=== PATIENT | female | born 1965 ===

== ENCOUNTER 2020-04-30 02:55 | Emergency (ER) | payer OTHER, SELFPAY ==
[2020-04-30 03:03] VITALS: BP 177/92; PULSE 80; RESP 18; TEMP 36.2; O2SAT 97
[2020-04-30 03:33] VITALS: BP 161/88; PULSE 76; RESP 15; TEMP 36.8; O2SAT 98; BMI 37.8
--- NOTE | 2020-04-30 03:47 | CT_ITS ---
EXAMINATION: CT ABDOMEN AND PELVIS WITHOUT CONTRAST CLINICAL INFORMATION: Left flank pain COMPARISON: 10/21/2017 TECHNIQUE: Multidetector volumetric imaging was performed from the superior aspect of the liver through the pubic symphysis. Sagittal and coronal reformatted images were obtained on the technologist's workstation. This CT examination was performed using dose optimization techniques as appropriate, variously including the following: *Automated exposure control *Adjustment of mA and/or kV according to patient size (this includes techniques or standardized protocols for targeted exams where dose is matched to indication/reason for exam; i.e. extremities or head) *Use of iterative reconstruction technique DLP: 760 mGy-cm FINDINGS: LUNG BASES: The visualized lung bases are unremarkable. LIVER, GALLBLADDER, AND BILIARY TREE: The liver is normal in size, shape, and attenuation. No focal hepatic lesion or biliary ductal dilatation is present. The gallbladder is unremarkable with no evidence of radiopaque gallstones, gallbladder wall thickening, or obvious pericholecystic inflammatory changes. PANCREAS: Unremarkable. SPLEEN: Unremarkable. ADRENAL GLANDS: Unremarkable. KIDNEYS AND URETERS: The kidneys are normal in size, shape, and attenuation. No hydronephrosis, hydroureter, or calculi seen. No perinephric stranding. BLADDER: Unremarkable. GASTROINTESTINAL TRACT: Status post William-en-Y gastric bypass. Small hiatal hernia. Normal caliber small bowel. No obstruction. Normal appendix. No colonic wall thickening or inflammatory change. ABDOMINAL WALL: No significant hernia is appreciated. LYMPH NODES: Normal. VASCULAR: Unremarkable. PELVIC VISCERA: The uterus and adnexa are unremarkable. OSSEOUS STRUCTURES: No acute or suspicious osseous abnormality. Evidence of previous left ventral hernia repair. CT/CT abdomen pelvis wo con IMPRESSION: No acute findings in the abdomen or pelvis. No hydronephrosis or nephrolithiasis. No inflammatory changes. Small hiatal hernia.
--- NOTE | 2020-04-30 03:51 | ED.FEMALEGU ---
HPI - Female Genitourinary General Chief complaint: Abdominal Pain Stated complaint: Abd pain Time Seen by Provider: 04/30/20 03:46 History of Present Illness HPI Narrative: This is a 54-year-old female with history of kidney stones who presents with acute onset of left flank pain that started approximately 9:00 p.m. last night and she reports radiates into the anterior aspect of her left abdomen and inguinal region. This is associated with chills that come along with the pain that she describes as sharp and worsening with time. Otherwise, she denies any fevers, nausea, vomiting, but does states she has had urinary frequency and burning. Related Data Home Medications Medication Instructions Recorded Confirmed azelastine 137 mcg (0.1 %) nasal 1 spray INTRANASAL BID 03/28/20 spray aerosol azithromycin 250 mg tablet mg PO DIRECTED 03/28/20 benzonatate 200 mg capsule mg PO 03/28/20 budesonide 0.5 mg/2 mL suspension mg INHALATION 03/28/20 for nebulization epinephrine 0.3 mg/0.3 mL IM 03/28/20 injection, auto-injector ergocalciferol (vitamin D2) 1,250 1,250 mcg PO QWEEK 03/28/20 mcg (50,000 unit) capsule fluticasone propionate 50 INTRANASAL 03/28/20 mcg/actuation nasal spray,suspension ketotifen fumarate 0.025 % (0.035 drp OPHTHALMIC (EYE) 03/28/20 %) eye drops lidocaine 5 % topical patch 0 patch TOPICAL 03/28/20 loratadine 10 mg tablet 10 mg PO DAILY 03/28/20 montelukast 10 mg tablet 10 mg PO DAILY 03/28/20 naproxen 500 mg tablet 500 mg PO BID 03/28/20 ondansetron 4 mg disintegrating mg PO 03/28/20 tablet prednisone 10 mg tablet 10 mg PO BID 03/28/20 tramadol 50 mg tablet 50 mg PO TID PRN 03/28/20 umeclidinium 62.5 mcg/actuation INHALATION 03/28/20 blister powder for inhalation Allergies Allergy/AdvReac Type Severity Reaction Status Date / Time Penicillins [PENICILLINS] Allergy Severe ANAPHYLAXIS Verified 04/30/20 03:42 shellfish derived Allergy Severe ANAPHYLAXIS Verified 04/30/20 03:42 aspirin [ASA] Allergy Unknown ITCHINESS, Verified 04/30/20 03:42 rash sumatriptan [From IMITREX] Allergy Unknown ANAPHYLAXIS, Verified 04/30/20 03:42 VOMITING, vomiting, dyspnea Review of Systems Review of Systems: Pertinent positives and negatives as stated in the HPI and 10 point review systems is otherwise negative. [facility] Past Medical History Source: nursing notes reviewed Medical History Anemia Asthma Kidney stones Surgical History Gastric bypass status for obesity H/O abdominoplasty History of renal stent Social History Social History Alcohol intake: unknown Smoked in Last 30 Days: No Use of substances other than those prescribed or required for medical reasons: No Advance Directives: No Advance Directives Information Provided: No Physical Exam Vital Signs: Vital Signs: Vital Signs Temp Pulse Resp BP Pulse Ox 04/30/20 05:01 67 150/78 H 04/30/20 03:33 98.2 F 76 15 161/88 H 98 04/30/20 03:03 97.2 F 80 18 177/92 H 97 Body Mass Index 37.8 VITAL SIGNS: Reviewed. GENERAL: Well developed, well nourished, in no acute distress. HEAD: Normocephalic/atraumatic, EYES: PERRLA, EOMI intact without pain, no nystagmus/pallor/icterus noted EARS: Ext canals without abnormality, TMs non-bulging and non-erythematous NOSE: Nares patent bilateral OROPHARYNX: no oral lesions noted, posterior pharynx clear and non-erythematous without noted tonsillar enlargement/erythema/exudates NECK: Supple, no adenopathy LUNGS: Normal breath sounds. No adventitious sounds or accessory muscle use. SpO2<97> CARDIOVASCULAR: Regular rate and rhythm without noted murmurs, no JVD or lower extremity edema. ABDOMEN: Soft, non-tender, non-distended with bowel sounds. No rigidity. No guarding. No palpable masses or hernias noted MUSCULOSKELETAL: No tenderness, deformities, or effusions noted on gross inspection. EXTREMITIES: No cyanosis, clubbing or edema. SKIN: Inspection of the skin reveals no rashes, ulcerations, jaundice, pallor, or petechiae. NEUROLOGIC: Alert and oriented x 4. Strength and sensation to light touch were grossly intact x 4. Course Course Course Narrative: This is a 54-year-old female with history and clinical presentation most consistent with likely renal colic and less likely diverticulitis, pyelonephritis Review of all investigations is negative for evidence renal colic, UTI, diverticulitis, SBO,pyelonephritis and patient has had complete resolution of her symptoms after receiving Tylenol. however, suspect that this was likely a very small stone that has passed based on urinalysis presence blood. All results and findings were discussed with the patient at bedside and she was discharged in stable condition with instructions to follow-up with the primary care provider. MDM - Female Genitourinary Lab Data Result diagrams: 04/30/20 Unknown 04/30/20 Unknown Labs: Lab Results 04/30/20 04/30/20 04/30/20 Range/Units 05:03 Unknown Unknown WBC 9.8 (4.8-10.8) X10*3/uL RBC 5.49 (4.20-5.50) X10*6/uL Hgb 14.0 (12.0-16.0) g/dl Hct 44.6 (37-47) % MCV 81.2 (80-98) fL MCH 25.5 L (27.0-33.0) pg MCHC 31.4 (31.0-35.0) g/dl RDW 14.7 (11.0-16.0) % Plt Count 329 (160-400) X10*3/uL MPV 9.8 (9.4-12.3) fL Immature Gran % (Auto) 0.3 (0.0-0.4) % Neut % (Auto) 62.8 (45-73) % Lymph % (Auto) 27.2 (20-40) % Gates % (Auto) 6.8 (2-11) % Eos % (Auto) 1.8 (0-4) % Baso % (Auto) 1.1 (0-2) % Lymph # (Auto) 2.7 (1.2-4.9) X10*3/uL Gates # (Auto) 0.7 (0.1-1.2) X10*3/uL Eos # (Auto) 0.2 (0.0-0.4) X10*3/uL Baso # (Auto) 0.1 (0.0-0.2) X10*3/uL Abs Immat Gran (auto) 0.03 (0.00-0.03) X10*3/uL Absolute Neuts (auto) 6.2 (2.0-8.3) X10*3/uL Absolute Nucleated RBC 0.000 (0.0-0.012) X10*3/uL Nucleated RBC % (auto) 0.0 (0.0-0.2) /100WBC Sodium 140 (135-145) mmol/L Potassium 4.4 (3.3-5.1) mmol/l Chloride 107 (96-108) mmol/L Carbon Dioxide 22 (22-29) mmol/L Anion Gap 15 (12-20) BUN 15 (9-16) mg/dL Creatinine 0.73 (0.5-1.4) mg/dL Estim Creat Clear Calc 85.9 Estimated GFR > 60 Random Glucose 103 (60-115) mg/dL Calcium 8.6 (8.4-10.2) mg/dL Total Bilirubin 0.4 (0.0-1.0) mg/dL AST 19 (5-31) U/L ALT 13 (0-31) U/L Alkaline Phosphatase 109 (39-117) U/L Total Protein 7.3 (6.5-8.0) g/dL Albumin 4.2 (3.5-5.0) g/dL Urine Color DARK YELLOW Urine Appearance HAZY Urine pH 5.5 (5.0-8.0) Ur Specific [place] >= 1.030 H (1.005-1.025) Urine Protein NEG (NEG-TRACE) MG/DL Urine Glucose (UA) NEG (NEG) MG/DL Urine Ketones NEG (NEG) MG/DL Urine Blood 3+ H (NEG) Urine Nitrite NEG (NEG) Ur Leukocyte Esterase NEG (NEG) Urine RBC 10-14 H (0) /HPF Urine WBC 0-2 (0-4) /HPF Ur Squamous Epith Cells 2+ /LPF Urine Bacteria NONE /LPF Urine Mucus 4+ /LPF Discharge Plan Discharge Clinical Impression: Acute flank pain Patient Disposition: Home, Self-Care Instructions: Flank Pain (ED) Additional Instructions: 1. Avoid all caffeinated, carbonated beverages and increase your water intake for the next 24-48 hours. The patient and/or family acknowledge understanding of results (as applicable), diagnosis, treatment plan, need for follow up, and symptoms that should prompt a return to the emergency room. Referrals: Physician,Unknown [Primary Care Provider] - 2 days (Follow-up flank pain)
[2020-04-30 04:06] LABS: Basophils Absolute Auto 0.1 X10*3/uL (0.0-0.2); Basophils Percent Auto 1.1 % (0-2); Eosinophils Absolute Auto 0.2 X10*3/uL (0.0-0.4); Eosinophils Percent Auto 1.8 % (0-4); Hematocrit 44.6 % (37-47); Imm Gran Abs Auto 0.03 X10*3/uL (0.00-0.03); Imm Gran Pct Auto 0.3 % (0.0-0.4); Lymphocytes Absolute Auto 2.7 X10*3/uL (1.2-4.9); Lymphocytes Percent Auto 27.2 % (20-40); MANUAL DIFF FLAG NO; Mean Corpuscular HGB Conc 31.4 g/dl (31.0-35.0); Mean Corpuscular Hemoglobin 25.5 pg (27.0-33.0); Mean Corpuscular Volume 81.2 fL (80-98); Mean Platelet Volume 9.8 fL (9.4-12.3); Monocytes Absolute Auto 0.7 X10*3/uL (0.1-1.2); Monocytes Percent Auto 6.8 % (2-11); Neutrophils Absolute Auto 6.2 X10*3/uL (2.0-8.3); Neutrophils Percent Auto 62.8 % (45-73); Platelet Count 329 X10*3/uL (160-400); Red Blood Count 5.49 X10*6/uL (4.20-5.50); Red Cell Distribution Width 14.7 % (11.0-16.0); White Blood Count 9.8 X10*3/uL (4.8-10.8)
[2020-04-30] MEDS: Acetaminophen 325 MG TABLET 975 MG PO (04:08)
[2020-04-30] MEDS: 0.9 % Sodium Chloride 1,000 ML 1000 ML IV (04:11)
[2020-04-30 04:35] LABS: Alanine Aminotransferase 13 U/L (0-31); Albumin Level 4.2 g/dL (3.5-5.0); Alkaline Phosphatase 109 U/L (39-117); Anion Gap 15 (12-20); Aspartate Amino Transferase 19 U/L (5-31); Bilirubin Total 0.4 mg/dL (0.0-1.0); Blood Urea Nitrogen 15 mg/dL (9-16); Calcium 8.6 mg/dL (8.4-10.2); Carbon Dioxide 22 mmol/L (22-29); Chloride 107 mmol/L (96-108); Creatinine Clr Calc Pharmacy 85.9; Estimated Glomerular Filt Rate > 60; Glucose Random 103 mg/dL (60-115); Potassium 4.4 mmol/l (3.3-5.1); Sodium 140 mmol/L (135-145); Total Protein 7.3 g/dL (6.5-8.0)
[2020-04-30 05:01] VITALS: BP 150/78; PULSE 67
[2020-04-30 05:21] LABS: Appearance Urine HAZY; Color Urine DARK YELLOW; Glucose Urine UA NEG (NEG); Leukocyte Esterase Urine NEG (NEG); Nitrite Urine NEG (NEG); PH 5.5 (5.0-8.0); Specific Gravity - Urine >= 1.030 (1.005-1.025); Urine Blood 3+ (NEG); Urine Ketones NEG (NEG); Urine Protein NEG (NEG-TRACE)
[2020-04-30 05:27] LABS: Mucus Urine 4+ /LPF; Squamous Epithelial Cell Urine 2+ /LPF; WBC Urine 0-2 /HPF (0-4)
--- NOTE | 2020-04-30 05:50 | PC.NURSE ---
PT A&O, DENIES ANY SOB OR CHEST PAIN. PT REPORTS FEELING BETTER. MEDICATED PER MAR.
== END 2020-04-30 06:05 | disposition home or self-care (01) ==
PROVIDERS: Emergency Provider Student in an Organized Health Care Education/Training Program
DX: R10.2 Pelvic and perineal pain (principal); R10.9 Unspecified abdominal pain; Z98.84 Bariatric surgery status; Z79.899 Other long term (current) drug therapy
CPT/HCPCS: 36415; 74176; 80053; 81001; 85025; 96360; 99284

== ENCOUNTER → 2020-08-04 15:23 | Outpatient (BNV) | payer OTHER, SELFPAY | PROVIDERS: PCP Internal Medicine; Visit Provider Internal Medicine Medical Oncology | DX: D50.9 Iron deficiency anemia, unspecified (principal) | CPT/HCPCS: 99212; 99213 ==

== ENCOUNTER → 2020-08-17 09:11 | Outpatient (BNVA) | payer OTHER, SELFPAY | PROVIDERS: PCP Internal Medicine; Visit Provider Hospitalist | DX: J44.9 Chronic obstructive pulmonary disease, unspecified (principal); J30.9 Allergic rhinitis, unspecified; T78.40XD Allergy, unspecified, subsequent encounter | CPT/HCPCS: 99212 ==

== ENCOUNTER 2020-09-12 09:10 | Outpatient (REF) | payer OTHER, SELFPAY ==
[2020-09-12 09:53] LABS: MANUAL DIFF FLAG NO
[2020-09-12 09:55] LABS: Basophils Absolute Auto 0.1 X10*3/uL (0.0-0.2); Eosinophils Absolute Auto 0.3 X10*3/uL (0.0-0.4); Eosinophils Percent Auto 4.6 % (0-4); Hematocrit 43.5 % (37-47); Hemoglobin 13.3 g/dl (12.0-16.0); Imm Gran Abs Auto 0.02 X10*3/uL (0.00-0.03); Imm Gran Pct Auto 0.3 % (0.0-0.4); Lymphocytes Absolute Auto 2.1 X10*3/uL (1.2-4.9); Lymphocytes Percent Auto 30.3 % (20-40); Mean Corpuscular HGB Conc 30.6 g/dl (31.0-35.0); Mean Corpuscular Hemoglobin 25.1 pg (27.0-33.0); Mean Corpuscular Volume 82.1 fL (80-98); Mean Platelet Volume 9.7 fL (9.4-12.3); Monocytes Absolute Auto 0.5 X10*3/uL (0.1-1.2); Monocytes Percent Auto 7.8 % (2-11); Neutrophils Absolute Auto 3.9 X10*3/uL (2.0-8.3); Platelet Count 342 X10*3/uL (160-400); Red Cell Distribution Width 15.3 % (11.0-16.0); White Blood Count 6.9 X10*3/uL (4.8-10.8)
[2020-09-12 10:17] LABS: Alanine Aminotransferase 21 U/L (0-31); Albumin Level 4.3 g/dL (3.5-5.0); Alkaline Phosphatase 118 U/L (39-117); Anion Gap 14 (12-20); Aspartate Amino Transferase 21 U/L (5-31); Bilirubin Total 0.4 mg/dL (0.0-1.0); Blood Urea Nitrogen 13 mg/dL (9-16); Calcium 9.3 mg/dL (8.4-10.2); Carbon Dioxide 27 mmol/L (22-29); Chloride 106 mmol/L (96-108); Cholesterol 194 mg/dL; Estimated Glomerular Filt Rate > 60; Glucose Fasting 103 mg/dL (60-99); HDL Cholesterol 56 mg/dL; Iron 45 mcg/dL (30-160); LDL Cholesterol Calculated 113 mg/dl; Percent Iron Saturation 10 % (15-50); Potassium 4.5 mmol/L (3.3-5.1); Sodium 142 mmol/L (135-145); Total Iron Binding Capacity 442 mcg/dL (228-428); Total Protein 7.1 g/dL (6.5-8.0); Triglycerides 125 mg/dL; Unsaturated Iron Binding 397 ug/dL
[2020-09-12 10:37] LABS: TSH reflex Free T4 2.92 uIU/mL (0.32-4.0); Vitamin D 25-OH Total 28.5 ng/mL (>30)
[2020-09-12 10:49] LABS: Glucose Urine UA NEG (NEG); Leukocyte Esterase Urine NEG (NEG); Nitrite Urine NEG (NEG); PH 5.5 (5.0-8.0); Specific Gravity - Urine >= 1.030 (1.005-1.025); Urine Blood NEG (NEG); Urine Ketones NEG (NEG); Urine Protein NEG (NEG-TRACE)
[2020-09-12 11:00] LABS: Appearance Urine HAZY; Color Urine YELLOW
[2020-09-12 11:17] LABS: RBC Urine 0-2 /HPF (0); WBC Urine 0-2 /HPF (0-4)
[2020-09-12 11:18] LABS: Bacteria Urine TRACE /LPF; Mucus Urine 2+ /LPF; Squamous Epithelial Cell Urine 3+ /LPF
== END 2020-09-12 09:11 | disposition home or self-care (01) ==
LOC: HO.LAB 09:10
PROVIDERS: PCP Internal Medicine; Visit Provider Internal Medicine
DX: Z00.00 Encounter for general adult medical examination without abnormal findings (principal); J45.40 Moderate persistent asthma, uncomplicated; E66.9 Obesity, unspecified; D50.9 Iron deficiency anemia, unspecified; K21.9 Gastro-esophageal reflux disease without esophagitis; E55.9 Vitamin D deficiency, unspecified
CPT/HCPCS: 36415; 80053; 80061; 81001; 82306; 83540; 84443; 85025

== ENCOUNTER → 2020-12-19 09:34 | Outpatient (BNVA) | payer OTHER, SELFPAY | PROVIDERS: PCP Internal Medicine; Visit Provider Hospitalist | DX: J44.9 Chronic obstructive pulmonary disease, unspecified (principal); T78.40XD Allergy, unspecified, subsequent encounter; J30.9 Allergic rhinitis, unspecified; K21.9 Gastro-esophageal reflux disease without esophagitis; Z79.899 Other long term (current) drug therapy | CPT/HCPCS: 99212 ==

== ENCOUNTER 2021-03-22 10:46 | Outpatient (REF) | payer OTHER, SELFPAY ==
--- NOTE | ~2021-03-22 | XR_ITS ---
EXAMINATION: XR LUMBOSACRAL SPINE CLINICAL INFORMATION: Low back pain. COMPARISON: None TECHNIQUE: Three views of the lumbosacral spine. FINDINGS: There is normal lumbar lordosis. The vertebral heights and alignment is normal. Mild loss of L5-S1 disc height is seen. There is no visible acute fracture, dislocation or lytic process seen. The soft tissues are normal. The SI joints are symmetrical. No fracture or lytic process seen. XR/XR lumbar spine 2-3V IMPRESSION: Mild degenerative disc changes L5-S1 disc level. No visible acute fracture, dislocation or subluxation seen.
== END 2021-03-22 10:47 | disposition home or self-care (01) ==
LOC: HO.XRAY 10:46
PROVIDERS: PCP Internal Medicine; Visit Provider Internal Medicine
DX: M54.5 Low back pain (principal)
CPT/HCPCS: 72100

== ENCOUNTER → 2021-04-07 10:57 | Outpatient (BNVA) | payer OTHER, SELFPAY | PROVIDERS: PCP Internal Medicine; Visit Provider Hospitalist | DX: J44.9 Chronic obstructive pulmonary disease, unspecified (principal); T78.40XD Allergy, unspecified, subsequent encounter; J30.9 Allergic rhinitis, unspecified; K21.9 Gastro-esophageal reflux disease without esophagitis | CPT/HCPCS: 90686; 99212 ==

== ENCOUNTER 2021-11-10 09:43 | Outpatient (REF) | payer OTHER, SELFPAY ==
[2021-11-10 10:09] LABS: MANUAL DIFF FLAG NO
[2021-11-10 10:39] LABS: Basophils Absolute Auto 0.1 X10*3/uL (0.0-0.2); Basophils Percent Auto 0.9 % (0-2); Eosinophils Absolute Auto 0.3 X10*3/uL (0.0-0.4); Eosinophils Percent Auto 3.4 % (0-4); Hematocrit 40.8 % (37.0-47.0); Hemoglobin 12.7 g/dl (12.0-16.0); Imm Gran Abs Auto 0.01 X10*3/uL (0.00-0.03); Imm Gran Pct Auto 0.1 % (0.0-0.4); Lymphocytes Absolute Auto 2.7 X10*3/uL (1.2-4.9); Lymphocytes Percent Auto 30.3 % (20-40); Mean Corpuscular HGB Conc 31.1 g/dl (31.0-35.0); Mean Corpuscular Hemoglobin 24.3 pg (27.0-33.0); Monocytes Absolute Auto 0.4 X10*3/uL (0.1-1.2); Neutrophils Absolute Auto 5.3 x10*3/uL (2.0-8.3); Neutrophils Percent Auto 60.3 % (45-73); Platelet Count 401 X10*3/uL (160-400); Red Blood Count 5.23 X10*6/uL (4.20-5.50); Red Cell Distribution Width 15.4 % (11.0-16.0); White Blood Count 8.8 X10*3/uL (4.8-10.8)
[2021-11-10 11:00] LABS: Alanine Aminotransferase 20 U/L (0-31); Albumin Level 4.1 g/dL (3.5-5.0); Alkaline Phosphatase 113 U/L (39-117); Anion Gap 11 (12-20); Aspartate Amino Transferase 21 U/L (5-31); Bilirubin Total 0.3 mg/dL (0.0-1.0); Blood Urea Nitrogen 12 mg/dL (9-16); Calcium 9.6 mg/dL (8.4-10.2); Carbon Dioxide 22 mmol/L (22-29); Chloride 110 mmol/L (96-108); Cholesterol 196 mg/dL; Estimated Glomerular Filt Rate > 60; Glucose Fasting 96 mg/dL (60-99); HDL Cholesterol 54 mg/dL; LDL Cholesterol Calculated 111 mg/dl; Potassium 4.2 mmol/L (3.3-5.1); Sodium 139 mmol/L (135-145); Total Protein 7.2 g/dL (6.5-8.0); Triglycerides 159 mg/dL
[2021-11-10 11:22] LABS: TSH reflex Free T4 2.04 uIU/mL (0.32-4.0); Vitamin D 25-OH Total 27.8 ng/mL (>30)
[2021-11-10 12:13] LABS: Appearance Urine CLEAR; Color Urine YELLOW; Glucose Urine UA NEG (NEG); Leukocyte Esterase Urine NEG (NEG); Nitrite Urine NEG (NEG); Specific Gravity - Urine 1.025 (1.005-1.025); Urine Blood NEG (NEG); Urine Ketones NEG (NEG); Urine Protein NEG (NEG-TRACE)
== END 2021-11-10 09:44 | disposition home or self-care (01) ==
LOC: HO.LAB 09:43
PROVIDERS: PCP Internal Medicine; Visit Provider Internal Medicine
DX: Z00.00 Encounter for general adult medical examination without abnormal findings (principal); K21.9 Gastro-esophageal reflux disease without esophagitis; E66.9 Obesity, unspecified; E55.9 Vitamin D deficiency, unspecified; J44.9 Chronic obstructive pulmonary disease, unspecified
CPT/HCPCS: 36415; 80053; 80061; 81003; 82306; 84443; 85025

== ENCOUNTER → 2021-11-21 11:30 | Outpatient (BNVA) | payer OTHER, SELFPAY | PROVIDERS: PCP Internal Medicine; Referring Provider Internal Medicine; Visit Provider Nurse Practitioner | DX: Z01.818 Encounter for other preprocedural examination (principal) | CPT/HCPCS: 99202 ==

== ENCOUNTER → 2021-11-28 07:55 | Outpatient (BNVA) | payer OTHER, SELFPAY | PROVIDERS: PCP Internal Medicine; Visit Provider Hospitalist | DX: Z23 Encounter for immunization (principal); J44.9 Chronic obstructive pulmonary disease, unspecified; J30.9 Allergic rhinitis, unspecified; K21.9 Gastro-esophageal reflux disease without esophagitis; T78.40XD Allergy, unspecified, subsequent encounter | CPT/HCPCS: 90471; 90732; 99212 ==

== ENCOUNTER → 2022-06-04 09:05 | Outpatient (BNVA) | payer OTHER, SELFPAY | PROVIDERS: PCP Internal Medicine; Visit Provider Hospitalist | DX: J44.9 Chronic obstructive pulmonary disease, unspecified (principal); T78.40XD Allergy, unspecified, subsequent encounter; J30.9 Allergic rhinitis, unspecified; K21.9 Gastro-esophageal reflux disease without esophagitis; Z79.899 Other long term (current) drug therapy; Z23 Encounter for immunization | CPT/HCPCS: 90471; 90677; 99212 ==

== ENCOUNTER 2022-08-02 10:24 | Outpatient (REF) | payer OTHER, SELFPAY ==
--- NOTE | ~2022-08-02 | XR_ITS ---
EXAMINATION: XR SHOULDER, RIGHT CLINICAL INFORMATION: Pain in right shoulder COMPARISON: X-ray the right shoulder December 2018 TECHNIQUE: AP external rotation, Grashey, scapular Y, and axillary views of the right shoulder. FINDINGS: The bones and soft tissues are normal. No fracture. Glenohumeral and acromioclavicular alignment is anatomic with normal joint space. No abnormal soft tissue calcifications. XR/XR shoulder RT min 2V IMPRESSION: Normal right shoulder.
== END 2022-08-02 10:25 | disposition home or self-care (01) ==
LOC: HO.XRAY 10:24
PROVIDERS: PCP Internal Medicine; Visit Provider Nurse Practitioner Family
DX: M25.511 Pain in right shoulder (principal)
CPT/HCPCS: 73030

== ENCOUNTER 2022-09-07 15:56 | Outpatient (REF) | payer OTHER, SELFPAY ==
--- NOTE | ~2022-09-07 | XR_ITS ---
EXAMINATION: XR SHOULDER, RIGHT CLINICAL INFORMATION: 57-year-old female patient with right shoulder pain. COMPARISON: X-rays of the right shoulder on 08/02/2022. (Normal). TECHNIQUE: Three views of the right shoulder. FINDINGS: The bones and soft tissues are normal. No fracture. Glenohumeral and acromioclavicular alignment is anatomic with normal joint space. No abnormal soft tissue calcifications. XR/XR shoulder RT min 2V IMPRESSION: Normal right shoulder.
== END 2022-09-07 15:57 | disposition home or self-care (01) ==
LOC: HO.HOSX 15:56
PROVIDERS: Visit Provider Physician Assistant
DX: M75.101 Unspecified rotator cuff tear or rupture of right shoulder, not specified as traumatic (principal)
CPT/HCPCS: 73030; 99202

== ENCOUNTER → 2022-12-07 09:17 | Outpatient (BNVA) | payer OTHER, SELFPAY | PROVIDERS: PCP Internal Medicine; Visit Provider Hospitalist | DX: J44.9 Chronic obstructive pulmonary disease, unspecified (principal); J30.9 Allergic rhinitis, unspecified; K21.9 Gastro-esophageal reflux disease without esophagitis; T78.40XD Allergy, unspecified, subsequent encounter | CPT/HCPCS: 99212 ==

== ENCOUNTER → 2022-12-14 08:17 | Outpatient (BNVA) | payer OTHER, SELFPAY | PROVIDERS: PCP Internal Medicine; Visit Provider Physician Assistant | DX: M75.101 Unspecified rotator cuff tear or rupture of right shoulder, not specified as traumatic (principal) | CPT/HCPCS: 99212 ==

== ENCOUNTER 2022-12-27 11:52 | Outpatient (REF) | payer OTHER, SELFPAY ==
--- NOTE | ~2022-12-27 | XR_ITS ---
EXAMINATION: XR CHEST 2 VIEWS CLINICAL INFORMATION: COPD. COMPARISON: Radiographs dated 01/07/2020. TECHNIQUE: Frontal and lateral views of the chest were obtained. FINDINGS: The heart, great vessels, pulmonary vasculature and mediastinum are normal. The lungs show no focal infiltrate, effusion or pneumothorax. There is no acute osseous abnormality. Orthopedic anchors are applied to the left humeral head. XR/XR chest 2V IMPRESSION: No active cardiopulmonary disease.
--- NOTE | ~2022-12-27 | XR_ITS ---
EXAMINATION: XR HIP, LEFT CLINICAL INFORMATION: Pain. COMPARISON: None available. TECHNIQUE: AP and frog-leg lateral views of the left hip. FINDINGS: No fracture. Alignment is anatomic. Hip joint space is maintained. Soft tissues are unremarkable. XR/XR hip LT min 2V IMPRESSION: Normal left hip.
== END 2022-12-27 11:53 | disposition home or self-care (01) ==
LOC: HO.XRAY 11:52
PROVIDERS: PCP Internal Medicine; Visit Provider Hospitalist
DX: M25.552 Pain in left hip (principal); J44.9 Chronic obstructive pulmonary disease, unspecified
CPT/HCPCS: 71046; 73502

== ENCOUNTER 2023-01-07 11:34 | Outpatient (AMB) | payer OTHER, SELFPAY ==
--- NOTE | 2023-01-07 11:54 | MHC.OFFWIV ---
Intake Vital Signs 01/07/23 11:55 Height 5 ft BP 120/70 Blood Pressure Location Lt brachial Position Sitting Pulse 91 Pulse Source Pulse Oximeter Temp 97.4 F Temp Source Temporal Artery Scan Pulse Oximetry (%) 95 Oxygen Delivery Method Room Air Intake Visit Reasons: EP, Sinus, SOB, Sore throat [phone] Intake Note: Triaged pt in waiting room due to complaining of SOB. Pt in no acute distress. Explains she has had a sinus infection for about 2 days, coming in today due to increased use of nebulizer and inhalers and no relief from OTC medications. Patient Tobacco Use Status: Never used Tobacco Allergies aspirin [ASA] Allergy (Severe, Verified 01/07/23 13:41) ITCHINESS, rash Penicillins [PENICILLINS] Allergy (Severe, Verified 01/07/23 13:41) ANAPHYLAXIS shellfish derived Allergy (Severe, Verified 01/07/23 13:41) ANAPHYLAXIS sumatriptan [From IMITREX] Allergy (Unknown, Verified 01/07/23 13:41) ANAPHYLAXIS, VOMITING, vomiting, dyspnea Medication List - Last Reconciled 01/07/23 by Mahendra Geiger MD albuterol sulfate 2.5 mg (3 mL) inhalation QID PRN 30 days [BACK BRACE As directed] benzonatate 200 mg PO BID PRN 30 days benzonatate 200 mg PO BID PRN 30 days blood pressure monitor As directed diclofenac sodium 3% 1 appl topical BID 90 days epinephrine 0.3 mg (0.3 mL) IM DAILY PRN 30 days ergocalciferol (vitamin D2) 1,250 mcg PO QWEEK fluticasone furoate-vilanterol 200-25 mcg/dose (Breo Ellipta) 1 inh inhalation DAILY 90 days ggjwpqkivcb-odvwbdkvp-womyhpor 200-62.5-25 mcg (Trelegy Ellipta) 1 inh inhalation DAILY 90 days furosemide 20 mg PO QAM PRN ipratropium-albuterol 0.5 mg-3 mg(2.5 mg base)/3 mL 3 mL inhalation BID 90 days ketotifen fumarate 0.025%(0.035%) ([place]) 1 drp ophthalmic (eye) BID levalbuterol tartrate 45 mcg/actuation (Xopenex HFA) 2 puffs PO Q6H PRN 90 days lidocaine 5% 1 patch topical DAILY PRN 30 days loratadine 10 mg PO DAILY 90 days montelukast (Singulair) 10 mg PO DAILY 90 days naproxen 500 mg PO BID PRN omeprazole 40 mg PO QAM 30 days ondansetron 4 mg PO BID-TID PRN 30 days roflumilast (Daliresp) 500 mcg PO DAILY 90 days terbinafine HCl 250 mg PO DAILY tizanidine 2 mg PO Q8H PRN tramadol 50 mg PO TID PRN 10 days umeclidinium 62.5 mcg/actuation (Incruse Ellipta) 1 inh PO DAILY venlafaxine ER (Effexor XR) 37.5 mg PO DAILY Do you need a note to return to daycare/school/sports/work: No HPI EP, Sinus, SOB, Sore throat [phone] HPI Details Patient presents for a sick visit. Reporting symptoms of sinus congestion, sore throat and difficulty swallowing. Low-grade fever. No family member is sick. No recent travel. Patient reports symptoms of malaise and fatigue. [facility] Medical History (Updated 01/07/23 @ 13:42 by Mahendra Geiger MD) Anemia Asthma Asthma-COPD overlap syndrome Chronic allergic rhinitis Edema GERD without esophagitis Kidney stones Migraines Obesity (BMI 30-39.9) Osteoarthritis Primary osteoarthritis of left knee Severe allergic reaction Vitamin D deficiency Surgical History (Updated 09/21/22 @ 09:43 by Arnoldo Powers MD) H/O abdominoplasty H/O section History of bilateral tubal ligation History of renal stent Hx of gastric bypass (~2006) Hx of rotator cuff surgery (~2017) Hx of ventral hernia repair Family History Father History of heart surgery Hx of blood clots Mother Heart problem Paternal Grandfather Skin cancer Social History Household Members: Children Housing: Apartment Are you a primary urgent care technician to a significant other at home: No Do you presently have visiting nurse or other home services: No Alcohol intake: current Alcohol intake frequency: a few times a month Alcohol type: wine Patient Tobacco Use Status: Never used Tobacco e-Cigarette/Vaping Use: Never Used Second Hand Smoke Exposure: No service: No Current occupational status: unemployed Cognitive needs: No Hearing needs: No Vision needs: No Physical Exam Vital Signs: Last Vital Signs Temp 97.4 F 01/07/23 11:55 Pulse 91 01/07/23 11:55 BP 120/70 01/07/23 11:55 Pulse Ox 95 01/07/23 11:55 Oxygen Delivery Method Room Air 01/07/23 11:55 Const General: cooperative and healthy appearing Nutritional Appearance: well nourished Orientation/consciousness: patient oriented x3 Limitations: no limitations HEENT Head: Yes normal to inspection Eyes General: appearance normal, both eyes and all related structures Neck Neck: Yes normal visual inspection Chest Chest palpation & inspection: normal palpation of entire chest wall Resp Effort & Inspection: normal respiratory effort Neuro General: patient oriented x3 Assessment & Plan Assessment & Plan (1) Upper respiratory tract infection: Code(s): J06.9 - Acute upper respiratory infection, unspecified Plan: Antibiotics ordered. Increase fluid intake. Tylenol for aches and pains. If symptoms worsen, follow-up here for a recheck. Coding Level of Care Code Est Pt Level 3 (70695) Diagnoses Upper respiratory tract infection J06.9
[2023-01-07 11:55] VITALS: BP 120/70; PULSE 91; TEMP 36.3; O2SAT 95
== END 2023-01-07 14:07 | disposition home or self-care (01) ==
PROVIDERS: PCP Internal Medicine; Visit Provider Internal Medicine
DX: J06.9 Acute upper respiratory infection, unspecified (principal)
CPT/HCPCS: 99213

== ENCOUNTER 2023-01-22 09:51 | Outpatient (AMB) | payer OTHER, SELFPAY ==
--- NOTE | 2023-01-22 10:49 | AM.OFFWIN_ITS ---
Intake Vital Signs 01/22/23 10:52 BP 130/90 H Blood Pressure Location Lt brachial Position Sitting Pulse 80 Pulse Source Pulse Oximeter Temp 97.7 F Temp Source Temporal Artery Scan Pulse Oximetry (%) 98 Oxygen Delivery Method Room Air Intake Visit Reasons: EP, Sore throat, nasal congestion (masked, lobby) Intake Note: Patient here as she has been having nasal congestion for about 2 weeks, now she has developed a sore throat and gets fevers at night. she also mentioned she has a cough and when she starts to cough she has a hard time catching her breathe since she is asthmatic. Patient Tobacco Use Status: Never used Tobacco Allergies aspirin [ASA] Allergy (Severe, Verified 01/22/23 10:52) ITCHINESS, rash Penicillins [PENICILLINS] Allergy (Severe, Verified 01/22/23 10:52) ANAPHYLAXIS shellfish derived Allergy (Severe, Verified 01/22/23 10:52) ANAPHYLAXIS sumatriptan [From IMITREX] Allergy (Unknown, Verified 01/22/23 10:52) ANAPHYLAXIS, VOMITING, vomiting, dyspnea Do you need a note to return to daycare/school/sports/work: No HPI HPI Comments History of Present Illness Details 57-year-old female presents with recurrent upper respiratory symptoms, states that her right side of neck the nose is tender and irritated, and that she has a sore throat. These are new symptoms since her visit on 01/07/2023, stated that she did take the Z-Jose with good effect. She does not report measured fevers, denies chills, chest pressure, palpitations, nausea, vomiting, and weakness. [facility] Medical History Anemia Asthma Asthma-COPD overlap syndrome Chronic allergic rhinitis Edema GERD without esophagitis Kidney stones Migraines Obesity (BMI 30-39.9) Osteoarthritis Primary osteoarthritis of left knee Severe allergic reaction Vitamin D deficiency Surgical History H/O abdominoplasty H/O section History of bilateral tubal ligation History of renal stent Hx of gastric bypass (~2006) Hx of rotator cuff surgery (~2017) Hx of ventral hernia repair Family History Father History of heart surgery Hx of blood clots Mother Heart problem Paternal Grandfather Skin cancer Social History Household Members: Children Housing: Apartment Are you a primary patient care secretary to a significant other at home: No Do you presently have visiting nurse or other home services: No Alcohol intake: current Alcohol intake frequency: a few times a month Alcohol type: wine Patient Tobacco Use Status: Never used Tobacco e-Cigarette/Vaping Use: Never Used Second Hand Smoke Exposure: No service: No Current occupational status: unemployed Cognitive needs: No Hearing needs: No Vision needs: No Review of Systems Const Details: Constitutional: No Fever, No Chills ENT/Mouth: No Ear Pain, positive Hoarseness, positive sore throat, positive nasal congestion Eyes: No Eye Pain, No Swelling, No Redness, No Foreign Body Cardiovascular: No Chest Pain, No SOB Respiratory: Positive Cough, No Dyspnea Gastrointestinal: No Nausea, No Vomiting, No Diarrhea, No abdominal Pain Genitourinary: No Dysuria, No Hematuria Musculoskeletal: No joint pain, No Myalgias, No Joint Swelling Skin: No Skin lacerations, No rash All systems reviewed & are unremarkable except as noted in HPI and below Physical Exam Vital Signs: Last Vital Signs Temp 97.7 F 01/22/23 10:52 Pulse 80 01/22/23 10:52 BP 130/90 H 01/22/23 10:52 Pulse Ox 98 01/22/23 10:52 Oxygen Delivery Method Room Air 01/22/23 10:52 Appearance: Alert. Oriented X3. Mild distress. Eyes: Pupils equal, round and reactive to light. ENT: Pharynx erythematous, bilateral tonsillar swelling with exudates. Centor scale 2. No cervical lymphadenopathy. No mastoid tenderness. No nuchal rigidity. No indication of peritonsillar abscess or epiglottitis. Naris red to the right side with rhinorrhea and boggy turbinates. Neck: Normal inspection. Neck supple. No vertebral tenderness or step-offs. No meningeal signs. CVS: Normal heart rate and rhythm. Pulses normal. Respiratory: No respiratory distress. Expiratory wheezing noted. Skin: Skin warm and dry. Normal skin color. Normal skin turgor. Extremities: No lower extremity edema. Gait well balanced well coordinated. Neuro: No motor deficit. No sensory deficit. Cranial nerves 2-12 intact. Results AMB Rapid Strep AMB Rapid Strep Negative Last Edit by ZIGGY Mckinney on 01/22/23 11:04 Results Reviewed Results Reviewed: Laboratory Last Values Strep Scn [facility] Negative 01/22/23 11:03 Assessment & Plan Assessment & Plan (1) Upper respiratory tract infection: Code(s): J06.9 - Acute upper respiratory infection, unspecified Plan 57-year-old female presents with recurrent upper respiratory symptoms, states that her right side of neck the nose is tender and irritated, and that she has a sore throat. These are new symptoms since her visit on 01/07/2023, stated that she did take the Z-Jose with good effect. She does not report measured fevers, denies chills, chest pressure, palpitations, nausea, vomiting, and weakness. Patient appears tired, has expiatory wheezing, pharyngitis with tonsillar exudates, Centor scale 2, no posterior or anterior cervical lymphadenopathy noted. Reddened naris to the right side with rhinorrhea and boggy terminates. Notation of peritonsillar abscess or epiglottitis. No nuchal rigidity. No mastoid tenderness. Imaging is not indicated, patient does have scattered expiratory wheezing, no tactile fremitus. Low likelihood of pneumonia, patient does have stable vital signs that are within normal limits, is alert oriented x4, nontoxic and afebrile. Was treated with antibiotics on 01/07/2023 for similar presentation. Considering that is patient has significant respiratory issues, and is followed by pulmonology on a regular basis, for asthma COPD overlap syndrome, plan of care to treat with an antibiotic. Will treat with Bactrim DS for 5 days. Patient verbalized understanding of discharge instructions. Verbalized understandings of signs and symptoms indicating need for emergent intervention. Orders: Orders SARS-CoV2/FLU/RSV Today R09.89 - Other specified symptoms and signs involving the circulatory and respiratory systems Caitlyn Howe NP AMB Rapid Strep Screen Today Z13.9 - Encounter for screening, unspecified Mahendra Geiger MD Medications: New sulfamethoxazole-trimethoprim 800-160 mg (Bactrim DS) 1 tab PO Q12H 10 tabs 0RF 5 days Caitlyn Howe NP Patient Instructions: Usted fue evaluado por s?ntomas continuos de las v?as respiratorias superiores, con dolor de garganta e irritaci?n de la nariz del lado derecho. Utilice un aerosol nasal de soluci?n salina para ayudar con la humedad. [place] Bactrim DS cada 12 horas catherine los pr?ximos 5 d?as. Angelita medicamento es un antibi?kacey. [place] Tylenol 650 mg cada 6 horas y Motrin 600 mg cada 6 horas seg?n sea necesario para controlar el dolor y la fiebre. Considere ericka estos medicamentos con 3 horas de diferencia para controlar el dolor y la fiebre cada 3 horas. Anote a qu? hora yakelin estos medicamentos para evitar catalina sobredosis accidental. Motrin es el mismo medicamento que Advil e ibuprofeno. Tylenol es el mismo medicamento que el paracetamol. [place] por elegir esta atenci?n de urgencia para [place] evaluaci?n. Por favor, thien un seguimiento con el m?dico de atenci?n primaria seg?n sea necesario. Regrese al departamento de emergencias por cualquier s?ntoma nuevo, preocupante o que empeore. You were evaluated for continuing upper respiratory symptoms, with sore throat and right-sided nose irritation. Please use saline nasal spray to help with moisture. Take Bactrim DS every 12 hours for the next 5 days. This medication is an antibiotic. Alternate Tylenol 650 mg every 6 hours and Motrin 600 mg every 6 hours as needed for pain and fever management. Consider taking these medications 3 hours apart so you have pain and fever management every 3 hours. Write down what time you take these medications to prevent accidental overdose. Motrin is the same medication as Advil and ibuprofen. Tylenol is the same medication as acetaminophen. Thank you for choosing this urgent care for evaluation. Please follow-up with primary care physician as needed. Return to the emergency department for any new, concerning, or worsening symptoms. Coding Level of Care Code Est Pt Level 3 (21325) Diagnoses Upper respiratory tract infection J06.9
[2023-01-22 10:52] VITALS: BP 130/90; PULSE 80; TEMP 36.5; O2SAT 98
== END 2023-01-22 13:36 | disposition home or self-care (01) ==
PROVIDERS: PCP Internal Medicine; Visit Provider Nurse Practitioner Family
DX: J06.9 Acute upper respiratory infection, unspecified (principal); J02.9 Acute pharyngitis, unspecified
CPT/HCPCS: 87880; 99213

== ENCOUNTER 2023-01-22 11:26 | Outpatient (REF) | payer OTHER, SELFPAY ==
[2023-01-22 14:31] LABS: Influenza A PCR NEGATIVE (Negative); Influenza B PCR NEGATIVE (Negative); Resp Syncy Virus RNA Qual PCR NEGATIVE (Negative); SARS COV2 PCR INHOUSE NEGATIVE (Negative)
== END 2023-01-22 11:27 | disposition home or self-care (01) ==
LOC: HO.LAB 11:26
PROVIDERS: Visit Provider Nurse Practitioner Family
DX: Z20.822 Contact with and (suspected) exposure to COVID-19 (principal); R09.89 Other specified symptoms and signs involving the circulatory and respiratory systems
CPT/HCPCS: 0241U

== ENCOUNTER 2023-01-31 09:39 | Outpatient (AMB) | payer OTHER, SELFPAY ==
--- NOTE | 2023-01-31 09:41 | MHC.PC.OV ---
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: No Accompanied by: Self / Same As Patient Allergies aspirin [ASA] Allergy (Severe, Verified 01/31/23 10:17) ITCHINESS, rash Penicillins [PENICILLINS] Allergy (Severe, Verified 01/31/23 10:17) ANAPHYLAXIS shellfish derived Allergy (Severe, Verified 01/31/23 10:17) ANAPHYLAXIS sumatriptan [From IMITREX] Allergy (Unknown, Verified 01/31/23 10:17) ANAPHYLAXIS, VOMITING, vomiting, dyspnea Medication List - Last Reconciled 01/31/23 by Arnoldo Powers MD albuterol sulfate 2.5 mg (3 mL) inhalation QID PRN 30 days [BACK BRACE As directed] benzonatate 200 mg PO BID PRN 30 days benzonatate 200 mg PO BID PRN 30 days blood pressure monitor As directed diclofenac sodium 3% 1 appl topical BID 90 days epinephrine 0.3 mg (0.3 mL) IM DAILY PRN 30 days ergocalciferol (vitamin D2) 1,250 mcg PO QWEEK fluticasone furoate-vilanterol 200-25 mcg/dose (Breo Ellipta) 1 inh inhalation DAILY 90 days sjfnhtqgobo-djshyeqcw-aaxkmfii 200-62.5-25 mcg (Trelegy Ellipta) 1 inh inhalation DAILY 90 days furosemide 20 mg PO QAM PRN ipratropium-albuterol 0.5 mg-3 mg(2.5 mg base)/3 mL 3 mL inhalation BID 90 days ketotifen fumarate 0.025%(0.035%) ([place]away) 1 drp ophthalmic (eye) BID levalbuterol tartrate 45 mcg/actuation (Xopenex HFA) 2 puffs PO Q6H PRN 90 days lidocaine 5% 1 patch topical DAILY PRN 30 days loratadine 10 mg PO DAILY 90 days montelukast (Singulair) 10 mg PO DAILY 90 days naproxen 500 mg PO BID PRN omeprazole 40 mg PO QAM 30 days ondansetron 4 mg PO BID-TID PRN 30 days roflumilast (Daliresp) 500 mcg PO DAILY 90 days terbinafine HCl 250 mg PO DAILY tizanidine 2 mg PO Q8H PRN tramadol 50 mg PO TID PRN 10 days umeclidinium 62.5 mcg/actuation (Incruse Ellipta) 1 inh PO DAILY venlafaxine ER (Effexor XR) 37.5 mg PO DAILY Tobacco use date assessed: 01/31/23 Dental Screening Dental Screen Date: 01/31/23 Did you have a dental visit in the last 12 months?: Yes Did you have a dental problem in the last 6 months where you did not have access to dental care?: No Was dental information given to patient?: Patient has dentist HPI asthma, migraine HPI Details Patient comes in today for her follow up visit States that she just finished her Rx for Bactrim DS that was recently prescribed for her by the walk-in clinic when she presented there for some respiratory symptoms last week (was also prescribed Azithromycin at the walk-in earlier last month for similar complaints) States that her respiratory symptoms have improved a lot (she does feel better overall) but have not completely cleared up yet as she is still experiencing some on and off cough and congestion She denies any fever or sore throat; denies any increased SOB and that her asthma is again better controlled lately Recalls that she was on Daliresp in the past and felt that her asthma was much better controlled back then when she was taking the Rx but states that her insurance recently declined to continue covering the Rx so she has not been on it for a while now Would like to see if she can be tried back on Daliresp Adds that she is still experiencing recurrent pain over her left lower back and left side and that the pain would often radiate down her left leg Would like to know how her hip x-rays done in late November 2022 came out States that she has been having a hard time walking and going up stairs due to her recent left-sided back and left leg pain Also needs a couple of her Rx refilled Patient was not able to get her previously ordered follow up labs done yet - states that she will try to get them done LAURO PFS Medical History Anemia Asthma Asthma-COPD overlap syndrome Chronic allergic rhinitis Edema GERD without esophagitis Kidney stones Migraines Obesity (BMI 30-39.9) Osteoarthritis Primary osteoarthritis of left knee Severe allergic reaction Vitamin D deficiency Surgical History H/O abdominoplasty H/O section History of bilateral tubal ligation History of renal stent Hx of gastric bypass (~2006) Hx of rotator cuff surgery (~2017) Hx of ventral hernia repair Family History Father History of heart surgery Hx of blood clots Mother Heart problem Paternal Grandfather Skin cancer Social History Household Members: Children Housing: Apartment Are you a primary neonatal critical care nurse to a significant other at home: No Do you presently have visiting nurse or other home services: No Alcohol intake: current Alcohol intake frequency: a few times a month Alcohol type: wine Patient Tobacco Use Status: Never used Tobacco e-Cigarette/Vaping Use: Never Used Second Hand Smoke Exposure: No service: No Current occupational status: unemployed Cognitive needs: No Hearing needs: No Vision needs: No Questionnaire PHQ-9 Over the last 2 weeks, how often have you been bothered by any of the following problems? 1. Little interest or pleasure in doing things: not at all 2. Feeling down, depressed, or hopeless: several days 3. Trouble falling or staying asleep, or sleeping too much: not at all 4. Feeling tired or having little energy: not at all 5. Poor appetite or overeating: not at all 6. Feeling bad about yourself - or that you are a failure or have let yourself or your family down: not at all 7. Trouble concentrating on things, such as reading the newspaper or watching television: not at all 8. Moving or speaking so slowly that other people could have noticed. Or the opposite - being so fidgety or restless that you have been moving around a lot more than usual: not at all 9. Thoughts that you would be better off or of hurting yourself in some way: not at all Total score: 1 Depression Screening Interpretation: Negative 98150 - PHQ-9 Billing: Yes Source: Developed by Justin Burgoset B.W. Eric, Randall Euceda and colleagues, with an educational ines from [facility]. Thrive Questionnaire Date Thrive assessed: 01/31/23 I am a: Patient What is your living situation today?: I have a steady place to live Within the past 12 months, did the food you bought not last and you didn't have the money to get more?: Never true Within the past 12 months, did you worry whether your food would run out before you got money to buy more?: Never true Do you have trouble paying for medicines?: No Do you have trouble getting transportation to medical appointments?: No Do you have trouble paying your heating and electricity bill?: No Do you have trouble taking care of your child, family member or friend?: No Do you have trouble with day-to-day activities such as bathing, preparing meals, shopping, managing finances, etc.?: No Are you currently unemployed and looking for a job?: No Are you interested in more education?: No Please select the resources that you would like help with: None Currently or been in a relationship where the following occur: no concerns reported AUDIT C Alcohol Use Questionnaire (AUDIT-C) 1. How often do you have a drink containing alcohol?: Never 3. How often do you have six or more drinks on one occasion?: Never Total Score: 0 Score Reviewed/Action Taken: Yes ONESIMO-7 AMB Questionnaire ONESIMO-7 Date ONESIMO - 7 assessed: 01/31/23 Feeling nervous, anxious, or on edge: 0 = Not at all Not being able to stop or control worryin = Not at all Worrying too much about different things: 0 = Not at all Trouble relaxin = Not at all Being so restless that it is hard to sit still: 0 = Not at all Becoming easily annoyed or irritable: 0 = Not at all Feeling afraid as if something awful might happen: 0 = Not at all Total ONESIMO-7 score (0-4 normal; 5-9 mild; 10-14 moderate; 15-21 severe): 0 Source: Developed by Drs. Luiz Suarez, Suri Reyes, Randall Euceda and colleagues, with an educational ines from [facility]. ONESIMO-7 Assessment Billing ONESIMO-7 Assessment Tool: ONESIMO-7 Assessment 24259 Review of Systems Const Denies chills, Denies fever(s), Reports headache(s) (on and off) and Denies malaise ENT Denies dysphagia, Reports dizziness (occasional), Denies otalgia, Reports headache(s) (on and off), Denies nasal congestion, Denies neck pain, Denies odynophagia and Denies sore throat Card Denies chest pain, Denies rapid heart rate, Denies irregular heart rhythm, Denies palpitations and Reports dyspnea (during fits of coughing ) Resp Reports chest congestion (resolving), Reports cough (on and off, gradually clearing up), Reports dyspnea (during fits of coughing ) and Denies wheezing GI Denies abdominal pain, Denies bloating, Denies constipation, Denies dysphagia, Denies heartburn, Denies diarrhea, Reports nausea (on and off), Denies odynophagia and Denies vomiting Denies hematuria, Denies urinary frequency, Denies dysuria and Denies urinary urgency Musc Reports back pain (over the left lower back - see HPI), Reports arthralgias (left hip), Denies joint swelling, Denies neck pain and Reports radiating pain into limb (into the left leg) Neuro Reports dizziness (occasional), Reports headache(s) (on and off) and Denies paresthesias Psych Denies anxiety and Denies depression Endo Denies palpitations Portillo/Lymph Denies easy bruising Aller/Immun Denies wheezing Physical exam (Primary Care) Vital Signs: Last Vital Signs Pulse 75 01/31/23 09:42 BP 144/80 H 01/31/23 09:42 Pulse Ox 97 01/31/23 09:42 Oxygen Delivery Method Room Air 01/31/23 09:42 BMI result Body Mass Index 37.0 Tobacco/Smoking Status: Tobacco use Status Tobacco use date assessed 01/31/23 01/31/23 09:47 Patient Tobacco Use Status Never used Tobacco 01/31/23 09:47 e-Cigarette/Vaping Use Never Used 01/31/23 09:47 PHQ-9: PHQ-9 Score PHQ-9: Total score 1 01/31/23 10:19 Depression Screening Interpretation: Negative Thrive Assessment: Date of Thrive Assessment Date Thrive assessed 01/31/23 01/31/23 09:47 Currently or been in a relationship where the following occur: no concerns reported Const General: no acute distress and alert HENMT Ears: TM's normal bilaterally and EAC's normal Throat: Yes posterior oropharynx normal and Yes tonsils normal (no TP congestion) Neck Neck: Yes no lymphadenopathy and Yes supple Thyroid: Thyroid normal Resp Auscultation: clear to auscultation bilaterally, no rales, rhonchi (occasional) throughout and no wheezes Cardio Rate: regular rate Rhythm: regular rhythm Heart sounds: no murmurs GI Palpation (GI): Soft to palpation and nontender Auscultation: normal bowel sounds General: Yes no CVA tenderness Back/Spine/Pelvis Back: no CVA tenderness Thoracic/Lumbar Spine: lumbar spinal tenderness (more on the left side) Sacroiliac joints: on the left tender to palpation Skin Rashes: no rashes Extrem General: Yes no clubbing, cyanosis or edema Right upper extremity: shoulder/upper arm Details: tenderness and abnormal ROM (slightly limited due to pain); no swelling Left lower extremity: hip/thigh Details: tenderness Location: of the hip Location: posteriorly Assessment and Plan Assessment & Plan (1) Asthma-COPD overlap syndrome: Code(s): J44.9 - Chronic obstructive pulmonary disease, unspecified Plan: Continue Breo Ellipta 1 inhalation QD, Incruse Ellipta 62.5 mcg QD, Montelukast 10 mg QD and Ventolin HFA 2 puffs 4 times a day as needed States that insurance recently declined to cover her Daliresp; feels that she was doing a lot better while on Daliresp and would like to try to get back on it is possible - Rx for Daliresp 500 mcg QD sent to pharmacy Follow up with pulmonary as scheduled (2) Upper respiratory tract infection: Code(s): J06.9 - Acute upper respiratory infection, unspecified Qualifiers: URI type: unspecified URI Qualified Code(s): J06.9 - Acute upper respiratory infection, unspecified Plan: Resolving; S/P empiric Tx with oral Bactrim DS, which she just completed May continue taking OTC cough/cold meds PRN for symptomatic relief (3) Left hip pain: Code(s): M25.552 - Pain in left hip Plan: X-rays of the left hip done a few weeks ago came out normal Patient is advised that her current pain may actually be radiated pain from her lower back or her SI joint Lumbar spine x-rays done a couple of years ago revealed (+) lumbar disc disease Will send her for repeat lumbar spine x-rays as well as x-rays of the left SI joint for further evaluation (4) Primary osteoarthritis of left knee: Code(s): M17.12 - Unilateral primary osteoarthritis, left knee Plan: Repeat x-rays of the left knee done in March 2019 showed (+) mild OA changes there was similar to findings on x-rays back in 2016 Continue Naproxen 500 mg twice a day with food as needed and Tramadol 50 mg 2 to 3 times a day as needed for pain Follow-up with Orthopedics as scheduled (5) Painful arc syndrome of right shoulder: Code(s): M75.101 - Unspecified rotator cuff tear or rupture of right shoulder, not specified as traumatic Plan: X-rays of the shoulder done recently came back negative Has been seen by orthopedics for this a few months ago but she declined offer for cortisone injection (had one done before that did not help) and referral for physical therapy Follow up with orthopedics as scheduled (6) Chronic allergic rhinitis: Code(s): J30.9 - Allergic rhinitis, unspecified Plan: Continue Fluticasone 50 mcg nasal spray QD and Loratadine 10 mg QD PRN - Rx refilled (7) Migraines: Code(s): G43.909 - Migraine, unspecified, not intractable, without status migrainosus Qualifiers: Migraine type: unspecified Status migrainosus presence: without status migrainosus Intractability: not intractable Qualified Code(s): G43.909 - Migraine, unspecified, not intractable, without status migrainosus Plan: Continue Sumatriptan 50 mg PRN and Fioricet 1 tablet 3 to 4 times a day as needed Reinforced avoidance of migraine triggers - that her migraine headaches have also been stable lately Follow up with neurology as scheduled (8) Iron deficiency anemia: Code(s): D50.9 - Iron deficiency anemia, unspecified Qualifiers: Iron deficiency anemia type: unspecified iron deficiency Qualified Code(s): D50.9 - Iron deficiency anemia, unspecified Plan: Corrected - H/H remained normal on her labs done a few months ago Will continue to monitor her CBC regularly Patient was not able to get her previously ordered (follow up) labs done yet - states that she will try to get them done LAURO Follow up with hematology as scheduled Was referred to GI for consideration for colonoscopy but she declined the procedure (9) Vitamin D deficiency: Code(s): E55.9 - Vitamin D deficiency, unspecified Plan: Continue Vitamin D2 76433 units once a week (10) GERD without esophagitis: Code(s): K21.9 - Gastro-esophageal reflux disease without esophagitis Plan: Dietary restrictions reinforced Continue Omeprazole 20 mg 2 capsules once a day (11) Obesity (BMI 30-39.9): Comment: S/P gastric bypass Code(s): E66.9 - Obesity, unspecified Plan: Reinforced diet/exercise as tolerated/lose weight Plan Follow up in 4 months Orders: Orders XR lumbar spine 2-3V Today M54.16 - Radiculopathy, lumbar region XR sacroiliac joint min 3V Today M54.16 - Radiculopathy, lumbar region Medications: New roflumilast (Daliresp) 500 mcg PO DAILY 30 days 30 tabs 3RF Refilled loratadine 10 mg PO DAILY 90 days 90 tabs 3RF for allergies montelukast (Singulair) 10 mg PO DAILY 90 days 90 tabs 3RF allergies Review Declined Pap Smear: 09/21/22 Patient declined Colonoscopy: 09/21/22 (but had a negative Cologuard done in March 2022) Coding Level of Care Code Est Pt Level 4 (49329) Diagnoses Asthma-COPD overlap syndrome J44.9 Upper respiratory tract infection J06.9 URI type: unspecified URI Left hip pain M25.552 Primary osteoarthritis of left knee M17.12 Painful arc syndrome of right shoulder M75.101 Chronic allergic rhinitis J30.9 Migraines G43.909 Migraine type: unspecified Status migrainosus presence: without status migrainosus Intractability: not intractable Iron deficiency anemia D50.9 Iron deficiency anemia type: unspecified iron deficiency Vitamin D deficiency E55.9 GERD without esophagitis K21.9 Obesity (BMI 30-39.9) E66.9 Additional Codes ONESIMO-7 Assessment Billing - ONESIMO-7 Assessment Tool: ONESIMO-7 Assessment 19477 ([id number])
[2023-01-31 09:42] VITALS: BP 144/80; PULSE 75; O2SAT 97; BMI 37.0
== END 2023-01-31 11:06 | disposition home or self-care (01) ==
PROVIDERS: PCP Internal Medicine; Visit Provider Internal Medicine
DX: J44.9 Chronic obstructive pulmonary disease, unspecified (principal); G43.909 Migraine, unspecified, not intractable, without status migrainosus; E55.9 Vitamin D deficiency, unspecified; K21.9 Gastro-esophageal reflux disease without esophagitis; M25.552 Pain in left hip; E66.9 Obesity, unspecified
CPT/HCPCS: 99214

== ENCOUNTER 2023-02-01 08:01 | Outpatient (REF) | payer OTHER, SELFPAY ==
--- NOTE | ~2023-02-01 | XR_ITS ---
EXAMINATION: Lumbar spine and sacroiliac joint x-rays CLINICAL INFORMATION: Pain. Radiculopathy COMPARISON: Lumbar spine x-ray March 2021 TECHNIQUE: 3 views of the lumbar spine and 3 views of the aortoiliac joint FINDINGS: Lumbar spine: There is curvature of the lower lumbar spine to the right. Bone alignment is otherwise normal. No fracture or dislocation. Normal disc spaces. Degenerative spondylosis at L3-L4 and L5-S1. Lower lumbar spine facet arthritis. Sacroiliac joints: Bone alignment is normal. No fracture or dislocation. The sacroiliac joints are normal. XR/XR sacroiliac joint min 3V IMPRESSION: Lumbar spine: Mild degenerative changes. Normal-appearing sacroiliac joints.
--- NOTE | ~2023-02-01 | XR_ITS ---
EXAMINATION: Lumbar spine and sacroiliac joint x-rays CLINICAL INFORMATION: Pain. Radiculopathy COMPARISON: Lumbar spine x-ray March 2021 TECHNIQUE: 3 views of the lumbar spine and 3 views of the aortoiliac joint FINDINGS: Lumbar spine: There is curvature of the lower lumbar spine to the right. Bone alignment is otherwise normal. No fracture or dislocation. Normal disc spaces. Degenerative spondylosis at L3-L4 and L5-S1. Lower lumbar spine facet arthritis. Sacroiliac joints: Bone alignment is normal. No fracture or dislocation. The sacroiliac joints are normal. XR/XR lumbar spine 2-3V IMPRESSION: Lumbar spine: Mild degenerative changes. Normal-appearing sacroiliac joints.
[2023-02-01 08:35] LABS: MANUAL DIFF FLAG NO
[2023-02-01 09:08] LABS: Basophils Absolute Auto 0.1 X10*3/uL (0.0-0.2); Basophils Percent Auto 1.1 % (0-2); Eosinophils Absolute Auto 0.3 X10*3/uL (0.0-0.4); Eosinophils Percent Auto 4.7 % (0-4); Hematocrit 37.8 % (37.0-47.0); Hemoglobin 11.5 g/dl (12.0-16.0); Imm Gran Abs Auto 0.03 X10*3/uL (0.00-0.03); Imm Gran Pct Auto 0.5 % (0.0-0.4); Lymphocytes Absolute Auto 2.2 X10*3/uL (1.2-4.9); Lymphocytes Percent Auto 38.7 % (20-40); Mean Corpuscular HGB Conc 30.4 g/dl (31.0-35.0); Mean Corpuscular Hemoglobin 24.3 pg (27.0-33.0); Mean Corpuscular Volume 79.7 fL (80.0-98.0); Mean Platelet Volume 9.6 fL (9.4-12.3); Monocytes Absolute Auto 0.5 X10*3/uL (0.1-1.2); Monocytes Percent Auto 9.5 % (2-11); Neutrophils Absolute Auto 2.5 x10*3/uL (2.0-8.3); Neutrophils Percent Auto 45.5 % (45-73); Platelet Count 284 X10*3/uL (160-400); Red Blood Count 4.74 X10*6/uL (4.20-5.50); Red Cell Distribution Width 15.9 % (11.0-16.0); White Blood Count 5.6 X10*3/uL (4.8-10.8)
[2023-02-01 09:50] LABS: Appearance Urine Clear; Color Urine Yellow; Glucose Urine UA Negative (Negative); Leukocyte Esterase Urine Negative (Negative); Nitrite Urine Negative (Negative); PH 6.5 (5.0-9.0); Urine Blood Negative (Negative); Urine Ketones Negative (Negative); Urine Protein Negative (Neg-Trace)
[2023-02-01 10:04] LABS: Alanine Aminotransferase 16 U/L (0-31); Albumin Level 3.5 g/dL (3.5-5.0); Alkaline Phosphatase 101 U/L (39-117); Anion Gap 13 (12-20); Aspartate Amino Transferase 16 U/L (5-31); Bilirubin Total 0.3 mg/dL (0.0-1.0); Blood Urea Nitrogen 11 mg/dL (9-16); Calcium 8.7 mg/dL (8.4-10.2); Carbon Dioxide 22 mmol/L (22-29); Chloride 111 mmol/L (96-108); Cholesterol 157 mg/dL; Estimated Glomerular Filt Rate > 60; Glucose Fasting 88 mg/dL (60-99); HDL Cholesterol 48 mg/dL; LDL Cholesterol Calculated 86 mg/dl; Potassium 3.9 mmol/L (3.3-5.1); Sodium 142 mmol/L (135-145); Total Protein 6.3 g/dL (6.5-8.0); Triglycerides 115 mg/dL
[2023-02-01 10:22] LABS: TSH reflex Free T4 3.68 uIU/mL (0.32-4.0)
== END 2023-02-01 08:02 | disposition home or self-care (01) ==
LOC: HO.LAB 08:01
PROVIDERS: PCP Internal Medicine; Visit Provider Internal Medicine
DX: E78.00 Pure hypercholesterolemia, unspecified (principal); R30.0 Dysuria; E55.9 Vitamin D deficiency, unspecified; I10 Essential (primary) hypertension; M54.16 Radiculopathy, lumbar region
CPT/HCPCS: 36415; 72100; 72202; 80053; 80061; 81003; 82306; 84443; 85025

== ENCOUNTER 2023-04-01 08:17 | Outpatient (AMB) | payer OTHER, SELFPAY ==
[2023-04-01 08:24] VITALS: BP 140/82; PULSE 110; O2SAT 95; BMI 36.4
--- NOTE | 2023-04-01 08:24 | MHC.PC.OV ---
Vital Signs 04/01/23 08:24 Height 5 ft Weight 186 lb 8 oz BMI 36.4 BP 140/82 H Blood Pressure Location Lt brachial Position Sitting Pulse 110 H Pulse Source Pulse Oximeter Pulse Oximetry (%) 95 Oxygen Delivery Method Room Air Intake Visit Reasons: Throat and ear pain [employer] Director Required: No Accompanied by: Self / Same As Patient Allergies aspirin [ASA] Allergy (Severe, Verified 04/01/23 09:07) ITCHINESS, rash Penicillins [PENICILLINS] Allergy (Severe, Verified 04/01/23 09:07) ANAPHYLAXIS shellfish derived Allergy (Severe, Verified 04/01/23 09:07) ANAPHYLAXIS sumatriptan [From IMITREX] Allergy (Unknown, Verified 04/01/23 09:07) ANAPHYLAXIS, VOMITING, vomiting, dyspnea Medication List - Last Reconciled 04/01/23 by Arnoldo Powers MD albuterol sulfate 2.5 mg (3 mL) inhalation QID PRN 30 days [BACK BRACE As directed] benzonatate 200 mg PO BID PRN 30 days benzonatate 200 mg PO BID PRN 30 days blood pressure monitor As directed diclofenac sodium 3% 1 appl topical BID 90 days epinephrine 0.3 mg (0.3 mL) IM DAILY PRN 30 days ergocalciferol (vitamin D2) 1,250 mcg PO QWEEK fluticasone furoate-vilanterol 200-25 mcg/dose (Breo Ellipta) 1 inh inhalation DAILY 90 days wicemubbnft-xznuodgqg-kpeacjbi 200-62.5-25 mcg (Trelegy Ellipta) 1 inh inhalation DAILY 90 days furosemide 20 mg PO QAM PRN ipratropium-albuterol 0.5 mg-3 mg(2.5 mg base)/3 mL 3 mL inhalation BID 90 days ketotifen fumarate 0.025%(0.035%) ([place]away) 1 drp ophthalmic (eye) BID levalbuterol tartrate 45 mcg/actuation (Xopenex HFA) 2 puffs PO Q6H PRN 90 days lidocaine 5% 1 patch topical DAILY PRN 30 days loratadine 10 mg PO DAILY 90 days montelukast (Singulair) 10 mg PO DAILY 90 days naproxen 500 mg PO BID PRN omeprazole 40 mg PO QAM 30 days ondansetron 4 mg PO BID-TID PRN 30 days roflumilast (Daliresp) 500 mcg PO DAILY 30 days roflumilast (Daliresp) 500 mcg PO DAILY 90 days terbinafine HCl 250 mg PO DAILY tizanidine 2 mg PO Q8H PRN tramadol 50 mg PO TID PRN 10 days umeclidinium 62.5 mcg/actuation (Incruse Ellipta) 1 inh PO DAILY venlafaxine ER (Effexor XR) 37.5 mg PO DAILY Tobacco use date assessed: 04/01/23 Dental Screening Dental Screen Date: 04/01/23 Did you have a dental visit in the last 12 months?: Yes Did you have a dental problem in the last 6 months where you did not have access to dental care?: No Was dental information given to patient?: Patient has dentist HPI Throat and ear pain HPI Details Patient comes in today complaining of increased sore throat and left ear pain for the past couple of days Relates (+) low grade fever a couple of days ago Has been coughing up whitish to yellowish phlegm lately She denies any headaches or dizziness Denies any chest pains; relates (+) on and off chest tightness and congestion - feels her asthma acting up often since her symptoms started a couple of days ago and she uses her inhalers as needed with (+) relief No nausea/vomiting, no abdominal pain No change in bowel habits noted Needs her Daliresp Rx refilled today PFSH Medical History Obesity (BMI 30-39.9) Primary osteoarthritis of left knee GERD without esophagitis Edema Vitamin D deficiency Chronic allergic rhinitis Severe allergic reaction Asthma-COPD overlap syndrome Osteoarthritis Migraines Anemia Kidney stones Asthma Surgical History Hx of gastric bypass (~2007) Hx of ventral hernia repair History of bilateral tubal ligation H/O section Hx of rotator cuff surgery (~2017) H/O abdominoplasty History of renal stent Family History Father History of heart surgery Hx of blood clots Mother Heart problem Paternal Grandfather Skin cancer Social History Household Members: Children Housing: Apartment Are you a primary pediatric care coordinator to a significant other at home: No Do you presently have visiting nurse or other home services: No Alcohol intake: current Alcohol intake frequency: a few times a month Alcohol type: wine Patient Tobacco Use Status: Never used Tobacco e-Cigarette/Vaping Use: Never Used Second Hand Smoke Exposure: No service: No Current occupational status: unemployed Cognitive needs: No Hearing needs: No Vision needs: No Questionnaire PHQ-9 Over the last 2 weeks, how often have you been bothered by any of the following problems? 1. Little interest or pleasure in doing things: not at all 2. Feeling down, depressed, or hopeless: several days 3. Trouble falling or staying asleep, or sleeping too much: not at all 4. Feeling tired or having little energy: not at all 5. Poor appetite or overeating: not at all 6. Feeling bad about yourself - or that you are a failure or have let yourself or your family down: not at all 7. Trouble concentrating on things, such as reading the newspaper or watching television: not at all 8. Moving or speaking so slowly that other people could have noticed. Or the opposite - being so fidgety or restless that you have been moving around a lot more than usual: not at all 9. Thoughts that you would be better off or of hurting yourself in some way: not at all Total score: 1 Depression Screening Interpretation: Negative 14324 - PHQ-9 Billing: Yes Source: Developed by Drs. Luiz Suarez, Suri Reyes, Randall Euceda and colleagues, with an educational ines from [employer]. Thrive Questionnaire Date Thrive assessed: 04/01/23 I am a: Patient What is your living situation today?: I have a steady place to live Within the past 12 months, did the food you bought not last and you didn't have the money to get more?: Never true Within the past 12 months, did you worry whether your food would run out before you got money to buy more?: Never true Do you have trouble paying for medicines?: No Do you have trouble getting transportation to medical appointments?: No Do you have trouble paying your heating and electricity bill?: No Do you have trouble taking care of your child, family member or friend?: No Do you have trouble with day-to-day activities such as bathing, preparing meals, shopping, managing finances, etc.?: No Are you currently unemployed and looking for a job?: No Are you interested in more education?: No Please select the resources that you would like help with: None Currently or been in a relationship where the following occur: no concerns reported AUDIT C Alcohol Use Questionnaire (AUDIT-C) 1. How often do you have a drink containing alcohol?: Never 3. How often do you have six or more drinks on one occasion?: Never Total Score: 0 Score Reviewed/Action Taken: Yes ONESIMO-7 AMB Questionnaire ONESIMO-7 Date ONESIMO - 7 assessed: 04/01/23 Feeling nervous, anxious, or on edge: 0 = Not at all Not being able to stop or control worryin = Not at all Worrying too much about different things: 0 = Not at all Trouble relaxin = Not at all Being so restless that it is hard to sit still: 0 = Not at all Becoming easily annoyed or irritable: 0 = Not at all Feeling afraid as if something awful might happen: 0 = Not at all Total ONESIMO-7 score (0-4 normal; 5-9 mild; 10-14 moderate; 15-21 severe): 0 Source: Developed by Drs. Luiz Suarez, Suri Reyes, Randall Euceda and colleagues, with an educational ines from [employer]. ONESIMO-7 Assessment Billing ONESIMO-7 Assessment Tool: ONESIMO-7 Assessment 24087 Review of Systems Const Denies chills, Reports fatigue, Reports fever(s) (low grade - a couple of days ago), Denies headache(s) and Denies malaise ENT Denies dysphagia, Reports dizziness (occasional), Reports otalgia (on and off in the left ear), Denies headache(s), Reports nasal congestion, Denies neck pain, Denies odynophagia and Reports sore throat (mild) Card Denies chest pain, Denies rapid heart rate, Denies irregular heart rhythm, Denies palpitations and Reports dyspnea (during fits of coughing ) Resp Reports chest congestion, Reports cough (on and off, coughs up whitish to yellowish phlegm), Denies pain with cough, Reports dyspnea (during fits of coughing ) and Reports wheezing (occasional) GI Denies abdominal pain, Denies constipation, Denies dysphagia, Denies heartburn, Denies diarrhea, Denies nausea, Denies odynophagia and Denies vomiting Denies hematuria, Denies urinary frequency, Denies dysuria and Denies urinary urgency Musc Reports back pain (over the left lower back - see HPI), Reports arthralgias (left hip), Denies joint swelling, Denies neck pain and Reports radiating pain into limb (into the left leg) Neuro Reports dizziness (occasional), Denies headache(s) and Denies paresthesias Psych Denies anxiety and Denies depression Endo Reports fatigue and Denies palpitations Portillo/Lymph Denies easy bruising Aller/Immun Reports wheezing (occasional) Physical exam (Primary Care) Vital Signs: Last Vital Signs Pulse 110 H 04/01/23 08:24 BP 140/82 H 04/01/23 08:24 Pulse Ox 95 04/01/23 08:24 Oxygen Delivery Method Room Air 04/01/23 08:24 BMI result Body Mass Index 36.4 Tobacco/Smoking Status: Tobacco use Status Tobacco use date assessed 04/01/23 04/01/23 08:33 Patient Tobacco Use Status Never used Tobacco 04/01/23 08:26 e-Cigarette/Vaping Use Never Used 04/01/23 08:26 PHQ-9: PHQ-9 Score PHQ-9: Total score 1 04/01/23 09:26 Depression Screening Interpretation: Negative Thrive Assessment: Date of Thrive Assessment Date Thrive assessed 04/01/23 04/01/23 08:33 Currently or been in a relationship where the following occur: no concerns reported Const General: no acute distress and alert HENMT Ears: TM's normal bilaterally and EAC's normal (except for minimal cerumen noted in the left ear canal) Throat: Yes posterior oropharynx normal and Yes tonsils normal (no TP congestion) Neck Neck: Yes no lymphadenopathy and Yes supple Thyroid: Thyroid normal Resp Auscultation: no rales, rhonchi (scattered) throughout, wheezes (occasional) expiratory wheezes and throughout and diminished lung sounds (slightly) bilateral Cardio Rate: regular rate Rhythm: regular rhythm Heart sounds: no murmurs GI Palpation (GI): Soft to palpation and nontender Auscultation: normal bowel sounds General: Yes no CVA tenderness Back/Spine/Pelvis Back: no CVA tenderness Thoracic/Lumbar Spine: lumbar spinal tenderness (more on the left side) Sacroiliac joints: on the left tender to palpation Skin Rashes: no rashes Extrem General: Yes no clubbing, cyanosis or edema Right upper extremity: shoulder/upper arm Details: tenderness and abnormal ROM (slightly limited due to pain); no swelling Left lower extremity: hip/thigh Details: tenderness Location: of the hip Location: posteriorly Office Procedures Flu Questionnaire Does the patient have a severe egg allergy?: No Immunizations flu vacc [id number] 6mos up(PF) 60 mcg(15 mcgx4)/0.5 mL IM syringe Performing Provider: Arnoldo Powers MD [facility] Documented (not given) by: Bryan Rodriguez on 04/01/23 09:26 Reason Not Given: Patient Refused Assessment and Plan Assessment & Plan (1) Bronchitis: Code(s): J40 - Bronchitis, not specified as acute or chronic Plan: Will start patient empirically on Azithromycin QD x 5 days (2) Asthma exacerbation: Code(s): J45.901 - Unspecified asthma with (acute) exacerbation Qualifiers: Asthma severity: moderate Asthma persistence: persistent Qualified Code(s): J45.41 - Moderate persistent asthma with (acute) exacerbation Plan: Will start patient again on oral Prednisone taper Continue Breo Ellipta 1 inhalation QD, Incruse Ellipta 62.5 mcg QD, Daliresp 500 mcg QD (Rx refilled), Montelukast 10 mg QD and Ventolin HFA 2 puffs 4 times a day as needed Follow up with pulmonary as scheduled (3) Left ear pain: Code(s): H92.02 - Otalgia, left ear Plan: Advised that other than a minimum amount of cerumen in her left ear, her ear exam today is unremarkable and that her left ear pain may be referred pain from her sinuses and that her symptoms should resolve once her current respiratory infection clears up Plan Follow up as scheduled in July 2023 Orders: Orders Influenza [id number] Immunization Today Z23 - Encounter for immunization Medications: New azithromycin take 500 mg today (day 1), then 250 mg for 4 days (days 2-5) PO 6 tabs 0RF prednisone 4 tablets x 2 days, then 3 tablets x 2 days, then 2 tablets x 2 days, then 1 tablet x 2 days 8 days 20 tabs 0RF J45.901 - Unspecified asthma with (acute) exacerbation, M25.50 - Pain in unspecified joint Refilled roflumilast (Daliresp) 500 mcg PO DAILY 30 days 30 tabs 3RF Coding Level of Care Code Est Pt Level 3 (51463) Diagnoses Bronchitis J40 Moderate persistent asthma with exacerbation J45.41 Asthma severity: moderate Asthma persistence: persistent Left ear pain H92.02 Additional Codes ONESIMO-7 Assessment Billing - ONESIMO-7 Assessment Tool: ONESIMO-7 Assessment 89956 ([id number])
== END 2023-04-01 09:19 | disposition home or self-care (01) ==
PROVIDERS: PCP Internal Medicine; Visit Provider Internal Medicine
DX: J40 Bronchitis, not specified as acute or chronic (principal); J45.41 Moderate persistent asthma with (acute) exacerbation; H92.02 Otalgia, left ear; Z23 Encounter for immunization
CPT/HCPCS: 90471; 99213

== ENCOUNTER 2023-07-23 09:21 | Outpatient (AMB) | payer OTHER, SELFPAY ==
--- NOTE | 2023-07-23 09:29 | A.OFFPC_ITS ---
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 Service Representative Required: No Accompanied by: Self / Same As Patient Allergies aspirin [ASA] Allergy (Severe, Verified 07/23/23 12:12) ITCHINESS, rash Penicillins [PENICILLINS] Allergy (Severe, Verified 07/23/23 12:12) ANAPHYLAXIS shellfish derived Allergy (Severe, Verified 07/23/23 12:12) ANAPHYLAXIS sumatriptan [From IMITREX] Allergy (Unknown, Verified 07/23/23 12:12) ANAPHYLAXIS, VOMITING, vomiting, dyspnea Medication List - Last Reconciled 07/23/23 by Arnoldo Powers MD albuterol sulfate 2.5 mg (3 mL) inhalation QID PRN 30 days [BACK BRACE As directed] blood pressure monitor As directed diclofenac sodium 3% 1 appl topical BID 90 days epinephrine 0.3 mL IM DAILY PRN ergocalciferol (vitamin D2) 1,250 mcg PO QWEEK fluticasone furoate-vilanterol 200-25 mcg/dose (Breo Ellipta) 1 inh inhalation DAILY 90 days furosemide 20 mg PO QAM PRN ipratropium-albuterol 0.5 mg-3 mg(2.5 mg base)/3 mL 3 mL inhalation BID 90 days ketotifen fumarate 0.025%(0.035%) ([place]) 1 drp ophthalmic (eye) BID levalbuterol tartrate 45 mcg/actuation (Xopenex HFA) 2 puffs PO Q6H PRN 90 days lidocaine 5% 1 patch topical DAILY PRN 30 days loratadine 10 mg PO DAILY 90 days montelukast (Singulair) 10 mg PO DAILY 90 days naproxen 500 mg PO BID PRN omeprazole 40 mg PO QAM 30 days ondansetron 4 mg PO BID-TID PRN 30 days roflumilast (Daliresp) 500 mcg PO DAILY 30 days roflumilast (Daliresp) 500 mcg PO DAILY 90 days tizanidine 2 mg PO Q8H PRN tramadol 50 mg PO TID PRN 10 days umeclidinium 62.5 mcg/actuation (Incruse Ellipta) 1 inh PO DAILY venlafaxine ER (Effexor XR) 37.5 mg PO DAILY Tobacco use date assessed: 07/23/23 Dental Screening Dental Screen Date: 07/23/23 Did you have a dental visit in the last 12 months?: Yes Did you have a dental problem in the last 6 months where you did not have access to dental care?: No Was dental information given to patient?: Patient has dentist HPI 4 month f/u HPI Details Patient comes in today for her follow up visit States that she has been experiencing increasing left knee pain for the past 1 month Does not recall any recent injury or trauma to her left knee States that she just went on vacation to the [facility] for about 2 and a half weeks recently and just got back about a week ago - is still suffering from jet lag She that she still has on and off headaches but denies any increase in her headaches lately; denies any dizziness Denies any chest pains, no increased SOB No nausea/vomiting, no abdominal pain No change in bowel habits noted Needs her Daliresp Rx refilled today PFSH Medical History Obesity (BMI 30-39.9) Primary osteoarthritis of left knee GERD without esophagitis Edema Vitamin D deficiency Chronic allergic rhinitis Severe allergic reaction Asthma-COPD overlap syndrome Osteoarthritis Migraines Anemia Kidney stones Asthma Surgical History Hx of gastric bypass (~2006) Hx of ventral hernia repair History of bilateral tubal ligation H/O section Hx of rotator cuff surgery (~2016) H/O abdominoplasty History of renal stent Family History Father History of heart surgery Hx of blood clots Mother Heart problem Paternal Grandfather Skin cancer Social History Household Members: Children Housing: Apartment Are you a primary medical care manager to a significant other at home: No Do you presently have visiting nurse or other home services: No Alcohol intake: current Alcohol intake frequency: a few times a month Alcohol type: wine Patient Tobacco Use Status: Never used Tobacco e-Cigarette/Vaping Use: Never Used Second Hand Smoke Exposure: No service: No Current occupational status: unemployed Cognitive needs: No Hearing needs: No Vision needs: No Questionnaire PHQ-9 Over the last 2 weeks, how often have you been bothered by any of the following problems? 1. Little interest or pleasure in doing things: not at all 2. Feeling down, depressed, or hopeless: several days 3. Trouble falling or staying asleep, or sleeping too much: not at all 4. Feeling tired or having little energy: not at all 5. Poor appetite or overeating: not at all 6. Feeling bad about yourself - or that you are a failure or have let yourself or your family down: not at all 7. Trouble concentrating on things, such as reading the newspaper or watching television: not at all 8. Moving or speaking so slowly that other people could have noticed. Or the opp osite - being so fidgety or restless that you have been moving around a lot more than usual: not at all 9. Thoughts that you would be better off or of hurting yourself in some way: not at all Total score: 1 Depression Screening Interpretation: Negative Depression Screening Done: Yes 04660 - PHQ-9 Billing: Yes Source: Developed by Drs. Luiz Suarez, Suri Reyes, Randall Euceda and colleagues, with an educational ines from [employer]. Thrive Questionnaire Date Thrive assessed: 07/23/23 I am a: Patient What is your living situation today?: I have a steady place to live Within the past 12 months, did the food you bought not last and you didn't have the money to get more?: Never true Within the past 12 months, did you worry whether your food would run out before you got money to buy more?: Never true Do you have trouble paying for medicines?: No Do you have trouble getting transportation to medical appointments?: No Do you have trouble paying your heating and electricity bill?: No Do you have trouble taking care of your child, family member or friend?: No Do you have trouble with day-to-day activities such as bathing, preparing meals, shopping, managing finances, etc.?: No Are you currently unemployed and looking for a job?: No Are you interested in more education?: No Please select the resources that you would like help with: None Currently or been in a relationship where the following occur: no concerns reported THRIVE Score: 0 AUDIT C Alcohol Use Questionnaire (AUDIT-C) 1. How often do you have a drink containing alcohol?: Never 3. How often do you have six or more drinks on one occasion?: Never Total Score: 0 Score Reviewed/Action Taken: Yes ONESIMO-7 AMB Questionnaire ONESIMO-7 Date ONESIMO - 7 assessed: 07/23/23 Feeling nervous, anxious, or on edge: 0 = Not at all Not being able to stop or control worryin = Not at all Worrying too much about different things: 0 = Not at all Trouble relaxin = Not at all Being so restless that it is hard to sit still: 0 = Not at all Becoming easily annoyed or irritable: 0 = Not at all Feeling afraid as if something awful might happen: 0 = Not at all Total ONESIMO-7 score (0-4 normal; 5-9 mild; 10-14 moderate; 15-21 severe): 0 Source: Developed by Drs. Luiz Suarez, Suri Reyes, Randall Euceda and colleagues, with an educational ines from [employer]. ONESIMO-7 Assessment Billing ONESIMO-7 Assessment Tool: ONESIMO-7 Assessment 46288 Review of Systems Const Denies chills, Reports fatigue, Denies fever(s) and Reports headache(s) (on and off) ENT Denies dysphagia, Denies dizziness, Denies otalgia, Reports headache(s) (on and off), Denies neck pain, Denies odynophagia and Denies sore throat Card Denies chest pain, Denies rapid heart rate, Denies irregular heart rhythm, Denies palpitations and Reports dyspnea (mild) Resp Denies chest congestion, Denies cough, Denies pain with cough, Reports dyspnea (mild) and Denies wheezing GI Denies abdominal pain, Denies constipation, Denies dysphagia, Denies heartburn, Denies diarrhea, Denies nausea, Denies odynophagia and Denies vomiting Denies hematuria, Denies urinary frequency, Denies dysuria and Denies urinary urgency Musc Reports back pain (over the left lower back - see HPI), Reports arthralgias (left hip), Denies joint swelling, Denies neck pain and Reports radiating pain into limb (into the left leg) Skin/Breast Denies rash Neuro Denies dizziness, Reports headache(s) (on and off) and Denies paresthesias Psych Denies anxiety and Denies depression Endo Reports fatigue and Denies palpitations Portillo/Lymph Denies easy bruising Aller/Immun Denies wheezing Physical exam (Primary Care) Vital Signs: Last Vital Signs Pulse 87 07/23/23 09:30 BP 116/80 07/23/23 09:30 Pulse Ox 97 07/23/23 09:30 Oxygen Delivery Method Room Air 07/23/23 09:30 BMI result Body Mass Index 36.1 Tobacco/Smoking Status: Tobacco use Status Tobacco use date assessed 07/23/23 07/23/23 09:37 Patient Tobacco Use Status Never used Tobacco 07/23/23 09:30 e-Cigarette/Vaping Use Never Used 07/23/23 09:30 PHQ-9: PHQ-9 Score PHQ-9: Total score 1 07/23/23 10:06 Depression Screening Interpretation: Negative Thrive Assessment: Date of Thrive Assessment Date Thrive assessed 07/23/23 07/23/23 09:37 Currently or been in a relationship where the following occur: no concerns reported Const General: no acute distress and alert HENMT Ears: TM's normal bilaterally and EAC's normal Face and sinus: Yes sinuses nontender Throat: Yes posterior oropharynx normal and Yes tonsils normal (no TP congestion) Neck Neck: Yes no lymphadenopathy and Yes supple Thyroid: Thyroid normal Resp Auscultation: clear to auscultation bilaterally, no rales and no wheezes Cardio Rate: regular rate Rhythm: regular rhythm Heart sounds: no murmurs GI Palpation (GI): Soft to palpation and nontender Auscultation: normal bowel sounds General: Yes no CVA tenderness Back/Spine/Pelvis Back: no CVA tenderness Thoracic/Lumbar Spine: lumbar spinal tenderness (more on the left side) Sacroiliac joints: on the left tender to palpation Skin Rashes: no rashes Extrem General: Yes no clubbing, cyanosis or edema Right upper extremity: shoulder/upper arm Details: tenderness and abnormal ROM ( slightly limited due to pain); no swelling Left lower extremity: hip/thigh Details: tenderness Location: of the hip Location: posteriorly and knee Details: tenderness Location: of the pre-patellar area; no swelling Assessment and Plan Assessment & Plan (1) Primary osteoarthritis of left knee: Code(s): M17.12 - Unilateral primary osteoarthritis, left knee Plan: X-rays of the left knee done in March 2019 showed (+) mild OA changes there was similar to findings on x-rays back in 2016 Will send her for repeat left knee x-rays for further evaluation of her recent increased left knee pain Continue Naproxen 500 mg twice a day with food as needed and Tramadol 50 mg 2 to 3 times a day as needed for pain Follow-up with Orthopedics as scheduled (2) Asthma-COPD overlap syndrome: Code(s): J44.9 - Chronic obstructive pulmonary disease, unspecified Plan: Continue Breo Ellipta 1 inhalation QD, Incruse Ellipta 62.5 mcg QD, Montelukast 10 mg QD and Ventolin HFA 2 puffs 4 times a day as needed Continue Daliresp 500 mcg QD - feels a lot better while on Daliresp (Rx refilled) Follow up with pulmonary as scheduled (3) Left hip pain: Code(s): M25.552 - Pain in left hip Plan: X-rays of the left hip done a few monthss ago came out normal Patient is advised that her current pain may actually be radiated pain from her lower back or her SI joint Lumbar spine x-rays done a couple of years ago revealed (+) lumbar disc disease Repeat lumbar spine and left SI joint x-rays done back in January 2023 revealed (+) mild degenerative changes and normal-appearing sacroiliac joints (4) Painful arc syndrome of right shoulder: Code(s): M75.101 - Unspecified rotator cuff tear or rupture of right shoulder, not specified as traumatic Plan: X-rays of the shoulder done a few months ago came back negative Has been seen by orthopedics for this a few months ago but she declined offer for cortisone injection (had one done before that did not help) and referral for physical therapy Follow up with orthopedics as scheduled (5) Chronic allergic rhinitis: Code(s): J30.9 - Allergic rhinitis, unspecified Plan: Continue Fluticasone 50 mcg nasal spray QD and Loratadine 10 mg QD PRN (6) Migraines: Code(s): G43.909 - Migraine, unspecified, not intractable, without status migrainosus Qualifiers: Intractability: not intractable Migraine type: unspecified Status migrainosus presence: without status migrainosus Qualified Code(s): G43.909 - Migraine, unspecified, not intractable, without status migrainosus Plan: Continue Sumatriptan 50 mg PRN and Fioricet 1 tablet 3 to 4 times a day as needed Reinforced avoidance of migraine triggers - that her migraine headaches have also been stable lately Follow up with neurology as scheduled (7) Iron deficiency anemia: Code(s): D50.9 - Iron deficiency anemia, unspecified Qualifiers: Iron deficiency anemia type: unspecified iron deficiency Qualified Code(s): D50.9 - Iron deficiency anemia, unspecified Plan: Corrected - H/H remained normal on her labs done a few months ago Will continue to monitor her CBC regularly Follow up with hematology as scheduled Was referred to GI for consideration for colonoscopy but she declined the procedure (8) Vitamin D deficiency: Code(s): E55.9 - Vitamin D deficiency, unspecified Plan: Continue Vitamin D2 32513 units once a week (9) GERD without esophagitis: Code(s): K21.9 - Gastro-esophageal reflux disease without esophagitis Plan: Dietary restrictions reinforced Continue Omeprazole 20 mg 2 capsules once a day (10) Obesity (BMI 30-39.9): Comment: S/P gastric bypass Code(s): E66.9 - Obesity, unspecified Plan: Reinforced diet/exercise as tolerated/lose weight Plan Follow up in 4 months Orders: Orders Comprehensive [place]. Panel Fast 4 Months E78.00 - Pure hypercholesterolemia, unspecified Lipid Panel 4 Months E78.00 - Pure hypercholesterolemia, unspecified TSH reflex Free T4 4 Months E78.00 - Pure hypercholesterolemia, unspecified Vitamin D 25-OH Total 4 Months E55.9 - Vitamin D deficiency, unspecified XR knee LT 3V Today M25.562 - Pain in left knee Complete Blood Count Auto Diff 4 Months D64.9 - Anemia, unspecified UA CC w/rflx Micro + Cult 4 Months R30.0 - Dysuria Medications: Changed From roflumilast (Daliresp) 500 mcg PO DAILY 30 days 30 tabs 3RF To roflumilast (Daliresp) 500 mcg PO DAILY 90 days 90 tabs 1RF Coding Level of Care Code Est Pt Level 4 (99938) Diagnoses Primary osteoarthritis of left knee M17.12 Asthma-COPD overlap syndrome J44.9 Left hip pain M25.552 Painful arc syndrome of right shoulder M75.101 Chronic allergic rhinitis J30.9 Migraine without status migrainosus, not intractable, unspecified migraine type G43.909 Intractability: not intractable Migraine type: unspecified Status migrainosus presence: without status migrainosus Iron deficiency anemia, unspecified iron deficiency anemia type D50.9 Iron deficiency anemia type: unspecified iron deficiency Vitamin D deficiency E55.9 GERD without esophagitis K21.9 Obesity (BMI 30-39.9) E66.9 Additional Codes ONESIMO-7 Assessment Billing - ONESIMO-7 Assessment Tool: ONESIMO-7 Assessment [id number] ([id number])
[2023-07-23 09:30] VITALS: BP 116/80; PULSE 87; O2SAT 97; BMI 36.1
== END 2023-07-23 10:14 | disposition home or self-care (01) ==
PROVIDERS: PCP Internal Medicine; Visit Provider Internal Medicine
DX: M17.12 Unilateral primary osteoarthritis, left knee (principal); J44.9 Chronic obstructive pulmonary disease, unspecified; M25.552 Pain in left hip; M75.101 Unspecified rotator cuff tear or rupture of right shoulder, not specified as traumatic; G43.909 Migraine, unspecified, not intractable, without status migrainosus; D50.9 Iron deficiency anemia, unspecified; E55.9 Vitamin D deficiency, unspecified; K21.9 Gastro-esophageal reflux disease without esophagitis; E66.9 Obesity, unspecified
CPT/HCPCS: 99214

== ENCOUNTER 2023-07-23 10:21 | Outpatient (AMB) | payer OTHER, SELFPAY ==
[2023-07-23 10:27] VITALS: PULSE 86; O2SAT 98; BMI 35.8
--- NOTE | 2023-07-23 10:27 | A.OFFVIS_ITS ---
Intake Vital Signs 07/23/23 10:27 Height 5 ft Weight 183 lb 3.266 oz BMI 35.8 Pulse 86 Pulse Source Pulse Oximeter Pulse Oximetry (%) 98 Oxygen Delivery Method Room Air Intake Visit Reasons: Asthma Motor Vehicle Clerk Required: No Allergies aspirin [ASA] Allergy (Severe, Verified 07/23/23 12:12) ITCHINESS, rash Penicillins [PENICILLINS] Allergy (Severe, Verified 07/23/23 12:12) ANAPHYLAXIS shellfish derived Allergy (Severe, Verified 07/23/23 12:12) ANAPHYLAXIS sumatriptan [From IMITREX] Allergy (Unknown, Verified 07/23/23 12:12) ANAPHYLAXIS, VOMITING, vomiting, dyspnea HPI HPI Comments History of Present Illness Details The patient has a 57 y/o woman with a history of asthma COPD overlap syndrome. Still complaining of worsening cough. Currently on Spiriva and also Flovent. Still requiring short-acting beta agonist on a daily basis. She has tried Symbicort in the past that was not effective. She does complains of a postnasal drip and nasal congestion. Current having allergy symptoms. We did perform allergy testing which was abnormal. The patient could not receive allergy shots due to her significant symptoms. She was started on trelegy inhaler which appears to be very effective for her. She still has a rescue inhaler that she uses 2 to 3 times a week. Her cough is better shortness of breath is better. She has failed multiple inhalers: Advair, symbicort, flovent and Spiriva. 12/07/2022 the patient is here for pulmona ry follow-up visit. She continues to do relatively well. She is still grieving the loss of her son. She has been on the Incruse and the Breo although is hard for her to keep up with the inhalers. I do believe she would do better on Trelegy inhaler. I will send that to her pharmacy. She also has been having increasing respiratory symptoms she has not been able to get her Daliresp. She had been on Daliresp for many years with very good effect. The patient does need to go back on it. I will send another prescription to the pharmacy. She continues to take her allergy medicine with good effect. Still has some shortness of breath with activity. 07/23/2023 the patient is here for a pulm onary follow-up visit. Overall the patient has been doing well currently on Breo and Incruse. She finally got the Daliresp improved. The Daliresp has been a very affecting beneficial for her. She will continue to use that on a daily basis. She did have 1 exacerbation back in May which she needed prednisone. Otherwise she has been without any prednisone requirements. She does have a rescue inhaler that she rarely uses typically less than twice a week. She did get back from a trip to the [facility]. While she was there she did have increased asthma symptoms due to some of the fumes that she was exposed to in her trip. But otherwise not bad and not require any additional therapies. No recent imaging studies to review. The patient follow-up in 6-8 months. The patient has any issues prior to that she will call for an earlier assessment. [facility] Medical History Obesity (BMI 30-39.9) Primary osteoarthritis of left knee GERD without esophagitis Edema Vitamin D deficiency Chronic allergic rhinitis Severe allergic reaction Asthma-COPD overlap syndrome Osteoarthritis Migraines Anemia Kidney stones Asthma Surgical History Hx of gastric bypass (~2006) Hx of ventral hernia repair History of bilateral tubal ligation H/O section Hx of rotator cuff surgery (~2016) H/O abdominoplasty History of renal stent Family History Father History of heart surgery Hx of blood clots Mother Heart problem Paternal Grandfather Skin cancer Social History Household Members: Children Housing: Apartment Are you a primary group care worker to a significant other at home: No Do you presently have visiting nurse or other home services: No Alcohol intake: current Alcohol intake frequency: a few times a month Alcohol type: wine Patient Tobacco Use Status: Never used Tobacco e-Cigarette/Vaping Use: Never Used Second Hand Smoke Exposure: No service: No Current occupational status: unemployed Cognitive needs: No Hearing needs: No Vision needs: No Review of Systems Const Denies chills, Reports fatigue, Denies fever(s) and Reports weight loss ENT Denies dysphagia, Denies dizziness, Denies otalgia, Denies sinus pain and Denies sore throat Card Denies chest pain, Denies palpitations and Denies dyspnea Resp Reports cough, Denies dyspnea and Reports wheezing GI Denies abdominal pain, Denies constipation, Denies dysphagia, Denies heartburn, Denies diarrhea, Denies nausea and Denies vomiting Denies difficulty voiding, Denies nocturia and Denies dysuria Musc Reports back pain (over the lower back) Neuro Denies dizziness Endo Reports fatigue and Denies palpitations Aller/Immun Reports wheezing Physical Exam Vital Signs: Last Vital Signs Pulse 86 07/23/23 10:27 Pulse Ox 98 07/23/23 10:27 Oxygen Delivery Method Room Air 07/23/23 10:27 BMI result Body Mass Index 35.8 Const General: alert Eyes Pupils: Equal, round and reactive pupils present Neck Neck: Yes normal visual inspection, Yes full ROM and Yes no lymphadenopathy Chest Chest palpation & inspection: normal inspection of the chest Resp Effort & Inspection: normal respiratory effort Auscultation: no wheezes and diminished lung sounds Cardio Rate: regular rate Rhythm: regular rhythm Heart sounds: S1 normal heart sound present and S2 normal heart sound present GI Palpation (GI): Soft to palpation and nontender Auscultation: normal bowel sounds Skin General skin exam: rashes and/or lesions noted Neuro Cranial nerves: Yes Equal, round and reactive pupils present Assessment & Plan Assessment & Plan (1) Asthma-COPD overlap syndrome: Code(s): J44.9 - Chronic obstructive pulmonary disease, unspecified (2) Chronic allergic rhinitis: Code(s): J30.9 - Allergic rhinitis, unspecified (3) GERD without esophagitis: Code(s): K21.9 - Gastro-esophageal reflux disease without esophagitis Plan Continue Breo/Incruse Xopenex HFA as needed Continue Singulair/Claritin continue Daliresp 500mcg daily reflux diet F/U 6-8 months Medications: Refilled roflumilast (Daliresp) 500 mcg PO DAILY 90 days 90 tabs 3RF montelukast (Singulair) 10 mg PO DAILY 90 days 90 tabs 3RF allergies umeclidinium 62.5 mcg/actuation (Incruse Ellipta) 1 inh PO DAILY 90 ea 3RF for asthma loratadine 10 mg PO DAILY 90 days 90 tabs 3RF for allergies fluticasone furoate-vilanterol 200-25 mcg/dose (Breo Ellipta) 1 inh inhalation DAILY 90 days 3 ea 3RF J45.909 - Unspecified asthma, uncomplicated levalbuterol tartrate 45 mcg/actuation (Xopenex HFA) 2 puffs PO Q6H 90 days PRN 3 ea 3RF shortness of breath or wheezing J45.909 - Unspecified asthma, uncomplicated ipratropium-albuterol 0.5 mg-3 mg(2.5 mg base)/3 mL 3 mL inhalation BID 90 days 540 mL 3RF J44.9 - Chronic obstructive pulmonary disease, unspecified Coding Level of Care Code Est Pt Level 4 (84426) Diagnoses Asthma-COPD overlap syndrome J44.9 Chronic allergic rhinitis J30.9 GERD without esophagitis K21.9 Time Spent (min) 17
== END 2023-07-23 10:49 | disposition home or self-care (01) ==
PROVIDERS: PCP Internal Medicine; Visit Provider Hospitalist
DX: J44.9 Chronic obstructive pulmonary disease, unspecified (principal); J30.9 Allergic rhinitis, unspecified; K21.9 Gastro-esophageal reflux disease without esophagitis
CPT/HCPCS: 99214

== ENCOUNTER → 2023-07-23 10:21 | Outpatient (BNVA) | payer OTHER, SELFPAY | PROVIDERS: PCP Internal Medicine; Visit Provider Hospitalist | DX: J44.9 Chronic obstructive pulmonary disease, unspecified (principal); J30.9 Allergic rhinitis, unspecified; K21.9 Gastro-esophageal reflux disease without esophagitis; Z79.899 Other long term (current) drug therapy | CPT/HCPCS: 99212 ==

== ENCOUNTER 2023-07-26 10:38 | Outpatient (REF) | payer OTHER, SELFPAY ==
--- NOTE | ~2023-07-26 | XR_ITS ---
EXAMINATION: XR KNEE, LEFT CLINICAL INFORMATION: Pain COMPARISON: None available. TECHNIQUE: Four views of the left knee. FINDINGS: There is mild loss of medial, lateral and patellofemoral compartment with mild periarticular spurring. No visible acute fracture, dislocation or subluxation seen. XR/XR knee LT 4V IMPRESSION: Degenerative arthritic changes left knee. No visible acute fracture, dislocation or subluxation seen.
== END 2023-07-26 10:39 | disposition home or self-care (01) ==
LOC: HO.HMGCX 10:38
PROVIDERS: PCP Internal Medicine; Visit Provider Internal Medicine
DX: M25.562 Pain in left knee (principal)
CPT/HCPCS: 73564

== ENCOUNTER 2023-09-24 11:46 | Outpatient (REF) | payer OTHER, SELFPAY ==
[2023-09-24] MEDS: Iron Sucrose Complex 200 MG in 0.9 % Sodium Chloride 100 ML 440 MG IV (12:41)
[2023-09-24 12:45] VITALS: BP 120/87; PULSE 87; RESP 16; TEMP 36.7; O2SAT 100
== END 2023-09-24 11:47 | disposition home or self-care (01) ==
LOC: HO.MDS 11:46
PROVIDERS: Visit Provider Internal Medicine Medical Oncology
DX: D50.9 Iron deficiency anemia, unspecified (principal)
CPT/HCPCS: 96365; J1756

== ENCOUNTER 2023-09-26 09:33 | Outpatient (AMB) | payer OTHER, SELFPAY ==
--- NOTE | 2023-09-26 09:35 | MHC.PC.OV ---
Vital Signs 09/26/23 09:36 Height 5 ft Weight 181 lb 4 oz BMI 35.4 BP 120/64 Blood Pressure Location Lt brachial Position Sitting Pulse 93 Pulse Source Pulse Oximeter Pulse Oximetry (%) 99 Oxygen Delivery Method Room Air Intake Visit Reasons: discuss hernia Intake Note: Patient is here to follow up on Hernia. Netsuite Developer Required: No Cartography Technician: Not Required per policy Accompanied by: Self / Same As Patient Allergies aspirin [ASA] Allergy (Severe, Verified 09/26/23 10:18) ITCHINESS, rash Penicillins [PENICILLINS] Allergy (Severe, Verified 09/26/23 10:18) ANAPHYLAXIS shellfish derived Allergy (Severe, Verified 09/26/23 10:18) ANAPHYLAXIS sumatriptan [From IMITREX] Allergy (Unknown, Verified 09/26/23 10:18) ANAPHYLAXIS, VOMITING, vomiting, dyspnea Medication List - Last Reconciled 09/26/23 by Arnoldo Powers MD albuterol sulfate 2.5 mg (3 mL) inhalation QID PRN 30 days [BACK BRACE As directed] blood pressure monitor As directed Daliresp (roflumilast) 500 mcg PO DAILY 90 days NS diclofenac sodium 3% 1 appl topical BID 90 days epinephrine 0.3 mL IM DAILY PRN ergocalciferol (vitamin D2) 1,250 mcg PO QWEEK fluticasone furoate-vilanterol 200-25 mcg/dose (Breo Ellipta) 1 inh inhalation DAILY 90 days furosemide 20 mg PO QAM PRN ipratropium-albuterol 0.5 mg-3 mg(2.5 mg base)/3 mL 3 mL inhalation BID 90 days ketotifen fumarate 0.025%(0.035%) ([place]away) 1 drp ophthalmic (eye) BID levalbuterol tartrate 45 mcg/actuation (Xopenex HFA) 2 puffs PO Q6H PRN 90 days lidocaine 5% 1 patch topical DAILY PRN 30 days loratadine 10 mg PO DAILY 90 days montelukast (Singulair) 10 mg PO DAILY 90 days multivitamin,tx-minerals (Multi-Vitamin HP/Minerals capsule) 1 cap PO DAILY naproxen 500 mg PO BID PRN nebulizers As directed omeprazole 40 mg PO BID ondansetron 4 mg PO BID-TID PRN 30 days tizanidine 2 mg PO Q8H PRN tramadol 50 mg PO TID PRN 10 days umeclidinium 62.5 mcg/actuation (Incruse Ellipta) 1 inh PO DAILY venlafaxine ER (Effexor XR) 37.5 mg PO DAILY Tobacco use date assessed: 09/26/23 Dental Screening Dental Screen Date: 09/26/23 Did you have a dental visit in the last 12 months?: Yes Did you have a dental problem in the last 6 months where you did not have access to dental care?: No Was dental information given to patient?: Patient has dentist HPI discuss hernia HPI Details Patient comes in today for her follow up visit and to discuss some medications that can help her lose weight States that she had her repeat EGD done with Dr. Rondon last month on 08/15/2023 and was advised that her gastric pouch has herniated above the diaphragm and she has multiple small erosions on the jejunal side of her previous gastrojejunostomy site, with one of them bleeding recently but is no longer actively bleeding at the time of her procedure She was instructed to increase her Omeprazole 40 mg to BID dosing and that her herniated gastric pouch can only be rectified with surgery She was also supposedly advised to speak to her PCP about being possibly started on some of the injectable weight loss meds similar to Ozempic to see if they can help her lose some weight Patient is currently still anemic and last had IV iron infusion a couple of days ago on 09/24/2023 States that she will be getting another infusion in a couple of weeks on 10/11/2023 She reports feeling fatigued (likely due to her anemia) but denies any headaches or dizziness lately She denies any chest pains, no increased SOB Still has on and off nausea and occasional vomiting, no abdominal pain and no change in bowel habits recently Needs her Lidocaine patch Rx [facility] Medical History Obesity (BMI 30-39.9) Primary osteoarthritis of left knee GERD without esophagitis Edema Vitamin D deficiency Chronic allergic rhinitis Severe allergic reaction Asthma-COPD overlap syndrome Osteoarthritis Migraines Anemia Kidney stones Asthma Surgical History Hx of gastric bypass (~2006) Hx of ventral hernia repair History of bilateral tubal ligation H/O section Hx of rotator cuff surgery (~2017) H/O abdominoplasty History of renal stent Family History Father History of heart surgery Hx of blood clots Mother Heart problem Paternal Grandfather Skin cancer Social History Household Members: Children Housing: Apartment Are you a primary healthcare specialist to a significant other at home: No Do you presently have visiting nurse or other home services: No Alcohol intake: current Alcohol intake frequency: a few times a month Alcohol type: wine Patient Tobacco Use Status: Never used Tobacco e-Cigarette/Vaping Use: Never Used Second Hand Smoke Exposure: No service: No Current occupational status: unemployed Cognitive needs: No Hearing needs: No Vision needs: No Questionnaire PHQ-9 Over the last 2 weeks, how often have you been bothered by any of the following problems? Depression Screening Interpretation: Negative Depression Screening Done: Yes Source: Developed by Drs. Luiz Suarez, Suri Reyes, Randall Euceda and colleagues, with an educational ines from [employer]. Thrive Questionnaire Date Thrive assessed: 07/23/23 Currently or been in a relationship where the following occur: no concerns reported THRIVE Score: 0 ONESIMO-7 AMB Questionnaire ONESIMO-7 Date ONESIMO - 7 assessed: 07/23/23 Source: Developed by Drs. Luiz Suarez, Randall Savage and colleagues, with an educational ines from [employer]. Review of Systems Const Denies chills, Reports fatigue, Denies fever(s) and Denies headache(s) ENT Denies dysphagia, Denies dizziness, Denies otalgia, Denies headache(s), Denies neck pain, Denies odynophagia and Denies sore throat Card Denies chest pain, Denies rapid heart rate, Denies irregular heart rhythm, Denies palpitations and Reports dyspnea (mild) Resp Denies chest congestion, Denies cough, Denies pain with cough, Reports dyspnea (mild) and Denies wheezing GI Denies abdominal pain, Denies constipation, Denies dysphagia, Denies heartburn, Denies diarrhea, Reports nausea (on and off), Denies odynophagia and Reports vomiting (occasional) Denies hematuria, Denies urinary frequency, Denies dysuria and Denies urinary urgency Musc Reports back pain (over the left lower back - see HPI), Reports arthralgias (left hip), Denies joint swelling, Denies neck pain and Reports radiating pain into limb (into the left leg) Skin/Breast Denies rash Neuro Denies dizziness, Denies headache(s) and Denies paresthesias Psych Denies anxiety and Denies depression Endo Reports fatigue and Denies palpitations Portillo/Lymph Denies easy bruising Aller/Immun Denies wheezing Physical exam (Primary Care) Vital Signs: Last Vital Signs Pulse 93 09/26/23 09:36 BP 120/64 09/26/23 09:36 Pulse Ox 99 09/26/23 09:36 Oxygen Delivery Method Room Air 09/26/23 09:36 BMI result Body Mass Index 35.4 Tobacco/Smoking Status: Tobacco use Status Tobacco use date assessed 09/26/23 09/26/23 09:43 Patient Tobacco Use Status Never used Tobacco 09/26/23 09:43 e-Cigarette/Vaping Use Never Used 09/26/23 09:43 Depression Screening Interpretation: Negative Thrive Assessment: Date of Thrive Assessment Date Thrive assessed 07/23/23 09/26/23 09:43 Currently or been in a relationship where the following occur: no concerns reported Const General: no acute distress and alert HENMT Ears: TM's normal bilaterally and EAC's normal Face and sinus: Yes sinuses nontender Throat: Yes posterior oropharynx normal and Yes tonsils normal (no TP congestion) Neck Neck: Yes no lymphadenopathy and Yes supple Thyroid: Thyroid normal Resp Auscultation: clear to auscultation bilaterally, no rales and no wheezes Cardio Rate: regular rate Rhythm: regular rhythm Heart sounds: no murmurs GI Palpation (GI): Soft to palpation and nontender Auscultation: normal bowel sounds General: Yes no CVA tenderness Back/Spine/Pelvis Back: no CVA tenderness Thoracic/Lumbar Spine: lumbar spinal tenderness (more on the left side) Sacroiliac joints: on the left tender to palpation Skin Rashes: no rashes Extrem General: Yes no clubbing, cyanosis or edema Right upper extremity: shoulder/upper arm Details: tenderness and abnormal ROM (slightly limited due to pain); no swelling Left lower extremity: hip/thigh Details: tenderness Location: of the hip Location: posteriorly and knee Details: tenderness Location: of the pre-patellar area; no swelling Assessment and Plan Assessment & Plan (1) 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 Rondon and was advised that her gastric pouch has herniated above the diaphragm and that the only way this can be corrected would be through surgical means She was advised that losing weight may help somewhat and was advised to speak to her PCP about medications that can help her lose weight as she has clearly failed bariatric surgery Patient has inquired about Ozempic - was advised that currently, the only medications approved for weight loss are Wegovy and Zepbound As she is not a diabetic, Ozempic would not be approved for her Will go ahead and try her on Wegovy 0.25 mg SQ once a week (2) Multiple gastric erosions: Code(s): K25.9 - Gastric ulcer, unspecified as acute or chronic, without hemorrhage or perforation Qualifiers: Gastric ulcer chronicity: unspecified ulcer chronicity Qualified Code(s): K25.9 - Gastric ulcer, unspecified as acute or chronic, without hemorrhage or perforation Plan: EGD also revealed (+) multiple small erosions on the jejunal side of her previous gastrojejunostomy site, with one of them bleeding recently but is no longer actively bleeding at the time of her procedure She has been advised to increase her Omeprazole dosing to 40 mg BID Follow up with GI as scheduled (3) Asthma-COPD overlap syndrome: Code(s): J44.9 - Chronic obstructive pulmonary disease, unspecified Plan: Continue Breo Ellipta 1 inhalation QD, Incruse Ellipta 62.5 mcg QD, Montelukast 10 mg QD and Ventolin HFA 2 puffs 4 times a day as needed Continue Daliresp 500 mcg QD - states that she feels a lot better while on Daliresp Follow up with pulmonary as scheduled (4) Iron deficiency anemia: Code(s): D50.9 - Iron deficiency anemia, unspecified Qualifiers: Iron deficiency anemia type: unspecified iron deficiency Qualified Code(s): D50.9 - Iron deficiency anemia, unspecified Plan: She is currently receiving IV iron infusions from hematology - just had one a couple of days ago and will be receiving her next dose in a couple of weeks Will continue to monitor her CBC regularly Follow up with hematology as scheduled She was referred to GI for consideration for colonoscopy but she declined the procedure (5) Primary osteoarthritis of left knee: Code(s): M17.12 - Unilateral primary osteoarthritis, left knee Plan: X-rays of the left knee done in March 2019 showed (+) mild OA changes there was similar to findings on x-rays back in 2015 Repeat left knee x-rays done a couple of months ago again showed the same findings Continue Naproxen 500 mg twice a day with food as needed and Tramadol 50 mg 2 to 3 times a day as needed for pain Follow-up with Orthopedics as scheduled (6) Left hip pain: Code(s): M25.552 - Pain in left hip Plan: X-rays of the left hip done a few months ago came out normal Patient is advised that her current pain may actually be radiated pain from her lower back or her SI joint Lumbar spine x-rays done a couple of years ago revealed (+) lumbar disc disease Repeat lumbar spine and left SI joint x-rays done back in January 2023 revealed (+) mild degenerative changes and normal-appearing sacroiliac joints (7) Painful arc syndrome of right shoulder: Code(s): M75.101 - Unspecified rotator cuff tear or rupture of right shoulder, not specified as traumatic Plan: X-rays of the shoulder done a few months ago came back negative Has been seen by orthopedics for this a few months ago but she declined offer for cortisone injection (had one done before that did not help) and referral for physical therapy Follow up with orthopedics as scheduled Per request, will refill her Rx for Lidocaine patches QD PRN (8) Chronic allergic rhinitis: Code(s): J30.9 - Allergic rhinitis, unspecified Plan: Continue Fluticasone 50 mcg nasal spray QD and Loratadine 10 mg QD PRN (9) Migraines: Code(s): G43.909 - Migraine, unspecified, not intractable, without status migrainosus Qualifiers: Intractability: not intractable Migraine type: unspecified Status migrainosus presence: without status migrainosus Qualified Code(s): G43.909 - Migraine, unspecified, not intractable, without status migrainosus Plan: Continue Sumatriptan 50 mg PRN and Fioricet 1 tablet 3 to 4 times a day as needed Reinforced avoidance of migraine triggers - that her migraine headaches have also been stable lately Follow up with neurology as scheduled (10) Vitamin D deficiency: Code(s): E55.9 - Vitamin D deficiency, unspecified Plan: Continue Vitamin D2 30295 units once a week (11) Obesity (BMI 30-39.9): Comment: S/P gastric bypass Code(s): E66.9 - Obesity, unspecified Plan: Reinforced diet/exercise as tolerated/lose weight Plan Follow up as scheduled in October 2023 Medications: New semaglutide (weight loss) (Roland) administer weeks 1 through 4 of therapy 0.25 mg (0.5 mL) subcut QWEEK 4 weeks 2 mL 2RF E66.9 - Obesity, unspecified, Z98.84 - Bariatric surgery status Refilled lidocaine 5% 1 patch topical DAILY 30 days PRN 30 ea 5RF pain Coding Level of Care Code Est Pt Level 4 (43796) Diagnoses 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 K95.89 Multiple gastric erosions, unspecified ulcer chronicity K25.9 Gastric ulcer chronicity: unspecified ulcer chronicity Asthma-COPD overlap syndrome J44.9 Iron deficiency anemia, unspecified iron deficiency anemia type D50.9 Iron deficiency anemia type: unspecified iron deficiency Primary osteoarthritis of left knee M17.12 Left hip pain M25.552 Painful arc syndrome of right shoulder M75.101 Chronic allergic rhinitis J30.9 Migraine without status migrainosus, not intractable, unspecified migraine type G43.909 Intractability: not intractable Migraine type: unspecified Status migrainosus presence: without status migrainosus Vitamin D deficiency E55.9 Obesity (BMI 30-39.9) E66.9
[2023-09-26 09:36] VITALS: BP 120/64; PULSE 93; O2SAT 99; BMI 35.4
== END 2023-09-26 10:25 | disposition home or self-care (01) ==
PROVIDERS: PCP Internal Medicine; Visit Provider Internal Medicine
DX: K95.89 Other complications of other bariatric procedure (principal); J44.9 Chronic obstructive pulmonary disease, unspecified; K25.9 Gastric ulcer, unspecified as acute or chronic, without hemorrhage or perforation; D50.9 Iron deficiency anemia, unspecified; M17.12 Unilateral primary osteoarthritis, left knee; M25.552 Pain in left hip; M75.101 Unspecified rotator cuff tear or rupture of right shoulder, not specified as traumatic; J30.9 Allergic rhinitis, unspecified; G43.909 Migraine, unspecified, not intractable, without status migrainosus; E55.9 Vitamin D deficiency, unspecified; E66.9 Obesity, unspecified
CPT/HCPCS: 99214

== ENCOUNTER 2023-11-19 08:03 | Outpatient (REF) | payer OTHER, SELFPAY ==
[2023-11-19 10:28] LABS: Appearance Urine Cloudy; Color Urine Yellow; Glucose Urine UA Negative (Negative); Leukocyte Esterase Urine Small (1+) (Negative); MANUAL DIFF FLAG NO; Nitrite Urine Negative (Negative); Specific Gravity - Urine 1.025 (1.005-1.025); UMIC TRIGGER UACC YES; Urine Blood Negative (Negative); Urine Ketones Negative (Negative); Urine Protein Negative (Neg-Trace)
[2023-11-19 10:32] LABS: Basophils Absolute Auto 0.1 X10*3/uL (0.0-0.2); Basophils Percent Auto 1.1 % (0-2); Eosinophils Absolute Auto 0.2 X10*3/uL (0.0-0.4); Eosinophils Percent Auto 3.6 % (0-4); Hemoglobin 14.1 g/dl (12.0-16.0); Imm Gran Abs Auto 0.02 X10*3/uL (0.00-0.03); Imm Gran Pct Auto 0.3 % (0.0-0.4); Lymphocytes Absolute Auto 2.5 X10*3/uL (1.2-4.9); Lymphocytes Percent Auto 37.7 % (20-40); Mean Corpuscular HGB Conc 31.3 g/dl (31.0-35.0); Mean Corpuscular Hemoglobin 25.1 pg (27.0-33.0); Mean Corpuscular Volume 80.1 fL (80.0-98.0); Mean Platelet Volume 9.6 fL (9.4-12.3); Monocytes Absolute Auto 0.4 X10*3/uL (0.1-1.2); Monocytes Percent Auto 5.6 % (2-11); Neutrophils Absolute Auto 3.4 x10*3/uL (2.0-8.3); Neutrophils Percent Auto 51.7 % (45-73); Platelet Count 298 X10*3/uL (160-400); Red Blood Count 5.62 X10*6/uL (4.20-5.50); Red Cell Distribution Width 23.9 % (11.0-16.0); White Blood Count 6.6 X10*3/uL (4.8-10.8)
[2023-11-19 10:42] LABS: Bacteria Urine 2+ (None Seen); Hyaline Casts Urine 0-2 /LPF (0-2); RBC Urine 0-2 /HPF (0-2); Squamous Epithelial Cell Urine >20 /HPF (0-2); UACC Culture Trigger YES; WBC Urine 0-5 /HPF (0-5)
[2023-11-19 11:21] LABS: Alanine Aminotransferase 25 U/L (0-31); Albumin Level 4.1 g/dL (3.5-5.0); Alkaline Phosphatase 107 U/L (39-117); Anion Gap 13 (12-20); Aspartate Amino Transferase 24 U/L (5-31); Bilirubin Total 0.3 mg/dL (0.0-1.0); Blood Urea Nitrogen 13 mg/dL (9-16); Calcium 9.8 mg/dL (8.4-10.2); Carbon Dioxide 26 mmol/L (22-29); Chloride 109 mmol/L (96-108); Cholesterol 194 mg/dL (<200); Estimated Glomerular Filt Rate > 60; Glucose Fasting 111 mg/dL (60-99); HDL Cholesterol 53 mg/dL (>40); LDL Cholesterol Calculated 112 mg/dL (<100); Potassium 4.1 mmol/L (3.3-5.1); Sodium 144 mmol/L (135-145); TSH reflex Free T4 1.83 uIU/mL (0.32-4.0); Total Protein 7.2 g/dL (6.5-8.0); Triglycerides 148 mg/dL (<150); Vitamin D 25-OH Total 57.6 ng/mL (>30)
== END 2023-11-19 08:04 | disposition home or self-care (01) ==
LOC: HO.HMGCLDS 08:03
PROVIDERS: PCP Internal Medicine; Visit Provider Internal Medicine
DX: E55.9 Vitamin D deficiency, unspecified (principal); D64.9 Anemia, unspecified; E78.00 Pure hypercholesterolemia, unspecified
CPT/HCPCS: 36415; 80053; 80061; 81001; 82306; 84443; 85025; 87086

== ENCOUNTER 2023-11-22 07:30 | Outpatient (RCR) | payer OTHER, SELFPAY ==
[2023-10-11 07:45] VITALS: BP 149/80; PULSE 79; RESP 20; TEMP 37.2; O2SAT 98
[2023-10-11] MEDS: Iron Sucrose Complex 200 MG in 0.9 % Sodium Chloride 100 ML 440 MG IV (08:02)
[2023-10-11] MEDS: 0.9 % Sodium Chloride Flush 10 ML SYRINGE 5 ML IVFLUSH (08:19)
[2023-10-18 07:39] VITALS: BP 153/96; PULSE 94; RESP 20; TEMP 37.6; O2SAT 96
[2023-10-18] MEDS: Iron Sucrose Complex 200 MG in 0.9 % Sodium Chloride 100 ML 440 MG IV (07:46)
[2023-10-18] MEDS: 0.9 % Sodium Chloride Flush 10 ML SYRINGE 5 ML IVFLUSH (07:46)
[2023-10-25 07:27] VITALS: BMI 34.8
[2023-10-25 07:28] VITALS: BP 158/85; PULSE 79; RESP 18; TEMP 36.9; O2SAT 99
--- NOTE | 2023-10-25 07:47 | HO.INF ---
7:45AM- CBCD AND FERRITIN LEVEL ORDERS PLACED, LAB IN BLOOD DRAWM
[2023-10-25 07:50] LABS: MANUAL DIFF FLAG NO
[2023-10-25] MEDS: Iron Sucrose Complex 200 MG in 0.9 % Sodium Chloride 100 ML 440 MG IV (07:50)
[2023-10-25 07:56] LABS: Basophils Absolute Auto 0.1 X10*3/uL (0.0-0.2); Eosinophils Absolute Auto 0.3 X10*3/uL (0.0-0.4); Eosinophils Percent Auto 3.9 % (0-4); Hematocrit 40.3 % (37.0-47.0); Hemoglobin 12.3 g/dl (12.0-16.0); Imm Gran Abs Auto 0.02 X10*3/uL (0.00-0.03); Imm Gran Pct Auto 0.3 % (0.0-0.4); Lymphocytes Percent Auto 42.6 % (20-40); Mean Corpuscular HGB Conc 30.5 g/dl (31.0-35.0); Mean Corpuscular Hemoglobin 23.6 pg (27.0-33.0); Mean Corpuscular Volume 77.4 fL (80.0-98.0); Mean Platelet Volume 9.3 fL (9.4-12.3); Monocytes Absolute Auto 0.4 X10*3/uL (0.1-1.2); Monocytes Percent Auto 6.1 % (2-11); Neutrophils Absolute Auto 3.2 x10*3/uL (2.0-8.3); Neutrophils Percent Auto 46.1 % (45-73); Platelet Count 299 X10*3/uL (160-400); Red Blood Count 5.21 X10*6/uL (4.20-5.50); Red Cell Distribution Width 22.5 % (11.0-16.0); White Blood Count 6.9 X10*3/uL (4.8-10.8)
[2023-10-25 08:25] LABS: Ferritin 117 ng/mL (10-250)
[2023-11-01 07:52] VITALS: BP 141/89; PULSE 80; RESP 18; TEMP 36.6; O2SAT 98
[2023-11-01] MEDS: Iron Sucrose Complex 200 MG in 0.9 % Sodium Chloride 100 ML 440 MG IV (07:54)
[2023-11-01] MEDS: 0.9 % Sodium Chloride Flush 10 ML SYRINGE 5 ML IVFLUSH (07:54)
[2023-11-08 07:43] VITALS: BP 153/86; PULSE 88; RESP 20; TEMP 36.9; O2SAT 99
[2023-11-08] MEDS: 0.9 % Sodium Chloride Flush 10 ML SYRINGE 5 ML IVFLUSH (07:50)
[2023-11-08] MEDS: Iron Sucrose Complex 200 MG in 0.9 % Sodium Chloride 100 ML 440 MG IV (07:53)
[2023-11-15 07:50] VITALS: BP 141/89; PULSE 98; RESP 18; TEMP 36.4; O2SAT 97
[2023-11-15] MEDS: Iron Sucrose Complex 200 MG in 0.9 % Sodium Chloride 100 ML 440 MG IV (07:59)
[2023-11-22] MEDS: Iron Sucrose Complex 200 MG in 0.9 % Sodium Chloride 100 ML 440 MG IV (07:45)
[2023-11-22 07:48] VITALS: BP 156/94; PULSE 79; RESP 20; TEMP 36.6; O2SAT 98
[2023-11-22 08:06] LABS: MANUAL DIFF FLAG NO
[2023-11-22 08:08] LABS: Basophils Absolute Auto 0.1 X10*3/uL (0.0-0.2); Basophils Percent Auto 0.8 % (0-2); Eosinophils Absolute Auto 0.3 X10*3/uL (0.0-0.4); Eosinophils Percent Auto 3.5 % (0-4); Hemoglobin 13.8 g/dl (12.0-16.0); Imm Gran Abs Auto 0.02 X10*3/uL (0.00-0.03); Imm Gran Pct Auto 0.3 % (0.0-0.4); Lymphocytes Absolute Auto 2.5 X10*3/uL (1.2-4.9); Lymphocytes Percent Auto 34.4 % (20-40); Mean Corpuscular HGB Conc 32.9 g/dl (31.0-35.0); Mean Corpuscular Hemoglobin 25.8 pg (27.0-33.0); Mean Corpuscular Volume 78.7 fL (80.0-98.0); Mean Platelet Volume 9.1 fL (9.4-12.3); Monocytes Absolute Auto 0.4 X10*3/uL (0.1-1.2); Monocytes Percent Auto 5.5 % (2-11); Neutrophils Absolute Auto 4.1 x10*3/uL (2.0-8.3); Neutrophils Percent Auto 55.5 % (45-73); Platelet Count 263 X10*3/uL (160-400); Red Blood Count 5.34 X10*6/uL (4.20-5.50); Red Cell Distribution Width 22.7 % (11.0-16.0); White Blood Count 7.3 X10*3/uL (4.8-10.8)
[2023-11-22 08:51] LABS: Ferritin 246 ng/mL (10-250)
== END 2023-11-22 10:58 | disposition home or self-care (01) ==
LOC: HO.INF 07:30
PROVIDERS: Visit Provider Internal Medicine Medical Oncology
DX: D50.9 Iron deficiency anemia, unspecified (principal)
CPT/HCPCS: 36415; 82728; 85025; 96365; 96374; J1756

== ENCOUNTER 2023-11-22 09:42 | Outpatient (AMB) | payer OTHER, SELFPAY ==
--- NOTE | 2023-11-22 09:47 | MHC.PC.OV ---
Vital Signs 11/22/23 09:49 Height 5 ft Weight 179 lb 2 oz BMI 35.0 BP 130/70 Blood Pressure Location Rt brachial Position Sitting Pulse 87 Pulse Source Pulse Oximeter Pulse Oximetry (%) 91 L Oxygen Delivery Method Room Air Intake Visit Reasons: 4mth f/u Intake Note: Patient is here to follow up on Asthma, Lower back pain, Migraine. Supervisor Last Model Department Required: No Laboratory Secretary: Not Required per policy Accompanied by: Self / Same As Patient Allergies aspirin [ASA] Allergy (Severe, Verified 11/22/23 10:27) ITCHINESS, rash Penicillins [PENICILLINS] Allergy (Severe, Verified 11/22/23 10:27) ANAPHYLAXIS shellfish derived Allergy (Severe, Verified 11/22/23 10:27) ANAPHYLAXIS sumatriptan [From IMITREX] Allergy (Unknown, Verified 11/22/23 10:27) ANAPHYLAXIS, VOMITING, vomiting, dyspnea Medication List - Last Reconciled 11/22/23 by Arnoldo Powers MD albuterol sulfate 2.5 mg (3 mL) inhalation QID PRN 30 days [BACK BRACE As directed] blood pressure monitor As directed Daliresp (roflumilast) 500 mcg PO DAILY 90 days NS diclofenac sodium 3% 1 appl topical BID 90 days epinephrine 0.3 mL IM DAILY PRN ergocalciferol (vitamin D2) 1,250 mcg PO QWEEK fluticasone furoate-vilanterol 200-25 mcg/dose (Breo Ellipta) 1 inh inhalation DAILY 90 days furosemide 20 mg PO QAM PRN ipratropium-albuterol 0.5 mg-3 mg(2.5 mg base)/3 mL 3 mL inhalation BID 90 days ketotifen fumarate 0.025%(0.035%) (Alaway) 1 drp ophthalmic (eye) BID levalbuterol tartrate 45 mcg/actuation (Xopenex HFA) 2 puffs PO Q6H PRN 90 days lidocaine 5% 1 patch topical DAILY PRN 30 days loratadine 10 mg PO DAILY 90 days montelukast (Singulair) 10 mg PO DAILY 90 days multivitamin,tx-minerals (Multi-Vitamin HP/Minerals capsule) 1 cap PO DAILY naproxen 500 mg PO BID PRN nebulizers As directed omeprazole 40 mg PO BID 30 days ondansetron 4 mg PO BID-TID PRN 30 days tizanidine 2 mg PO Q8H PRN tramadol 50 mg PO TID PRN 10 days umeclidinium 62.5 mcg/actuation (Incruse Ellipta) 1 inh PO DAILY venlafaxine ER (Effexor XR) 37.5 mg PO DAILY Tobacco use date assessed: 11/22/23 Dental Screening Dental Screen Date: 09/26/23 HPI 4mth f/u HPI Details Patient comes in today for her follow up visit States that she has been experiencing increased allergy symptoms lately, with increased nasal drainage/congestion, sneezing, itchy and watery eyes and on and off mild sore throat / throat irritation over the past few days States that she is taking her Loratadine and Montelukast daily but does not feel that they are helping enough She denies any fever; denies any headaches or dizziness Denies any chest pains, no increased SOB No nausea/vomiting, no abdominal pain but she still cannot stand to eat too much as it tends to bother her stomach - was recently diagnosed with a herniated gastric pouch by GI on recent EGD and was advised surgical correction, which patient is still debating No change in bowel habits noted Needs her Epipen Rx refilled Had her follow up labs done a few days ago - to discuss her results COUNTS INCLUDE 234 BEDS AT THE [facility] Medical History Obesity (BMI 30-39.9) Primary osteoarthritis of left knee GERD without esophagitis Edema Vitamin D deficiency Chronic allergic rhinitis Severe allergic reaction Asthma-COPD overlap syndrome Osteoarthritis Migraines Anemia Kidney stones Asthma Surgical History Hx of gastric bypass (~2006) Hx of ventral hernia repair History of bilateral tubal ligation H/O section Hx of rotator cuff surgery (~2016) H/O abdominoplasty History of renal stent Family History Father History of heart surgery Hx of blood clots Mother Heart problem Paternal Grandfather Skin cancer Social History Household Members: Children Housing: Apartment Are you a primary health care aide to a significant other at home: No Do you presently have visiting nurse or other home services: No Alcohol intake: current Alcohol intake frequency: a few times a month Alcohol type: wine Patient Tobacco Use Status: Never used Tobacco e-Cigarette/Vaping Use: Never Used Second Hand Smoke Exposure: No service: No Current occupational status: unemployed Cognitive needs: No Hearing needs: No Vision needs: No Questionnaire Thrive Questionnaire Date Thrive assessed: 07/23/23 ONESIMO-7 AMB Questionnaire ONESIMO-7 Date ONESIMO - 7 assessed: 07/23/23 Source: Developed by Drs. Luiz Suarez, Suri Reyes, Randall Euceda and colleagues, with an educational ines from [employer]. Review of Systems Const Denies chills, Reports fatigue, Denies fever(s) and Denies headache(s) Eyes Reports itchy eyes ENT Denies dysphagia, Denies dizziness, Denies otalgia, Denies headache(s), Reports nasal congestion, Reports nasal discharge, Denies neck pain, Denies odynophagia and Reports sore throat (on and off; mild) Card Denies chest pain, Denies rapid heart rate, Denies irregular heart rhythm, Denies palpitations and Reports dyspnea (mild) Resp Denies chest congestion, Denies cough, Denies pain with cough, Reports dyspnea (mild) and Denies wheezing GI Denies abdominal pain, Reports bloating (at times), Denies constipation, Denies dysphagia, Denies heartburn, Denies diarrhea, Reports nausea (on and off), Denies odynophagia and Reports vomiting (occasional) Denies hematuria, Denies urinary frequency, Denies dysuria and Denies urinary urgency Musc Reports back pain (over the left lower back - see HPI), Reports arthralgias (left hip), Denies joint swelling, Denies neck pain and Reports radiating pain into limb (into the left leg) Skin/Breast Denies rash Neuro Denies dizziness, Denies headache(s) and Denies paresthesias Psych Denies anxiety and Denies depression Endo Reports fatigue and Denies palpitations Portillo/Lymph Denies easy bruising Aller/Immun Reports itchy eyes, Reports seasonal rhinorrhea and Denies wheezing Physical exam (Primary Care) Vital Signs: Last Vital Signs Pulse 87 11/22/23 09:49 BP 130/70 11/22/23 09:49 Pulse Ox 91 L 05/24/24 09:49 Oxygen Delivery Method Room Air 11/22/23 09:49 BMI result Body Mass Index 35.0 Tobacco/Smoking Status: Tobacco use Status Tobacco use date assessed 11/22/23 11/22/23 09:55 Patient Tobacco Use Status Never used Tobacco 11/22/23 09:55 e-Cigarette/Vaping Use Never Used 11/22/23 09:55 Thrive Assessment: Date of Thrive Assessment Date Thrive assessed 07/23/23 11/22/23 09:55 Const General: no acute distress and alert HENMT Ears: TM's normal bilaterally and EAC's normal Face and sinus: Yes sinuses nontender Throat: Yes posterior oropharynx normal and Yes tonsils normal (no TP congestion) Neck Neck: Yes no lymphadenopathy and Yes supple Thyroid: Thyroid normal Resp Auscultation: clear to auscultation bilaterally, no rales and no wheezes Cardio Rate: regular rate Rhythm: regular rhythm Heart sounds: no murmurs GI Palpation (GI): Soft to palpation and nontender Auscultation: normal bowel sounds General: Yes no CVA tenderness Back/Spine/Pelvis Back: no CVA tenderness Thoracic/Lumbar Spine: lumbar spinal tenderness (more on the left side) Sacroiliac joints: on the left tender to palpation Skin Rashes: no rashes Extrem General: Yes no clubbing, cyanosis or edema Right upper extremity: shoulder/upper arm Details: tenderness and abnormal ROM (slightly limited due to pain); no swelling Left lower extremity: hip/thigh Details: tenderness Location: of the hip Location: posteriorly and knee Details: tenderness Location: of the pre-patellar area; no swelling Results Reviewed Results Reviewed: Laboratory Tests 02/01/23 02/01/23 11/19/23 08:34 09:05 08:13 WBC 5.6 Hgb 11.5 L Hct 37.8 Plt Count 284 Sodium 142 144 Potassium 3.9 4.1 Creatinine 0.55 0.65 Estimated GFR > 60 Fasting Glucose 88 111 H Calcium 8.7 9.8 D Ferritin AST 16 24 ALT 16 25 Triglycerides 115 148 Cholesterol 157 194 LDL Cholesterol, Calc 86 112 H HDL Cholesterol 48 53 25-OH Vitamin D Total 31.0 57.6 TSH 3.68 1.83 Urine pH 6.5 Ur Specific [place] 1.020 1.025 Urine Protein Negative Negative Urine Glucose (UA) Negative Negative Urine Blood Negative Negative Urine Nitrite Negative Ur Leukocyte Esterase Small (1+) H 11/22/23 08:03 WBC 7.3 Hgb 13.8 Hct 42.0 Plt Count 263 Sodium Potassium Creatinine Estimated GFR Fasting Glucose Calcium Ferritin 246 AST ALT Triglycerides Cholesterol LDL Cholesterol, Calc HDL Cholesterol 25-OH Vitamin D Total TSH Urine pH Ur Specific [place] Urine Protein Urine Glucose (UA) Urine Blood Urine Nitrite Ur Leukocyte Esterase Assessment and Plan Assessment & Plan (1) 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 Rondon and was advised that her gastric pouch has herniated above the diaphragm and that the only way this can be corrected would be through surgical means She was advised that losing weight may help somewhat and was advised to speak to her PCP about medications that can help her lose weight as she has clearly failed bariatric surgery Patient has inquired about Ozempic - was advised that currently, the only medications approved for weight loss are Wegovy and Zepbound As she is not a diabetic, Ozempic would not be approved for her We tried prescribing her Wegovy 0.25 mg SQ once a week previously but it looks like her insurance would not approve the Rx as patient was not able to get the Rx from her pharmacy (2) Multiple gastric erosions: Code(s): K25.9 - Gastric ulcer, unspecified as acute or chronic, without hemorrhage or perforation Qualifiers: Gastric ulcer chronicity: unspecified ulcer chronicity Qualified Code(s): K25.9 - Gastric ulcer, unspecified as acute or chronic, without hemorrhage or perforation Plan: EGD also revealed (+) multiple small erosions on the jejunal side of her previous gastrojejunostomy site, with one of them bleeding recently but is no longer actively bleeding at the time of her procedure She has been advised to increase her Omeprazole dosing to 40 mg BID, which she is still currently on Follow up with GI as scheduled Can consider switching her to Voquezna if her symptoms do not improve significantly on high-dose PPI Tx (3) Asthma-COPD overlap syndrome: Code(s): J44.9 - Chronic obstructive pulmonary disease, unspecified Plan: Continue Breo Ellipta 1 inhalation QD, Incruse Ellipta 62.5 mcg QD, Montelukast 10 mg QD and Ventolin HFA 2 puffs 4 times a day as needed Continue Daliresp 500 mcg QD - states that she feels a lot better while on Daliresp Follow up with pulmonary as scheduled (4) Iron deficiency anemia: Code(s): D50.9 - Iron deficiency anemia, unspecified Qualifiers: Iron deficiency anemia type: unspecified iron deficiency Qualified Code(s): D50.9 - Iron deficiency anemia, unspecified Plan: She is currently still receiving IV iron infusions from hematology - Will continue to monitor her CBC regularly - last CBC done earlier today came out normal Follow up with hematology as scheduled She was referred to GI for consideration for colonoscopy but she declined the procedure (5) Primary osteoarthritis of left knee: Code(s): M17.12 - Unilateral primary osteoarthritis, left knee Plan: X-rays of the left knee done in March 2019 showed (+) mild OA changes there was similar to findings on x-rays back in 2015 Repeat left knee x-rays done a couple of months ago again showed the same findings Continue Naproxen 500 mg twice a day with food as needed and Tramadol 50 mg 2 to 3 times a day as needed for pain Follow-up with Orthopedics as scheduled (6) Left hip pain: Code(s): M25.552 - Pain in left hip Plan: X-rays of the left hip done a few months ago came out normal Patient is advised that her current pain may actually be radiated pain from her lower back or her SI joint Lumbar spine x-rays done a couple of years ago revealed (+) lumbar disc disease Repeat lumbar spine and left SI joint x-rays done back in January 2023 revealed (+) mild degenerative changes and normal-appearing sacroiliac joints (7) Painful arc syndrome of right shoulder: Code(s): M75.101 - Unspecified rotator cuff tear or rupture of right shoulder, not specified as traumatic Plan: X-rays of the shoulder done a few months ago came back negative Has been seen by orthopedics for this a few months ago but she declined offer for cortisone injection (had one done before that did not help) and referral for physical therapy Continue Lidocaine patches QD PRN Follow up with orthopedics as scheduled (8) Chronic allergic rhinitis: Code(s): J30.9 - Allergic rhinitis, unspecified Plan: Continue Montelukast 10 mg QD and Loratadine 10 mg QD PRN Will start her additionally on Fluticasone 50 mcg nasal spray QD PRN for her increased allergy symptoms lately (9) Migraines: Code(s): G43.909 - Migraine, unspecified, not intractable, without status migrainosus Qualifiers: Intractability: not intractable Migraine type: unspecified Status migrainosus presence: without status migrainosus Qualified Code(s): G43.909 - Migraine, unspecified, not intractable, without status migrainosus Plan: Continue Sumatriptan 50 mg PRN and Fioricet 1 tablet 3 to 4 times a day as needed Reinforced avoidance of migraine triggers - that her migraine headaches have also been stable lately Follow up with neurology as scheduled (10) Vitamin D deficiency: Code(s): E55.9 - Vitamin D deficiency, unspecified Plan: Continue Vitamin D2 38449 units once a week (11) Obesity (BMI 30-39.9): Comment: S/P gastric bypass Code(s): E66.9 - Obesity, unspecified Plan: Reinforced diet/exercise as tolerated/lose weight Plan Follow up in 4 months Orders: Orders Comprehensive [place]. Panel Fast 4 Months E78.00 - Pure hypercholesterolemia, unspecified Hemoglobin A1c 4 Months R73.9 - Hyperglycemia, unspecified TSH reflex Free T4 4 Months E78.00 - Pure hypercholesterolemia, unspecified UA CC w/rflx Micro + Cult 4 Months R30.0 - Dysuria Vitamin D 25-OH Total 4 Months E55.9 - Vitamin D deficiency, unspecified Lipid Panel 4 Months E78.00 - Pure hypercholesterolemia, unspecified Complete Blood Count Auto Diff 4 Months D64.9 - Anemia, unspecified Medications: New fluticasone propionate 50 mcg/actuation administer into each nostril 2 sprays intranasal DAILY 30 days PRN 16 grams 5RF allergy symptoms Refilled epinephrine 0.3 mL IM DAILY PRN 4 ea 6RF for anaphylaxis Coding Level of Care Code Est Pt Level 4 (06716) Diagnoses 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 K95.89 Multiple gastric erosions, unspecified ulcer chronicity K25.9 Gastric ulcer chronicity: unspecified ulcer chronicity Asthma-COPD overlap syndrome J44.9 Iron deficiency anemia, unspecified iron deficiency anemia type D50.9 Iron deficiency anemia type: unspecified iron deficiency Primary osteoarthritis of left knee M17.12 Left hip pain M25.552 Painful arc syndrome of right shoulder M75.101 Chronic allergic rhinitis J30.9 Migraine without status migrainosus, not intractable, unspecified migraine type G43.909 Intractability: not intractable Migraine type: unspecified Status migrainosus presence: without status migrainosus Vitamin D deficiency E55.9 Obesity (BMI 30-39.9) E66.9
[2023-11-22 09:49] VITALS: BP 130/70; PULSE 87; O2SAT 91; BMI 35.0
== END 2023-11-22 10:39 | disposition home or self-care (01) ==
PROVIDERS: PCP Internal Medicine; Visit Provider Internal Medicine
DX: K95.89 Other complications of other bariatric procedure (principal); K25.9 Gastric ulcer, unspecified as acute or chronic, without hemorrhage or perforation; J44.9 Chronic obstructive pulmonary disease, unspecified; D50.9 Iron deficiency anemia, unspecified; M17.12 Unilateral primary osteoarthritis, left knee; M25.552 Pain in left hip; M75.101 Unspecified rotator cuff tear or rupture of right shoulder, not specified as traumatic; J30.9 Allergic rhinitis, unspecified; G43.909 Migraine, unspecified, not intractable, without status migrainosus; E55.9 Vitamin D deficiency, unspecified
CPT/HCPCS: 99214

== ENCOUNTER 2023-12-19 06:44 | Outpatient (REF) | payer OTHER, SELFPAY ==
--- NOTE | ~2023-12-19 | XR_ITS ---
EXAMINATION: XR KNEE, RIGHT XR KNEE, LEFT CLINICAL INFORMATION: Pain left knee. COMPARISON: 07/26/2023 TECHNIQUE: AP standing view of bilateral knees and sunrise views of the left knee. FINDINGS: LEFT KNEE: Mild narrowing of the medial compartment. Small medial marginal and posterior patellar osteophytes. RIGHT KNEE: AP standing view of the right knee demonstrates mild medial compartment space narrowing and small medial marginal osteophytes. XR/XR knee LT 1V IMPRESSION: Mild degenerative changes in the bilateral knees.
--- NOTE | ~2023-12-19 | XR_ITS ---
EXAMINATION: XR KNEE, RIGHT XR KNEE, LEFT CLINICAL INFORMATION: Pain left knee. COMPARISON: 07/26/2023 TECHNIQUE: AP standing view of bilateral knees and sunrise views of the left knee. FINDINGS: LEFT KNEE: Mild narrowing of the medial compartment. Small medial marginal and posterior patellar osteophytes. RIGHT KNEE: AP standing view of the right knee demonstrates mild medial compartment space narrowing and small medial marginal osteophytes. XR/XR knee RT 2V IMPRESSION: Mild degenerative changes in the bilateral knees.
== END 2023-12-19 06:45 | disposition home or self-care (01) ==
LOC: HO.HOSX 06:44
PROVIDERS: Visit Provider Physician Assistant
DX: M17.12 Unilateral primary osteoarthritis, left knee (principal)
CPT/HCPCS: 73560; 99212

== ENCOUNTER 2023-12-19 08:54 | Outpatient (AMB) | payer OTHER, SELFPAY ==
--- NOTE | 2023-12-19 09:14 | A.OFFVIS_ITS ---
Vital Signs 12/19/23 09:29 Height 5 ft Weight 180 lb BMI 35.2 Intake Visit Reasons: NewProb - LT knee pain Intake Note: Any a 58 year old female who presents today as a new patient for an evaluation of left knee pain. Patient reports no event causing the onset of pain and that she has been experiencing it for a few years now. She states her left knee often gives out resulting in her falling. Pt also requests for a 3-month refill of her pain cream for her shoulder. Allergies aspirin [ASA] Allergy (Severe, Verified 12/19/23 09:15) ITCHINESS, rash Penicillins [PENICILLINS] Allergy (Severe, Verified 12/19/23 09:15) ANAPHYLAXIS shellfish derived Allergy (Severe, Verified 12/19/23 09:15) ANAPHYLAXIS sumatriptan [From IMITREX] Allergy (Unknown, Verified 12/19/23 09:15) ANAPHYLAXIS, VOMITING, vomiting, dyspnea Medication List - Last Reconciled 12/19/23 by Ludivina Rodríguez PA-C albuterol sulfate 2.5 mg (3 mL) inhalation QID PRN 30 days [BACK BRACE As directed] blood pressure monitor As directed Daliresp (roflumilast) 500 mcg PO DAILY 90 days NS diclofenac sodium 3% 1 appl topical BID 90 days epinephrine 0.3 mL IM DAILY PRN ergocalciferol (vitamin D2) 1,250 mcg PO QWEEK fluticasone furoate-vilanterol 200-25 mcg/dose (Breo Ellipta) 1 inh inhalation DAILY 90 days fluticasone propionate 50 mcg/actuation 2 sprays intranasal DAILY PRN 30 days furosemide 20 mg PO QAM PRN ipratropium-albuterol 0.5 mg-3 mg(2.5 mg base)/3 mL 3 mL inhalation BID ketotifen fumarate 0.025%(0.035%) (Alaway) 1 drp ophthalmic (eye) BID levalbuterol tartrate 45 mcg/actuation (Xopenex HFA) 2 puffs PO Q6H PRN 90 days lidocaine 5% 1 patch topical DAILY PRN 30 days loratadine 10 mg PO DAILY 90 days montelukast (Singulair) 10 mg PO DAILY 90 days multivitamin,tx-minerals (Multi-Vitamin HP/Minerals capsule) 1 cap PO DAILY naproxen 500 mg PO BID PRN nebulizers As directed omeprazole 40 mg PO BID 30 days ondansetron 4 mg PO BID-TID PRN 30 days tizanidine 2 mg PO Q8H PRN tramadol 50 mg PO TID PRN 10 days umeclidinium 62.5 mcg/actuation (Incruse Ellipta) 1 inh PO DAILY venlafaxine ER (Effexor XR) 37.5 mg PO DAILY HPI HPI NewProb - LT knee pain: Details: 58-year-old female who presents to the office today for an evaluation of left knee pain. She states she has pain in her left knee that is aggravated with sta ir use. She also reports her knee gives out resulting in her falling. She has not had any treatment in the past. She uses a pain cream for her shoulder with benefits and requests a 3 months refill for the cream. [facility] Medical History Obesity (BMI 30-39.9) Primary osteoarthritis of left knee GERD without esophagitis Edema Vitamin D deficiency Chronic allergic rhinitis Severe allergic reaction Asthma-COPD overlap syndrome Osteoarthritis Migraines Anemia Kidney stones Asthma Surgical History Hx of gastric bypass (~2006) Hx of ventral hernia repair History of bilateral tubal ligation H/O section Hx of rotator cuff surgery (~2016) H/O abdominoplasty History of renal stent Family History Father History of heart surgery Hx of blood clots Mother Heart problem Paternal Grandfather Skin cancer Social History Household Members: Children Housing: Apartment Are you a primary patient care provider to a significant other at home: No Do you presently have visiting nurse or other home services: No Alcohol intake: current Alcohol intake frequency: a few times a month Alcohol type: wine Patient Tobacco Use Status: Never used Tobacco e-Cigarette/Vaping Use: Never Used Second Hand Smoke Exposure: No service: No Current occupational status: unemployed Cognitive needs: No Hearing needs: No Vision needs: No Review of Systems Const All systems reviewed & are unremarkable except as noted in HPI and below Physical Exam Vital Signs: BMI result Body Mass Index 35.2 Const General: cooperative, healthy appearing, comfortable, no acute distress, well developed and alert Orientation/consciousness: patient oriented x3 HEENT Head: Yes normal to inspection, Yes normocephalic and Yes atraumatic Eyes General: appearance normal, both eyes and all related structures Resp Effort & Inspection: normal respiratory effort and able to speak in complete sentences Cardio Rate: regular rate Peripheral pulses: Peripheral pulses 2+ throughout GI Palpation (GI): Soft to palpation Skin Lesions: no lesions Rashes: no rashes Neuro General: patient oriented x3 Extrem Other: Left knee: Skin intact, no erythema or joint effusion. Tenderness along the medial joint line. Full ROM with crepitus. Negative [place]?s. No ligamentous laxity. NVI. Results Reviewed Results Reviewed: Xrays were obtained in the office today and personally reviewed by me of the left knee show moderate oa Assessment & Plan Assessment & Plan (1) Osteoarthritis of left knee: Code(s): M17.12 - Unilateral primary osteoarthritis, left knee Category: Medical Qualifiers: Osteoarthritis type: primary Qualified Code(s): M17.12 - Unilateral primary osteoarthritis, left knee Plan We discussed options which include PT, NSAIDs and injections. The patient will defer on the injection today and proceed with PT and NSAIDs. She was given an order for a topical compound cream and she was fit for Janumet knee brace in the office today. If symptoms persist, she will contact me for an injection, otherwise, PRN. Orders: Orders XR knee RT 2V Today M25.569 - Pain in unspecified knee PT Evaluation and Treatment Today M17.12 - Unilateral primary osteoarthritis, left knee XR knee LT 1V Today M25.562 - Pain in left knee Medications: Refilled diclofenac sodium 3% 1 appl topical BID 90 days 100 grams 0RF diclofenac sodium 3% 1 appl topical BID 100 grams 6RF 90 days Patient Instructions: Scribed for Ludivina Rodríguez PA-C, by Abhinav Scott medical care administrator, on 12/19/2023 at 9:00 AM EST.? I, Ludivina Rodríguez PA-C, have personally reviewed and agree with the information entered by the scribe. Coding Level of Care Code Est Pt Level 3 (49996) Diagnoses Primary osteoarthritis of left knee M17.12 Osteoarthritis type: primary
[2023-12-19 09:29] VITALS: BMI 35.2
== END 2023-12-19 09:40 | disposition home or self-care (01) ==
PROVIDERS: PCP Internal Medicine; Visit Provider Physician Assistant
DX: M17.12 Unilateral primary osteoarthritis, left knee (principal)
CPT/HCPCS: 99213

== ENCOUNTER 2024-01-10 14:01 | Outpatient (AMB) | payer OTHER, SELFPAY ==
[2024-01-10 14:14] VITALS: BP 140/82; PULSE 82; TEMP 36.6; O2SAT 95; BMI 35.2
--- NOTE | 2024-01-10 14:14 | AM.OFFWIN_ITS ---
Intake Vital Signs 01/10/24 14:14 Height 5 ft Weight 180 lb BMI 35.2 BP 140/82 H Blood Pressure Location Rt brachial Position Sitting Pulse 82 Pulse Source Pulse Oximeter Temp 98 F Temp Source Temporal Artery Scan Pulse Oximetry (%) 95 Intake Visit Reasons: EP RT ear pain Intake Note: pt is here for right ear pain Patient Tobacco Use Status: Never used Tobacco Allergies aspirin [ASA] Allergy (Severe, Verified 01/10/24 14:14) ITCHINESS, rash Penicillins [PENICILLINS] Allergy (Severe, Verified 01/10/24 14:14) ANAPHYLAXIS shellfish derived Allergy (Severe, Verified 01/10/24 14:14) ANAPHYLAXIS sumatriptan [From IMITREX] Allergy (Unknown, Verified 01/10/24 14:14) ANAPHYLAXIS, VOMITING, vomiting, dyspnea Do you need a note to return to daycare/school/sports/work: No HPI EP RT ear pain HPI Details This is a 58 year old female patient who presents to the [facility] today with complaint of right ear pain. She states this started about 3 days ago. She reports it is very painful, particularly at night, and is radiating into her jaw and the side of her face. Denies any fever or recent upper respiratory symptoms. ON LICENSE OF [facility] Medical History Obesity (BMI 30-39.9) Primary osteoarthritis of left knee GERD without esophagitis Edema Vitamin D deficiency Chronic allergic rhinitis Severe allergic reaction Asthma-COPD overlap syndrome Osteoarthritis Migraines Anemia Kidney stones Asthma Surgical History Hx of gastric bypass (~2006) Hx of ventral hernia repair History of bilateral tubal ligation H/O section Hx of rotator cuff surgery (~2017) H/O abdominoplasty History of renal stent Family History Father History of heart surgery Hx of blood clots Mother Heart problem Paternal Grandfather Skin cancer Social History Household Members: Children Housing: Apartment Are you a primary career resource specialist to a significant other at home: No Do you presently have visiting nurse or other home services: No Alcohol intake: current Alcohol intake frequency: a few times a month Alcohol type: wine Patient Tobacco Use Status: Never used Tobacco e-Cigarette/Vaping Use: Never Used Second Hand Smoke Exposure: No service: No Current occupational status: unemployed Cognitive needs: No Hearing needs: No Vision needs: No Review of Systems Const All systems reviewed & are unremarkable except as noted in HPI and below Physical Exam Vital Signs: Last Vital Signs Temp 98 F 01/10/24 14:14 Pulse 82 01/10/24 14:14 BP 140/82 H 01/10/24 14:14 Pulse Ox 95 01/10/24 14:14 BMI result Body Mass Index 35.2 Const General: cooperative, healthy appearing and no acute distress HEENT Head: Yes normal to inspection Ears: hearing grossly normal bilaterally, external ears normal, TM normal on the left and TM abnormal (right TM erythematous, purulent effusion) General nose exam: Normal external nose present Throat: Yes posterior oropharynx normal Neck Neck: Yes no lymphadenopathy Resp Effort & Inspection: normal respiratory effort Auscultation: clear to auscultation bilaterally Cardio Rate: regular rate Rhythm: regular rhythm Skin General skin exam: no rashes or lesions noted Extrem General: Yes no clubbing, cyanosis or edema Psych Appearance: grossly normal Mental Status: mental status grossly normal Speech and movement: Normal speech and movement present Assessment & Plan Assessment & Plan (1) Right otitis media with effusion: Code(s): H65.91 - Unspecified nonsuppurative otitis media, right ear Plan: PCN allergy - will start on for right OM. Reviewed indications, use, possible side effects of medication. May take Tylenol/Motrin as needed for any discomfort. If she does not improve with treatment, she should return to the clinic for further evaluation. She verbalizes understanding and agrees to plan. Patient is also requesting refill for Benzonatate as she has asthma and her symptoms/cough are often exacerbated at night, for which benzonatate has helped in the past. She does not see PCP for another month or so. No current shortness of breath or respiratory complaints. Has inhalers at home as well. Medications: New doxycycline hyclate Take one capsule by mouth twice a day for 7 days. 100 mg PO BID 7 days 14 caps 0RF H65.91 - Unspecified nonsuppurative otitis media, right ear benzonatate Take one capsule up to twice a day as needed for cough. 100 mg PO BID 7 days PRN 14 caps 0RF cough R05.9 - Cough, unspecified Coding Level of Care Code Est Pt Level 4 (81421) Diagnoses Right otitis media with effusion H65.91
== END 2024-01-10 14:42 | disposition home or self-care (01) ==
PROVIDERS: PCP Internal Medicine; Visit Provider Nurse Practitioner Family
DX: H65.91 Unspecified nonsuppurative otitis media, right ear (principal)
CPT/HCPCS: 99214

== ENCOUNTER 2024-01-17 10:24 | Outpatient (AMB) | payer OTHER, SELFPAY ==
[2024-01-17 10:29] VITALS: BP 140/80; PULSE 82; TEMP 37; O2SAT 98; BMI 35.2
--- NOTE | 2024-01-17 10:29 | AM.OFFWIN_ITS ---
Intake Vital Signs 01/17/24 10:29 Height 5 ft Weight 180 lb BMI 35.2 BP 140/80 H Blood Pressure Location Lt brachial Position Sitting Pulse 82 Pulse Source Pulse Oximeter Temp 98.6 F Temp Source Oral Pulse Oximetry (%) 98 Intake Visit Reasons: EP Sore throat, fever Intake Note: pt is here for sore throat with fever Patient Tobacco Use Status: Never used Tobacco Allergies aspirin [ASA] Allergy (Severe, Verified 01/17/24 10:29) ITCHINESS, rash Penicillins [PENICILLINS] Allergy (Severe, Verified 01/17/24 10:29) ANAPHYLAXIS shellfish derived Allergy (Severe, Verified 01/17/24 10:29) ANAPHYLAXIS sumatriptan [From IMITREX] Allergy (Unknown, Verified 01/17/24 10:29) ANAPHYLAXIS, VOMITING, vomiting, dyspnea Do you need a note to return to daycare/school/sports/work: No HPI HPI Comments History of Present Illness Details Patient is a 58-year-old female with a past medical history of asthma complaining cough x7 days. She states 1 week ago she was diagnosed with an ear infection and was placed on doxycycline which she has been taking daily and is scheduled to take her last dose tonight. However she states she still has a cough that is lingering. She states she has been using her inhalers as prescribed and they help temporarily. She also states she has been having subjective fevers, congestion and shortness of breath. She denies any sick contacts. She states she has a allergies and takes an allergy pill daily as well. [facility] Medical History Obesity (BMI 30-39.9) Primary osteoarthritis of left knee GERD without esophagitis Edema Vitamin D deficiency Chronic allergic rhinitis Severe allergic reaction Asthma-COPD overlap syndrome Osteoarthritis Migraines Anemia Kidney stones Asthma Surgical History Hx of gastric bypass (~2006) Hx of ventral hernia repair History of bilateral tubal ligation H/O section Hx of rotator cuff surgery (~2016) H/O abdominoplasty History of renal stent Family History Father History of heart surgery Hx of blood clots Mother Heart problem Paternal Grandfather Skin cancer Social History Household Members: Children Housing: Apartment Are you a primary critical care unit manager to a significant other at home: No Do you presently have visiting nurse or other home services: No Alcohol intake: current Alcohol intake frequency: a few times a month Alcohol type: wine Patient Tobacco Use Status: Never used Tobacco e-Cigarette/Vaping Use: Never Used Second Hand Smoke Exposure: No service: No Current occupational status: unemployed Cognitive needs: No Hearing needs: No Vision needs: No Review of Systems Const All systems reviewed & are unremarkable except as noted in HPI and below Physical Exam Vital Signs: Last Vital Signs Temp 98.6 F 01/17/24 10:29 Pulse 82 01/17/24 10:29 BP 140/80 H 01/17/24 10:29 Pulse Ox 98 01/17/24 10:29 BMI result Body Mass Index 35.2 Const General: cooperative, healthy appearing, comfortable, no acute distress and well developed Orientation/consciousness: patient oriented x3 Limitations: no limitations HEENT Head: Yes normal to inspection Eyes General: appearance normal, both eyes and all related structures Neck Neck: Yes normal visual inspection and Yes full ROM Resp Effort & Inspection: normal respiratory effort, able to speak in complete sentences, Actively coughing Quality: actively coughing, not tachypneic, no tripod positioning and no use of accessory muscles Auscultation: clear to auscultation bilaterally Cardio Rate: regular rate Rhythm: regular rhythm Heart sounds: normal S1 and S2 GI Inspection: Yes normal to inspection Palpation (GI): Soft to palpation and nontender Skin General skin exam: no rashes or lesions noted Neuro General: patient oriented x3 Extrem General: Yes normal to inspection Results AMB Rapid Strep AMB Rapid Strep Negative Last Edit by Hector Ortiz CMA on 01/17/24 10 :42 Assessment & Plan Assessment & Plan (1) Atypical pneumonia: Code(s): J18.9 - Pneumonia, unspecified organism Plan: VSS, lungs clear, rapid strep negative, likely atypical pna, sent rx for zpak. Recommended she continue to follow up with her PCP if her symptoms continue. Recommended she take that last doxycycline scheduled for this evening Plan See above Orders: Orders AMB Rapid Strep Screen Today Z13.9 - Encounter for screening, unspecified Medications: New azithromycin For 250 mg dose pack: take 500 mg today (day 1), then 250 mg for 4 days (days 2-5) PO 6 tabs 0RF Coding Level of Care Code Est Pt Level 3 (72735) Diagnoses Atypical pneumonia J18.9
== END 2024-01-17 11:05 | disposition home or self-care (01) ==
PROVIDERS: PCP Internal Medicine; Visit Provider Physician Assistant
DX: Z13.9 Encounter for screening, unspecified (principal); J18.9 Pneumonia, unspecified organism
CPT/HCPCS: 87880; 99213

== ENCOUNTER 2024-01-22 15:02 | Outpatient (AMB) | payer OTHER, SELFPAY ==
[2024-01-22 15:06] VITALS: BP 124/78; PULSE 78; O2SAT 98; BMI 34.8
--- NOTE | 2024-01-22 15:06 | MHC.PC.OV ---
Vital Signs 01/22/24 15:06 Height 5 ft Weight 178 lb 0.2 oz BMI 34.8 BP 124/78 Blood Pressure Location Lt brachial Position Sitting Pulse 78 Pulse Source Pulse Oximeter Pulse Oximetry (%) 98 Oxygen Delivery Method Room Air Intake Visit Reasons: Annual ,pe Intake Note: Patient is here today for a physical. Phlebotomy Director Required: No Allergies aspirin [ASA] Allergy (Severe, Verified 01/22/24 16:27) ITCHINESS, rash Penicillins [PENICILLINS] Allergy (Severe, Verified 01/22/24 16:27) ANAPHYLAXIS shellfish derived Allergy (Severe, Verified 01/22/24 16:27) ANAPHYLAXIS sumatriptan [From IMITREX] Allergy (Unknown, Verified 01/22/24 16:27) ANAPHYLAXIS, VOMITING, vomiting, dyspnea Medication List - Last Reconciled 01/22/24 by Arnoldo Powers MD albuterol sulfate 2.5 mg (3 mL) inhalation QID PRN 30 days [BACK BRACE As directed] blood pressure monitor As directed Daliresp (roflumilast) 500 mcg PO DAILY 90 days NS diclofenac sodium 3% 1 appl topical BID 90 days epinephrine 0.3 mL IM DAILY PRN ergocalciferol (vitamin D2) 1,250 mcg PO QWEEK fluticasone furoate-vilanterol 200-25 mcg/dose (Breo Ellipta) 1 inh inhalation DAILY 90 days fluticasone propionate 50 mcg/actuation 2 sprays intranasal DAILY PRN 30 days furosemide 20 mg PO QAM PRN ipratropium-albuterol 0.5 mg-3 mg(2.5 mg base)/3 mL 3 mL inhalation BID ketotifen fumarate 0.025%(0.035%) ([place]) 1 drp ophthalmic (eye) BID levalbuterol tartrate 45 mcg/actuation (Xopenex HFA) 2 puffs PO Q6H PRN 90 days lidocaine 5% 1 patch topical DAILY PRN 30 days loratadine 10 mg PO DAILY 90 days montelukast (Singulair) 10 mg PO DAILY 90 days multivitamin,tx-minerals (Multi-Vitamin HP/Minerals capsule) 1 cap PO DAILY naproxen 500 mg PO BID PRN nebulizers As directed omeprazole 40 mg PO BID 30 days ondansetron 4 mg PO BID-TID PRN 30 days tizanidine 2 mg PO Q8H PRN tramadol 50 mg PO TID PRN 10 days umeclidinium 62.5 mcg/actuation (Incruse Ellipta) 1 inh PO DAILY venlafaxine ER (Effexor XR) 37.5 mg PO DAILY Tobacco use date assessed: 01/22/24 Dental Screening Dental Screen Date: 09/26/23 Did you have a dental visit in the last 12 months?: Yes Did you have a dental problem in the last 6 months where you did not have access to dental care?: No Was dental information given to patient?: Patient has dentist HPI Annual ,pe HPI Details Patient comes in today for her annual physical examination States that she has been experiencing frequent chest tightness and increased chest congestion for a few days She has been using her Albuterol inhaler more often than usual lately She denies any headaches or dizziness; denies any fever or sore throat Denies any chest pains; relates that her chest has been feeling tight and congested lately States that she feels SOB with exertion No nausea/vomiting, no abdominal pain No change in bowel habits noted She denies any acute urinary symptoms She had a negative Cologuard test done in 03/2022 States that she has not had annual mammogram nor a pap smear/gynecology exam done for many years now [facility] Medical History Obesity (BMI 30-39.9) Primary osteoarthritis of left knee GERD without esophagitis Edema Vitamin D deficiency Chronic allergic rhinitis Severe allergic reaction Asthma-COPD overlap syndrome Osteoarthritis Migraines Anemia Kidney stones Asthma Surgical History Hx of gastric bypass (~2006) Hx of ventral hernia repair History of bilateral tubal ligation H/O section Hx of rotator cuff surgery (~2016) H/O abdominoplasty History of renal stent Family History Father History of heart surgery Hx of blood clots Mother Heart problem Paternal Grandfather Skin cancer Social History Household Members: Children Housing: Apartment Are you a primary managed care coordinator to a significant other at home: No Do you presently have visiting nurse or other home services: No Alcohol intake: current Alcohol intake frequency: a few times a month Alcohol type: wine Patient Tobacco Use Status: Never used Tobacco e-Cigarette/Vaping Use: Never Used Second Hand Smoke Exposure: No service: No Current occupational status: unemployed Cognitive needs: No Hearing needs: No Vision needs: No Questionnaire PHQ-9 Over the last 2 weeks, how often have you been bothered by any of the following problems? 1. Little interest or pleasure in doing things: not at all 2. Feeling down, depressed, or hopeless: not at all 3. Trouble falling or staying asleep, or sleeping too much: not at all 4. Feeling tired or having little energy: not at all 5. Poor appetite or overeating: not at all 6. Feeling bad about yourself - or that you are a failure or have let yourself or your family down: not at all 7. Trouble concentrating on things, such as reading the newspaper or watching television: not at all 8. Moving or speaking so slowly that other people could have noticed. Or the opposite - being so fidgety or restless that you have been moving around a lot more than usual: not at all 9. Thoughts that you would be better off or of hurting yourself in some way: not at all Total score: 0 Depression Screening Interpretation: Negative Depression Screening Done: Yes 73008 - PHQ-9 Billing: Yes Source: Developed by Drs. Luiz Suarez, Suri Reyes, Randall Euceda and colleagues, with an educational ines from depict. Thrive Questionnaire Date Thrive assessed: 01/22/24 I am a: Patient What is your living situation today?: I have a steady place to live Within the past 12 months, did the food you bought not last and you didn't have the money to get more?: Never true Within the past 12 months, did you worry whether your food would run out before you got money to buy more?: Never true Do you have trouble paying for medicines?: No Do you have trouble getting transportation to medical appointments?: No Do you have trouble paying your heating and electricity bill?: No Do you have trouble taking care of your child, family member or friend?: No Do you have trouble with day-to-day activities such as bathing, preparing meals, shopping, managing finances, etc.?: No Are you currently unemployed and looking for a job?: No Are you interested in more education?: No Please select the resources that you would like help with: None Currently or been in a relationship where the following occur: No concerns reported THRIVE Score: 0 AUDIT C Alcohol Use Questionnaire (AUDIT-C) 1. How often do you have a drink containing alcohol?: Never 3. How often do you have six or more drinks on one occasion?: Never Total Score: 0 Score Reviewed/Action Taken: Yes ONESIMO-7 AMB Questionnaire ONESIMO-7 Date ONESIMO - 7 assessed: 01/22/24 Feeling nervous, anxious, or on edge: 0 = Not at all Not being able to stop or control worryin = Not at all Worrying too much about different things: 0 = Not at all Trouble relaxin = Not at all Being so restless that it is hard to sit still: 0 = Not at all Becoming easily annoyed or irritable: 0 = Not at all Feeling afraid as if something awful might happen: 0 = Not at all Total ONESIMO-7 score (0-4 normal; 5-9 mild; 10-14 moderate; 15-21 severe): 0 Source: Developed by Drs. Luiz Suarez, Suri Reyes, Randall Euceda and colleagues, with an educational ines from depict. ONESIMO-7 Assessment Billing ONESIMO-7 Assessment Tool: ONESIMO-7 Assessment 77210 Review of Systems Const Denies chills, Denies fatigue, Denies fever(s), Denies headache(s) and Denies malaise Eyes Denies blurry vision, Denies change in vision, Denies irritation and Denies itchy eyes ENT Denies dysphagia, Denies dizziness, Denies otalgia, Denies headache(s), Denies nasal congestion, Denies neck pain, Denies odynophagia, Denies sinus pain and Denies sore throat Card Denies chest pain, Denies rapid heart rate, Denies irregular heart rhythm, Denies palpitations and Reports dyspnea on exertion Resp Denies chest congestion (but chest feels tight often), Reports cough (on and off, mostly non-productive), Denies hemoptysis, Reports dyspnea on exertion and Reports wheezing (at times) GI Denies abdominal pain, Denies bloating, Denies constipation, Denies dysphagia, Denies heartburn, Denies diarrhea, Denies nausea, Denies odynophagia and Denies vomiting Denies hematuria, Denies urinary frequency, Denies dysuria, Denies urinary incontinence and Denies urinary urgency Musc Denies back pain, Denies arthralgias, Denies joint swelling, Denies muscle weakness and Denies neck pain Skin/Breast Denies breast pain, Denies breast mass, Denies change in pigmentation, Denies lesions, Denies rash and Denies unusual bruising Neuro Denies dizziness, Denies headache(s) and Denies paresthesias Psych Denies anxiety and Denies depression Endo Denies fatigue and Denies palpitations Portillo/Lymph Denies easy bruising Aller/Immun Denies itchy eyes and Reports wheezing (at times) Physical exam (Primary Care) Vital Signs: Last Vital Signs Pulse 78 01/22/24 15:06 BP 124/78 01/22/24 15:06 Pulse Ox 98 01/22/24 15:06 Oxygen Delivery Method Room Air 01/22/24 15:06 BMI result Body Mass Index 34.8 Tobacco/Smoking Status: Tobacco use Status Tobacco use date assessed 01/22/24 01/22/24 15:19 Patient Tobacco Use Status Never used Tobacco 01/22/24 15:07 e-Cigarette/Vaping Use Never Used 01/22/24 15:07 PHQ-9: PHQ-9 Score PHQ-9: Total score 0 01/22/24 16:25 Depression Screening Interpretation: Negative Thrive Assessment: Date of Thrive Assessment Date Thrive assessed 01/22/24 01/22/24 15:19 Currently or been in a relationship where the following occur: No concerns reported Const General: no acute distress, alert and awake Orientation/consciousness: patient oriented x3 HENMT Head: Yes normocephalic and Yes atraumatic Ears: external ears normal, TM's normal bilaterally and EAC's normal General nose exam: No nasal discharge present Face and sinus: Yes normal facial exam and Yes sinuses nontender Teeth and gingiva: dentition normal Throat: Yes posterior oropharynx normal and Yes tonsils normal (no TP congestion) Eyes Eyelids: Yes eyelids normal Conjunctivae: conjunctivae normal Pupils: Equal, round and reactive pupils present EOM: EOMs intact bilaterally Neck Neck: Yes no lymphadenopathy and Yes supple Thyroid: Thyroid normal Resp Auscultation: no crackles, no rales, wheezes (occasional) expiratory wheezes and throughout and diminished lung sounds bilateral Cardio Rate: regular rate Rhythm: regular rhythm Heart sounds: no murmurs GI Palpation (GI): Soft to palpation, nontender and No hepatosplenomegaly present Auscultation: normal bowel sounds General: Yes no CVA tenderness Back/Spine/Pelvis Back: no CVA tenderness Thoracic/Lumbar Spine: thoracic and lumbar spine normal to inspection Skin Lesions: no lesions Rashes: no rashes Neuro General: patient oriented x3, moves all extremities, no focal motor deficits and CN's II-XI intact bilaterally Cranial nerves: Yes Equal, round and reactive pupils present Cognition (Neuro): normal cognition Gait exam (Neuro): Normal gait present Extrem General: Yes no clubbing, cyanosis or edema Results Reviewed Results Reviewed: Laboratory Tests 11/19/23 11/22/23 08:13 08:03 WBC 7.3 Hgb 13.8 Hct 42.0 Plt Count 263 Sodium 144 Potassium 4.1 Creatinine 0.65 Estimated GFR > 60 Fasting Glucose 111 H Calcium 9.8 D AST 24 ALT 25 Triglycerides 148 Cholesterol 194 LDL Cholesterol, Calc 112 H HDL Cholesterol 53 25-OH Vitamin D Total 57.6 TSH 1.83 Ur Specific [place] 1.025 Urine Protein Negative Urine Glucose (UA) Negative Urine Blood Negative Urine Nitrite Negative Ur Leukocyte Esterase Small (1+) H Assessment and Plan Assessment & Plan (1) Annual physical exam: Code(s): Z00.00 - Encounter for general adult medical examination without abnormal findings Plan: Results of her labs done back in October 2023 reviewed and discussed with patient She had a negative Cologuard test done in 03/2022 and will be due for either a repeat Cologuard late next year or a screening colonoscopy She has not had annual mammogram nor annual gynecology exam/pap smear done in a few years - continues to decline referral to gynecology for her yearly exam and pap smear (2) Asthma exacerbation: Code(s): J45.901 - Unspecified asthma with (acute) exacerbation Qualifiers: Asthma severity: moderate Asthma persistence: persistent Qualified Code(s): J45.41 - Moderate persistent asthma with (acute) exacerbation Plan: She has asthma-COPD overlap syndrome and currently appears to be in acute asthma exacerbation Will start her on oral Prednisone taper Continue Breo Ellipta 200-25 mcg 1 inhalation QD, INcruse Ellpitoa 62.5 mcg 1 inhalation QD, Montelukast 10 mg Q PM, Daliresp 500 mcg QD and Levalbuterol inhaler 1 to 2 inhalations Q 6 hours PRN She also has Albuterol inhalation via nebulization Q 6 hours PRN that she is to use in place of her Levalbuterol inhaler when she is able to Will start her as well on Guaifenesin 5 mg Q 6 hours PRN Will send her for chest x-rays for further evaluation Follow up with pulmonary as scheduled (3) Chronic allergic rhinitis: Code(s): J30.9 - Allergic rhinitis, unspecified Plan: Continue Montelukast 10 mg QD and Loratadine 10 mg QD PRN Continue Fluticasone 50 mcg nasal spray QD PRN for increased allergy symptoms (4) 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 Rondon and was advised that her gastric pouch has herniated above the diaphragm and that the only way this can be corrected would be through surgical means She was advised that losing weight may help somewhat and was advised to speak to her PCP about medications that can help her lose weight as she has clearly failed bariatric surgery We previously tried starting her on Wegovy 0.25 mg SQ once a week but her insurance would not approve the Rx (5) Multiple gastric erosions: Code(s): K25.9 - Gastric ulcer, unspecified as acute or chronic, without hemorrhage or perforation Qualifiers: Gastric ulcer chronicity: unspecified ulcer chronicity Qualified Code(s): K25.9 - Gastric ulcer, unspecified as acute or chronic, without hemorrhage or perforation Plan: EGD also revealed (+) multiple small erosions on the jejunal side of her previous gastrojejunostomy site, with one of them bleeding recently but is no longer actively bleeding at the time of her procedure Continue Omeprazole 40 mg BID Follow up with GI as scheduled Can consider switching her to Voquezna if her symptoms do not improve significantly on high-dose PPI Tx (6) Postprandial nausea: Code(s): R11.0 - Nausea Plan: Will refer her to GI for further evaluation and management of her recent recurrent postprandial nausea and vomiting (7) Iron deficiency anemia: Code(s): D50.9 - Iron deficiency anemia, unspecified Qualifiers: Iron deficiency anemia type: unspecified iron deficiency Qualified Code(s): D50.9 - Iron deficiency anemia, unspecified Plan: She is currently still receiving IV iron infusions from hematology Will continue to monitor her CBC regularly - last CBC done in October 2023 came out normal Follow up with hematology as scheduled She was previously referred to GI for consideration for colonoscopy but she declined the procedure and had a Cologuard test done in 2021 instead (8) Primary osteoarthritis of left knee: Code(s): M17.12 - Unilateral primary osteoarthritis, left knee Plan: X-rays of the left knee done in March 2019 showed (+) mild OA changes there was similar to findings on x-rays back in 2015 Repeat left knee x-rays done a few months ago again showed the same findings Continue Naproxen 500 mg twice a day with food as needed and Tramadol 50 mg 2 to 3 times a day as needed for pain although advised to take Naproxen only when she has too due to her gastritis Follow-up with Orthopedics as scheduled (9) Painful arc syndrome of right shoulder: Code(s): M75.101 - Unspecified rotator cuff tear or rupture of right shoulder, not specified as traumatic Plan: X-rays of the shoulder done a few months ago came back negative Has been seen by orthopedics for this a few months ago but she declined offer for cortisone injection (had one done before that did not help) and referral for physical therapy Continue Lidocaine patches QD PRN Follow up with orthopedics as scheduled (10) Migraines: Code(s): G43.909 - Migraine, unspecified, not intractable, without status migrainosus Qualifiers: Migraine type: unspecified Status migrainosus presence: without status migrainosus Intractability: not intractable Qualified Code(s): G43.909 - Migraine, unspecified, not intractable, without status migrainosus Plan: Continue Sumatriptan 50 mg PRN and Fioricet 1 tablet 3 to 4 times a day as needed Reinforced avoidance of migraine triggers - that her migraine headaches have also been stable lately Follow up with neurology as scheduled (11) Vitamin D deficiency: Code(s): E55.9 - Vitamin D deficiency, unspecified Plan: Continue Vitamin D2 12267 units once a week (12) Obesity (BMI 30-39.9): Comment: S/P gastric bypass Code(s): E66.9 - Obesity, unspecified Plan: Reinforced diet/exercise as tolerated/lose weight (13) Breast cancer screening by mammogram: Code(s): Z. - Encounter for screening mammogram for malignant neoplasm of breast Plan: Will send patient for screening mammography Plan Follow up as scheduled in March 2024 Orders: Orders MM tomosynthesis screening BI 01/22/24 Z12.31 - Encounter for screening mammogram for malignant neoplasm of breast XR chest 2V 01/23/24 J98.8 - Other specified respiratory disorders Referrals Gastroenterology Referral R11.0 - Nausea, R11.10 - Vomiting, unspecified Medications: New prednisone 20 mg PO DAILY 5 days 5 tabs 0RF asthma exacerbation J45.41 - Moderate persistent asthma with (acute) exacerbation guaifenesin 200 mg (5 mL) PO Q6H PRN 118 mL 0RF cough guaifenesin 200 mg PO Q6H PRN Refilled ondansetron 4 mg PO BID-TID 30 days PRN 90 tabs 1RF nausea and vomiting Review Declined Pap Smear: 01/24/24 Coding Level of Care Code Est Pt Prev Care 40-64y(39305) Diagnoses Annual physical exam Z00.00 Moderate persistent asthma with exacerbation J45.41 Asthma severity: moderate Asthma persistence: persistent Chronic allergic rhinitis J30.9 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 K95.89 Multiple gastric erosions, unspecified ulcer chronicity K25.9 Gastric ulcer chronicity: unspecified ulcer chronicity Postprandial nausea R11.0 Iron deficiency anemia, unspecified iron deficiency anemia type D50.9 Iron deficiency anemia type: unspecified iron deficiency Primary osteoarthritis of left knee M17.12 Painful arc syndrome of right shoulder M75.101 Migraine without status migrainosus, not intractable, unspecified migraine type G43.909 Migraine type: unspecified Status migrainosus presence: without status migrainosus Intractability: not intractable Vitamin D deficiency E55.9 Obesity (BMI 30-39.9) E66.9 Breast cancer screening by mammogram Z. Additional Codes ONESIMO-7 Assessment Billing - ONESIMO-7 Assessment Tool: ONESIMO-7 Assessment [id number] ([id number])
== END 2024-01-22 16:42 | disposition home or self-care (01) ==
PROVIDERS: PCP Internal Medicine; Visit Provider Internal Medicine
DX: Z00.00 Encounter for general adult medical examination without abnormal findings (principal); J45.41 Moderate persistent asthma with (acute) exacerbation; K95.89 Other complications of other bariatric procedure; K25.9 Gastric ulcer, unspecified as acute or chronic, without hemorrhage or perforation; R11.0 Nausea; D50.9 Iron deficiency anemia, unspecified; M17.12 Unilateral primary osteoarthritis, left knee; M75.101 Unspecified rotator cuff tear or rupture of right shoulder, not specified as traumatic; G43.909 Migraine, unspecified, not intractable, without status migrainosus; E55.9 Vitamin D deficiency, unspecified
CPT/HCPCS: 99396

== ENCOUNTER 2024-01-23 10:29 | Outpatient (REF) | payer OTHER, SELFPAY ==
--- NOTE | ~2024-01-23 | XR_ITS ---
EXAMINATION: XR CHEST CLINICAL INFORMATION: Respiratory disorder. Evaluate for pneumonia. COMPARISON: 12/27/2022 TECHNIQUE: 2 views of the chest were obtained. FINDINGS: Lungs are well expanded. There is an old thin linear opacity of focal scarring in the region of the lingula. No airspace disease or pleural effusion. Cardiac silhouette has normal size and contour. There appears to be a small hiatal hernia. No acute osseous abnormality. Intact suture anchors are present in the left humeral head. XR/XR chest 2V IMPRESSION: No acute cardiopulmonary abnormality. No evidence of pneumonia.
== END 2024-01-23 10:30 | disposition home or self-care (01) ==
LOC: HO.HMGCX 10:29
PROVIDERS: PCP Internal Medicine; Visit Provider Internal Medicine
DX: J98.9 Respiratory disorder, unspecified (principal)
CPT/HCPCS: 71046

== ENCOUNTER 2024-02-07 10:55 | Outpatient (AMB) | payer OTHER, SELFPAY ==
[2024-02-07 11:07] VITALS: PULSE 90; O2SAT 97; BMI 34.8
--- NOTE | 2024-02-07 11:07 | MHC.OFFVIS ---
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 Still complaining of worsening cough. Currently on Spiriva and also Flovent. Still requiring short-acting beta agonist on a daily basis. She has tried Symbicort in the past that was not effective. She does complains of a postnasal drip and nasal congestion. Current having allergy symptoms. We did perform allergy testing which was abnormal. The patient could not receive allergy shots due to her significant symptoms. She was started on trelegy inhaler which appears to be very effective for her. She still has a rescue inhaler that she uses 2 to 3 times a week. Her cough is better shortness of breath is better. She has failed multiple inhalers: Advair, symbicort, flovent and Spiriva. 12/07/2022 the patient is here for pulmonary follow-up visit. She continues to do relatively well. She is still grieving the loss of her son. She has been on the Incruse and the Breo although is hard for her to keep up with the inhalers. I do believe she would do better on Trelegy inhaler. I will send that to her pharmacy. She also has been having increasing respiratory symptoms she has not been able to get her Daliresp. She had been on Daliresp for many years with very good effect. The patient does need to go back on it. I will send another prescription to the pharmacy. She continues to take her allergy medicine with good effect. Still has some shortness of breath with activity. 07/23/2023 the patient is here for a pulmonary follow-up visit. Overall the patient has been doing well currently on Breo and Incruse. She finally got the Daliresp improved. The Daliresp has been a very affecting beneficial for her. She will continue to use that on a daily basis. She did have 1 exacerbation back in May which she needed prednisone. Otherwise she has been without any prednisone requirements. She does have a rescue inhaler that she rarely uses typically less than twice a week. She did get back from a trip to the [facility]. While she was there she did have increased asthma symptoms due to some of the fumes that she was exposed to in her trip. But otherwise not bad and not require any additional therapies. No recent imaging studies to review. The patient follow-up in 6-8 months. The patient has any issues prior to that she will call for an earlier assessment. 02/07/2024 the patient is here for sick visit. She has been sick now for about 2 weeks. She started developing UR like symptoms. She tested negative for COVID. Has had worsening cough. With chest congestion. Also has some increased wheezing and chest tightness. She has been using her nebulizer. She does have some wheezing on examination today. Also complains of some ear discomfort. Primarily the left ear. Otherwise she continues use her respiratory therapy. She has been also complaining of some nausea. Will go ahead and treat her for bronchitis with an asthma exacerbation at this time. [facility] Medical History (Updated 02/15/24 @ 13:50 by Drew Broussard MD) Bronchitis Osteoarthritis of left knee Left knee pain Severe allergic reaction Edema Ecchymosis Colon cancer screening Asthma exacerbation Postprandial vomiting Postprandial nausea Breast cancer screening by mammogram Left ear pain Upper respiratory tract infection Right shoulder pain Annual physical exam Obesity (BMI 30-39.9) Primary osteoarthritis of left knee GERD without esophagitis Vitamin D deficiency Chronic allergic rhinitis Asthma-COPD overlap syndrome Osteoarthritis Migraines Anemia Kidney stones Asthma Surgical History Hx of gastric bypass (~2006) Hx of ventral hernia repair History of bilateral tubal ligation H/O section Hx of rotator cuff surgery (~2016) H/O abdominoplasty History of renal stent Family History Father History of heart surgery Hx of blood clots Mother Heart problem Paternal Grandfather Skin cancer Social History Household Members: Children Housing: Apartment Are you a primary reproductive healthcare assistant to a significant other at home: No Do you presently have visiting nurse or other home services: No Alcohol intake: current Alcohol intake frequency: a few times a month Alcohol type: wine Patient Tobacco Use Status: Never used Tobacco e-Cigarette/Vaping Use: Never Used Second Hand Smoke Exposure: No service: No Current occupational status: unemployed Cognitive needs: No Hearing needs: No Vision needs: No Review of Systems Const Denies chills, Reports fatigue, Denies fever(s), Reports headache(s) (on and off) and Reports weight loss ENT Denies dysphagia, Denies dizziness, Denies otalgia, Reports headache(s) (on and off), Denies sinus pain and Denies sore throat Card Denies chest pain, Denies palpitations and Denies dyspnea Resp Reports chest congestion, Reports cough, Denies dyspnea and Reports wheezing GI Denies abdominal pain, Denies constipation, Denies dysphagia, Denies heartburn, Denies diarrhea, Denies nausea and Denies vomiting Denies difficulty voiding, Denies nocturia and Denies dysuria Musc Reports back pain (over the lower back) Neuro Denies dizziness and Reports headache(s) (on and off) Endo Reports fatigue and Denies palpitations Aller/Immun Reports wheezing Physical Exam Vital Signs: Last Vital Signs Pulse 90 02/07/24 11:07 Pulse Ox 97 02/07/24 11:07 Oxygen Delivery Method Room Air 02/07/24 11:07 BMI result Body Mass Index 34.8 Const General: alert Eyes Pupils: Equal, round and reactive pupils present Neck Neck: Yes normal visual inspection, Yes full ROM and Yes no lymphadenopathy Chest Chest palpation & inspection: normal inspection of the chest Resp Effort & Inspection: normal respiratory effort and prolonged expiratory phase Auscultation: wheezes and diminished lung sounds Cardio Rate: regular rate Rhythm: regular rhythm Heart sounds: S1 normal heart sound present and S2 normal heart sound present GI Palpation (GI): Soft to palpation and nontender Auscultation: normal bowel sounds Skin General skin exam: rashes and/or lesions noted Neuro Cranial nerves: Yes Equal, round and reactive pupils present Assessment & Plan Assessment & Plan (1) Asthma-COPD overlap syndrome: Code(s): J44.9 - Chronic obstructive pulmonary disease, unspecified Category: Medical (2) Chronic allergic rhinitis: Code(s): J30.9 - Allergic rhinitis, unspecified Category: Medical (3) GERD without esophagitis: Code(s): K21.9 - Gastro-esophageal reflux disease without esophagitis Category: Medical (4) Bronchitis: Code(s): J40 - Bronchitis, not specified as acute or chronic Category: Medical Plan strat Doxycycline start prednisonetaper cough medicine ontinue Breo/Incruse Xopenex HFA as needed Continue Singulair/Claritin continue Daliresp 500mcg daily reflux diet F/U 6-8 months Medications: New doxycycline hyclate 100 mg PO BID 20 caps 0RF 10 days Drew Broussard MD methylprednisolone (Medrol (Jose)) PO PER PKG DIR 21 ea 0RF 6 days Drew Broussard MD benzonatate 200 mg PO BID PRN 30 caps 4RF cough 30 days Drew Broussard MD zcawaega-tgqfmq-DG-thonzonium 3.3-3-10-0.5 mg/mL (Cortisporin-TC) 4 drps otic (ear) right TID 10 mL 0RF 10 days Drew Broussard MD On Hold ondansetron Hold Comment: Doctor's Order 4 mg PO BID-TID 30 days PRN 90 tabs 1RF nausea and vomiting CELESTE Dow Coding Level of Care Code Est Pt Level 4 (74671) Diagnoses Asthma-COPD overlap syndrome J44.9 Chronic allergic rhinitis J30.9 GERD without esophagitis K21.9 Bronchitis J40 Time Spent (min) 16
== END 2024-02-07 11:41 | disposition home or self-care (01) ==
PROVIDERS: PCP Internal Medicine; Visit Provider Hospitalist
DX: J44.9 Chronic obstructive pulmonary disease, unspecified (principal); J30.9 Allergic rhinitis, unspecified; K21.9 Gastro-esophageal reflux disease without esophagitis; J40 Bronchitis, not specified as acute or chronic
CPT/HCPCS: 99214

== ENCOUNTER → 2024-02-07 10:55 | Outpatient (BNVA) | payer OTHER, SELFPAY | PROVIDERS: PCP Internal Medicine; Visit Provider Hospitalist | DX: J44.9 Chronic obstructive pulmonary disease, unspecified (principal); J40 Bronchitis, not specified as acute or chronic; J30.9 Allergic rhinitis, unspecified; Z79.899 Other long term (current) drug therapy | CPT/HCPCS: 99212 ==

== ENCOUNTER 2024-02-14 12:29 | Outpatient (AMB) | payer OTHER, SELFPAY ==
--- NOTE | 2024-02-14 12:34 | A.OFFVIS_ITS ---
Vital Signs 02/14/24 12:40 Height 5 ft Weight 177 lb BMI 34.6 BP 160/95 H Blood Pressure Location Lt radial Position Sitting Temp 86 F L Intake Visit Reasons: Follow up nausea Intake Note: Patient in office today in follow up for nausea. CC: Patient c/o nausea and vomiting everyday, and abdominal pain. She reports GERD too but she states that she takes medication for GERD. 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 Accompanied by: Self / Same As Patient Allergies aspirin [ASA] Allergy (Severe, Verified 03/03/24 09:58) ITCHINESS, rash Penicillins [PENICILLINS] Allergy (Severe, Verified 03/03/24 09:58) ANAPHYLAXIS shellfish derived Allergy (Severe, Verified 03/03/24 09:58) ANAPHYLAXIS sumatriptan [From IMITREX] Allergy (Unknown, Verified 03/03/24 09:58) ANAPHYLAXIS, VOMITING, vomiting, dyspnea metoclopramide Allergy (Verified 03/03/24 09:58) Redness of Skin HPI HPI Follow up nausea: Details: Assessment & Plan (1) Colon cancer screening: Code(s): Z12.11 - Encounter for screening for malignant neoplasm of colon Plan: She says that she is not yet ready for colonoscopy. She did not know why she was referred here and she is apprised it was for this because she says she told her PCP she was not ready to consider this. She has concerns about drinking the drink because she gags on anything she does not find the peeling and she is a gastric bypass patient. I do spend some time explaining the procedure to try to allay her fears and let her know that there are lower volume prep so. Unfortunately, her insurance does not yet pay for Cologuard screening. She has trouble with intermittent nausea and vomiting but she says she has been dealing with this for 16 years since her gastric bypass. She feels that has to do with over eating and what she says is a hernia in her upper abdomen. She does not feel she needs any treatment for this. This certainly is not new and she has not had any weight loss or other concerning symptoms associated with that. At this point I gave her my card in tell her she is more than welcome to return and ask her to speak to other people who had colonoscopies to verify what I am telling her that this really is not a difficult her fearful procedure. She will also go back and consult with her primary care doctor and determine if she wishes to return to our services. She denies any known family history of colon cancer or colon polyps. TODAY'S VISIT PATIENT HAS BEEN LOST FOLLOW-UP SINCE 10/2021 She is back today because she has continued nausea and vomiting. This is the same problem that she had when I saw her 2 years ago but at that time she was referred back to her bariatric surgeon because it was thought that this was due to her large paraesophageal hernia. Apparently they have deemed this non operable because she has a mesh and they feel that the risk of ill affects with additional surgeries does not warrant the potential benefit. She has been utilizing Zofran under the tongue every 8 hours which is helpful but of course is not completely resolving her symptoms and is not helping to promote good nutrition. I review all the records from [facility] including a recent upper GI study and the notes from her surgeon. I think it that she may benefit from metoclopramide more than Zofran since this will help empty the stomach and many gastric bypass patients have gastroparesis that then causes diarrhea as the lower GI system tries to pull food through more aggressively. She does have a diarrhea postprandially from time to time mostly when she eats prunes (which she loves) drinks orange juice, or eats eggs. At this point I want to change her from omeprazole 40 mg twice a day to pantoprazole 40 mg twice a day just in case she is having some diarrheal side effects. She is also on Daliresp and this could affect her bowels. The surgeon seem to think that weight loss was the only way to affect the paraesophageal hernia and suggested Ozempic. The problem with this is Ozempic tends to worsen nausea and vomiting and certainly can worsen gastric stasis. 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 She had her EGD last in August of 2023. Return office visit in 2 weeks to see how she is doing and to make sure she does not have any ill side effects or interaction problems with this her Effexor etc.. I want her to hold the Zofran for now to minimize any potential side effects due to the similar effect on the dopaminergic pathways. [facility] Medical History CAD (coronary artery disease) Bronchitis Osteoarthritis of left knee Left knee pain Severe allergic reaction Edema Ecchymosis Colon cancer screening Asthma exacerbation Postprandial vomiting Postprandial nausea Breast cancer screening by mammogram Left ear pain Upper respiratory tract infection Right shoulder pain Annual physical exam Obesity (BMI 30-39.9) Primary osteoarthritis of left knee GERD without esophagitis Vitamin D deficiency Chronic allergic rhinitis Asthma-COPD overlap syndrome Osteoarthritis Migraines Anemia Kidney stones Asthma Surgical History S/P cardiac catheterization H/O heart artery stent Hx of gastric bypass (~2006) Hx of ventral hernia repair History of bilateral tubal ligation H/O section Hx of rotator cuff surgery (~2016) H/O abdominoplasty History of renal stent Family History Father History of heart surgery Hx of blood clots Mother Heart problem Paternal Grandfather Skin cancer Social History Household Members: Children Housing: Apartment Are you a primary care aide to a significant other at home: No Do you presently have visiting nurse or other home services: No Alcohol intake: current Alcohol intake frequency: a few times a month Alcohol type: wine Patient Tobacco Use Status: Never used Tobacco e-Cigarette/Vaping Use: Never Used Second Hand Smoke Exposure: No service: No Current occupational status: unemployed Cognitive needs: No Hearing needs: No Vision needs: No Review of Systems Const Denies fatigue, Denies fever(s), Denies night sweats, Denies poor appetite and Denies weight loss ENT Reports Normal hearing present, Denies dental pain, Denies dysphagia, Denies hearing loss, Denies mouth pain, Denies odynophagia, Denies throat swelling, Denies tongue swelling and Reports other (Dentition adequate) Card Reports no additional complaints Resp Reports no additional complaints GI Details: Denies abdominal pain, Denies melena, Denies bloating, Denies hematochezia, Denies constipation, Denies GI cramping, Denies dysphagia, Denies excessive flatus, Denies early satiety, Reports heartburn, Reports diarrhea, Reports nausea, Denies odynophagia, Reports vomiting and Denies hematemesis Skin/Breast Denies pruritus, Denies lesions, Denies rash and Denies jaundice Neuro Reports Normal hearing present and Denies Abnormal speech present Endo Denies fatigue Aller/Immun Denies throat swelling and Denies tongue swelling Physical Exam Vital Signs: Last Vital Signs Temp 86 F L 02/14/24 12:40 BP 160/95 H 02/14/24 12:40 BMI result Body Mass Index 34.6 Const General: cooperative, no acute distress, well developed and well groomed Nutritional Appearance: well nourished and obese Orientation/consciousness: oriented to person, oriented to place and oriented to time Limitations: No language barrier HEENT Head: Yes normocephalic and Yes atraumatic Eyes General: appearance normal, both eyes and all related structures Pupils: Equal, round and reactive pupils present Neck Neck: Yes normal visual inspection and Yes no lymphadenopathy Thyroid: Thyroid normal Resp Effort & Inspection: normal respiratory effort and able to speak in complete s entences Auscultation: clear to auscultation bilaterally Cardio Rate: regular rate Rhythm: regular rhythm Heart sounds: Normal, physiologic split S2 sound present Peripheral pulses: radial pulses present and posterior tibial pulses present GI Inspection: No distended, No Abdominal panniculus present and Yes obesity Palpation (GI): Soft to palpation, nontender, no guarding, not rigid and No hepatosplenomegaly present Percussion: Yes normal to percussion Auscultation: normal bowel sounds Rectal Exam - Female: deferred Skin General skin exam: no rashes or lesions noted, turgor normal, skin not dry, no jaundice, No spider nevi and no striae Rashes: no rashes Nails: normal Neuro General: oriented to person, oriented to place and oriented to time Cranial nerves: Yes Equal, round and reactive pupils present and Yes Normal hearing present Speech: No Abnormal speech present Extrem General: Yes normal to inspection, No clubbing, No cyanosis and No edema Psych Appearance: grossly normal and well kempt Mental Status: mental status grossly normal Speech and movement: Normal speech and movement present Affect: normal affect Attitude: cooperative Thought process: Normal thought process present and not confabulating Thought content: Normal thought content present Insight: Limited insight present (Psych) Judgement: Limited judgement present (Psych) Assessment & Plan Assessment & Plan (1) Nausea and vomiting: Code(s): R11.2 - Nausea with vomiting, unspecified Category: Medical (2) GERD without esophagitis: Code(s): K21.9 - Gastro-esophageal reflux disease without esophagitis Category: Medical (3) Multiple gastric erosions: Code(s): K25.9 - Gastric ulcer, unspecified as acute or chronic, without hemorrhage or perforation Category: Medical Qualifiers: Gastric ulcer chronicity: unspecified ulcer chronicity Qualified Code(s): K25.9 - Gastric ulcer, unspecified as acute or chronic, without hemorrhage or perforation (4) 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 This is the same problem that she had when I saw her 2 years ago but at that time she was referred back to her bariatric surgeon because it was thought that this was due to her large paraesophageal hernia. Apparently they have deemed this non operable because she has a mesh and they feel that the risk of ill affects with additional surgeries does not warrant the potential benefit. She has been utilizing Zofran under the tongue every 8 hours which is helpful but of course is not completely resolving her symptoms and is not helping to promote good nutrition. I review all the records from [facility] including a recent upper GI study and the notes from her surgeon. I think it that she may benefit from metoclopramide more than Zofran since this will help empty the stomach and many gastric bypass patients have gastroparesis that then causes diarrhea as the lower GI system tries to pull food through more aggressively. She does have a diarrhea postprandially from time to time mostly when she eats prunes (which she loves) drinks orange juice, or eats eggs. At this point I want to change her from omeprazole 40 mg twice a day to pantoprazole 40 mg twice a day just in case she is having some diarrheal side effects. She is also on Daliresp and this could affect her bowels. The surgeon seem to think that weight loss was the only way to affect the paraesophageal hernia and suggested Ozempic. The problem with this is Ozempic tends to worsen nausea and vomiting and certainly can worsen gastric stasis. 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 She had her EGD last in August of 2023. Return office visit in 2 weeks to see how she is doing and to make sure she does not have any ill side effects or interaction problems with this her Effexor etc.. I want her to hold the Zofran for now to minimize any potential side effects due to the similar effect on the dopaminergic pathways. Medications: New metoclopramide HCl (Reglan) 5 mg PO QIDACHS 120 tabs 6RF R11.2 - Nausea with vomiting, unspecified pantoprazole (Protonix) 40 mg PO BID 60 tabs 1RF 30 days Discontinued vyvjzbjs-mishkj-WQ-thonzonium 3.3-3-10-0.5 mg/mL Discontinued Reason: Doctor's Order 4 drps otic (ear) right TID 10 days 10 mL 0RF omeprazole Discontinued Reason: Doctor's Order 40 mg PO BID 30 days 60 caps 5RF On Hold ondansetron Hold Comment: Doctor's Order 4 mg PO BID-TID 30 days PRN 90 tabs 1RF nausea and vomiting Coding Level of Care Code Est Pt Level 4 (27795) Diagnoses Nausea and vomiting R11.2 GERD without esophagitis K21.9 Multiple gastric erosions, unspecified ulcer chronicity K25.9 Gastric ulcer chronicity: unspecified ulcer chronicity 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
[2024-02-14 12:40] VITALS: BP 160/95; TEMP 30; BMI 34.6
== END 2024-02-14 13:26 | disposition home or self-care (01) ==
PROVIDERS: PCP Internal Medicine; Visit Provider Nurse Practitioner
DX: R11.2 Nausea with vomiting, unspecified (principal); K21.9 Gastro-esophageal reflux disease without esophagitis; K25.9 Gastric ulcer, unspecified as acute or chronic, without hemorrhage or perforation; K95.89 Other complications of other bariatric procedure
CPT/HCPCS: 99214

== ENCOUNTER → 2024-02-14 12:29 | Outpatient (BNVA) | payer OTHER, SELFPAY | PROVIDERS: PCP Internal Medicine; Visit Provider Nurse Practitioner | DX: K21.9 Gastro-esophageal reflux disease without esophagitis (principal); R11.2 Nausea with vomiting, unspecified; K25.9 Gastric ulcer, unspecified as acute or chronic, without hemorrhage or perforation; E66.9 Obesity, unspecified; Z68.34 Body mass index [BMI] 34.0-34.9, adult; K95.89 Other complications of other bariatric procedure | CPT/HCPCS: 99212 ==

== ENCOUNTER 2024-02-19 01:45 | Emergency (ER) | payer OTHER, SELFPAY ==
[2024-02-19] VITALS (9 sets, daily range): BP systolic 155–195; BP diastolic 59–104; PULSE 65–97; RESP 15–24; TEMP 36.3–36.9; O2SAT 95–100; BMI 34.7
--- NOTE | ~2024-02-19 | CT_ITS ---
EXAMINATION: CT ANGIOGRAM CHEST CLINICAL INFORMATION: Shortness of breath. Chest pain. COMPARISON: Chest radiograph 02/19/2024 TECHNIQUE: Multiple axial images were obtained through the chest after the administration of 100 mL of Omnipaque 350 intravenous contrast. Extensive vascular post-processing including two-dimensional and three-dimensional reformatted images were created and reviewed on an independent workstation. This CT examination was performed using dose optimization techniques as appropriate, variously including the following: *Automated exposure control *Adjustment of mA and/or kV according to patient size (this includes techniques or standardized protocols for targeted exams where dose is matched to indication/reason for exam; i.e. extremities or head) *Use of iterative reconstruction technique DLP: 340 mGy-cm FINDINGS: Within the visualized pulmonary arterial segments, no intraluminal filling defects are noted to suggest the presence of pulmonary emboli. Partial visualization is made of moderate coronary artery calcific atherosclerosis. Thoracic aorta is normal in appearance. No pericardial thickening or pericardial fluid collections visualized. No mediastinal lymphadenopathy. A moderate-sized hiatal hernia is identified. Mild bibasilar posterior dependent atelectasis of the lungs is visualized. No pulmonary consolidation noted. No pleural effusions or pneumothoraces noted. The adrenal glands are normal in appearance. No skeletal abnormalities identified. No axillary lymphadenopathy or thoracic wall soft tissue inflammatory changes. Minimal multilevel anterior endplate osteophytosis of the thoracic spine. CT/CT angio chest PE protocol IMPRESSION: *CT pulmonary angiogram negative for pulmonary emboli. *Minimal bibasilar dependent atelectasis of the lungs. Otherwise, no acute pulmonary abnormalities. *Moderate coronary artery calcific atherosclerosis. VTE: Negative. Electronically signed by: David Miller MD 02/19/2024 05:54 AM EDT
--- NOTE | ~2024-02-19 | XR_ITS ---
EXAMINATION: XR CHEST CLINICAL INFORMATION: Chest wall pain with inspiration COMPARISON: 01/23/2020 TECHNIQUE: Frontal view of the chest was obtained. FINDINGS: Cardiomediastinal silhouette is normal in size. Some chronic scarring/atelectasis in the left lung base. No effusion or pneumothorax. No acute osseous abnormalities. XR/XR chest 1V IMPRESSION: No acute process. Electronically signed by: Luiz Carrasquillo MD 02/19/2024 03:27 AM EDT
--- NOTE | 2024-02-19 02:00 | ECG_ITS ---
Test Reason : HIGH TROP Blood Pressure : / mmHG Vent. Rate : 071 BPM Atrial Rate : 071 BPM P-R Int : 136 ms QRS Dur : 094 ms QT Int : 416 ms P-R-T Axes : 059 063 040 degrees QTc Int : 452 ms Normal sinus rhythm Nonspecific T wave abnormality Inferior leads Abnormal ECG When compared with ECG of 19-FEB-2024 01:59, Nonspecific T wave abnormality now evident in Inferior leads Referred By: Generic ED Physician Electronically Signed By:TC ARNOLD
--- NOTE | 2024-02-19 02:49 | PC.NURSE ---
during primary assessment pt states to this RN that her primary concern for seeking treatment today is ?allergic reaction to Metoclopramide. pt was seen at her PCP on 02/13 for GERD, prescribed Metoclopramide 5mg PO QID. she noted that when she took it for the 1st time on saturday she felt flush and had a slight facial rash. she attributed the symptoms to taking Prednisone which she has been on [id number] along with Doxycycline for treatment of PNA. pt is now feeling nausea, heartburn, and what she describes as a different chest pain that extends down her right arm. pt is noticeably anxious. normal sinus rhythm on the monitor. SPO2 100% on RA.
[2024-02-19 02:51] LABS: COVID-19 Test Negative (Negative); IDNOW Serial# 08D9AD1C
[2024-02-19 03:04] LABS: MANUAL DIFF FLAG NO
[2024-02-19 03:05] LABS: Basophils Absolute Auto 0.1 X10*3/uL (0.0-0.2); Basophils Percent Auto 0.7 % (0-2); Eosinophils Absolute Auto 0.5 X10*3/uL (0.0-0.4); Eosinophils Percent Auto 3.5 % (0-4); Hematocrit 43.5 % (37.0-47.0); Imm Gran Abs Auto 0.08 X10*3/uL (0.00-0.03); Imm Gran Pct Auto 0.6 % (0.0-0.4); Lymphocytes Absolute Auto 2.9 X10*3/uL (1.2-4.9); Lymphocytes Percent Auto 22.3 % (20-40); Mean Corpuscular HGB Conc 34.5 g/dl (31.0-35.0); Mean Corpuscular Hemoglobin 29.9 pg (27.0-33.0); Mean Corpuscular Volume 86.8 fL (80.0-98.0); Mean Platelet Volume 9.3 fL (9.4-12.3); Monocytes Absolute Auto 0.7 X10*3/uL (0.1-1.2); Monocytes Percent Auto 5.5 % (2-11); Neutrophils Absolute Auto 8.8 x10*3/uL (2.0-8.3); Neutrophils Percent Auto 67.4 % (45-73); Platelet Count 287 X10*3/uL (160-400); Red Blood Count 5.01 X10*6/uL (4.20-5.50); Red Cell Distribution Width 13.2 % (11.0-16.0)
[2024-02-19] MEDS: ondansetron HCL 4 MG/2 ML VIAL IVPUSH ×2 (03:11→09:37)
[2024-02-19] MEDS: 0.9 % Sodium Chloride 1,000 ML 999 ML IV (03:11)
[2024-02-19 03:20] LABS: Anion Gap 15 (12-20); Blood Urea Nitrogen 13 mg/dL (9-16); Calcium 9.6 mg/dL (8.4-10.2); Carbon Dioxide 22 mmol/L (22-29); Chloride 107 mmol/L (96-108); Creatinine Clr Calc Pharmacy 81.3; Estimated Glomerular Filt Rate > 60; Glucose Random 167 mg/dL (60-115); Potassium 3.3 mmol/L (3.3-5.1); Sodium 141 mmol/L (135-145)
[2024-02-19 03:36] LABS: Troponin-I High Sensitivity 695.4 ng/L (<3.5-17.0)
--- NOTE | 2024-02-19 03:56 | ED_ITS ---
HPI - Chest Pain General Chief Complaint: Upper Respiratory Symptoms Stated Complaint: diff breathing Time Seen by Provider: 02/19/24 03:35 Source: patient and family (Son) Mode of arrival: ambulatory Limitations: no limitations History of Present Illness ED Provider: Dr. Rob Shanks HPI narrative: 58-year-old female with a history of asthma with COPD overlap syndrome, migraines, anemia, GERD with esophagitis, hiatal hernia, gastric bypass surgery, possible MA during child who presents emergency department for evaluation of chest pain and shortness of breath. Patient states she has been having a intermittent, stabbing pain in the center of her chest times years. She states however this pain is become worse over the last 2 days. She states the pain is now a constant, stabbing sensation which is moderate to severe in intensity associated with shortness of breath, dyspnea on exertion worse with breathing. She had subjective fever no chills. She states she has a chronic cough secondary to her asthma/COPD. She had associated nausea and vomiting. Patient also states that her right calf is swollen and she noticed this today. Patient states that she has a hiatal hernia and her gastritis/GERD has been acting up. She states she has had constant nausea over the last month and her doctor started her on metoclopramide 5 mg q.i.d.. She took her 1st dose on 02/15/2024 (4 days prior). She states she felt flushed and developed a slight facial rash. She states that she was also diagnosed with pneumonia 1 month prior and was started on doxycycline, developed a allergic reaction and was taking prednisone. Related Data Home Medications ?Medication ?Instructions ?Recorded ?Confirmed venlafaxine 37.5 mg 37.5 mg PO DAILY 08/17/20 01/22/24 capsule,extended release 24 hr (Effexor XR) multivitamin,tx-minerals 1 cap PO DAILY 09/26/23 01/22/24 (Multi-Vitamin HP/Minerals capsule) clonazepam 0.5 mg tablet mg PO 02/07/24 Previous Rx's ?Medication ?Instructions ?Recorded BACK BRACE #1 ea 03/22/21 blood pressure monitor #1 ea 09/13/21 ketotifen fumarate 0.025 % (0.035 1 drp ophthalmic (eye) BID #10 mL 05/13/ %) eye drops (Alaway) fluticasone furoate 200 1 inh inhalation DAILY 90 days #3 07/23/23 mcg-vilanterol 25 mcg/dose ea inhalation powder (Breo Ellipta) levalbuterol tartrate 45 2 puff PO Q6H PRN shortness of 07/23/23 mcg/actuation aerosol inhaler breath or wheezing 90 days #3 ea (Xopenex HFA) loratadine 10 mg tablet 10 mg PO DAILY for allergies 90 07/23/23 days #90 tabs umeclidinium 62.5 mcg/actuation 1 inh PO DAILY for asthma #90 ea 07/23/23 blister powder for inhalation (Incruse Ellipta) Daliresp 500 mcg tablet 500 mcg PO DAILY 90 days #90 tabs 08/16/23 (roflumilast) montelukast 10 mg tablet 10 mg PO DAILY allergies 90 days 08/28/23 (Singulair) #90 tabs lidocaine 5 % topical patch 1 patch topical DAILY PRN pain 30 09/26/23 days #30 ea albuterol sulfate 2.5 mg/3 mL 2.5 mg (3 mL) inhalation QID PRN 10/24/23 (0.083 %) solution for nebulization shortness of breath or wheezing 30 days #180 mL tizanidine 2 mg tablet 2 mg PO Q8H PRN for muscle spasm 10/24/23 #20 tabs naproxen 500 mg tablet 500 mg PO BID PRN for pain #60 tabs 11/21/23 epinephrine 0.3 mg/0.3 mL 0.3 ml IM DAILY PRN for 11/22/23 injection, auto-injector anaphylaxis #4 ea fluticasone propionate 50 2 spray intranasal DAILY PRN 11/22/23 mcg/actuation nasal allergy symptoms 30 days #16 grams spray,suspension ipratropium 0.5 mg-albuterol 3 mg 3 ml inhalation BID #180 mL 12/02/23 (2.5 mg base)/3 mL nebulization soln diclofenac sodium 3 % topical gel 1 appl topical BID 90 days #100 12/19/23 grams guaifenesin 200 mg/5 mL oral liquid 200 mg (5 mL) PO Q6H PRN cough 01/22/24 #118 mL ondansetron 4 mg disintegrating 4 mg PO BID-TID PRN nausea and 01/22/24 tablet vomiting 30 days #90 tabs prednisone 20 mg tablet 20 mg PO DAILY asthma exacerbation 01/22/24 5 days #5 tabs tramadol 50 mg tablet 50 mg PO TID PRN Pain 10 days #30 01/23/24 tabs ergocalciferol (vitamin D2) 1,250 1,250 mcg PO QWEEK #12 caps 02/04/24 mcg (50,000 unit) capsule furosemide 20 mg tablet 20 mg PO QAM PRN for edema #30 tabs 02/05/24 benzonatate 200 mg capsule 200 mg PO BID PRN cough 30 days 02/07/24 #30 caps doxycycline hyclate 100 mg capsule 100 mg PO BID 10 days #20 caps 02/07/24 methylprednisolone 4 mg tablets in See Rx Instructions PO PER PKG DIR 02/07/24 a dose pack (Medrol (Jose)) 6 days #21 ea fcteflwm-bebxyk-QK-thonzonm 3.3 4 drp otic (ear) right TID Otitis 02/10/24 mg-3 mg-10 mg-0.5 mg/mL ear Externa 10 days #10 mL drops,susp (Cortisporin-TC) lyjnqoce-agekmvxmg-sqghxgldj 3.5 4 drp otic (ear) left Q8H 5 days 02/11/24 mg-10,000 unit/mL-1 % ear #10 mL drops,susp metoclopramide HCl 5 mg tablet 5 mg PO QIDACHS #120 tabs 02/14/24 (Reglan) pantoprazole 40 mg tablet,delayed 40 mg PO BID 30 days #60 tabs 02/14/24 release (Protonix) Allergies Allergy/AdvReac Type Severity Reaction Status Date / Time aspirin [ASA] Allergy Severe ITCHINESS, Verified 02/19/24 01:54 rash Penicillins [PENICILLINS] Allergy Severe ANAPHYLAXIS Verified 02/19/24 01:54 shellfish derived Allergy Severe ANAPHYLAXIS Verified 02/19/24 01:54 sumatriptan [From IMITREX] Allergy Unknown ANAPHYLAXIS, Verified 02/19/24 01:54 VOMITING, vomiting, dyspnea Review of Systems 2 Review of Systems: Yes all other systems are reviewed and are negative [facility] Past Medical History [facility] Narrative: Social history: She is here with her son. She denies tobacco, alcohol and drug use. Medical History (Updated 02/19/24 @ 08:08 by Rob Shanks MD) Bronchitis Osteoarthritis of left knee Left knee pain Severe allergic reaction Edema Ecchymosis Colon cancer screening Asthma exacerbation Postprandial vomiting Postprandial nausea Breast cancer screening by mammogram Left ear pain Upper respiratory tract infection Right shoulder pain Annual physical exam Obesity (BMI 30-39.9) Primary osteoarthritis of left knee GERD without esophagitis Vitamin D deficiency Chronic allergic rhinitis Asthma-COPD overlap syndrome Osteoarthritis Migraines Anemia Kidney stones Asthma Surgical History Hx of gastric bypass (~2006) Hx of ventral hernia repair History of bilateral tubal ligation H/O section Hx of rotator cuff surgery (~2016) H/O abdominoplasty History of renal stent Family History Family History Father History of heart surgery Hx of blood clots Mother Heart problem Paternal Grandfather Skin cancer Social History Social History Household Members: Children Housing: Apartment Are you a primary child care center assistant director to a significant other at home: No Do you presently have visiting nurse or other home services: No Alcohol intake: current Alcohol intake frequency: a few times a month Alcohol type: wine Patient Tobacco Use Status: Never used Tobacco Smoked in Last 30 Days: No e-Cigarette/Vaping Use: Never Used Second Hand Smoke Exposure: No Use of substances other than those prescribed or required for medical reasons: No Advance Directives: No Advance Directives Information Provided: No Do you have a plan to hurt others: No Plan service: No Current occupational status: unemployed Cognitive needs: No Hearing needs: No Vision needs: No Physical Exam 2 Vital Signs: Vital Signs: Last Vital Signs Temp 98.4 F 02/19/24 07:18 Pulse 89 02/19/24 07:18 Resp 20 02/19/24 07:18 BP 195/104 H 02/19/24 07:18 Pulse Ox 95 02/19/24 07:18 O2 Del Method Room Air 02/19/24 07:18 BMI result Body Mass Index 34.7 Vital signs revealed an elevated respiratory rate of 24, elevated blood pressure of 186/91 O2 saturation was 100% on room air Exam: General: Patient was awake, extremely anxious, does answer questions appropriately Head: Normocephalic, atraumatic EENT: PERRL, Lids normal, sclera normal, conjunctiva normal, nose normal , ears normal, throat without erythema or exudates Neck: Supple, no adenopathy Lung: breath sounds symmetric, no wheezing, rales or rhonchi Chest: symmetric movement, moderate to severe tenderness palpation over the costochondral joints bilaterally and over the sternum Heart: regular rate and rhythm, normal S1, S2 no murmurs or rubs Abdomen: soft, non-tender, nondistended, normal bowel sounds Back: no vertebral tenderness, no CVAT Extremities: no deformities, moves all extremities symmetrically, and do not see any significant asymmetry of the patient's calves or thighs, she was negative Homans sign Neuro: Awake, alert, oriented, normal speech, cranial nerves intact, moves all extremities symmetrically Psych: Pleasant, cooperative Medications Administered Discontinued Medications Generic Name Dose Route Start Last Admin Trade Name Freq PRN Reason Stop Dose Admin Heparin Sodium (Porcine) 6,500 unit 02/19/24 04:14 02/19/24 04:35 Heparin Sodium,Porcine 5,000 Unit/Ml Vial 80 unit/kg (6500 unit) 02/19/24 04:15 6,500 unit IVPUSH Administration ONCE ONE Sodium Chloride 1,000 mls @ 999 mls/hr 02/19/24 03:03 02/19/24 04:12 Ns IV 02/19/24 04:03 Infused .Q1H1M STA Infusion Heparin Sodium/Sodium Chloride 25,000 unit in 250 mls @ 0 mls/hr 02/19/24 04:15 02/19/24 04:35 Heparin Sodium,Porcine/1/2ns IVCONT 14 units/kg/hr .Q0M IGOR 11.3 mls/hr Administration Protocol Per Protocol Iohexol 65 ml 02/19/24 04:31 02/19/24 04:31 Iohexol 350 Mg/Ml 100 Ml Infus..Btl IV 02/19/24 04:32 65 ml ONCE ONE Administration Lorazepam 1 mg 02/19/24 03:55 02/19/24 04:01 Lorazepam 2 Mg/Ml Vial IVPUSH 02/19/24 03:56 1 mg STAT STA Administration Morphine Sulfate 4 mg 02/19/24 05:44 02/19/24 05:57 Morphine Sulfate 4 Mg/Ml Cartridge IVPUSH 02/19/24 05:45 4 mg ONCE STA Administration Protocol Ondansetron HCl 4 mg 02/19/24 03:03 02/19/24 03:11 Ondansetron Hcl 4 Mg/2 Ml Vial IVPUSH 02/19/24 03:04 4 mg ONCE ONE Administration Medical Decision Making Medical Decision Making MDM Narrative: 58-year-old female with a history of asthma with COPD overlap syndrome, migraines, anemia, GERD with esophagitis, hiatal hernia, gastric bypass surgery, possible MA during childbirth who presents emergency department for evaluation of chest pain and shortness of breath. Patient states she has been having a intermittent, stabbing pain in the center of her chest times years, now with constant stabbing pain to her chest for 2 days associated with nausea, vomiting, shortness of breath, dyspnea on exertion subjective fever with no chills. Patient states that her hiatal hernia/GERD symptoms have been getting worse over the past month which she attributes to being treated with doxycycline for pneumonia and then prednisone for an allergic reaction. Patient states that she may be having another allergic reaction secondary to metoclopramide which was started 4 days prior for her nausea. Vital signs did reveal an elevated respiratory rate and elevated blood pressure otherwise unremarkable with a saturation of 100% on room air. Physical examination did reveal that she was very anxious, she also had significant tenderness palpation of her costochondral joints bilaterally in her sternum otherwise exam was unremarkable. Differential diagnosis: ?Includes but is not limited to myocardial infarction, myocardial ischemia, pulmonary embolism, DVT, costochondritis, chest wall pain, anemia, electrolyte abnormalities Following evaluation was ordered: CBC, BNP, lipase, liver panel, troponin, D- dimer, PT/INR, PTT, chest x-ray one view, CT pulmonary angiogram PE protocol Patient was initially treated with the following: Continuous cardiac monitoring, O2 saturation monitoring, IV insert gun Zofran 4 mg IV, Ativan 1 mg IV, normal saline x1 L Course: 04:11 My independent interpretation of the patient's laboratory evaluation is as follows: WBC elevated 13,000 with normal differential. Glucose elevated 167. High sensitive troponin I done at 03:00 hours was elevated at 695.4. Chest x-ray revealed no acute disease, initial [address] segment elevation lead 3 and AVF and repeat EKG at 04:00 hours did not reveal inverted T-waves in lead 3 and V1 Given the patient's elevated troponin, it is possible that she may have had an NSTEMI or pulmonary embolism as the cause of her symptoms. Given the potential long delay of getting a CT who presents, I will treat the patient with heparin at the PE dosing regimen until CT scan results are available. 07:[address] pulmonary angiogram PE protocol was negative for PE and the patient was changed from PE dose heparin protocol to NSTEMI heparin protocol. Patient's troponin initially was 695.4 and went down to 613 which suggests that the patient has not had an acute myocardial injury however patient may have had an NSTEMI over the past 1-2 days given her change in her chronic chest pain. I did discuss the patient's presentation over tiger text with the covering electric brain wave equipment mechanic, Dr. Kumar and he is concerned that the patient may have had an inferior myocardial event. He recommended keeping the patient NPO, giving Brilinta 180 mg orally and he will evaluate the patient in the emergency department to determine if the patient can stay here at this facility or needs to be transferred to [facility] for higher level of care. Patient did have recurrence of her chest pain which was treated with morphine 4 mg IV x2. At the end of my shift, patient's care was turned over to my colleague, Dr. Wang. Admission/Observation Consideration of admission/observation: Escalation of care including admission/observation considered Consult Healthcare Provider Management of the patient was discussed with: Marketing Manager (Dr. Kumar) Lab Data MDM Lab Attestation statement: I reviewed the patient's lab results. 02/19/24 03:00 02/19/24 03:00 Labs: Lab Results 02/19/24 02/19/24 02/19/24 Range/Units 02:14 03:00 04:13 WBC 13.0 H (4.8-10.8) X10*3/uL RBC 5.01 (4.20-5.50) X10*6/uL Hgb 15.0 (12.0-16.0) g/dl Hct 43.5 (37.0-47.0) % MCV 86.8 (80.0-98.0) fL MCH 29.9 (27.0-33.0) pg MCHC 34.5 (31.0-35.0) g/dl RDW 13.2 (11.0-16.0) % Plt Count 287 (160-400) X10*3/uL MPV 9.3 L (9.4-12.3) fL Immature Gran % (Auto) 0.6 H (0.0-0.4) % Neut % (Auto) 67.4 (45-73) % Lymph % (Auto) 22.3 (20-40) % [place] % (Auto) 5.5 (2-11) % Eos % (Auto) 3.5 (0-4) % Baso % (Auto) 0.7 (0-2) % Lymph # (Auto) 2.9 (1.2-4.9) X10*3/uL [place] # (Auto) 0.7 (0.1-1.2) X10*3/uL Eos # (Auto) 0.5 H (0.0-0.4) X10*3/uL Baso # (Auto) 0.1 (0.0-0.2) X10*3/uL Abs Immat Gran (auto) 0.08 H (0.00-0.03) X10*3/uL Absolute Neuts (auto) 8.8 H (2.0-8.3) x10*3/uL Absolute Nucleated RBC 0.000 (0.0-0.012) X10*3/uL Nucleated RBC % (auto) 0.0 (0.0-0.2) /100WBC PT 11.5 (11.1-13.3) SEC INR 0.9 (0.9-1.1) APTT 31.7 (26.0-36.8) SEC aPTT Heparin Protocol (53-77.9) SEC D-Dimer High Sensitivty 163 NG/ML Sodium 141 (135-145) mmol/L Potassium 3.3 (3.3-5.1) mmol/L Chloride 107 (96-108) mmol/L Carbon Dioxide 22 (22-29) mmol/L Anion Gap 15 (12-20) BUN 13 (9-16) mg/dL Creatinine 0.70 (0.5-1.4) mg/dL Estim Creat Clear Calc 81.3 Estimated GFR > 60 Random Glucose 167 H (60-115) mg/dL Calcium 9.6 (8.4-10.2) mg/dL Total Bilirubin 0.5 (0.0-1.0) mg/dL Direct Bilirubin 0.2 (0.0-0.5) mg/dL AST 20 (5-31) U/L ALT 19 (0-31) U/L Alkaline Phosphatase 107 (39-117) U/L Troponin I High Sens 695.4 H* (<3.5-17.0) ng/L Total Protein 6.9 (6.5-8.0) g/dL Albumin 4.0 (3.5-5.0) g/dL Lipase 29 (8-78) U/L COVID-19 (DENZEL) Negative (Negative) COVID-19 Clin Com See Note 02/19/24 02/19/24 Range/Units 06:00 06:38 WBC (4.8-10.8) X10*3/uL RBC (4.20-5.50) X10*6/uL Hgb (12.0-16.0) g/dl Hct (37.0-47.0) % MCV (80.0-98.0) fL MCH (27.0-33.0) pg MCHC (31.0-35.0) g/dl RDW (11.0-16.0) % Plt Count (160-400) X10*3/uL MPV (9.4-12.3) fL Immature Gran % (Auto) (0.0-0.4) % Neut % (Auto) (45-73) % Lymph % (Auto) (20-40) % [place] % (Auto) (2-11) % Eos % (Auto) (0-4) % Baso % (Auto) (0-2) % Lymph # (Auto) (1.2-4.9) X10*3/uL [place] # (Auto) (0.1-1.2) X10*3/uL Eos # (Auto) (0.0-0.4) X10*3/uL Baso # (Auto) (0.0-0.2) X10*3/uL Abs Immat Gran (auto) (0.00-0.03) X10*3/uL Absolute Neuts (auto) (2.0-8.3) x10*3/uL Absolute Nucleated RBC (0.0-0.012) X10*3/uL Nucleated RBC % (auto) (0.0-0.2) /100WBC PT (11.1-13.3) SEC INR (0.9-1.1) APTT (26.0-36.8) SEC aPTT Heparin Protocol 188.2 H* (53-77.9) SEC D-Dimer High Sensitivty NG/ML Sodium (135-145) mmol/L Potassium (3.3-5.1) mmol/L Chloride (96-108) mmol/L Carbon Dioxide (22-29) mmol/L Anion Gap (12-20) BUN (9-16) mg/dL Creatinine (0.5-1.4) mg/dL Estim Creat Clear Calc Estimated GFR Random Glucose (60-115) mg/dL Calcium (8.4-10.2) mg/dL Total Bilirubin (0.0-1.0) mg/dL Direct Bilirubin (0.0-0.5) mg/dL AST (5-31) U/L ALT (0-31) U/L Alkaline Phosphatase (39-117) U/L Troponin I High Sens 613.0 H* (<3.5-17.0) ng/L Total Protein (6.5-8.0) g/dL Albumin (3.5-5.0) g/dL Lipase (8-78) U/L COVID-19 ([facility]ZEL) (Negative) COVID-19 Clin Com Independent Interpretation I performed an independent interpretation of an: EKG Interpretation: My independent interpretation the patient's 12 EKG done at 00:27 hours is as follows: Normal sinus rhythm rate of 65, normal MS interval, QRS duration QTC interval, less than [address] segment elevation lead 3 and AVF with subtle ST segment depression lead 1 and aVL, no T-wave abnormalities, no PACs, no PVCs My independent interpretation patient's 12 EKG done at 03:56 hours is as follows: Normal sinus rhythm rate of 71, normal MS interval of 136 milliseconds, normal QRS duration QTC interval, ST segment elevation in lead 3 and AVF has improved but the patient now has new T-wave inversions in lead 3. Radiology Impression Discussion of test interpretation with radiology: I have reviewed the radiologist's reading. Radiologist Impression: CT angio chest PE protocol IMPRESSION: *CT pulmonary angiogram negative for pulmonary emboli. *Minimal bibasilar dependent atelectasis of the lungs. Otherwise, no acute pulmonary abnormalities. *Moderate coronary artery calcific atherosclerosis. VTE: Negative. Electronically signed by: David Miller MD 02/19/2024 05:54 AM EDT Dictated By: David Miller MD Critical Care Time Critical Care Time Critical Care Time: Yes Total Critical Care Time: 80 Attestation: Critical Care: The patient was critically ill with a high probability of imminent or life threatening deterioration. I spent greater than 30 minutes of discontinuous time evaluating the patient,delivering critical care at the bedside, discussing and evaluating pertinent data with consultants. Critical care time does not include time spent performing separately billable procedures or teaching. Total time spent performing critical care was 80 minutes. Discharge Plan Discharge Clinical Impression: Myocardial injury, Chest pain Patient Disposition: Still a Patient Prescriptions: No Action ketotifen fumarate [Alaway] 0.025 % (0.035 %) drops 1 drp ophthalmic (eye) BID Qty: 10 2RF roflumilast [Daliresp] 500 mcg tablet 500 mcg PO DAILY 90 Days Qty: 90 3RF montelukast [Singulair] 10 mg tablet 10 mg PO DAILY 90 Days Qty: 90 3RF tizanidine 2 mg tablet 2 mg PO Q8H PRN (Reason: for muscle spasm) Qty: 20 10RF albuterol sulfate 2.5 mg /3 mL (0.083 %) solution for nebulization 2.5 mg inhalation QID PRN (Reason: shortness of breath or wheezing) 30 Days Qty: 180 10RF naproxen 500 mg tablet 500 mg PO BID PRN (Reason: for pain) Qty: 60 10RF Rx Instructions: take with food ipratropium-albuterol 0.5 mg-3 mg(2.5 mg base)/3 mL solution for nebulization 3 ml inhalation BID Qty: 180 10RF tramadol 50 mg tablet 50 mg PO TID PRN (Reason: Pain) 10 Days Qty: 30 0RF ergocalciferol (vitamin D2) 1,250 mcg (50,000 unit) capsule 1,250 mcg PO QWEEK Qty: 12 3RF furosemide 20 mg tablet 20 mg PO QAM PRN (Reason: for edema) Qty: 30 1RF Cortisporin-TC 3.3-3-10-0.5 mg/mL drops,suspension 4 drp otic (ear) right TID 10 Days Qty: 10 0RF edkdkhik-fybhteqoo-KF 3.5-10,000-1 mg/mL-unit/mL-% drops,suspension 4 drp otic (ear) left Q8H 5 Days Qty: 10 0RF (DME) BACK BRACE Medium See Rx Instructions .Route .MEDSUPPLY Qty: 1 0RF Rx Instructions: [place] [place] Kit See Rx Instructions .Route Qty: 1 0RF Rx Instructions: As directed ondansetron 4 mg tablet,disintegrating 4 mg PO BID-TID PRN (Reason: nausea and vomiting) 30 Days Qty: 90 1RF Hold Instructions: Doctor's Order prednisone 20 mg tablet 20 mg PO DAILY 5 Days Qty: 5 0RF guaifenesin 200 mg/5 mL liquid 200 mg PO Q6H PRN (Reason: cough) Qty: 118 0RF epinephrine 0.3 mg/0.3 mL auto-injector 0.3 ml IM DAILY PRN (Reason: for anaphylaxis) Qty: 4 6RF fluticasone propionate 50 mcg/actuation spray,suspension 2 spray intranasal DAILY PRN (Reason: allergy symptoms) 30 Days Qty: 16 5RF Rx Instructions: administer into each nostril Multi-Vitamin HP/Minerals Capsule 1 cap PO DAILY lidocaine 5 % adhesive patch,medicated 1 patch topical DAILY PRN (Reason: pain) 30 Days Qty: 30 5RF venlafaxine [Effexor XR] 37.5 mg capsule,extended release 24hr 37.5 mg PO DAILY Incruse Ellipta 62.5 mcg/actuation blister with device 1 inh PO DAILY Qty: 90 3RF loratadine 10 mg tablet 10 mg PO DAILY 90 Days Qty: 90 3RF fluticasone furoate-vilanterol [Breo Ellipta] 200-25 mcg/dose blister with device 1 inh inhalation DAILY 90 Days Qty: 3 3RF levalbuterol tartrate [Xopenex HFA] 45 mcg/actuation HFA aerosol inhaler 2 puff PO Q6H PRN (Reason: shortness of breath or wheezing) 90 Days Qty: 3 3RF clonazepam 0.5 mg tablet PO doxycycline hyclate 100 mg capsule 100 mg PO BID 10 Days Qty: 20 0RF methylprednisolone [Medrol (Jose)] 4 mg tablets,dose pack See Rx Instructions PO PER PKG DIR 6 Days Qty: 21 0RF Rx Instructions: PO PER PKG DIR benzonatate 200 mg capsule 200 mg PO BID PRN (Reason: cough) 30 Days Qty: 30 4RF metoclopramide HCl [Reglan] 5 mg tablet 5 mg PO QIDACHS Qty: 120 6RF pantoprazole [Protonix] 40 mg tablet,delayed release (DR/EC) 40 mg PO BID 30 Days Qty: 60 1RF diclofenac sodium 3 % gel 1 appl topical BID 90 Days Qty: 100 6RF Print Language: Guinean
[2024-02-19 03:58] LABS: Alanine Aminotransferase 19 U/L (0-31); Alkaline Phosphatase 107 U/L (39-117); Aspartate Amino Transferase 20 U/L (5-31); Bilirubin Direct 0.2 mg/dL (0.0-0.5); Bilirubin Total 0.5 mg/dL (0.0-1.0); Lipase 29 U/L (8-78); Total Protein 6.9 g/dL (6.5-8.0)
[2024-02-19] MEDS: LORazepam 2 MG/ML VIAL 1 MG IVPUSH (04:01)
[2024-02-19 04:23] LABS: INTERNATIONAL NORM RATIO 0.9 (0.9-1.1); Prothrombin Time 11.5 SEC (11.1-13.3)
[2024-02-19 04:25] LABS: D Dimer High Sensitivity 163 NG/ML
[2024-02-19 04:26] LABS: Partial Thromboplastin Time 31.7 SEC (26.0-36.8)
[2024-02-19] MEDS: iohexoL 350 MG/ML 100 ML INFUS..BTL 65 ML IV (04:31)
[2024-02-19] MEDS: Heparin Sodium,Porcine/1/2NS 25,000 UNIT/250 ML IV.SOLN 11.3 UNIT IVCONT (04:35)
[2024-02-19] MEDS: Heparin Sodium,Porcine 5,000 UNIT/ML VIAL 6500 UNIT IVPUSH (04:35)
[2024-02-19] MEDS: Morphine Sulfate 4 MG/ML CARTRIDGE IVPUSH ×2 (05:57→08:33)
[2024-02-19 07:24] LABS: PTT Heparin Drip 188.2 SEC (53-77.9)
[2024-02-19] MEDS: Ticagrelor 90 MG TABLET 180 MG PO (08:33)
--- NOTE | 2024-02-19 08:51 | ECG_ITS ---
Test Reason : chest pain Blood Pressure : / mmHG Vent. Rate : 076 BPM Atrial Rate : 076 BPM P-R Int : 130 ms QRS Dur : 092 ms QT Int : 396 ms P-R-T Axes : 050 033 000 degrees QTc Int : 445 ms Normal sinus rhythm Inferior infarct , age undetermined Abnormal ECG When compared with ECG of 19-FEB-2024 03:56, Inferior infarct is now Present Inverted T waves have replaced nonspecific T wave abnormality in Inferior leads Referred By: Hasmukh Aguirre Electronically Signed By:CT ARNOLD
--- NOTE | 2024-02-19 09:06 | CA_ITS ---
Transthoracic Echocardiogram Patient (Last, First, Middle): Any Ortiz J Gender: Female Date of : 1965 Age: 58 Procedure Date: 02/19/2024 Procedure Type: Transthoracic Echocardiogram Location: ER Height: 152.4 cm Weight: 80.29 kg BSA: 1.77 m2 Heart Rate: bpm BP: 189 / 96 mmHg Barrel Rifler: SB Referring MD: Rob Shanks MD Symptoms: NSTEMI Study Quality: Adequate Conclusions: - Limited study for RWMA. - Basal inferior wall is akinetic. Findings Left Ventricle Normal left ventricular size and systolic function. The visually estimated ejection fraction is between 60-65%. There is evidence of regional wall motion abnormalities. Diastolic function is indeterminate on the basis of available data. Wall Motion Rest Echo Findings The basal inferior segment is akinetic. Right Ventricle Normal right ventricular cavity size and systolic function. Pericardium/Pleural Prominent epicardial adipose tissue noted. There is no evidence of pericardial effusion. Prior Study Comparison No prior study available for comparison. Measurements 2D Linear Measurements LVIDd: 4.38 3.9-5.3/4.2-5.9 cm LVIDd Index: 2.47 2.4-3.2/2.2-3.1 cm/m2 LVIDs: 2.94 2.0-3.6 cm 2D Systolic Function EF 4C: 56.40 >55% EF 2C: 53.40 >55% EF BiP: 56.20 >55% Mitral Valve MV Pk E: 0.72 MV PK A: 0.73 MV Decel Time: 183.00 E/A: 1.00 PHT: 54.00 MVA PHT: 4.07 Decel Aiken: 3.94 Diastolic Function MV Pk E: 0.72 MV Pk A: 0.73 E/A: 1.00 Updated in Other Vendor System with Status of Final Robert Kumar MD electronically signed on 02/19/2024 8:32:29 PM with status of Final
--- NOTE | 2024-02-19 09:10 | P.CONCA_ITS ---
History of Present Illness History of Present Illness Date of Service: 02/19/24 Requesting physician: Rob Shanks Chief complaint: CP, STEMI Narrative: 58-year-old female with background history of asthma/COPD overlap syndrome, anemia, migraines, hypertension and previous bariatric surgery presenting with sharp chest pains. Her initial EKG showed hyperacute T-waves with reciprocal changes in the lateral leads. Subsequent to that chest pain improved and we noticed that she had biphasic T-waves in the inferior leads pointing to her potential reperfusion. She has known allergy to aspirin with rash and itchiness. She was given Brilinta 180 and was started on a heparin drip. She was assessed at bedside and was quite anxious and tearful and had significantly elevated blood pressure. Apparently her son in our emergency department a year ago and she was very emotional about that. She was started on a nitro drip and given metoprolol to control her heart rate. She had a bedside echocardiogram which showed preserved LV function with basal inferior akinesis. Given the fact that she had ongoing symptoms our plan was to transfer to CCU to see if we can stabilize her with medications and potentially desensitize her for aspirin but before transfer she was getting more chest pains and we decided to just take her straight to cardiac catheterization lab and treat the culprit vessel 1st. She will subsequently be admitted to CCU for aspirin desensitization. No bleeding concerns currently. [facility] Past Medical History Medical History (Updated 02/19/24 @ 12:50 by Robert Kumar MD) Bronchitis Osteoarthritis of left knee Left knee pain Severe allergic reaction Edema Ecchymosis Colon cancer screening Asthma exacerbation Postprandial vomiting Postprandial nausea Breast cancer screening by mammogram Left ear pain Upper respiratory tract infection Right shoulder pain Annual physical exam Obesity (BMI 30-39.9) Primary osteoarthritis of left knee GERD without esophagitis Vitamin D deficiency Chronic allergic rhinitis Asthma-COPD overlap syndrome Osteoarthritis Migraines Anemia Kidney stones Asthma Family History Family History Father History of heart surgery Hx of blood clots Mother Heart problem Paternal Grandfather Skin cancer Surgical History Surgical History Hx of gastric bypass (~2006) Hx of ventral hernia repair History of bilateral tubal ligation H/O section Hx of rotator cuff surgery (~2016) H/O abdominoplasty History of renal stent Social History Social History Household Members: Children Housing: Apartment Are you a primary aged or disabled care worker to a significant other at home: No Do you presently have visiting nurse or other home services: No Alcohol intake: current Alcohol intake frequency: a few times a month Alcohol type: wine Patient Tobacco Use Status: Never used Tobacco Smoked in Last 30 Days: No e-Cigarette/Vaping Use: Never Used Second Hand Smoke Exposure: No Use of substances other than those prescribed or required for medical reasons: No Advance Directives: No Advance Directives Information Provided: No Do you have a plan to hurt others: No Plan service: No Current occupational status: unemployed Cognitive needs: No Hearing needs: No Vision needs: No Meds Allergies Allergy/AdvReac Type Severity Reaction Status Date / Time aspirin [ASA] Allergy Severe ITCHINESS, Verified 02/19/24 01:54 rash Penicillins [PENICILLINS] Allergy Severe ANAPHYLAXIS Verified 02/19/24 01:54 shellfish derived Allergy Severe ANAPHYLAXIS Verified 02/19/24 01:54 sumatriptan [From IMITREX] Allergy Unknown ANAPHYLAXIS, Verified 02/19/24 01:54 VOMITING, vomiting, dyspnea Active Medications: Current Medications Heparin Sodium (Porcine) (Heparin Sodium,Porcine 5,000 Unit/Ml Vial) 3,200 unit 40 unit/kg (3200 unit) IVPUSH PROTOCOL BOLUS PRN; Protocol PRN Reason: 40 unit/kg - Heparin Protocol Heparin Sodium (Porcine) (Heparin Sodium,Porcine 5,000 Unit/Ml Vial) 6,500 unit 80 unit/kg (6500 unit) IVPUSH PROTOCOL BOLUS PRN; Protocol PRN Reason: 80 unit/kg - Heparin Protocol Heparin Sodium/Sodium Chloride (Heparin Sodium,Porcine/1/2ns) 25,000 unit in 250 mls @ 0 mls/hr IVCONT .Q0M IGOR; Protocol Nitroglycerin/Dextrose (Nitroglycerin/D5w) 100 mg in 250 mls @ 0 mls/hr IVCONT .Q0M IGOR; Protocol Home Medications ?Medication ?Instructions ?Recorded ?Confirmed ?Last Taken ?Type venlafaxine 37.5 mg 37.5 mg PO DAILY 08/17/20 01/22/24 Unknown History capsule,extended release 24 hr (Effexor XR) multivitamin,tx-minerals 1 cap PO DAILY 09/26/23 01/22/24 Unknown History (Multi-Vitamin HP/Minerals capsule) clonazepam 0.5 mg tablet mg PO 02/07/24 Unknown History Physical Exam 2 Vital Signs: Vital Signs: Last Vital Signs Temp 98.4 F 02/19/24 07:18 Pulse 83 02/19/24 09:07 Resp 24 H 02/19/24 09:07 BP 189/96 H 02/19/24 09:07 Pulse Ox 95 02/19/24 07:18 O2 Del Method Room Air 02/19/24 07:18 BMI result Body Mass Index 34.7 GENERAL APPEARANCE: Anxious, tearful. Distressed by chest discomfort. NECK: no carotid bruit, no jugular venous distention. SKIN: no suspicious lesions, warm and dry. HEART: no murmurs, regular rate and rhythm. LUNGS: clear to auscultation bilaterally. ABDOMEN: soft, nontender. EXTREMITIES: no edema. PERIPHERAL PULSES: equal. NEUROLOGIC: No gross deficits, AAO X 3 Objective Labs and Meds 02/19/24 03:00 02/19/24 03:00 Lab results: Laboratory Results - last 24 hr 02/19/24 02/19/24 02/19/24 02:14 03:00 04:13 WBC 13.0 H RBC 5.01 Hgb 15.0 Hct 43.5 MCV 86.8 MCH 29.9 MCHC 34.5 RDW 13.2 Plt Count 287 MPV 9.3 L Immature Gran % (Auto) 0.6 H Neut % (Auto) 67.4 Lymph % (Auto) 22.3 [place] % (Auto) 5.5 Eos % (Auto) 3.5 Baso % (Auto) 0.7 Lymph # (Auto) 2.9 [place] # (Auto) 0.7 Eos # (Auto) 0.5 H Baso # (Auto) 0.1 Abs Immat Gran (auto) 0.08 H Absolute Neuts (auto) 8.8 H Absolute Nucleated RBC 0.000 Nucleated RBC % (auto) 0.0 PT 11.5 INR 0.9 APTT 31.7 aPTT Heparin Protocol D-Dimer High Sensitivty 163 Sodium 141 Potassium 3.3 Chloride 107 Carbon Dioxide 22 Anion Gap 15 BUN 13 Creatinine 0.70 Estim Creat Clear Calc 81.3 Estimated GFR > 60 Random Glucose 167 H Calcium 9.6 Total Bilirubin 0.5 Direct Bilirubin 0.2 AST 20 ALT 19 Alkaline Phosphatase 107 Troponin I High Sens 695.4 H* Total Protein 6.9 Albumin 4.0 Lipase 29 COVID-19 ([facility]) Negative COVID-19 Clin Com See Note 02/19/24 02/19/24 06:00 06:38 WBC RBC Hgb Hct MCV MCH MCHC RDW Plt Count MPV Immature Gran % (Auto) Neut % (Auto) Lymph % (Auto) [place] % (Auto) Eos % (Auto) Baso % (Auto) Lymph # (Auto) [place] # (Auto) Eos # (Auto) Baso # (Auto) Abs Immat Gran (auto) Absolute Neuts (auto) Absolute Nucleated RBC Nucleated RBC % (auto) PT INR APTT aPTT Heparin Protocol 188.2 H* D-Dimer High Sensitivty Sodium Potassium Chloride Carbon Dioxide Anion Gap BUN Creatinine Estim Creat Clear Calc Estimated GFR Random Glucose Calcium Total Bilirubin Direct Bilirubin AST ALT Alkaline Phosphatase Troponin I High Sens 613.0 H* Total Protein Albumin Lipase COVID-19 ([facility]) COVID-19 Clin Com Imaging Radiologist's impression: Impressions Chest X-Ray 02/19/24 02:20 IMPRESSION: No acute process. Electronically signed by: Luiz Carrasquillo MD 02/19/2024 03:27 AM EDT Chest CTA 02/19/24 03:37 IMPRESSION: *CT pulmonary angiogram negative for pulmonary emboli. *Minimal bibasilar dependent atelectasis of the lungs. Otherwise, no acute pulmonary abnormalities. *Moderate coronary artery calcific atherosclerosis. VTE: Negative. Electronically signed by: David Miller MD 02/19/2024 05:54 AM EDT Assessment and Plan (1) STEMI (ST elevation myocardial infarction): Status: Acute Plan Pleasant 58 year female presenting with inferior ST-elevation MT. She had reperfusion in the ER spontaneously but again had persistent symptoms and decision was made to take her stay to cardiac catheterization laboratory. She was loaded with Brilinta here but apparently was vomiting before she left and we will use cangrelor during the procedure. Heparin drip for anticoagulation. Nitroglycerin for blood pressure control significantly elevated blood pressures. She was also given some IV metoprolol in the ER. Postprocedure we will admit her to the cardiac care unit to desensitize her for aspirin. Further recommendations and management once we do the cardiac catheterization. She will be transferred to [facility] emergently as STEMI. Procedures Date of Service Date of Service: 02/19/24
[2024-02-19] MEDS: Metoprolol Tartrate 5 MG/5 ML VIAL 2.5 MG IVPUSH (09:13)
--- NOTE | 2024-02-19 09:18 | PC.NURSE ---
This RN assumed care of patient 0700, patient resting quietly in bed, respirations equal and unlabored. Heparin gtt running at 14u/kg/hr. This RN was informed of ptt draw result of 188.2, heparin drip stopped at 0839 and ptt draw order placed. patient noted to be hypertensive this morning, patient provider made aware. patient stated she had substernal chest pain, 03/10 that she described as squeezing, patient medicated per MAR with morphine. patient is alert and oriented x4, aware of plan of care.
[2024-02-19 09:30] LABS: PTT Heparin Drip 106.9 SEC (53-77.9)
[2024-02-19] MEDS: Nitroglycerin/D5W 100 MG/250 ML INFUS..BTL IVCONT (09:32)
--- NOTE | 2024-02-19 09:33 | PC.NURSE ---
oatient started on nitro drip, patient alert and oriented x4, son at bedside, VSS
--- NOTE | 2024-02-19 09:57 | PC.NURSE ---
REPORT GIVEN TO RN AT [facility] ON M3
--- NOTE | 2024-02-19 11:22 | ECG_ITS ---
Test Reason : CHEST PAIN Blood Pressure : / mmHG Vent. Rate : 065 BPM Atrial Rate : 065 BPM P-R Int : 128 ms QRS Dur : 092 ms QT Int : 418 ms P-R-T Axes : 050 057 072 degrees QTc Int : 434 ms Normal sinus rhythm Normal ECG When compared with ECG of 22-OCT-2017 00:39, Vent. rate has decreased BY [address] elevation has replaced ST depression in Inferior leads Referred By: Hasmukh Aguirre Electronically Signed By:CT ARNOLD
== END 2024-02-19 09:48 | disposition short-term general hospital (02) ==
PROVIDERS: Emergency Medicine; Emergency Provider Emergency Medicine Emergency Medical Services
DX: I21.3 ST elevation (STEMI) myocardial infarction of unspecified site (principal); R07.9 Chest pain, unspecified; J18.9 Pneumonia, unspecified organism; R06.02 Shortness of breath; J45.909 Unspecified asthma, uncomplicated; D64.9 Anemia, unspecified; Z11.52 Encounter for screening for COVID-19; Z79.899 Other long term (current) drug therapy
CPT/HCPCS: 36415; 71045; 71275; 80048; 80076; 83690; 84484; 85025; 85379; 85610; 85730; 87635; 93005; 93308; 96361; 96374; 96375; 96376; 99285; 99291; 99292; J1644; J2060; J2270; J2305; J2405; Q9967

== ENCOUNTER → 2024-02-19 02:06 | Outpatient (BNV) | payer OTHER, SELFPAY | PROVIDERS: Emergency Provider Emergency Medicine Emergency Medical Services; Visit Provider Internal Medicine Cardiovascular Disease | DX: I21.3 ST elevation (STEMI) myocardial infarction of unspecified site (principal) | CPT/HCPCS: 93308; 99285 ==

== ENCOUNTER → 2024-02-19 23:59 | Outpatient (BNV) | payer OTHER, SELFPAY | PROVIDERS: Visit Provider Internal Medicine Cardiovascular Disease | DX: I21.11 ST elevation (STEMI) myocardial infarction involving right coronary artery (principal) | CPT/HCPCS: 92943; 93458; 99152 ==

== ENCOUNTER 2024-03-03 08:05 | Outpatient (AMB) | payer OTHER, SELFPAY ==
--- NOTE | 2024-03-03 08:12 | A.OFFPC_ITS ---
Vital Signs 03/03/24 08:14 Height 5 ft Weight 178 lb BMI 34.8 BP 132/84 Blood Pressure Location Lt brachial Position Sitting Intake Visit Reasons: HDF [facility] 02/10 Heart Attack Apprise Counselor Required: No Accompanied by: Self / Same As Patient Allergies aspirin [ASA] Allergy (Severe, Verified 03/03/24 08:15) ITCHINESS, rash Penicillins [PENICILLINS] Allergy (Severe, Verified 03/03/24 08:15) ANAPHYLAXIS shellfish derived Allergy (Severe, Verified 03/03/24 08:15) ANAPHYLAXIS sumatriptan [From IMITREX] Allergy (Unknown, Verified 03/03/24 08:15) ANAPHYLAXIS, VOMITING, vomiting, dyspnea Tobacco use date assessed: 01/22/24 Dental Screening Dental Screen Date: 09/26/23 HPI HPI Comments History of Present Illness Details 58 y/o female patient who presents to [facility] today for HDF. She was admitted on 02/11/24 at [facility] for STEMI. She was discharged home on 02/19/24 to follow up with [facility]. While in the hospital she was started on Beta carl, Aspirin and Statin. H/o Gastric Bypass 2006 and she is to f/u with General surgery Mar 06 due to severe nausea and vomiting she developed while in the hospital. She does have a scheduled appointment with Cardiology Today. Today reports feeling much better. Pt asking for Daliresp that needed PA. I sent message to the staff member. [facility] Medical History (Updated 03/03/24 @ 08:48 by Robyn Mcelroy NP) Bronchitis Osteoarthritis of left knee Left knee pain Severe allergic reaction Edema Ecchymosis Colon cancer screening Asthma exacerbation Postprandial vomiting Postprandial nausea Breast cancer screening by mammogram Left ear pain Upper respiratory tract infection Right shoulder pain Annual physical exam Obesity (BMI 30-39.9) Primary osteoarthritis of left knee GERD without esophagitis Vitamin D deficiency Chronic allergic rhinitis Asthma-COPD overlap syndrome Osteoarthritis Migraines Anemia Kidney stones Asthma Surgical History Hx of gastric bypass (~2006) Hx of ventral hernia repair History of bilateral tubal ligation H/O section Hx of rotator cuff surgery (~2016) H/O abdominoplasty History of renal stent Family History Father History of heart surgery Hx of blood clots Mother Heart problem Paternal Grandfather Skin cancer Social History Household Members: Children Housing: Apartment Are you a primary health care coach to a significant other at home: No Do you presently have visiting nurse or other home services: No Alcohol intake: current Alcohol intake frequency: a few times a month Alcohol type: wine Patient Tobacco Use Status: Never used Tobacco e-Cigarette/Vaping Use: Never Used Second Hand Smoke Exposure: No service: No Current occupational status: unemployed Cognitive needs: No Hearing needs: No Vision needs: No Questionnaire Thrive Questionnaire Date Thrive assessed: 01/22/24 ONESIMO-7 AMB Questionnaire ONESIMO-7 Date ONESIMO - 7 assessed: 01/22/24 Source: Developed by Drs. Luiz Suarez, Suri Reyes, Randall Euceda and colleagues, with an educational ines from [employer]. Review of Systems Const All systems reviewed & are unremarkable except as noted in HPI and below Physical exam (Primary Care) Vital Signs: Last Vital Signs BP 132/84 03/03/24 08:14 BMI result Body Mass Index 34.8 Tobacco/Smoking Status: Tobacco use Status Tobacco use date assessed 01/22/24 03/03/24 08:14 Patient Tobacco Use Status Never used Tobacco 03/03/24 08:14 e-Cigarette/Vaping Use Never Used 03/03/24 08:14 Thrive Assessment: Date of Thrive Assessment Date Thrive assessed 01/22/24 03/03/24 08:14 Const General: cooperative and no acute distress Nutritional Appearance: obese Orientation/consciousness: patient oriented x3 Resp Effort & Inspection: normal respiratory effort and able to speak in complete sentences Auscultation: clear to auscultation bilaterally, no crackles, no rales, no rhonchi and no wheezes Cardio Heart sounds: S1 normal heart sound present and S2 normal heart sound present Skin General skin exam: no rashes or lesions noted Neuro General: patient oriented x3, gait normal and moves all extremities Psych Speech and movement: Normal speech and movement present Assessment and Plan Assessment & Plan (1) STEMI (ST elevation myocardial infarction): Code(s): I21.3 - ST elevation (STEMI) myocardial infarction of unspecified site Qualifiers: Involved coronary artery: unspecified coronary artery Qualified Code(s): I21.3 - ST elevation (STEMI) myocardial infarction of unspecified site Plan: Pt has a F/U appointment with Cardiology today. Advised Pt to take her new medications as directed. (2) Nausea and vomiting: Code(s): R11.2 - Nausea with vomiting, unspecified Qualifiers: Vomiting type: unspecified Qualified Code(s): R11.2 - Nausea with vomiting, unspecified Plan: Since been resolved She will f/u with geneal surgery due to h/o Gastric Bypass. Coding Level of Care Code Est Pt Level 4 (00148) Diagnoses ST elevation myocardial infarction (STEMI), unspecified artery I21.3 Involved coronary artery: unspecified coronary artery Nausea and vomiting, unspecified vomiting type R11.2 Vomiting type: unspecified Time Spent (min) 20 Comment Spent on reviewing hospital notes and patient education.
[2024-03-03 08:14] VITALS: BP 132/84; BMI 34.8
== END 2024-03-03 10:19 | disposition home or self-care (01) ==
PROVIDERS: Visit Provider Nurse Practitioner Family
DX: I25.2 Old myocardial infarction (principal); R11.2 Nausea with vomiting, unspecified
CPT/HCPCS: 99214

== ENCOUNTER 2024-03-03 09:29 | Outpatient (AMB) | payer OTHER, SELFPAY ==
[2024-03-03 09:45] VITALS: BP 176/103; PULSE 105; BMI 35.2
--- NOTE | 2024-03-03 09:45 | A.OFFVIS_ITS ---
Vital Signs 03/03/24 09:45 Height 5 ft Weight 180 lb 5.41 oz BMI 35.2 BP 176/103 H Blood Pressure Location Lt brachial Position Sitting Pulse 105 H Intake Visit Reasons: 2 weeks N/V paraesph hernia Intake Note: Any returns to in office 2 weeks follow up of nausea and abdominal pain. CC: [place] [facility] [place] and was then transferred to [facility] [place], [place] where she underwent heart valve stent placement surgery. She states that she had to stop the metoclopramide because she had an allergic reaction. She states that she noticed that she has not vomited as much since after his heart surgery. Psychologist Research Assistant Required: No Accompanied by: Self / Same As Patient Allergies aspirin [ASA] Allergy (Severe, Verified 03/03/24 09:58) ITCHINESS, rash Penicillins [PENICILLINS] Allergy (Severe, Verified 03/03/24 09:58) ANAPHYLAXIS shellfish derived Allergy (Severe, Verified 03/03/24 09:58) ANAPHYLAXIS sumatriptan [From IMITREX] Allergy (Unknown, Verified 03/03/24 09:58) ANAPHYLAXIS, VOMITING, vomiting, dyspnea metoclopramide Allergy (Verified 03/03/24 09:58) Redness of Skin HPI HPI 2 weeks N/V paraesph hernia: Details: Assessment & Plan (1) GERD without esophagitis: Code(s): K21.9 - Gastro-esophageal reflux disease without esophagitis Category: Medical (2) Multiple gastric erosions: Code(s): K25.9 - Gastric ulcer, unspecified as acute or chronic, without hemorrhage or perforation Category: Medical Qualifiers: Gastric ulcer chronicity: unspecified ulcer chronicity Qualified Code(s): K25.9 - Gastric ulcer, unspecified as acute or chronic, without hemorrhage or perforation (3) 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: Code(s): K95.89 - Other complications of other bariatric procedure Category: Surgical (4) Nausea and vomiting: Code(s): R11.2 - Nausea with vomiting, unspecified Category: Medical Medications: New metoclopramide HCl (Reglan) 5 mg PO QIDACHS 120 tabs 6RF R11.2 - Nausea with vomiting, unspecified pantoprazole (Protonix) 40 mg PO BID 30 days 60 tabs 1RF Discontinued zijsrpep-cfxpat-RK-thonzonium 3.3-3-10-0.5 mg/mL (Cortisporin-TC) Discontinued Reason: Doctor's Order 4 drps otic (ear) right TID 10 days 10 mL 0RF omeprazole Discontinued Reason: Doctor's Order 40 mg PO BID 30 days 60 caps 5RF On Hold ondansetron Hold Comment: Doctor's Order 4 mg PO BID-TID 30 days PRN 90 tabs 1RF nausea and vomiting TODAY'S VISIT She just was dx'ed with an DE!! She had a stent placed and now she has had much less N/V. She has a strong FHX of DE. She also had a reaction to the reglan so she stopped it. She asks if she should take the pantoprazole, and I recommend that she does take it r/t her past hx of multiple gastric ulcers. ROV 3 mos. PFSH Medical History Bronchitis Osteoarthritis of left knee Left knee pain Severe allergic reaction Edema Ecchymosis Colon cancer screening Asthma exacerbation Postprandial vomiting Postprandial nausea Breast cancer screening by mammogram Left ear pain Upper respiratory tract infection Right shoulder pain Annual physical exam Obesity (BMI 30-39.9) Primary osteoarthritis of left knee GERD without esophagitis Vitamin D deficiency Chronic allergic rhinitis Asthma-COPD overlap syndrome Osteoarthritis Migraines Anemia Kidney stones Asthma Surgical History H/O heart artery stent Hx of gastric bypass (~2006) Hx of ventral hernia repair History of bilateral tubal ligation H/O section Hx of rotator cuff surgery (~2016) H/O abdominoplasty History of renal stent Family History Father History of heart surgery Hx of blood clots Mother Heart problem Paternal Grandfather Skin cancer Social History Household Members: Children Housing: Apartment Are you a primary cardiac care unit nurse to a significant other at home: No Do you presently have visiting nurse or other home services: No Alcohol intake: current Alcohol intake frequency: a few times a month Alcohol type: wine Patient Tobacco Use Status: Never used Tobacco e-Cigarette/Vaping Use: Never Used Second Hand Smoke Exposure: No service: No Current occupational status: unemployed Cognitive needs: No Hearing needs: No Vision needs: No Review of Systems Const Denies fatigue, Denies fever(s), Denies night sweats, Denies poor appetite and Denies weight loss ENT Reports Normal hearing present, Denies dental pain, Denies dysphagia, Denies hearing loss, Denies mouth pain, Denies odynophagia, Denies throat swelling, Denies tongue swelling and Reports other (Dentition adequate) Card Reports chest pain Resp Reports no additional complaints GI Details: Denies abdominal pain, Denies melena, Denies bloating, Denies hematochezia, Denies constipation, Denies GI cramping, Denies dysphagia, Denies excessive flatus, Denies early satiety, Reports heartburn, Denies diarrhea, Reports nausea, Denies odynophagia, Reports vomiting and Denies hematemesis Skin/Breast Denies pruritus, Denies lesions, Denies rash and Denies jaundice Neuro Reports Normal hearing present and Denies Abnormal speech present Endo Denies fatigue Aller/Immun Denies throat swelling and Denies tongue swelling Physical Exam Vital Signs: Last Vital Signs Pulse 105 H 03/03/24 09:45 BP 176/103 H 03/03/24 09:45 BMI result Body Mass Index 35.2 Const General: cooperative, no acute distress, well developed and well groomed Nutritional Appearance: well nourished and obese Orientation/consciousness: oriented to person, oriented to place and oriented to time Limitations: language barrier HEENT Head: Yes normocephalic and Yes atraumatic Eyes General: appearance normal, both eyes and all related structures Pupils: Equal, round and reactive pupils present Neck Neck: Yes normal visual inspection and Yes no lymphadenopathy Thyroid: Thyroid normal Resp Effort & Inspection: normal respiratory effort and able to speak in complete sentences Auscultation: clear to auscultation bilaterally Cardio Rate: regular rate Rhythm: regular rhythm Heart sounds: Normal, physiologic split S2 sound present Peripheral pulses: radial pulses present and posterior tibial pulses present GI Inspection: No distended, No Abdominal panniculus present and Yes obesity Palpation (GI): Soft to palpation, nontender, no guarding, not rigid and No hepatosplenomegaly present Percussion: Yes normal to percussion Auscultation: normal bowel sounds Rectal Exam - Female: deferred Skin General skin exam: no rashes or lesions noted, turgor normal, skin not dry, no jaundice, No spider nevi and no striae Rashes: no rashes Nails: normal Neuro General: oriented to person, oriented to place and oriented to time Cranial nerves: Yes Equal, round and reactive pupils present and Yes Normal hea ring present Speech: No Abnormal speech present Extrem General: Yes normal to inspection, No clubbing, No cyanosis and No edema Psych Appearance: grossly normal and well kempt Mental Status: mental status grossly normal Speech and movement: Normal speech and movement present Affect: normal affect Attitude: cooperative Thought process: Normal thought process present and not confabulating Thought content: Normal thought content present Insight: Fair insight present (Psych) and Limited insight present (Psych) Judgement: Fair judgement present (Psych) and Limited judgement present (Psych) Assessment & Plan Assessment & Plan (1) GERD without esophagitis: Code(s): K21.9 - Gastro-esophageal reflux disease without esophagitis Category: Medical (2) Nausea and vomiting: Code(s): R11.2 - Nausea with vomiting, unspecified Category: Medical Qualifiers: Vomiting type: unspecified Qualified Code(s): R11.2 - Nausea with vomiting, unspecified (3) Multiple gastric erosions: Code(s): K25.9 - Gastric ulcer, unspecified as acute or chronic, without hemorrhage or perforation Category: Medical Qualifiers: Gastric ulcer chronicity: unspecified ulcer chronicity Qualified C ode(s): K25.9 - Gastric ulcer, unspecified as acute or chronic, without hemorrhage or perforation Plan She just was dx'ed with an DE!! She had a stent placed and now she has had much less N/V. She has a strong FHX of DE. She also had a reaction to the reglan so she stopped it. She asks if she should take the pantoprazole, and I recommend that she does take it r/t her past hx of multiple gastric ulcers. ROV 3 mos. Coding Level of Care Code Est Pt Level 3 (96832) Diagnoses GERD without esophagitis K21.9 Nausea and vomiting, unspecified vomiting type R11.2 Vomiting type: unspecified Multiple gastric erosions, unspecified ulcer chronicity K25.9 Gastric ulcer chronicity: unspecified ulcer chronicity
== END 2024-03-03 10:40 | disposition home or self-care (01) ==
PROVIDERS: PCP Internal Medicine; Visit Provider Nurse Practitioner
DX: K21.9 Gastro-esophageal reflux disease without esophagitis (principal); R11.2 Nausea with vomiting, unspecified; K25.9 Gastric ulcer, unspecified as acute or chronic, without hemorrhage or perforation
CPT/HCPCS: 99213

== ENCOUNTER → 2024-03-03 09:29 | Outpatient (BNVA) | payer OTHER, SELFPAY | PROVIDERS: PCP Internal Medicine; Visit Provider Nurse Practitioner | DX: K21.9 Gastro-esophageal reflux disease without esophagitis (principal); K25.9 Gastric ulcer, unspecified as acute or chronic, without hemorrhage or perforation; R11.2 Nausea with vomiting, unspecified | CPT/HCPCS: 99212 ==

== ENCOUNTER 2024-03-10 14:34 | Outpatient (AMB) | payer OTHER, SELFPAY ==
[2024-03-10 14:43] VITALS: BP 138/68; PULSE 88; BMI 34.4
--- NOTE | 2024-03-10 14:43 | MHC.OFFVIS ---
Vital Signs 03/10/24 14:43 Height 5 ft Weight 176 lb 5.917 oz BMI 34.4 BP 138/68 Blood Pressure Location Lt brachial Position Sitting Pulse 88 Pulse Source Pulse Oximeter Intake Visit Reasons: follow up post Cath (KM) Allergies aspirin [ASA] Allergy (Severe, Verified 03/03/24 09:58) ITCHINESS, rash Penicillins [PENICILLINS] Allergy (Severe, Verified 03/03/24 09:58) ANAPHYLAXIS shellfish derived Allergy (Severe, Verified 03/03/24 09:58) ANAPHYLAXIS sumatriptan [From IMITREX] Allergy (Unknown, Verified 03/03/24 09:58) ANAPHYLAXIS, VOMITING, vomiting, dyspnea metoclopramide Allergy (Verified 03/03/24 09:58) Redness of Skin Medication List - Last Reconciled 03/10/24 by Seema Dick NP aspirin (Adult Low Dose Aspirin) 81 mg PO DAILY [BACK BRACE As directed] benzonatate 200 mg PO BID PRN 30 days blood pressure monitor As directed clonazepam mg PO Daliresp (roflumilast) 500 mcg PO DAILY 90 days NS diclofenac sodium 3% 1 appl topical BID 90 days epinephrine 0.3 mL IM DAILY PRN ergocalciferol (vitamin D2) 1,250 mcg PO QWEEK fluticasone furoate-vilanterol 200-25 mcg/dose (Breo Ellipta) 1 inh inhalation DAILY 90 days fluticasone propionate 50 mcg/actuation 2 sprays intranasal DAILY PRN 30 days furosemide 20 mg PO QAM PRN guaifenesin 200 mg (5 mL) PO Q6H PRN ipratropium-albuterol 0.5 mg-3 mg(2.5 mg base)/3 mL 3 mL inhalation BID ketotifen fumarate 0.025%(0.035%) (Alaway) 1 drp ophthalmic (eye) BID levalbuterol tartrate 45 mcg/actuation (Xopenex HFA) 2 puffs PO Q6H PRN 90 days lidocaine 5% 1 patch topical DAILY PRN 30 days loratadine 10 mg PO DAILY 90 days methylprednisolone (Medrol (Jose)) PO PER PKG DIR 6 days metoclopramide HCl (Reglan) 5 mg PO QIDACHS multivitamin,tx-minerals (Multi-Vitamin HP/Minerals capsule) 1 cap PO DAILY ondansetron 4 mg PO BID-TID PRN 30 days pantoprazole (Protonix) 40 mg PO BID 30 days prednisone 20 mg PO DAILY 5 days tizanidine 2 mg PO Q8H PRN tramadol 50 mg PO TID PRN 10 days umeclidinium 62.5 mcg/actuation (Incruse Ellipta) 1 inh PO DAILY venlafaxine ER (Effexor XR) 37.5 mg PO DAILY HPI Comments Details: 58-year-old female presents today for a follow-up after cardiac catheterization. She reports she has been doing well since then. [place] [facility] [place] discomfort and was transferred to [facility] [place] for STEMI/catheterization. Her right radial wrist is healing well without any tenderness, erythema, swelling, odor, or drainage. She has been tolerating her medications well. She was desensitized to ASA at [facility] [place] - reports no rash or itchiness. Reports no signs or symptoms of bleeding. [facility] Medical History CAD (coronary artery disease) Bronchitis Osteoarthritis of left knee Left knee pain Severe allergic reaction Edema Ecchymosis Colon cancer screening Asthma exacerbation Postprandial vomiting Postprandial nausea Breast cancer screening by mammogram Left ear pain Upper respiratory tract infection Right shoulder pain Annual physical exam Obesity (BMI 30-39.9) Primary osteoarthritis of left knee GERD without esophagitis Vitamin D deficiency Chronic allergic rhinitis Asthma-COPD overlap syndrome Osteoarthritis Migraines Anemia Kidney stones Asthma Surgical History S/P cardiac catheterization H/O heart artery stent Hx of gastric bypass (~2006) Hx of ventral hernia repair History of bilateral tubal ligation H/O section Hx of rotator cuff surgery (~2016) H/O abdominoplasty History of renal stent Family History Father History of heart surgery Hx of blood clots Mother Heart problem Paternal Grandfather Skin cancer Social History Household Members: Children Housing: Apartment Are you a primary critical care unit nurse to a significant other at home: No Do you presently have visiting nurse or other home services: No Alcohol intake: current Alcohol intake frequency: a few times a month Alcohol type: wine Patient Tobacco Use Status: Never used Tobacco e-Cigarette/Vaping Use: Never Used Second Hand Smoke Exposure: No service: No Current occupational status: unemployed Cognitive needs: No Hearing needs: No Vision needs: No Review of Systems Const Denies weakness ENT Denies dizziness Card Denies chest pain, Denies chest pain with activity, Denies syncope, Denies rapid heart rate, Denies pedal edema, Denies edema, Denies leg edema, Denies lightheadedness, Denies palpitations, Denies dyspnea, Denies dyspnea on exertion and Denies orthopnea Resp Denies cough, Denies dyspnea and Denies dyspnea on exertion GI Denies hematochezia and Denies change in stool character Musc Denies abnormal gait, Denies muscle cramps, Denies muscle weakness, Denies numbness, Denies radiating pain into limb and Denies tingling Neuro Denies abnormal gait, Denies dizziness, Denies syncope, Denies numbness, Denies tingling and Denies weakness Endo Denies palpitations Physical Exam Vital Signs: Last Vital Signs Pulse 88 03/10/24 14:43 BP 138/68 03/10/24 14:43 BMI result Body Mass Index 34.4 Const General: healthy appearing and no acute distress Orientation/consciousness: patient oriented x3 HEENT Head: Yes normal to inspection Eyes General: appearance normal, both eyes and all related structures Neck Neck: Yes normal visual inspection Chest Chest palpation & inspection: normal inspection of the chest Resp Effort & Inspection: normal respiratory effort Auscultation: clear to auscultation bilaterally Cardio Jugular venous distension: no JVD Palpation: normal PMI Rate: regular rate Rhythm: regular rhythm Heart sounds: S1 normal heart sound present, S2 normal heart sound present, no click, no gallops, no murmurs and no rubs GI Inspection: Yes normal to inspection Palpation (GI): Soft to palpation Skin General skin exam: no rashes or lesions noted Neuro General: patient oriented x3 Extrem General: Yes normal to inspection Psych Appearance: grossly normal Assessment & Plan Assessment & Plan (1) STEMI (ST elevation myocardial infarction): Code(s): I21.3 - ST elevation (STEMI) myocardial infarction of unspecified site Category: Medical Qualifiers: Involved coronary artery: unspecified coronary artery Qualified Code(s): I21.3 - ST elevation (STEMI) myocardial infarction of unspecified site (2) S/P cardiac catheterization: Comment: Cardiac catheterization 02/19/[address] Kumar LAD: mid LAD: proximal subsection 90% stenosis 1st diag: ostial 90% stenosis RCA: Mid RCA: 10)% stenosis. Culprit lesion. PCI to RCA. Code(s): Z98.890 - Other specified postprocedural states Category: Surgical Plan Cardiac catheterization post STEMI resulting in PCI to RCA. They will stage PCI to the LAD. She was desensitized with aspirin and is on aspirin 81 mg once a day and tolerating it well. Patient understands that she is to have any side effects to let us know right away. She is also on Brilinta 90 mg twice a day for at minimum 12 months post PCI. Patient reports understanding that she needs to be on this blood thinner for minimum 12 months. She is on metoprolol succinate and atorvastatin. LDL on 02/19/2024 at [facility] was 94. Refills for medications sent. Advised to get blood work in about 2 months for repeat lipid panel. We will work on getting staged cardiac catheterization for PCI to LAD for next available. Patient reports understanding. Right radial artery is healing appropriately. No signs or symptoms of infection. No erythema, swelling, odor, or drainage noted. Pulses proximal and distal to the site are present. Orders: Orders Lipid Panel 03/10/24 I21.3 - ST elevation (STEMI) myocardial infarction of unspecified site, Z98.890 - Other specified postprocedural states Basic Metabolic Panel 03/10/24 I21.3 - ST elevation (STEMI) myocardial infarction of unspecified site, Z98.890 - Other specified postprocedural states Medications: New ticagrelor (Brilinta) 90 mg PO BID 90 days 180 tabs 3RF aspirin (Adult Low Dose Aspirin) 81 mg PO DAILY 90 days 90 tabs 3RF metoprolol succinate ER 25 mg PO DAILY 90 tabs 3RF atorvastatin 40 mg PO BEDTIME 90 tabs 3RF Coding Level of Care Code Est Pt Level 3 (26818) Diagnoses ST elevation myocardial infarction (STEMI), unspecified artery I21.3 Involved coronary artery: unspecified coronary artery S/P cardiac catheterization Z98.890
== END 2024-03-10 15:09 | disposition home or self-care (01) ==
PROVIDERS: Visit Provider Nurse Practitioner
DX: I21.3 ST elevation (STEMI) myocardial infarction of unspecified site (principal); Z98.890 Other specified postprocedural states
CPT/HCPCS: 99213

== ENCOUNTER → 2024-03-10 14:34 | Outpatient (BNVA) | payer OTHER, SELFPAY | PROVIDERS: Visit Provider Nurse Practitioner | DX: I21.3 ST elevation (STEMI) myocardial infarction of unspecified site (principal); Z98.890 Other specified postprocedural states | CPT/HCPCS: 99212 ==

== ENCOUNTER 2024-03-16 08:55 | Outpatient (REF) | payer OTHER, SELFPAY ==
[2024-03-16 09:22] LABS: MANUAL DIFF FLAG NO
[2024-03-16 09:47] LABS: Appearance Urine Turbid; Color Urine Dark Yellow; Glucose Urine UA Negative (Negative); Leukocyte Esterase Urine Trace (Negative); Nitrite Urine Negative (Negative); PH 5.5 (5.0-9.0); Specific Gravity - Urine >= 1.030 (1.005-1.025); UMIC TRIGGER UACC YES; Urine Blood Negative (Negative); Urine Ketones Negative (Negative); Urine Protein Trace mg/dL (Neg-Trace)
[2024-03-16 09:47] LABS: Basophils Absolute Auto 0.1 X10*3/uL (0.0-0.2); Basophils Percent Auto 0.7 % (0-2); Eosinophils Absolute Auto 1.2 X10*3/uL (0.0-0.4); Eosinophils Percent Auto 10.6 % (0-4); Hematocrit 43.1 % (37.0-47.0); Hemoglobin 14.2 g/dl (12.0-16.0); Imm Gran Abs Auto 0.04 X10*3/uL (0.00-0.03); Imm Gran Pct Auto 0.4 % (0.0-0.4); Lymphocytes Absolute Auto 2.7 X10*3/uL (1.2-4.9); Lymphocytes Percent Auto 24.3 % (20-40); Mean Corpuscular HGB Conc 32.9 g/dl (31.0-35.0); Mean Corpuscular Hemoglobin 29.5 pg (27.0-33.0); Mean Corpuscular Volume 89.6 fL (80.0-98.0); Mean Platelet Volume 9.7 fL (9.4-12.3); Monocytes Absolute Auto 0.6 X10*3/uL (0.1-1.2); Monocytes Percent Auto 5.8 % (2-11); Neutrophils Absolute Auto 6.4 x10*3/uL (2.0-8.3); Neutrophils Percent Auto 58.2 % (45-73); Platelet Count 292 X10*3/uL (160-400); Red Blood Count 4.81 X10*6/uL (4.20-5.50); Red Cell Distribution Width 12.9 % (11.0-16.0)
[2024-03-16 09:50] LABS: INTERNATIONAL NORM RATIO 0.9 (0.9-1.1); Prothrombin Time 11.4 SEC (11.1-13.3)
[2024-03-16 09:53] LABS: Bacteria Urine 4+ (None Seen); RBC Urine 0-2 /HPF (0-2); Squamous Epithelial Cell Urine >20 /HPF (0-2); UACC Culture Trigger YES
[2024-03-16 10:05] LABS: Estimated Average Glucose 97 mg/dL
[2024-03-16 10:28] LABS: Alanine Aminotransferase 39 U/L (0-31); Alkaline Phosphatase 121 U/L (39-117); Anion Gap 12 (12-20); Aspartate Amino Transferase 26 U/L (5-31); Bilirubin Total 0.7 mg/dL (0.0-1.0); Blood Urea Nitrogen 14 mg/dL (9-16); Calcium 9.4 mg/dL (8.4-10.2); Carbon Dioxide 26 mmol/L (22-29); Chloride 110 mmol/L (96-108); Cholesterol 141 mg/dL (<200); Estimated Glomerular Filt Rate > 60; Glucose Fasting 112 mg/dL (60-99); Glucose Random 112 mg/dL (60-115); HDL Cholesterol 51 mg/dL (>40); LDL Cholesterol Calculated 74 mg/dL (<100); Potassium 3.9 mmol/L (3.3-5.1); Sodium 144 mmol/L (135-145); Total Protein 6.8 g/dL (6.5-8.0); Triglycerides 81 mg/dL (<150)
[2024-03-16 10:39] LABS: Ferritin 214 ng/mL (10-250)
[2024-03-16 10:47] LABS: TSH reflex Free T4 2.02 uIU/mL (0.32-4.0); Vitamin D 25-OH Total 46.2 ng/mL (>30)
[2024-03-17 09:28] LABS: Immunoglobulin M 95 mg/dL (50-300)
== END 2024-03-16 08:56 | disposition home or self-care (01) ==
LOC: HO.LAB 08:55
PROVIDERS: Internal Medicine Medical Oncology; PCP Internal Medicine; Visit Provider Nurse Practitioner
DX: D64.9 Anemia, unspecified (principal); E78.00 Pure hypercholesterolemia, unspecified; R73.9 Hyperglycemia, unspecified; E55.9 Vitamin D deficiency, unspecified; I25.10 Atherosclerotic heart disease of native coronary artery without angina pectoris; Z01.812 Encounter for preprocedural laboratory examination; D50.9 Iron deficiency anemia, unspecified
CPT/HCPCS: 36415; 80053; 80061; 81001; 82306; 82728; 82784; 83036; 84443; 85025; 85610; 87086

== ENCOUNTER → 2024-03-19 23:59 | Outpatient (BNV) | payer OTHER, SELFPAY | PROVIDERS: PCP Internal Medicine; Visit Provider Internal Medicine Cardiovascular Disease | DX: I20.89 Other forms of angina pectoris (principal) | CPT/HCPCS: 92928; 92978; 99152 ==

== ENCOUNTER 2024-03-25 11:20 | Outpatient (AMB) | payer OTHER, SELFPAY ==
[2024-03-25 11:27] VITALS: BP 118/78; PULSE 81; O2SAT 97; BMI 34.6
--- NOTE | 2024-03-25 11:27 | MHC.PC.OV ---
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 Accompanied by: Self / Same As Patient Allergies aspirin [ASA] Allergy (Severe, Verified 03/29/24 21:10) ITCHINESS, rash Penicillins [PENICILLINS] Allergy (Severe, Verified 03/29/24 21:10) ANAPHYLAXIS shellfish derived Allergy (Severe, Verified 03/29/24 21:10) ANAPHYLAXIS sumatriptan [From IMITREX] Allergy (Unknown, Verified 03/29/24 21:10) ANAPHYLAXIS, VOMITING, vomiting, dyspnea metoclopramide Allergy (Verified 03/29/24 21:10) Redness of Skin Medication List - Last Reconciled 03/29/24 by Arnoldo Powers MD aspirin (Adult Low Dose Aspirin) 81 mg PO DAILY 90 days atorvastatin 40 mg PO BEDTIME [BACK BRACE As directed] blood pressure monitor As directed clonazepam 0.5 mg PO DAILY diclofenac sodium 3% 1 appl topical BID 90 days epinephrine 0.3 mL IM DAILY PRN ergocalciferol (vitamin D2) 1,250 mcg PO QWEEK fluticasone furoate-vilanterol 200-25 mcg/dose (Breo Ellipta) 1 inh inhalation DAILY 90 days fluticasone propionate 50 mcg/actuation 2 sprays intranasal DAILY PRN 30 days furosemide 20 mg PO QAM PRN ipratropium-albuterol 0.5 mg-3 mg(2.5 mg base)/3 mL 3 mL inhalation BID ketotifen fumarate 0.025%(0.035%) ([place]) 1 drp ophthalmic (eye) BID levalbuterol tartrate 45 mcg/actuation (Xopenex HFA) 2 puffs PO Q6H PRN 90 days lidocaine 5% 1 patch topical DAILY PRN 30 days loratadine 10 mg PO DAILY 90 days metoclopramide HCl (Reglan) 5 mg PO QIDACHS metoprolol succinate ER 25 mg PO DAILY multivitamin,tx-minerals (Multi-Vitamin HP/Minerals capsule) 1 cap PO DAILY ondansetron 4 mg PO BID-TID PRN 30 days pantoprazole (Protonix) 40 mg PO BID 30 days ticagrelor (Brilinta) 90 mg PO BID 90 days tizanidine 2 mg PO Q8H PRN tramadol 50 mg PO TID PRN 10 days umeclidinium 62.5 mcg/actuation (Incruse Ellipta) 1 inh PO DAILY venlafaxine ER (Effexor XR) 37.5 mg PO DAILY Tobacco use date assessed: 03/25/24 Dental Screening Dental Screen Date: 03/25/24 Did you have a dental visit in the last 12 months?: Yes Did you have a dental problem in the last 6 months where you did not have access to dental care?: No Was dental information given to patient?: Patient has dentist HPI Follow Up on Heart operation done on 03/19/2024 HPI Details Patient comes in today for her follow up visit She underwent cardiac catheterization last month on 02/19/2024 after presenting to the ER here at [facility] with chest pains and was found to be have STEMI She had reperfusion in the ER but symptoms immediately recurred, prompting urgent transfer to [facility] for catheterization and intervention She also had to be desensitized to Aspirin as she was previously allergic to Aspirin She initially has PCI to the RCA but was also noted to have severe proximal LAD stenosis and the decision was made to bring her back in a few weeks for staged PCI (to the LAD), which she underwent a few days ago on 03/19/2024 Patient states that her right wrist still feels sore from her recent procedure but she otherwise feels okay Still has some FLEMING but she denies any chest pains/pressure She denies any headaches or dizziness No nausea/vomiting, no abdominal pain No change in bowel habits noted PFSH Medical History CAD (coronary artery disease) Osteoarthritis of left knee Severe allergic reaction Edema Ecchymosis Postprandial vomiting Postprandial nausea Obesity (BMI 30-39.9) Primary osteoarthritis of left knee GERD without esophagitis Vitamin D deficiency Chronic allergic rhinitis Asthma-COPD overlap syndrome Osteoarthritis Migraines Anemia Kidney stones Asthma Surgical History S/P cardiac catheterization H/O heart artery stent Hx of gastric bypass (~2006) Hx of ventral hernia repair History of bilateral tubal ligation H/O section Hx of rotator cuff surgery (~2016) H/O abdominoplasty History of renal stent Family History Father History of heart surgery Hx of blood clots Mother Heart problem Paternal Grandfather Skin cancer Social History Household Members: Children Housing: Apartment Are you a primary healthcare administrative assistant to a significant other at home: No Do you presently have visiting nurse or other home services: No Alcohol intake: current Alcohol intake frequency: a few times a month Alcohol type: wine Patient Tobacco Use Status: Never used Tobacco e-Cigarette/Vaping Use: Never Used Second Hand Smoke Exposure: No service: No Current occupational status: unemployed Cognitive needs: No Hearing needs: No Vision needs: No Questionnaire PHQ-9 Over the last 2 weeks, how often have you been bothered by any of the following problems? 1. Little interest or pleasure in doing things: not at all 2. Feeling down, depressed, or hopeless: not at all 3. Trouble falling or staying asleep, or sleeping too much: not at all 4. Feeling tired or having little energy: not at all 5. Poor appetite or overeating: not at all 6. Feeling bad about yourself - or that you are a failure or have let yourself or your family down: not at all 7. Trouble concentrating on things, such as reading the newspaper or watching television: not at all 8. Moving or speaking so slowly that other people could have noticed. Or the opposite - being so fidgety or restless that you have been moving around a lot more than usual: not at all 9. Thoughts that you would be better off or of hurting yourself in some way: not at all Total score: 0 Depression Screening Interpretation: Negative Depression Screening Done: Yes 28661 - PHQ-9 Billing: Yes Source: Developed by Drs. Luiz Suarez, Suri Reyes, Randall Euceda and colleagues, with an educational ines from [employer]. Thrive Questionnaire Date Thrive assessed: 03/25/24 I am a: Patient What is your living situation today?: I have a steady place to live Within the past 12 months, did the food you bought not last and you didn't have the money to get more?: Never true Within the past 12 months, did you worry whether your food would run out before you got money to buy more?: Never true Do you have trouble paying for medicines?: No Do you have trouble getting transportation to medical appointments?: No Do you have trouble paying your heating and electricity bill?: No Do you have trouble taking care of your child, family member or friend?: No Do you have trouble with day-to-day activities such as bathing, preparing meals, shopping, managing finances, etc.?: No Are you currently unemployed and looking for a job?: No Are you interested in more education?: No Please select the resources that you would like help with: None Currently or been in a relationship where the following occur: No concerns reported THRIVE Score: 0 AUDIT C Alcohol Use Questionnaire (AUDIT-C) 1. How often do you have a drink containing alcohol?: Never 3. How often do you have six or more drinks on one occasion?: Never Total Score: 0 Score Reviewed/Action Taken: Yes ONESIMO-7 AMB Questionnaire ONESIMO-7 Date ONESIMO - 7 assessed: 03/25/24 Feeling nervous, anxious, or on edge: 0 = Not at all Not being able to stop or control worryin = Not at all Worrying too much about different things: 0 = Not at all Trouble relaxin = Not at all Being so restless that it is hard to sit still: 0 = Not at all Becoming easily annoyed or irritable: 0 = Not at all Feeling afraid as if something awful might happen: 0 = Not at all Total ONESIMO-7 score (0-4 normal; 5-9 mild; 10-14 moderate; 15-21 severe): 0 Source: Developed by Drs. Luiz Suarez, Suri Reyes, Randall Euceda and colleagues, with an educational ines from [employer]. Review of Systems Const Denies chills, Reports fatigue, Denies fever(s) and Denies headache(s) ENT Denies dysphagia, Denies dizziness, Denies otalgia, Denies headache(s), Denies neck pain, Denies odynophagia and Denies sore throat Card Denies chest pain, Denies irregular heart rhythm, Denies palpitations and Reports dyspnea on exertion (mild) Resp Denies chest congestion, Reports cough (on and off, mostly non-productive), Denies hemoptysis, Reports dyspnea on exertion (mild) and Denies wheezing GI Denies abdominal pain, Denies bloating, Denies constipation, Denies dysphagia, Denies heartburn, Denies diarrhea, Denies nausea, Denies odynophagia and Denies vomiting Denies hematuria, Denies urinary frequency, Denies dysuria, Denies urinary incontinence and Denies urinary urgency Musc Denies back pain, Denies arthralgias and Denies neck pain Skin/Breast Denies rash Neuro Denies dizziness, Denies headache(s) and Denies paresthesias Psych Denies anxiety and Denies depression Endo Reports fatigue and Denies palpitations Aller/Immun Denies wheezing Physical exam (Primary Care) Vital Signs: Last Vital Signs Pulse 81 03/25/24 11:27 BP 118/78 03/25/24 11:27 Pulse Ox 97 03/25/24 11:27 Oxygen Delivery Method Room Air 03/25/24 11:27 BMI result Body Mass Index 34.6 Tobacco/Smoking Status: Tobacco use Status Tobacco use date assessed 03/25/24 03/25/24 11:29 Patient Tobacco Use Status Never used Tobacco 03/25/24 11:29 e-Cigarette/Vaping Use Never Used 03/25/24 11:29 PHQ-9: PHQ-9 Score PHQ-9: Total score 0 03/25/24 12:12 Depression Screening Interpretation: Negative Thrive Assessment: Date of Thrive Assessment Date Thrive assessed 03/25/24 03/25/24 11:29 Currently or been in a relationship where the following occur: No concerns reported Const General: no acute distress and alert HENMT Ears: TM's normal bilaterally and EAC's normal Throat: Yes posterior oropharynx normal and Yes tonsils normal (no TP congestion) Neck Neck: Yes no lymphadenopathy and Yes supple Thyroid: Thyroid normal Resp Auscultation: clear to auscultation bilaterally, no crackles, no rales, no wheezes and diminished lung sounds (slightly) Cardio Rate: regular rate Rhythm: regular rhythm Heart sounds: no murmurs GI Palpation (GI): Soft to palpation and nontender Auscultation: normal bowel sounds General: Yes no CVA tenderness Back/Spine/Pelvis Back: no CVA tenderness Thoracic/Lumbar Spine: No lumbar spinal tenderness Skin Rashes: no rashes Extrem General: Yes no clubbing, cyanosis or edema Results Reviewed Results Reviewed: Laboratory Tests 03/16/24 09:21 Triglycerides 81 Cholesterol 141 LDL Cholesterol, Calc 74 HDL Cholesterol 51 Assessment and Plan Assessment & Plan (1) CAD (coronary artery disease): Comment: cardiac catheterization - PCI to RCA (02/19/24) and staged PCI of LAD (03/19/2024) - Dr. Kumar Code(s): I25.10 - Atherosclerotic heart disease of jamul coronary artery without angina pectoris Qualifiers: Coronary Disease-Associated Artery/Lesion type: jamul artery [place] vs. transplanted heart: jamul heart Associated angina: without angina Qualified Code(s): I25.10 - Atherosclerotic heart disease of jamul coronary artery without angina pectoris Plan: S/P STEMI last month (January 2024) and subsequent coronary angiography resulting in PCI to RCA first on 02/19/2024, followed by staged PCI of the LAD recently on 03/19/2024 Continue aggressive risk factor modification according to ATP III guidelines Continue Aspirin 81 mg QD (after undergoing aspirin desensitization at the CCU at [facility]) and Ticagrelor 90 mg BID for at least 12 months following PCI She is going to be starting cardiac rehab soon Follow up with cardiology as scheduled (2) Asthma-COPD overlap syndrome: Code(s): J44.9 - Chronic obstructive pulmonary disease, unspecified Plan: Continue Breo Ellipta 200-25 mcg 1 inhalation QD, INcruse Ellpitoa 62.5 mcg 1 inhalation QD, Montelukast 10 mg Q PM, Daliresp 500 mcg QD and Levalbuterol inhaler 1 to 2 inhalations Q 6 hours PRN She also has Albuterol inhalation via nebulization Q 6 hours PRN that she is to use in place of her Levalbuterol inhaler when she is able to Follow up with pulmonary as scheduled (3) Chronic allergic rhinitis: Code(s): J30.9 - Allergic rhinitis, unspecified Plan: Continue Montelukast 10 mg QD and Loratadine 10 mg QD PRN Continue Fluticasone 50 mcg nasal spray QD PRN for increased allergy symptoms (4) 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 Rondon and was advised that her gastric pouch has herniated above the diaphragm and that the only way this can be corrected would be through surgical means She was advised that losing weight may help somewhat and was advised to speak to her PCP about medications that can help her lose weight as she has clearly failed bariatric surgery We previously tried starting her on Wegovy 0.25 mg SQ once a week but her insurance would not approve the Rx (5) Multiple gastric erosions: Code(s): K25.9 - Gastric ulcer, unspecified as acute or chronic, without hemorrhage or perforation Qualifiers: Gastric ulcer chronicity: unspecified ulcer chronicity Qualified Code(s): K25.9 - Gastric ulcer, unspecified as acute or chronic, without hemorrhage or perforation Plan: EGD also revealed (+) multiple small erosions on the jejunal side of her previous gastrojejunostomy site, with one of them bleeding recently but is no longer actively bleeding at the time of her procedure Continue Omeprazole 40 mg BID Follow up with GI as scheduled Can consider switching her to [place] if her symptoms do not improve significantly on high-dose PPI Tx (6) Iron deficiency anemia: Code(s): D50.9 - Iron deficiency anemia, unspecified Qualifiers: Iron deficiency anemia type: unspecified iron deficiency Qualified Code(s): D50.9 - Iron deficiency anemia, unspecified Plan: She is currently still receiving IV iron infusions from hematology Will continue to monitor her CBC regularly - her CBC done over the past week came out normal Follow up with hematology as scheduled She was previously referred to GI for consideration for colonoscopy but she declined the procedure and had a Cologuard test done in 2021 instead (7) Primary osteoarthritis of left knee: Code(s): M17.12 - Unilateral primary osteoarthritis, left knee Plan: X-rays of the left knee done in March 2019 showed (+) mild OA changes there was similar to findings on x-rays back in 2015 Repeat left knee x-rays done a few months ago again showed the same findings Continue Tramadol 50 mg 2 to 3 times a day as needed for pain; she was on Naproxen previously but this was stopped due to her recent ND Follow-up with Orthopedics as scheduled (8) Painful arc syndrome of right shoulder: Code(s): M75.101 - Unspecified rotator cuff tear or rupture of right shoulder, not specified as traumatic Plan: X-rays of the shoulder done a few months ago came back negative She has been seen by orthopedics for this a few months ago but she declined offer for cortisone injection (had one done before that did not help) and referral for physical therapy Continue Lidocaine patches QD PRN Follow up with orthopedics as scheduled (9) Migraines: Code(s): G43.909 - Migraine, unspecified, not intractable, without status migrainosus Qualifiers: Migraine type: unspecified Status migrainosus presence: without status migrainosus Intractability: not intractable Qualified Code(s): G43.909 - Migraine, unspecified, not intractable, without status migrainosus Plan: Continue Sumatriptan 50 mg PRN and Fioricet 1 tablet 3 to 4 times a day as needed Reinforced avoidance of migraine triggers - patient states that her migraine headaches have been stable lately Follow up with neurology as scheduled (10) Vitamin D deficiency: Code(s): E55.9 - Vitamin D deficiency, unspecified Plan: Continue Vitamin D2 21529 units once a week (11) Obesity (BMI 30-39.9): Comment: S/P gastric bypass Code(s): E66.9 - Obesity, unspecified Plan: Reinforced diet/exercise as tolerated/lose weight Plan Follow up in May 2024 Orders: Orders Comprehensive [place]. Panel Fast 05/01/24 E78.00 - Pure hypercholesterolemia, unspecified UA CC w/rflx Micro + Cult 05/01/24 R30.0 - Dysuria Vitamin D 25-OH Total 05/01/24 E55.9 - Vitamin D deficiency, unspecified Complete Blood Count Auto Diff 05/01/24 D64.9 - Anemia, unspecified Lipid Panel 05/01/24 E78.00 - Pure hypercholesterolemia, unspecified TSH reflex Free T4 05/01/24 E78.00 - Pure hypercholesterolemia, unspecified Coding Level of Care Code Est Pt Level 4 (07234) Diagnoses Coronary artery disease involving jamul coronary artery of jamul heart without angina pectoris I25.10 Coronary Disease-Associated Artery/Lesion type: jamul artery [place] vs. 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
== END 2024-03-25 12:23 | disposition home or self-care (01) ==
PROVIDERS: PCP Internal Medicine; Visit Provider Internal Medicine
DX: I25.10 Atherosclerotic heart disease of native coronary artery without angina pectoris (principal); J44.9 Chronic obstructive pulmonary disease, unspecified; Z68.34 Body mass index [BMI] 34.0-34.9, adult; E66.9 Obesity, unspecified; J30.9 Allergic rhinitis, unspecified; K95.89 Other complications of other bariatric procedure; K25.9 Gastric ulcer, unspecified as acute or chronic, without hemorrhage or perforation; D50.9 Iron deficiency anemia, unspecified; M17.12 Unilateral primary osteoarthritis, left knee; M75.101 Unspecified rotator cuff tear or rupture of right shoulder, not specified as traumatic; G43.909 Migraine, unspecified, not intractable, without status migrainosus; E55.9 Vitamin D deficiency, unspecified

== ENCOUNTER → 2024-03-25 11:20 | Outpatient (BNVA) | payer OTHER, SELFPAY | PROVIDERS: PCP Internal Medicine; Visit Provider Internal Medicine | DX: I25.10 Atherosclerotic heart disease of native coronary artery without angina pectoris (principal); J44.9 Chronic obstructive pulmonary disease, unspecified; K95.89 Other complications of other bariatric procedure; K25.9 Gastric ulcer, unspecified as acute or chronic, without hemorrhage or perforation; D50.9 Iron deficiency anemia, unspecified; M17.12 Unilateral primary osteoarthritis, left knee; M75.101 Unspecified rotator cuff tear or rupture of right shoulder, not specified as traumatic; G43.909 Migraine, unspecified, not intractable, without status migrainosus; E55.9 Vitamin D deficiency, unspecified; E66.9 Obesity, unspecified; Z68.34 Body mass index [BMI] 34.0-34.9, adult | CPT/HCPCS: 99212 ==

== ENCOUNTER 2024-03-27 11:42 | Outpatient (AMB) | payer OTHER, SELFPAY ==
[2024-03-27 12:24] VITALS: BP 118/76; PULSE 80; TEMP 36.6; O2SAT 97; BMI 34.6
--- NOTE | 2024-03-27 12:27 | AM.OFFWIN_ITS ---
Intake Vital Signs 03/27/24 12:24 Height 5 ft Weight 177 lb BMI 34.6 BP 118/76 Blood Pressure Location Lt brachial Position Sitting Pulse 80 Pulse Source Pulse Oximeter Temp 97.9 F Temp Source Temporal Artery Scan Pulse Oximetry (%) 97 Intake Visit Reasons: EP LT eye dry, red Intake Note: pt is here for lefy eye redness, dryness, patient just had heart surgery and noticed her eye like this, this morning Patient Tobacco Use Status: Never used Tobacco Allergies aspirin [ASA] Allergy (Severe, Verified 03/27/24 12:24) ITCHINESS, rash Penicillins [PENICILLINS] Allergy (Severe, Verified 03/27/24 12:24) ANAPHYLAXIS shellfish derived Allergy (Severe, Verified 03/27/24 12:24) ANAPHYLAXIS sumatriptan [From IMITREX] Allergy (Unknown, Verified 03/27/24 12:24) ANAPHYLAXIS, VOMITING, vomiting, dyspnea metoclopramide Allergy (Verified 03/27/24 12:24) Redness of Skin HPI HPI Comments History of Present Illness Details This is a 58-year-old female with a past medical history of cardiovascular disease and hyperlipidemia who recently had a cardiac stent placed, presenting for evaluation of redness in her left eye with a dry sensation. Patient denies having any discharge from her left eye, visual changes, pain in her left eye or trauma to her eye or mid face. Patient noticed the redness in her eye yesterday afternoon. [facility] Medical History CAD (coronary artery disease) Bronchitis Osteoarthritis of left knee Left knee pain Severe allergic reaction Edema Ecchymosis Colon cancer screening Asthma exacerbation Postprandial vomiting Postprandial nausea Breast cancer screening by mammogram Left ear pain Upper respiratory tract infection Right shoulder pain Annual physical exam Obesity (BMI 30-39.9) Primary osteoarthritis of left knee GERD without esophagitis Vitamin D deficiency Chronic allergic rhinitis Asthma-COPD overlap syndrome Osteoarthritis Migraines Anemia Kidney stones Asthma Surgical History S/P cardiac catheterization H/O heart artery stent Hx of gastric bypass (~2006) Hx of ventral hernia repair History of bilateral tubal ligation H/O section Hx of rotator cuff surgery (~2016) H/O abdominoplasty History of renal stent Family History Father History of heart surgery Hx of blood clots Mother Heart problem Paternal Grandfather Skin cancer Social History Household Members: Children Housing: Apartment Are you a primary child care center administrator to a significant other at home: No Do you presently have visiting nurse or other home services: No Alcohol intake: current Alcohol intake frequency: a few times a month Alcohol type: wine Patient Tobacco Use Status: Never used Tobacco e-Cigarette/Vaping Use: Never Used Second Hand Smoke Exposure: No service: No Current occupational status: unemployed Cognitive needs: No Hearing needs: No Vision needs: No Review of Systems Const All systems reviewed & are unremarkable except as noted in HPI and below Reports no additional complaints Eyes Reports as per HPI, Denies change in vision, Denies eye discharge, Reports dry eyes (left), Denies floaters, Denies irritation, Denies itchy eyes, Denies loss of vision and Reports other (redness left eye) ENT Reports no additional complaints Card Reports no additional complaints Resp Reports no additional complaints GI Reports no additional complaints Musc Reports no additional complaints Skin/Breast Reports system reviewed and no additional complaints, except as documented Neuro Reports no additional complaints and Denies loss of vision Psych Reports no additional complaints Aller/Immun Denies itchy eyes Physical Exam Vital Signs: Last Vital Signs Temp 97.9 F 03/27/24 12:24 Pulse 80 03/27/24 12:24 BP 118/76 03/27/24 12:24 Pulse Ox 97 03/27/24 12:24 BMI result Body Mass Index 34.6 Const General: cooperative, healthy appearing, comfortable, no acute distress, well developed, alert, awake and Physically active Nutritional Appearance: average body habitus Orientation/consciousness: patient oriented x3 Limitations: no limitations Eyes Visual Covarrubias: normal visual covarrubias by confrontation Alignment and Position: alignment normal Periorbital: periorbital findings normal Eyelids: Yes eyelids normal Conjunctivae: conjunctival abnormal left subconjunctival hemorrhage (limited to left medial conjunctiva); Negative for conjunctival icterus and without chemosis Corneas: corneas normal Pupils: Equal, round and reactive pupils present EOM: EOMs intact bilaterally Direct Ophthalmoscopy: normal light reflex Neuro General: patient oriented x3 Cranial nerves: Yes Equal, round and reactive pupils present Psych Appearance: grossly normal Mental Status: mental status grossly normal Insight: Good insight present (Psych) Judgement: Good judgement present (Psych) Assessment & Plan Assessment & Plan (1) Subconjunctival hemorrhage of left eye: Comment: Patient denies having any eye pain or visual changes in her clinical examination is consistent with a medial left subconjunctival hemorrhage. Code(s): H11.32 - Conjunctival hemorrhage, left eye Plan: Patient will follow up with her primary care provider in 7-10 days if her symptoms have not completely resolved. Coding Level of Care Code Est Pt Level 3 (44923) Diagnoses Subconjunctival hemorrhage of left eye H11.32 Time Spent (min) 20
== END 2024-03-27 12:45 | disposition home or self-care (01) ==
PROVIDERS: PCP Internal Medicine; Visit Provider Physician Assistant
DX: H11.32 Conjunctival hemorrhage, left eye (principal)

== ENCOUNTER → 2024-03-27 11:42 | Outpatient (BNVA) | payer OTHER, SELFPAY | PROVIDERS: PCP Internal Medicine | DX: H11.32 Conjunctival hemorrhage, left eye (principal) | CPT/HCPCS: 99212 ==

== ENCOUNTER 2024-04-02 12:51 | Outpatient (AMB) | payer OTHER, SELFPAY ==
--- NOTE | 2024-04-02 12:59 | MHC.OFFVIS ---
Vital Signs 04/02/24 13:00 Height 5 ft Weight 176 lb 5.917 oz BMI 34.4 BP 122/62 Blood Pressure Location Lt brachial Position Sitting Pulse 78 Pulse Source Pulse Oximeter Intake Visit Reasons: Follow up post LAD PCI Allergies aspirin [ASA] Allergy (Severe, Verified 03/29/24 21:10) ITCHINESS, rash Penicillins [PENICILLINS] Allergy (Severe, Verified 03/29/24 21:10) ANAPHYLAXIS shellfish derived Allergy (Severe, Verified 03/29/24 21:10) ANAPHYLAXIS sumatriptan [From IMITREX] Allergy (Unknown, Verified 03/29/24 21:10) ANAPHYLAXIS, VOMITING, vomiting, dyspnea metoclopramide Allergy (Verified 03/29/24 21:10) Redness of Skin Medication List - Last Reconciled 04/02/24 by Seema Dick NP aspirin (Adult Low Dose Aspirin) 81 mg PO DAILY 90 days atorvastatin 40 mg PO BEDTIME [BACK BRACE As directed] blood pressure monitor As directed clonazepam 0.5 mg PO DAILY diclofenac sodium 3% 1 appl topical BID 90 days epinephrine 0.3 mL IM DAILY PRN ergocalciferol (vitamin D2) 1,250 mcg PO QWEEK fluticasone furoate-vilanterol 200-25 mcg/dose (Breo Ellipta) 1 inh inhalation DAILY 90 days fluticasone propionate 50 mcg/actuation 2 sprays intranasal DAILY PRN 30 days furosemide 20 mg PO QAM PRN ipratropium-albuterol 0.5 mg-3 mg(2.5 mg base)/3 mL 3 mL inhalation BID ketotifen fumarate 0.025%(0.035%) (Alaway) 1 drp ophthalmic (eye) BID levalbuterol tartrate 45 mcg/actuation (Xopenex HFA) 2 puffs PO Q6H PRN 90 days lidocaine 5% 1 patch topical DAILY PRN 30 days loratadine 10 mg PO DAILY 90 days metoclopramide HCl (Reglan) 5 mg PO QIDACHS metoprolol succinate ER 25 mg PO DAILY multivitamin,tx-minerals (Multi-Vitamin HP/Minerals capsule) 1 cap PO DAILY ondansetron 4 mg PO BID-TID PRN 30 days pantoprazole (Protonix) 40 mg PO BID 30 days ticagrelor (Brilinta) 90 mg PO BID 90 days tizanidine 2 mg PO Q8H PRN tramadol 50 mg PO TID PRN 10 days umeclidinium 62.5 mcg/actuation (Incruse Ellipta) 1 inh PO DAILY venlafaxine ER (Effexor XR) 37.5 mg PO DAILY HPI Comments Details: 58-year-old female presents today for a follow-up after cardiac catheterization. She reports she has been doing well since then. She had [place] [facility] [place] for chest discomfort and was transferred to [facility] for STEMI/catheterization. She had a cardiac catheterization on 02/19/2024 and 03/19/2021. Her right radial wrist is healing well without any tenderness, erythema, swelling, odor, or drainage. Has mild bruising. She has been tolerating her medications well. She was desensitized to ASA at [facility] - reports no rash or itchiness. Reports no signs or symptoms of bleeding or infection. [facility] Medical History CAD (coronary artery disease) Osteoarthritis of left knee Severe allergic reaction Edema Ecchymosis Postprandial vomiting Postprandial nausea Obesity (BMI 30-39.9) Primary osteoarthritis of left knee GERD without esophagitis Vitamin D deficiency Chronic allergic rhinitis Asthma-COPD overlap syndrome Osteoarthritis Migraines Anemia Kidney stones Asthma Surgical History S/P cardiac catheterization H/O heart artery stent Hx of gastric bypass (~2006) Hx of ventral hernia repair History of bilateral tubal ligation H/O section Hx of rotator cuff surgery (~2016) H/O abdominoplasty History of renal stent Family History Father History of heart surgery Hx of blood clots Mother Heart problem Paternal Grandfather Skin cancer Social History Household Members: Children Housing: Apartment Are you a primary companion caregiver to a significant other at home: No Do you presently have visiting nurse or other home services: No Alcohol intake: current Alcohol intake frequency: a few times a month Alcohol type: wine Patient Tobacco Use Status: Never used Tobacco e-Cigarette/Vaping Use: Never Used Second Hand Smoke Exposure: No service: No Current occupational status: unemployed Cognitive needs: No Hearing needs: No Vision needs: No Review of Systems Const Denies weakness ENT Denies dizziness Card Denies chest pain, Denies chest pain with activity, Denies syncope, Denies rapid heart rate, Denies pedal edema, Denies edema, Denies leg edema, Denies lightheadedness, Denies palpitations, Denies dyspnea, Denies dyspnea on exertion and Denies orthopnea Resp Denies cough, Denies dyspnea and Denies dyspnea on exertion GI Denies hematochezia and Denies change in stool character Musc Denies abnormal gait, Denies muscle cramps, Denies muscle weakness, Denies numbness, Denies radiating pain into limb and Denies tingling Neuro Denies abnormal gait, Denies dizziness, Denies syncope, Denies numbness, Denies tingling and Denies weakness Endo Denies palpitations Physical Exam Vital Signs: Last Vital Signs Pulse 78 04/02/24 13:00 BP 122/62 04/02/24 13:00 BMI result Body Mass Index 34.4 Const General: healthy appearing and no acute distress Orientation/consciousness: patient oriented x3 HEENT Head: Yes normal to inspection Eyes General: appearance normal, both eyes and all related structures Neck Neck: Yes normal visual inspection Chest Chest palpation & inspection: normal inspection of the chest Resp Effort & Inspection: normal respiratory effort Auscultation: clear to auscultation bilaterally Cardio Jugular venous distension: no JVD Palpation: normal PMI Rate: regular rate Rhythm: regular rhythm Heart sounds: S1 normal heart sound present, S2 normal heart sound present, no click, no gallops, no murmurs and no rubs GI Inspection: Yes normal to inspection Palpation (GI): Soft to palpation Skin General skin exam: no rashes or lesions noted Neuro General: patient oriented x3 Extrem Other: Right radial artery healing appropriately. Mild healing bruising noted. No erythema, drainage, or odor noted. General: Yes normal to inspection Psych Appearance: grossly normal Assessment & Plan Assessment & Plan (1) S/P cardiac catheterization: Comment: with Dr. Kumar Stage PCI for LAD Cardiac Arteries and Lesion Findings LAD: Lesion in Prox LAD: Mid subsection.95% stenosis . Lesion in 1st Diag: Proximal subsection.75% stenosis . RCA: There is a previous stent on Mid RCA Mid subsection. LAD: Lesion in Prox LAD: Mid subsection.95% stenosis . Code(s): Z98.890 - Other specified postprocedural states Category: Surgical Plan: Cardiac catheterization post STEMI resulting in PCI to RCA on 02/19/24. Then staged PCI to the LAD on 03/19/2024. She was desensitized with aspirin and is on aspirin 81 mg once a day and tolerating it well after first cardiac catheterization. Patient understands that she is to have any side effects to let us know right away. She is also on Brilinta 90 mg twice a day for at minimum 12 months post PCI. Patient reports understanding that she needs to be on this blood thinner for minimum 12 months. She is on metoprolol succinate and atorvastatin. LDL on 02/19/2024 at [facility] was 94. Advised to get blood work in about 2 months for repeat lipid panel. Right radial artery is healing appropriately. No signs or symptoms of infection. No erythema, swelling, odor, or drainage noted. Pulses proximal and distal to the site are present. Heart healthy diet. Cardiac rehab ordered Orders: Orders Cardiac Rehab Today I21.3 - ST elevation (STEMI) myocardial infarction of unspecified site, Z98.61 - Coronary angioplasty status, Z98.890 - Other specified postprocedural states Coding Level of Care Code Est Pt Level 3 (87896) Diagnoses S/P cardiac catheterization Z98.890
[2024-04-02 13:00] VITALS: BP 122/62; PULSE 78; BMI 34.4
== END 2024-04-02 13:15 | disposition home or self-care (01) ==
PROVIDERS: Visit Provider Nurse Practitioner
DX: Z98.890 Other specified postprocedural states (principal)
CPT/HCPCS: 99213

== ENCOUNTER → 2024-04-02 12:51 | Outpatient (BNVA) | payer OTHER, SELFPAY | PROVIDERS: Visit Provider Nurse Practitioner | DX: I21.3 ST elevation (STEMI) myocardial infarction of unspecified site (principal); Z98.61 Coronary angioplasty status; Z98.890 Other specified postprocedural states | CPT/HCPCS: 99212 ==

== ENCOUNTER 2024-05-18 15:30 | Outpatient (AMB) | payer OTHER, SELFPAY ==
[2024-05-18 15:32] VITALS: BP 116/80; PULSE 79; O2SAT 97; BMI 29.3
--- NOTE | 2024-05-18 15:32 | A.OFFPC_ITS ---
Vital Signs 05/18/24 15:32 Height 5 ft 5 in Weight 176 lb 6 oz BMI 29.3 BP 116/80 Blood Pressure Location Lt brachial Position Sitting Pulse 79 Pulse Source Pulse Oximeter Pulse Oximetry (%) 97 Oxygen Delivery Method Room Air Intake Visit Reasons: Lt eye bloodshot/ broken blood vessel [place] Required: No Accompanied by: Self / Same As Patient Allergies aspirin [ASA] Allergy (Severe, Verified 05/19/24 03:18) ITCHINESS, rash Penicillins [PENICILLINS] Allergy (Severe, Verified 05/19/24 03:18) ANAPHYLAXIS shellfish derived Allergy (Severe, Verified 05/19/24 03:18) ANAPHYLAXIS sumatriptan [From IMITREX] Allergy (Unknown, Verified 05/19/24 03:18) ANAPHYLAXIS, VOMITING, vomiting, dyspnea metoclopramide Allergy (Verified 05/19/24 03:18) Redness of Skin Medication List - Last Reconciled 05/19/24 by Arnoldo Powers MD aspirin (Adult Low Dose Aspirin) 81 mg PO DAILY 90 days atorvastatin 40 mg PO BEDTIME [BACK BRACE As directed] blood pressure monitor As directed clonazepam 0.5 mg PO DAILY diclofenac sodium 3% 1 appl topical BID 90 days epinephrine 0.3 mL IM DAILY PRN ergocalciferol (vitamin D2) 1,250 mcg PO QWEEK fluticasone furoate-vilanterol 200-25 mcg/dose (Breo Ellipta) 1 inh inhalation DAILY 90 days fluticasone propionate 50 mcg/actuation 2 sprays intranasal DAILY PRN 30 days furosemide 20 mg PO QAM PRN ipratropium-albuterol 0.5 mg-3 mg(2.5 mg base)/3 mL 3 mL inhalation BID ketotifen fumarate 0.025%(0.035%) (Alaway) 1 drp ophthalmic (eye) BID levalbuterol tartrate 45 mcg/actuation (Xopenex HFA) 2 puffs PO Q6H PRN 90 days lidocaine 5% 1 patch topical DAILY PRN 30 days loratadine 10 mg PO DAILY 90 days metoclopramide HCl (Reglan) 5 mg PO QIDACHS metoprolol succinate ER 25 mg PO DAILY multivitamin,tx-minerals (Multi-Vitamin HP/Minerals capsule) 1 cap PO DAILY ondansetron 4 mg PO BID-TID PRN 30 days pantoprazole (Protonix) 40 mg PO BID 30 days ticagrelor (Brilinta) 90 mg PO BID 90 days tizanidine 2 mg PO Q8H PRN tramadol 50 mg PO TID PRN 10 days umeclidinium 62.5 mcg/actuation (Incruse Ellipta) 1 inh PO DAILY venlafaxine ER (Effexor XR) 37.5 mg PO DAILY Tobacco use date assessed: 05/18/24 Dental Screening Dental Screen Date: 05/18/24 Did you have a dental visit in the last 12 months?: No Did you have a dental problem in the last 6 months where you did not have access to dental care?: No Was dental information given to patient?: Patient has dentist HPI Lt eye bloodshot/ broken blood vessel HPI Details Patient comes in today for evaluation of her left eye States that she woke up this morning and noticed that the medial/nasal side of her left eye is completely covered in blood, which got her very worried as she is on lifetime low-dose aspirin therapy due to a recent history of cardiac stenting She denies any increased pain or significant blurring or impairment of the vision in her left eye although she reports that her left eye feels dry She denies any recent head trauma She denies any headaches or dizziness at present Denies any chest pains, no increased shortness of breath No nausea/vomiting, no abdominal pain No change in bowel habits noted [facility] Medical History (Updated 05/19/24 @ 03:28 by Arnoldo Powers MD) CAD (coronary artery disease) Osteoarthritis of left knee Severe allergic reaction Edema Postprandial vomiting Postprandial nausea Obesity (BMI 30-39.9) Primary osteoarthritis of left knee GERD without esophagitis Vitamin D deficiency Chronic allergic rhinitis Asthma-COPD overlap syndrome Osteoarthritis Migraines Anemia Kidney stones Asthma Surgical History S/P cardiac catheterization H/O heart artery stent Hx of gastric bypass (~2006) Hx of ventral hernia repair History of bilateral tubal ligation H/O section Hx of rotator cuff surgery (~2017) H/O abdominoplasty History of renal stent Family History Father History of heart surgery Hx of blood clots Mother Heart problem Paternal Grandfather Skin cancer Social History Household Members: Children Housing: Apartment Are you a primary healthcare insurance sales agent to a significant other at home: No Do you presently have visiting nurse or other home services: No Alcohol intake: current Alcohol intake frequency: a few times a month Alcohol type: wine Patient Tobacco Use Status: Never used Tobacco e-Cigarette/Vaping Use: Never Used Second Hand Smoke Exposure: No service: No Current occupational status: unemployed Cognitive needs: No Hearing needs: No Vision needs: No Questionnaire PHQ-9 Over the last 2 weeks, how often have you been bothered by any of the following problems? 1. Little interest or pleasure in doing things: not at all 2. Feeling down, depressed, or hopeless: not at all 3. Trouble falling or staying asleep, or sleeping too much: not at all 4. Feeling tired or having little energy: not at all 5. Poor appetite or overeating: not at all 6. Feeling bad about yourself - or that you are a failure or have let yourself or your family down: not at all 7. Trouble concentrating on things, such as reading the newspaper or watching television: not at all 8. Moving or speaking so slowly that other people could have noticed. Or the opposite - being so fidgety or restless that you have been moving around a lot more than usual: not at all 9. Thoughts that you would be better off or of hurting yourself in some way: not at all Total score: 0 Depression Screening Interpretation: Negative Depression Screening Done: Yes 42469 - PHQ-9 Billing: Yes Source: Developed by Drs. Luiz Suarez, Suri Reyes, Randall Euceda and colleagues, with an educational ines from [employer]. Thrive Questionnaire Date Thrive assessed: 05/18/24 I am a: Patient What is your living situation today?: I have a steady place to live Within the past 12 months, did the food you bought not last and you didn't have the money to get more?: Never true Within the past 12 months, did you worry whether your food would run out before you got money to buy more?: Never true Do you have trouble paying for medicines?: No Do you have trouble getting transportation to medical appointments?: No Do you have trouble paying your heating and electricity bill?: No Do you have trouble taking care of your child, family member or friend?: No Do you have trouble with day-to-day activities such as bathing, preparing meals, shopping, managing finances, etc.?: No Are you currently unemployed and looking for a job?: No Are you interested in more education?: No Please select the resources that you would like help with: None Currently or been in a relationship where the following occur: No concerns reported THRIVE Score: 0 AUDIT C Alcohol Use Questionnaire (AUDIT-C) 1. How often do you have a drink containing alcohol?: Never 3. How often do you have six or more drinks on one occasion?: Never Total Score: 0 Score Reviewed/Action Taken: Yes ONESIMO-7 AMB Questionnaire ONESIMO-7 Date ONESIMO - 7 assessed: 05/18/24 Feeling nervous, anxious, or on edge: 0 = Not at all Not being able to stop or control worryin = Not at all Worrying too much about different things: 0 = Not at all Trouble relaxin = Not at all Being so restless that it is hard to sit still: 0 = Not at all Becoming easily annoyed or irritable: 0 = Not at all Feeling afraid as if something awful might happen: 0 = Not at all Total ONESIMO-7 score (0-4 normal; 5-9 mild; 10-14 moderate; 15-21 severe): 0 Source: Developed by Drs. Luiz Suarez, Suri Reyes, Randall Euceda and colleagues, with an educational ines from [employer]. Review of Systems Const Denies fatigue, Denies fever(s) and Denies headache(s) Eyes Details: (+) blood over the nasal side of the left eye Denies change in vision, Denies loss of vision and Denies eye pain ENT Denies dysphagia, Denies dizziness, Denies headache(s), Denies neck pain and Denies sore throat Card Denies chest pain, Denies irregular heart rhythm, Denies palpitations and Reports dyspnea on exertion (mild) Resp Denies chest congestion, Denies cough and Reports dyspnea on exertion (mild) GI Denies abdominal pain, Denies constipation, Denies dysphagia, Denies heartburn, Denies diarrhea, Denies nausea and Denies vomiting Denies hematuria, Denies urinary frequency and Denies dysuria Musc Denies back pain, Denies arthralgias and Denies neck pain Skin/Breast Denies rash Neuro Denies dizziness, Denies headache(s), Denies loss of vision and Denies paresthesias Psych Denies anxiety and Denies depression Endo Denies fatigue and Denies palpitations Physical exam (Primary Care) Vital Signs: Last Vital Signs Pulse 79 05/18/24 15:32 BP 116/80 05/18/24 15:32 Pulse Ox 97 05/18/24 15:32 Oxygen Delivery Method Room Air 05/18/24 15:32 BMI result Body Mass Index 29.3 Tobacco/Smoking Status: Tobacco use Status Tobacco use date assessed 05/18/24 05/18/24 15:36 Patient Tobacco Use Status Never used Tobacco 05/18/24 15:36 e-Cigarette/Vaping Use Never Used 05/18/24 15:36 PHQ-9: PHQ-9 Score PHQ-9: Total score 0 05/18/24 16:17 Depression Screening Interpretation: Negative Thrive Assessment: Date of Thrive Assessment Date Thrive assessed 05/18/24 05/18/24 15:36 Currently or been in a relationship where the following occur: No concerns reported Const General: no acute distress and alert Eyes Conjunctivae: conjunctival abnormal left subconjunctival hemorrhage (over the nasal/medial side of the left eye) Neck Neck: Yes no lymphadenopathy and Yes supple Thyroid: Thyroid normal Resp Auscultation: clear to auscultation bilaterally, no rales and no wheezes Cardio Rate: regular rate Rhythm: regular rhythm Heart sounds: no murmurs GI Palpation (GI): Soft to palpation and nontender Auscultation: normal bowel sounds Skin Rashes: no rashes Extrem General: Yes no clubbing, cyanosis or edema Coding Level of Care Code Est Pt Level 3 (36677) Diagnoses Conjunctival hemorrhage of left eye H11.32 Additional Codes PHQ-9 - 99459 - PHQ-9 Billing: Yes ([id number]) Assessment & Plan Assessment & Plan (1) Conjunctival hemorrhage of left eye: Code(s): H11.32 - Conjunctival hemorrhage, left eye Category: Medical Plan: Have reassured patient that she has conjunctival hemorrhage of the left eye, which is similar to a bruise on the skin and is usually not considered serious or dangerous She does not really have any significant eye symptoms, there is no intervention or treatment that is required at this time and patient is reassured that the blood in her I will gradually and completely resolve on its own over time If she is experiencing increased dry eye symptoms, she can try applying some OTC lubricant eyedrops as needed for symptomatic relief If she has any pain or discomfort in her eye, she can try applying some cold compress also on an as-needed basis for symptomatic relief Plan To return as scheduled in December 2024 for her annual physical examination
== END 2024-05-18 16:46 | disposition home or self-care (01) ==
LOC: HO.HMCH 15:30
PROVIDERS: PCP Internal Medicine; Visit Provider Internal Medicine
DX: H11.32 Conjunctival hemorrhage, left eye (principal)

== ENCOUNTER → 2024-05-18 15:30 | Outpatient (BNVA) | payer OTHER, SELFPAY | PROVIDERS: PCP Internal Medicine; Visit Provider Internal Medicine | DX: H11.32 Conjunctival hemorrhage, left eye (principal) | CPT/HCPCS: 96127; 99212 ==

== ENCOUNTER 2024-06-02 09:52 | Outpatient (AMB) | payer OTHER, SELFPAY ==
[2024-06-02 09:55] VITALS: BP 126/90; PULSE 93; BMI 34.7
--- NOTE | 2024-06-02 09:55 | A.OFFVIS_ITS ---
Vital Signs 06/02/24 09:55 Height 5 ft Weight 177 lb 11.081 oz BMI 34.7 BP 126/90 H Blood Pressure Location Lt brachial Position Sitting Pulse 93 Intake Visit Reasons: 3 month follow up Gerd Allergies aspirin [ASA] Allergy (Severe, Verified 06/02/24 10:02) ITCHINESS, rash Penicillins [PENICILLINS] Allergy (Severe, Verified 06/02/24 10:02) ANAPHYLAXIS shellfish derived Allergy (Severe, Verified 06/02/24 10:02) ANAPHYLAXIS sumatriptan [From IMITREX] Allergy (Unknown, Verified 06/02/24 10:02) ANAPHYLAXIS, VOMITING, vomiting, dyspnea metoclopramide Allergy (Verified 06/02/24 10:02) Redness of Skin HPI HPI 3 month follow up Gerd: Details: Assessment & Plan (1) GERD without esophagitis: Code(s): K21.9 - Gastro-esophageal reflux disease without esophagitis Category: Medical (2) Nausea and vomiting: Code(s): R11.2 - Nausea with vomiting, unspecified Category: Medical Qualifiers: Vomiting type: unspecified Qualified Code(s): R11.2 - Nausea with vomiting, unspecified (3) Multiple gastric erosions: Code(s): K25.9 - Gastric ulcer, unspecified as acute or chronic, without hemorrhage or perforation Category: Medical Qualifiers: Gastric ulcer chronicity: unspecified ulcer chronicity Qualified Code(s): K25.9 - Gastric ulcer, unspecified as acute or chronic, without hemorrhage or perforation Plan She just was dx'ed with an TN!! She had a stent placed and now she has had much less N/V. She has a strong FHX of TN. She also had a reaction to the reglan so she stopped it. She asks if she should take the pantoprazole, and I recommend that she does take it r/t her past hx of multiple gastric ulcers. ROV 3 mos. TODAYS VISIT Her asthma has been acting up, and although she had a flu shot this year she has not had the COVID yet r/t her cath and asthma. Otherwise, she is having a lot of small bruises r/t her anticoagulation. She continues to do well on her pantoprazole and simethicone. ROV 6 mos. [facility] Medical History (Updated 06/02/24 @ 12:10 by CELESTE Dow) Nausea and vomiting STEMI (ST elevation myocardial infarction) Atypical pneumonia Left hip pain Obesity (BMI 30-39.9) Osteoarthritis Low back pain Multiple gastric erosions Bronchitis Conjunctival hemorrhage of left eye CAD (coronary artery disease) Osteoarthritis of left knee Severe allergic reaction Edema Postprandial vomiting Postprandial nausea Primary osteoarthritis of left knee GERD without esophagitis Vitamin D deficiency Chronic allergic rhinitis Asthma-COPD overlap syndrome Migraines Anemia Kidney stones Asthma Surgical History S/P cardiac catheterization H/O heart artery stent Hx of gastric bypass (~2006) Hx of ventral hernia repair History of bilateral tubal ligation H/O section Hx of rotator cuff surgery (~2016) H/O abdominoplasty History of renal stent Family History Father History of heart surgery Hx of blood clots Mother Heart problem Paternal Grandfather Skin cancer Social History Household Members: Children Housing: Apartment Are you a primary child day care teacher to a significant other at home: No Do you presently have visiting nurse or other home services: No Alcohol intake: current Alcohol intake frequency: a few times a month Alcohol type: wine Patient Tobacco Use Status: Never used Tobacco e-Cigarette/Vaping Use: Never Used Second Hand Smoke Exposure: No service: No Current occupational status: unemployed Cognitive needs: No Hearing needs: No Vision needs: No Review of Systems Const Denies fatigue, Denies fever(s), Denies night sweats, Denies poor appetite and Denies weight loss ENT Reports Normal hearing present, Denies dental pain, Denies dysphagia, Denies hearing loss, Denies mouth pain, Denies odynophagia, Denies throat swelling, Denies tongue swelling and Reports other (Dentition adequate) Card Reports no additional complaints Resp Reports no additional complaints GI Details: Denies abdominal pain, Denies melena, Denies bloating, Denies hematochezia, Denies constipation, Denies GI cramping, Denies dysphagia, Denies excessive flatus, Denies early satiety, Reports heartburn, Denies diarrhea, Denies nausea, Denies odynophagia, Denies vomiting and Denies hematemesis Skin/Breast Denies pruritus, Denies lesions, Denies rash and Denies jaundice Neuro Reports Normal hearing present and Denies Abnormal speech present Endo Denies fatigue Aller/Immun Denies throat swelling and Denies tongue swelling Physical Exam Vital Signs: Last Vital Signs Pulse 93 06/02/24 09:55 BP 126/90 H 06/02/24 09:55 BMI result Body Mass Index 34.7 Const General: cooperative, no acute distress, well developed and well groomed Nutritional Appearance: well nourished and obese Orientation/consciousness: oriented to person, oriented to place and oriented to time Limitations: No language barrier HEENT Head: Yes normocephalic and Yes atraumatic Eyes General: appearance normal, both eyes and all related structures Pupils: Equal, round and reactive pupils present Neck Neck: Yes normal visual inspection and Yes no lymphadenopathy Thyroid: Thyroid normal Resp Effort & Inspection: normal respiratory effort and able to speak in complete sen tences Auscultation: clear to auscultation bilaterally Cardio Rate: regular rate Rhythm: regular rhythm Heart sounds: Normal, physiologic split S2 sound present Peripheral pulses: radial pulses present and posterior tibial pulses present GI Inspection: No distended, No Abdominal panniculus present and Yes obesity Palpation (GI): Soft to palpation, nontender, no guarding, not rigid and No hepatosplenomegaly present Percussion: Yes normal to percussion Auscultation: normal bowel sounds Rectal Exam - Female: deferred Skin General skin exam: no rashes or lesions noted, turgor normal, skin not dry, no jaundice, No spider nevi and no striae Rashes: no rashes Nails: normal Neuro General: oriented to person, oriented to place and oriented to time Cranial nerves: Yes Equal, round and reactive pupils present and Yes Normal hearing present Speech: No Abnormal speech present Extrem General: Yes normal to inspection, No clubbing, No cyanosis and No edema Psych Appearance: grossly normal and well kempt Mental Status: mental status grossly normal Speech and movement: Normal speech and movement present Affect: normal affect Attitude: cooperative Thought process: Normal thought process present and not confabulating Thought content: Normal thought content present Insight: Fair insight present (Psych) Judgement: Fair judgement present (Psych) Assessment & Plan Assessment & Plan (1) GERD without esophagitis: Code(s): K21.9 - Gastro-esophageal reflux disease without esophagitis Category: Medical Plan Her asthma has been acting up, and although she had a flu shot this year she has not had the COVID yet r/t her cath and asthma. Otherwise, she is having a lot of small bruises r/t her anticoagulation. She continues to do well on her pantoprazole and simethicone. ROV 6 mos. Medications: Changed From pantoprazole (Protonix) 40 mg PO BID 30 days 60 tabs 1RF To pantoprazole (Protonix) 40 mg PO BID 180 tabs 1RF 90 days Coding Level of Care Code Est Pt Level 3 (49339) Diagnoses GERD without esophagitis K21.9
--- NOTE | 2024-06-02 09:55 | A.OFFVIS_ITS ---
Vital Signs 06/02/24 09:55 Height 5 ft Weight 177 lb 11.081 oz BMI 34.7 BP 126/90 H Blood Pressure Location Lt brachial Position Sitting Pulse 93 Intake Visit Reasons: 3 month follow up Gerd Intake Note: Any presents to in office follow up of GERD. CC: Patient reports that she has been vomiting recently but she believes that it is due to her asthma. Denies having any new GI concerns today. Member Of Congress Required: No Accompanied by: Self / Same As Patient Allergies aspirin [ASA] Allergy (Severe, Verified 06/02/24 10:02) ITCHINESS, rash Penicillins [PENICILLINS] Allergy (Severe, Verified 06/02/24 10:02) ANAPHYLAXIS shellfish derived Allergy (Severe, Verified 06/02/24 10:02) ANAPHYLAXIS sumatriptan [From IMITREX] Allergy (Unknown, Verified 06/02/24 10:02) ANAPHYLAXIS, VOMITING, vomiting, dyspnea metoclopramide Allergy (Verified 06/02/24 10:02) Redness of Skin PFSH Medical History STEMI (ST elevation myocardial infarction) Atypical pneumonia Left hip pain Obesity (BMI 30-39.9) Osteoarthritis Low back pain Multiple gastric erosions Bronchitis Conjunctival hemorrhage of left eye CAD (coronary artery disease) Osteoarthritis of left knee Severe allergic reaction Edema Postprandial vomiting Postprandial nausea Primary osteoarthritis of left knee GERD without esophagitis Vitamin D deficiency Chronic allergic rhinitis Asthma-COPD overlap syndrome Migraines Anemia Kidney stones Asthma Surgical History S/P cardiac catheterization H/O heart artery stent Hx of gastric bypass (~2006) Hx of ventral hernia repair History of bilateral tubal ligation H/O section Hx of rotator cuff surgery (~2017) H/O abdominoplasty History of renal stent Family History Father History of heart surgery Hx of blood clots Mother Heart problem Paternal Grandfather Skin cancer Social History Household Members: Children Housing: Apartment Are you a primary school child care attendant to a significant other at home: No Do you presently have visiting nurse or other home services: No Alcohol intake: current Alcohol intake frequency: a few times a month Alcohol type: wine Patient Tobacco Use Status: Never used Tobacco e-Cigarette/Vaping Use: Never Used Second Hand Smoke Exposure: No service: No Current occupational status: unemployed Cognitive needs: No Hearing needs: No Vision needs: No Physical Exam Vital Signs: BMI result Body Mass Index 34.7 Coding
== END 2024-06-02 10:39 | disposition home or self-care (01) ==
PROVIDERS: PCP Internal Medicine; Visit Provider Nurse Practitioner
DX: K21.9 Gastro-esophageal reflux disease without esophagitis (principal)
CPT/HCPCS: 99213

== ENCOUNTER → 2024-06-02 09:52 | Outpatient (BNVA) | payer OTHER, SELFPAY | PROVIDERS: PCP Internal Medicine; Visit Provider Nurse Practitioner | DX: K21.9 Gastro-esophageal reflux disease without esophagitis (principal); K25.9 Gastric ulcer, unspecified as acute or chronic, without hemorrhage or perforation; R11.2 Nausea with vomiting, unspecified | CPT/HCPCS: 99212 ==

== ENCOUNTER 2024-07-22 11:08 | Outpatient (REF) | payer OTHER, SELFPAY ==
[2024-07-22 17:50] LABS: Influenza A PCR NEGATIVE (Negative); Influenza B PCR NEGATIVE (Negative); Resp Syncy Virus RNA Qual PCR POSITIVE (Negative); SARS COV2 PCR INHOUSE NEGATIVE (Negative)
== END 2024-07-22 11:09 | disposition home or self-care (01) ==
LOC: HO.LNP 11:08
PROVIDERS: PCP Internal Medicine; Visit Provider Physician Assistant
DX: J06.9 Acute upper respiratory infection, unspecified (principal); J45.909 Unspecified asthma, uncomplicated
CPT/HCPCS: 0241U; 99212

== ENCOUNTER 2024-07-22 11:08 | Outpatient (AMB) | payer OTHER, SELFPAY ==
--- NOTE | 2024-07-22 12:34 | AM.OFFWIN_ITS ---
Intake Vital Signs 07/22/24 12:36 Height 5 ft Weight 179 lb BMI 35.0 BP 136/80 Blood Pressure Location Rt brachial Position Sitting Pulse 89 Pulse Source Pulse Oximeter Temp 98.7 F Temp Source Oral Pulse Oximetry (%) 98 Oxygen Delivery Method Room Air Intake Visit Reasons: EP Headache, congestion (car)[phone] Intake Note: Pt is here today c/o headache and chest congestion x2days Patient Tobacco Use Status: Never used Tobacco Allergies aspirin [ASA] Allergy (Severe, Verified 07/22/24 12:38) ITCHINESS, rash Penicillins [PENICILLINS] Allergy (Severe, Verified 07/22/24 12:38) ANAPHYLAXIS shellfish derived Allergy (Severe, Verified 07/22/24 12:38) ANAPHYLAXIS sumatriptan [From IMITREX] Allergy (Unknown, Verified 07/22/24 12:38) ANAPHYLAXIS, VOMITING, vomiting, dyspnea metoclopramide Allergy (Verified 07/22/24 12:38) Redness of Skin HPI HPI Comments History of Present Illness Details This is a 58-year-old female with a past medical history of coronary artery disease s/p cardiac stents, gastroesophageal reflux disease and asthma presenting for evaluation of sinus pressure that she has had for the past 2 days. Patient reports subjective fevers and chills, cough as well as left ear pain. She has not taken any medication for treatment of her symptoms. [facility] Medical History (Updated 07/22/24 @ 13:34 by Emani Chamberlain PA-C) Nausea and vomiting STEMI (ST elevation myocardial infarction) Atypical pneumonia Left hip pain Obesity (BMI 30-39.9) Osteoarthritis Low back pain Multiple gastric erosions Bronchitis Conjunctival hemorrhage of left eye CAD (coronary artery disease) Osteoarthritis of left knee Severe allergic reaction Edema Postprandial vomiting Postprandial nausea Primary osteoarthritis of left knee GERD without esophagitis Vitamin D deficiency Chronic allergic rhinitis Asthma-COPD overlap syndrome Migraines Anemia Kidney stones Asthma Surgical History S/P cardiac catheterization H/O heart artery stent Hx of gastric bypass (~2006) Hx of ventral hernia repair History of bilateral tubal ligation H/O section Hx of rotator cuff surgery (~2016) H/O abdominoplasty History of renal stent Family History Father History of heart surgery Hx of blood clots Mother Heart problem Paternal Grandfather Skin cancer Social History Household Members: Children Housing: Apartment Are you a primary primary health care nurse to a significant other at home: No Do you presently have visiting nurse or other home services: No Alcohol intake: current Alcohol intake frequency: a few times a month Alcohol type: wine Patient Tobacco Use Status: Never used Tobacco e-Cigarette/Vaping Use: Never Used Second Hand Smoke Exposure: No service: No Current occupational status: unemployed Cognitive needs: No Hearing needs: No Vision needs: No Review of Systems Const All systems reviewed & are unremarkable except as noted in HPI and below Denies body aches, Reports chills, Reports fatigue, Reports fever(s) (Subjective) and Reports lethargy Eyes Reports no additional complaints ENT Reports as per HPI, Reports otalgia (Left), Denies odynophagia and Denies sore throat Card Denies chest pain, Denies dyspnea and Denies dyspnea on exertion Resp Reports cough, Denies dyspnea and Denies dyspnea on exertion GI Reports no additional complaints and Denies odynophagia Reports no additional complaints Musc Reports no additional complaints Skin/Breast Reports system reviewed and no additional complaints, except as documented Neuro Reports no additional complaints Psych Reports no additional complaints Endo Reports no additional complaints and Reports fatigue Portillo/Lymph Reports no additional complaints Aller/Immun Reports no additional complaints Physical Exam Vital Signs: Last Vital Signs Temp 98.7 F 07/22/24 12:36 Pulse 89 07/22/24 12:36 BP 136/80 07/22/24 12:36 Pulse Ox 98 07/22/24 12:36 Oxygen Delivery Method Room Air 07/22/24 12:36 BMI result Body Mass Index 35.0 Patient is afebrile Const General: cooperative, healthy appearing, comfortable, no acute distress, well developed, alert, awake and Physically active; No lethargic Nutritional Appearance: average body habitus Orientation/consciousness: patient oriented x3 and No lethargic Limitations: no limitations HEENT Head: Yes normal to inspection and Yes normocephalic Ears: hearing grossly normal bilaterally, external ears normal, TM's normal bila terally and EAC's normal General nose exam: Normal external nose present Face and sinus: Yes normal facial exam and Yes sinuses nontender Mouth: Normal oral and palatal mucosa present and moist mucous membranes Throat: Yes posterior oropharynx normal and No postnasal drainage Eyes General: appearance normal, both eyes and all related structures Neck Lymphatic: no lymphadenopathy noted Resp Effort & Inspection: normal respiratory effort, able to speak in complete sentences, no audible wheezes, no cough and no respiratory distress Auscultation: clear to auscultation bilaterally Cardio Rate: regular rate Rhythm: regular rhythm Skin General skin exam: no rashes or lesions noted Neuro General: patient oriented x3 Psych Appearance: grossly normal Mental Status: mental status grossly normal Insight: Good insight present (Psych) Judgement: Good judgement present (Psych) Assessment & Plan Assessment & Plan (1) Acute upper respiratory infection: Comment: There is no evidence of a bacterial sinusitis or otitis media. Patient's lungs are clear to auscultation bilaterally. SARS panel is ordered and pending. Code(s): J06.9 - Acute upper respiratory infection, unspecified Plan: Tylenol and Mucinex OTC p.r.n. with increased clear fluids daily. Orders: Orders SARS-CoV2/FLU/RSV Today J06.9 - Acute upper respiratory infection, unspecified Coding Level of Care Code Est Pt Level 3 (52336) Diagnoses Acute upper respiratory infection J06.9 Time Spent (min) 20
[2024-07-22 12:36] VITALS: BP 136/80; PULSE 89; TEMP 37.1; O2SAT 98; BMI 35.0
== END 2024-07-22 13:46 | disposition home or self-care (01) ==
PROVIDERS: PCP Internal Medicine; Visit Provider Physician Assistant
DX: J06.9 Acute upper respiratory infection, unspecified (principal)

== ENCOUNTER 2024-08-10 10:25 | Outpatient (REF) | payer OTHER, SELFPAY ==
[2024-08-10 15:25] LABS: Influenza A PCR NEGATIVE (Negative); Influenza B PCR NEGATIVE (Negative); Resp Syncy Virus RNA Qual PCR NEGATIVE (Negative); SARS COV2 PCR INHOUSE NEGATIVE (Negative)
== END 2024-08-10 10:26 | disposition home or self-care (01) ==
LOC: HO.LAB 10:25
PROVIDERS: PCP Internal Medicine; Visit Provider Nurse Practitioner Family
DX: J06.9 Acute upper respiratory infection, unspecified (principal)
CPT/HCPCS: 0241U; 99212

== ENCOUNTER 2024-08-10 10:25 | Outpatient (AMB) | payer OTHER, SELFPAY ==
--- NOTE | 2024-08-10 11:12 | MHC.OFFWIV ---
Intake Vital Signs 08/10/24 11:16 Weight 178 lb BP 120/80 Blood Pressure Location Rt brachial Position Sitting Pulse 66 Pulse Source Pulse Oximeter Temp 98.5 F Temp Source Oral Pulse Oximetry (%) 97 Oxygen Delivery Method Room Air Intake Visit Reasons: EP-sore throat, sinus pain Intake Note: Patient here for sinus pain, dry eyes, sore throat and chest congestion which started about 1 month ago. Patient Tobacco Use Status: Never used Tobacco Allergies aspirin [ASA] Allergy (Severe, Verified 08/10/24 11:22) ITCHINESS, rash Penicillins [PENICILLINS] Allergy (Severe, Verified 08/10/24 11:22) ANAPHYLAXIS shellfish derived Allergy (Severe, Verified 08/10/24 11:22) ANAPHYLAXIS sumatriptan [From IMITREX] Allergy (Unknown, Verified 08/10/24 11:22) ANAPHYLAXIS, VOMITING, vomiting, dyspnea metoclopramide Allergy (Verified 08/10/24 11:22) Redness of Skin Do you need a note to return to daycare/school/sports/work: No HPI HPI Comments History of Present Illness Details 58 y/o female patient who presents to the walk in clinic with c/o URI symptoms for 1 month. Pt tested positive for RSV back in July 2024, reports that has not felt better since then. [facility] Medical History (Updated 08/10/24 @ 11:30 by Robyn Mcelroy NP) Acute respiratory disease Nausea and vomiting STEMI (ST elevation myocardial infarction) Atypical pneumonia Left hip pain Obesity (BMI 30-39.9) Osteoarthritis Low back pain Multiple gastric erosions Bronchitis Conjunctival hemorrhage of left eye CAD (coronary artery disease) Osteoarthritis of left knee Severe allergic reaction Edema Postprandial vomiting Postprandial nausea Primary osteoarthritis of left knee GERD without esophagitis Vitamin D deficiency Chronic allergic rhinitis Asthma-COPD overlap syndrome Migraines Anemia Kidney stones Asthma Surgical History S/P cardiac catheterization H/O heart artery stent Hx of gastric bypass (~2006) Hx of ventral hernia repair History of bilateral tubal ligation H/O section Hx of rotator cuff surgery (~2016) H/O abdominoplasty History of renal stent Family History Father History of heart surgery Hx of blood clots Mother Heart problem Paternal Grandfather Skin cancer Social History Household Members: Children Housing: Apartment Are you a primary restorative care technician to a significant other at home: No Do you presently have visiting nurse or other home services: No Alcohol intake: current Alcohol intake frequency: a few times a month Alcohol type: wine Patient Tobacco Use Status: Never used Tobacco e-Cigarette/Vaping Use: Never Used Second Hand Smoke Exposure: No service: No Current occupational status: unemployed Cognitive needs: No Hearing needs: No Vision needs: No Review of Systems Const All systems reviewed & are unremarkable except as noted in HPI and below Physical Exam Vital Signs: Last Vital Signs Temp 98.5 F 08/10/24 11:16 Pulse 66 08/10/24 11:16 BP 120/80 08/10/24 11:16 Pulse Ox 97 08/10/24 11:16 Oxygen Delivery Method Room Air 08/10/24 11:16 Const General: cooperative and no acute distress Nutritional Appearance: obese Orientation/consciousness: patient oriented x3 HEENT Head: Yes normocephalic Ears: external ears normal and TM abnormal bulging bilateral and with fluid behind the TM bilateral General nose exam: Nasal discharge present Face and sinus: Yes sinuses nontender Mouth: moist mucous membranes Throat: Yes uvula midline Resp Effort & Inspection: normal respiratory effort, able to speak in complete sentences, no audible wheezes and no cough Auscultation: clear to auscultation bilaterally, no crackles, no rales, no rhonchi and no wheezes Cardio Heart sounds: S1 normal heart sound present and S2 normal heart sound present Neuro General: patient oriented x3 Assessment & Plan Assessment & Plan (1) Acute respiratory disease: Code(s): J06.9 - Acute upper respiratory infection, unspecified Plan: Ordered SARs Acetaminophen for pain relief Rest and hydrate well with warm fluids. Orders: Orders SARS-CoV2/FLU/RSV Today J06.9 - Acute upper respiratory infection, unspecified Medications: New dextromethorphan HBr (Cough Relief) 15 mg (5 mL) PO Q8H 118 mL 0RF cough J06.9 - Acute upper respiratory infection, unspecified benzonatate 100 mg PO TID 90 caps 0RF cough J06.9 - Acute upper respiratory infection, unspecified Coding Level of Care Code Est Pt Level 4 (77414) Diagnoses Acute respiratory disease J06.9 Time Spent (min) 20
[2024-08-10 11:16] VITALS: BP 120/80; PULSE 66; TEMP 36.9; O2SAT 97
== END 2024-08-10 11:44 | disposition home or self-care (01) ==
PROVIDERS: PCP Internal Medicine; Visit Provider Nurse Practitioner Family
DX: J06.9 Acute upper respiratory infection, unspecified (principal)

== ENCOUNTER 2024-08-26 07:00 | Outpatient (RCR) | payer OTHER, SELFPAY | END 2024-09-04 12:01 | disposition home or self-care (01) | LOC: HO.CR 07:00 | PROVIDERS: PCP Internal Medicine; Visit Provider Nurse Practitioner | DX: Z98.61 Coronary angioplasty status (principal); I21.3 ST elevation (STEMI) myocardial infarction of unspecified site | CPT/HCPCS: 93798 ==

== ENCOUNTER 2024-09-01 08:47 | Outpatient (AMB) | payer OTHER, SELFPAY ==
--- NOTE | 2024-09-01 08:48 | MHC.OFFVIS ---
Vital Signs 09/01/24 08:49 Height 5 ft Weight 180 lb 12.465 oz BMI 35.3 BP 126/82 Blood Pressure Location Lt brachial Position Sitting Pulse 79 Pulse Source Pulse Oximeter Intake Visit Reasons: 3mth f/up Wildlife Manager Required: No Allergies aspirin [ASA] Allergy (Severe, Verified 09/01/24 08:51) ITCHINESS, rash Penicillins [PENICILLINS] Allergy (Severe, Verified 09/01/24 08:51) ANAPHYLAXIS shellfish derived Allergy (Severe, Verified 09/01/24 08:51) ANAPHYLAXIS sumatriptan [From IMITREX] Allergy (Unknown, Verified 09/01/24 08:51) ANAPHYLAXIS, VOMITING, vomiting, dyspnea metoclopramide Allergy (Verified 09/01/24 08:51) Redness of Skin Medication List - Last Reconciled 09/01/24 by Chio Wiggins COMMUNITY SERVICE SPECIALIST-C albuterol sulfate mg inhalation aspirin (Adult Low Dose Aspirin) 81 mg PO DAILY 90 days atorvastatin 40 mg PO BEDTIME [BACK BRACE As directed] benzonatate 100 mg PO TID blood pressure monitor As directed clonazepam 0.5 mg PO DAILY dextromethorphan HBr (Cough Relief) 15 mg (5 mL) PO Q8H diclofenac sodium 3% 1 appl topical BID 90 days epinephrine 0.3 mL IM DAILY PRN ergocalciferol (vitamin D2) 1,250 mcg PO QWEEK fluticasone furoate-vilanterol 200-25 mcg/dose (Breo Ellipta) 1 inh inhalation DAILY 90 days fluticasone propionate 50 mcg/actuation 2 sprays intranasal DAILY PRN furosemide 20 mg PO QAM PRN ipratropium-albuterol 0.5 mg-3 mg(2.5 mg base)/3 mL 3 mL inhalation BID ketotifen fumarate 0.025%(0.035%) ([place]) 1 drp ophthalmic (eye) BID levalbuterol tartrate 45 mcg/actuation (Xopenex HFA) 2 puffs PO Q6H PRN 90 days lidocaine 5% 1 patch topical DAILY PRN 30 days loratadine 10 mg PO DAILY 90 days metoclopramide HCl (Reglan) 5 mg PO QIDACHS metoprolol succinate ER 25 mg PO DAILY multivitamin,tx-minerals (Multi-Vitamin HP/Minerals capsule) 1 cap PO DAILY ondansetron 4 mg PO BID-TID PRN 30 days pantoprazole (Protonix) 40 mg PO BID 90 days ticagrelor (Brilinta) 90 mg PO BID 90 days tizanidine 2 mg PO Q8H PRN tramadol 50 mg PO TID PRN 10 days umeclidinium 62.5 mcg/actuation (Incruse Ellipta) 1 inh PO DAILY venlafaxine ER (Effexor XR) 37.5 mg PO DAILY HPI HPI 3mth f/up: Details: Any is a 59-year-old female with past medical history of hyperlipidemia, STEMI 02/19/2024, VALDEMAR to the RCA, staged PCI with VALDEMAR to the LAD 03/19/2024 who presents for follow-up. Today she reports she has been under high stress recently. She has not been having any chest discomfort at rest or with activity. No shortness of breath, PND, orthopnea or edema. No lightheadedness, presyncope, syncope. No bleeding issues with her medications. No longer attends cardiac rehab. Walks for exercise. Compliant with meds. [facility] Medical History (Updated 09/01/24 @ 11:27 by Chio Wiggins, COMMUNITY SERVICE SPECIALIST-C) Acute respiratory disease Nausea and vomiting STEMI (ST elevation myocardial infarction) Atypical pneumonia Left hip pain Obesity (BMI 30-39.9) Osteoarthritis Low back pain Multiple gastric erosions Bronchitis Conjunctival hemorrhage of left eye CAD (coronary artery disease) Osteoarthritis of left knee Severe allergic reaction Edema Postprandial vomiting Postprandial nausea Primary osteoarthritis of left knee GERD without esophagitis Vitamin D deficiency Chronic allergic rhinitis Asthma-COPD overlap syndrome Migraines Anemia Kidney stones Asthma Surgical History (Updated 09/01/24 @ 12:02 by Chio Wiggins, COMMUNITY SERVICE SPECIALIST-C) S/P cardiac catheterization H/O heart artery stent Hx of gastric bypass (~2006) Hx of ventral hernia repair History of bilateral tubal ligation H/O section Hx of rotator cuff surgery (~2016) H/O abdominoplasty History of renal stent Family History Father History of heart surgery Hx of blood clots Mother Heart problem Paternal Grandfather Skin cancer Social History Household Members: Children Housing: Apartment Are you a primary day care assistant to a significant other at home: No Do you presently have visiting nurse or other home services: No Alcohol intake: current Alcohol intake frequency: a few times a month Alcohol type: wine Patient Tobacco Use Status: Never used Tobacco e-Cigarette/Vaping Use: Never Used Second Hand Smoke Exposure: No service: No Current occupational status: unemployed Cognitive needs: No Hearing needs: No Vision needs: No Review of Systems Const Details: very high stress levels All systems reviewed & are unremarkable except as noted in HPI and below ENT Denies dizziness Card Denies chest pain, Denies chest pain at rest, Denies chest pain with activity, Denies rapid heart rate, Denies pedal edema, Denies edema, Denies leg edema, Denies lightheadedness, Denies palpitations, Denies dyspnea, Denies dyspnea on exertion and Denies orthopnea Resp Denies cough, Denies dyspnea and Denies dyspnea on exertion GI Denies hematochezia and Denies change in stool character Musc Denies abnormal gait, Denies limited range of motion, Denies muscle cramps, Denies muscle weakness, Denies numbness, Denies radiating pain into limb, Denies stiffness and Denies tingling Neuro Denies abnormal gait, Denies dizziness, Denies numbness and Denies tingling Endo Denies palpitations Physical Exam Vital Signs: Last Vital Signs Pulse 79 09/01/24 08:49 BP 126/82 09/01/24 08:49 BMI result Body Mass Index 35.3 Const General: cooperative, healthy appearing, comfortable and no acute distress Orientation/consciousness: patient oriented x3 Neck Neck: Yes normal visual inspection Resp Effort & Inspection: normal respiratory effort Auscultation: clear to auscultation bilaterally, no crackles, no rales, no rhonchi and no wheezes Cardio Rate: regular rate Rhythm: regular rhythm Heart sounds: S1 normal heart sound present, S2 normal heart sound present, no gallops, no murmurs and no rubs Neuro General: patient oriented x3 Extrem General: Yes normal to inspection and No no pedal edema Psych Appearance: grossly normal Mental Status: mental status grossly normal Speech and movement: Normal speech and movement present Assessment & Plan Assessment & Plan (1) CAD (coronary artery disease): Comment: cardiac catheterization - PCI to RCA (02/19/24) and staged PCI of LAD (03/19/2024) - Dr. Kumar Code(s): I25.10 - Atherosclerotic heart disease of [place] coronary artery without angina pectoris Category: Medical Qualifiers: Coronary Disease-Associated Artery/Lesion type: [place] artery [place] vs. transplanted heart: [place] heart Associated angina: without angina Qualified Code(s): I25.10 - Atherosclerotic heart disease of [place] coronary artery without angina pectoris Plan: Presented to [facility] 02/19/2024 with sharp mid chest discomfort. He ruled in for ACS. Troponin elevated and EKG with subtle ST elevation in lead 3 and AVF then inverted T-waves lead 3 and V1 on follow-up EKG. Echocardiogram showed EF 60-65% with basal inferior akinesis. She was managed medically then transferred to [facility] where she underwent cardiac catheterization showing occlusion of mid RCA, culprit lesion and VALDEMAR was placed. She also had residual mid LAD stenosis 90%, 1st diagonal ostial stenosis 90%. She underwent staged PCI with VALDEMAR to the mid LAD on 03/19/2024. She did attend cardiac rehab. No recurrent angina. Continue aspirin indefinitely. Continue Brilinta 90 mg b.i.d. uninterrupted for 1 year post last stent. Continue high-dose atorvastatin with ideal LDL goal less than 70. Continue metoprolol. Signs and symptoms of angina reviewed with her. Emergency care if ever needed for symptoms. Cardiology follow-up 4 months, sooner if needed. (2) S/P cardiac catheterization: Comment: Cardiac catheterization 02/19/[address] Kumar LAD:mid LAD: proximal subsection 90% stenosis, 1st diag: ostial 90% stenosis, RCA:Mid RCA: 10)% stenosis. Culprit lesion. PCI to RCA. Cardiac catheterization 03/19/2024 with VALDEMAR to the mid LAD Code(s): Z98.890 - Other specified postprocedural states Category: Surgical (3) Stented coronary artery: Comment: VALDEMAR to mid RCA 02/19/2024, VALDEMAR to the mid LAD 03/19/2024 Code(s): Z95.5 - Presence of coronary angioplasty implant and graft Category: Surgical (4) Hyperlipidemia: Code(s): E78.5 - Hyperlipidemia, unspecified Category: Medical Plan: [place] LDL goal less than 70. She has been on high-dose atorvastatin. Labs done 03/16/2024 showed LDL 74. Will add Zetia 10 mg daily. Plan Time spent on chart review, documentation, interview and assessment Medications: New ezetimibe (Zetia) New - cholesterol lowering agent 10 mg PO DAILY 90 days 90 tabs 3RF Coding Level of Care Code Est Pt Level 4 (73479) Complex EM visit Add On G2211 Diagnoses Coronary artery disease involving [place] coronary artery of [place] heart without angina pectoris I25.10 Coronary Disease-Associated Artery/Lesion type: [place] artery [place] vs. transplanted heart: [place] heart Associated angina: without angina S/P cardiac catheterization Z98.890 Stented coronary artery Z95.5 Hyperlipidemia E78.5 Time Spent (min) 30
[2024-09-01 08:49] VITALS: BP 126/82; PULSE 79; BMI 35.3
--- OUTSIDE RECORDS SUMMARY | 2024-09-01 09:29 | XMS_ITS | Clinical Summary ---
Author Organization [facility] Address [address] [place] [address] Care Team Providers Care Sheet Metal Work Furnace Installer Name Role Phone Norris Roe MD Primary Care Provider Unavailabl e Allergies Active Allergy Reactions Severity Noted Date Comments Aspirin Rash/Dermatitis 11/18/2017 Penicillins Anaphylaxis High 11/18/2017 Shellfish Allergy Anaphylaxis High 11/18/2017 Sumatriptan SOB, Wheezing,Nausea and Vomiting 0 11/18/2017 Medications Medication Sig Dispensed Refills Start Date End Date Status Ipratropium-Albuter ol 0.5-2.5 (3) MG/3ML Solution Inhale 3 mL into the lungs 4 times daily. 0 Active ALBUTEROL SULFATE 108 (90 BASE) MCG/ACT Aero Soln Inhale 2 Puffs into the lungs every 4 hours as needed. 0 Active budesonide-formoter ol (SYMBICORT) 160-4.5 MCG/ACT inhaler Inhale 2 Puffs into the lungs 2 times daily. 0 Active EPINEPHrine HCl, Anaphylaxis, (EPIPEN 2-DONOVAN IM) Inject into the muscle. 0 Active Multiple Vitamins-Minerals (MULTIVITAMIN ADULT) Tab Take by mouth. 0 Active tizanidine (ZANAFLEX) 4 MG tablet Take 4 mg by mouth every 6 hours as needed. 0 Active Omeprazole-Sodium Bicarbonate 20-1100 MG Cap Take by mouth. 0 Active ondansetron (ZOFRAN) 4 MG tablet Take 4 mg by mouth every 8 hours as needed. 0 Active Cholecalciferol (VITAMIN D) 1000 UNITS Tab Take by mouth. 0 Active naproxen (NAPROSYN) 500 MG tablet Take 500 mg by mouth 2 times daily (with meals). 0 Active furosemide (LASIX) 40 MG tablet Take 40 mg by mouth daily. 0 Active lidocaine (LIDODERM) 5 % Place 1 Patch onto the skin every 24 hours. Apply for no more than 12 hours in any 24 hour period. 0 Active sumatriptan (IMITREX) 50 MG tablet Take 50 mg by mouth daily as needed. May repeat dose once after 2 hours, if needed. 0 Active [id number]-LIZU-QWT FEINE 50-300-40 MG OR CAPS 50-300-40 MG Cap Take by mouth. 0 Active omeprazole (PRILOSEC) 20 MG capsule Take 20 mg by mouth daily. 2 tabs 0 Active fluticasone 50 MCG/ACT nasal spray 2 Sprays by Each Nare route daily. 0 Active Calcium Citrate-Vitamin D (CALCIUM + D OR) Take by mouth. 0 Acti ve hydrOXYzine (ATARAX) 50 MG tablet Take 50 mg by mouth 4 times daily. 0 Active albuterol (PROVENTIL) (2.5 MG/3ML) 0.083% nebulizer solution Take 2 Vials by nebulization once for 1 dose. 6 mL 0 11/18/2017 Active albuterol (PROVENTIL) (2.5 MG/3ML) 0.083% nebulizer solution Take 1 Vial by nebulization once for 1 dose. 1 mL 0 06/02/2018 Active Tiotropium [place] Monohydrate (SPIRIVA RESPIMAT) 2.5 MCG/ACT Aero Soln Inhale 5 mcg into the lungs daily for 30 days. 1 Inhaler 11 06/02/2018 Active levalbuterol (XOPENEX HFA) 45 MCG/ACT inhaler Inhale 1-2 Puffs into the lungs every 6 hours as needed for Wheezing or Shortness of Breath ([place]/Wheezing) for up to 30 days. This is a Rescue Medication: 2 puffs inhaled oral Q 4-6 hrs as needed; not exceed 12 inhalations/24 hrs. 1 Inhaler 11 06/02/2018 Active montelukast (SINGULAIR) 10 MG tablet Take 1 Tab by mouth at bedtime for 30 days. 30 Tab 11 06/02/2018 Active fluticasone (FLOVENT HFA) 110 MCG/ACT inhaler Inhale 2 Puffs into the lungs 2 times daily for 30 days. 120 Act 3 06/02/2018 Active levalbuterol (XOPENEX) 1.25 MG/3ML nebulizer solution Take 1 Ampule by nebulization every 4 hours as needed for Wheezing for up to 30 days. 120 Vial 11 09/01/2018 Active Tiotropium [place] Monohydrate (SPIRIVA RESPIMAT) 2.5 MCG/ACT Aero Soln Inhale 2.5 mcg into the lungs daily for 30 days. 1 Inhaler 11 09/01/2018 Active fluticasone (FLOVENT HFA) 110 MCG/ACT inhaler Inhale 1 Puff into the lungs 2 times daily for 30 days. 60 Act 11 09/01/2018 Active loratadine (CLARITIN) 10 MG tablet Take 1 Tab by mouth daily for 30 days. 30 Tab 11 09/01/2018 Active montelukast (SINGULAIR) 10 MG tablet Take 1 Tab by mouth at bedtime for 30 days. 30 Tab 11 09/01/2018 Active Active Problems Problem Noted Date Migraine headache 12/06/2017 Vitamin D deficiency 12/06/2017 GERD (gastroesophageal reflux disease) 0 12/06/2017 Carpal tunnel syndrome of right wrist Family history of ovarian cancer 018 Overview: Sister History of gastric bypass 12/06/2017 Overview: Infection after the bypass Osteoarthritis of both knees 12/06/2017 Asthma 11/18/2017 Allergic rhinitis 11/18/2017 Immunizations Name Administration Dates Next Due Influenza (> 6 Months) 07/27/2015 Tdap 07/26/2014 Family History Medical History Relation Name Comments Asthma Daughter CAD Father CA Ovarian Sister Asthma Son Relation Name Status Comments Daughter Father Sister Son Social History Tobacco Use Types Packs/Day Years Used Date Smoking Tobacco: Never Smokeless Tobacco: Never Alcohol Use Standard Drinks/Week Comments Yes 0 (1 standard drink = 0.6 oz pur e alcohol) rarely Sex Assigned at Date Recorded Not on file Last Filed Vital Signs Vital Sign Reading Time Taken Comments Blood Pressure 118/74 09/01/2018 10:23 AM EST Pulse 88 09/01/2018 10:23 AM EST Temperature - - Respiratory Rate 16 09/01/2018 10:2 3 AM EST Oxygen Saturation 98% 09/01/2018 10: 23 AM EST Inhaled Oxygen Concentration - - Weight 88.8 kg (195 lb 12.8 oz) 019 10:23 AM EST Height 147.3 cm (4' 10 ) 09/01/2018 10: 23 AM EST Body Mass Index 40.92 09/01/2018 10:23 AM EST Plan of Treatment Health Maintenance Due Date Last Done Comments Covid-19 Vaccine (#1) 02/22/1965 HEPATITIS C SCREENING 1982 PNEUMOCOCCAL VACCINE FOR HIG H RISK PATIENTS (#1) 1983 CHOLESTEROL SCREENING 1984 CERVICAL CANCER SCREENING 1985 BASELINE HEALTH EXAM 40-64 2004 MAMMOGRAM 2004 COLON CANCER SCREENING 2014 SHINGLES VACCINE (1 of 2) 2014 INFLUENZA (#1) 2024 03/13/2017 (Refu sed), 07/27/2015 BMI CHECK/ADVISE 07/01/2024 09/01/2018, 08/2017, 12/13/2017, Additional history exists DEPRESSION SCREENING/FOLLOWUP 07/01/2024 SOCIAL NEEDS SCREENING 07/01/2024 DTAP/TDAP/TD (2 - Td or Tdap) 07/26/2024 07/26/2014 Care Teams Sheet Metal Work Furnace Installer Relationship Specialty Start Date End Date Norris Roe MD PCP - General Internal Medicine 09/01/18
--- OUTSIDE RECORDS SUMMARY | 2024-09-01 09:29 | XMS_ITS | Encounter Summary ---
Author Organization [facility] Address [address] [place] [address] Care Team Providers Care Chief Engineer'S Helper Name Role Phone Norris Roe MD Primary Care Provider Unavailabl e Encounter Details Date Type Department Care Team Description 03/05/2019 Release of Information Medical Records [address] [place] [id number] Abstract, Provider Social History Tobacco Use Types Packs/Day Years Used Date Smoking Tobacco: Never Smokeless Tobacco: Never Alcohol Use Standard Drinks/Week Comments Yes 0 (1 standard drink = 0.6 oz pur e alcohol) rarely Sex Assigned at Date Recorded Not on file documented as of this encounter Plan of Treatment Not on file documented as of this encounter Visit Diagnoses Not on filedocumented in this encounter Care Teams Chief Engineer'S Helper Relationship Specialty Start Date End Date Norris Roe MD PCP - General Internal Medicine 09/01/18 documented as of this encounter
--- OUTSIDE RECORDS SUMMARY | 2024-09-01 09:29 | XMS_ITS | Encounter Summary ---
Author Organization [facility] Address [address] [place] [address] Care Team Providers Care Covered Buckle Assembler Name Role Phone Arnoldo Powers MD Primary Care Provider Norris Ignacio MD Primary Care Provider Unavailabl e Encounter Details Date Type Department Care Team Description 06/12/2018 Telephone Internal Medicine - [address], [address] [place] [address] Drew Broussard MD Social History Tobacco Use Types Packs/Day Years Used Date Smoking Tobacco: Never Smokeless Tobacco: Never Alcohol Use Standard Drinks/Week Comments Yes 0 (1 standard drink = 0.6 oz pur e alcohol) rarely Sex Assigned at Date Recorded Not on file documented as of this encounter Miscellaneous Notes * Telephone Encounter - Jaymie Alvarado M.A. - 06/12/2018 11:25 AM EST Spoke to patient I told her everything was sent to [facility]. I gave her number to call [facility]. * Telephone Encounter - Deyanira Holley - 06/12/2018 10:56 AM EST Patient called today inquired when she will receive the nebulizer machine? A request was sent to [facility] 06/04/18. PLEASE check into and contact patient. documented in this encounter Plan of Treatment Not on file documented as of this encounter Visit Diagnoses Not on filedocumented in this encounter Care Teams Covered Buckle Assembler Relationship Specialty Start Date End Date Arnoldo Powers MD PCP - General Internal Medicine 10/02/17 08/31/18 Norris Roe MD PCP - General Internal Medicine 09/01/18 documented as of this encounter
== END 2024-09-01 09:16 | disposition home or self-care (01) ==
PROVIDERS: PCP Internal Medicine; Visit Provider Nurse Practitioner Family
DX: I25.10 Atherosclerotic heart disease of native coronary artery without angina pectoris (principal); Z98.890 Other specified postprocedural states; Z95.5 Presence of coronary angioplasty implant and graft; E78.5 Hyperlipidemia, unspecified
CPT/HCPCS: 99214; G2211

== ENCOUNTER → 2024-09-01 08:47 | Outpatient (BNVA) | payer OTHER, SELFPAY | PROVIDERS: PCP Internal Medicine; Visit Provider Nurse Practitioner Family | DX: I25.10 Atherosclerotic heart disease of native coronary artery without angina pectoris (principal); E78.5 Hyperlipidemia, unspecified; Z95.5 Presence of coronary angioplasty implant and graft; Z98.890 Other specified postprocedural states | CPT/HCPCS: 99212 ==

== ENCOUNTER 2024-09-15 08:06 | Outpatient (AMB) | payer OTHER, SELFPAY ==
--- NOTE | 2024-09-15 08:21 | A.OFFVIS_ITS ---
Vital Signs 09/15/24 08:22 Height 5 ft Weight 180 lb 12.465 oz BMI 35.3 BP 138/82 Blood Pressure Location Rt brachial Position Sitting Pulse 75 Pulse Source Pulse Oximeter Pulse Oximetry (%) 97 Oxygen Delivery Method Room Air Intake Visit Reasons: asthma Allergies aspirin [ASA] Allergy (Severe, Verified 09/15/24 08:24) ITCHINESS, rash Penicillins [PENICILLINS] Allergy (Severe, Verified 09/15/24 08:24) ANAPHYLAXIS shellfish derived Allergy (Severe, Verified 09/15/24 08:24) ANAPHYLAXIS sumatriptan [From IMITREX] Allergy (Unknown, Verified 09/15/24 08:24) ANAPHYLAXIS, VOMITING, vomiting, dyspnea metoclopramide Allergy (Verified 09/15/24 08:24) Redness of Skin HPI Comments Details: The patient has a 59 y/o woman with a history of asthma COPD overlap syndrome. Still complaining of worsening cough. Currently on Spiriva and also Flovent. Still requiring short-acting beta agonist on a daily basis. She has tried Symbicort in the past that was not effective. She does complains of a postnasal drip and nasal congestion. Current having allergy symptoms. We did perform allergy testing which was abnormal. The patient could not receive allergy shots due to her significant symptoms. She was started on trelegy inhaler which appears to be very effective for her. She still has a rescue inhaler that she uses 2 to 3 times a week. Her cough is better shortness of breath is better. She has failed multiple inhalers: Advair, symbicort, flovent and Spiriva. 12/07/2022 the patient is here for pulmonary follow-up visit. She continues to do relatively well. She is still grieving the loss of her son. She has been on the Incruse and the Breo although is hard for her to keep up with the inhalers. I do believe she would do better on Trelegy inhaler. I will send that to her pharmacy. She also has been having increasing respiratory symptoms she has not been able to get her Daliresp. She had been on Daliresp for many years with very good effect. The patient does need to go back on it. I will send another prescription to the pharmacy. She continues to take her allergy medicine with good effect. Still has some shortness of breath with activity. 07/23/2023 the patient is here for a pulmonary follow-up visit. Overall the patient has been doing well currently on Breo and Incruse. She finally got the Daliresp improved. The Daliresp has been a very affecting beneficial for her. She will continue to use that on a daily basis. She did have 1 exacerbation back in May which she needed prednisone. Otherwise she has been without any prednisone requirements. She does have a rescue inhaler that she rarely uses typically less than twice a week. She did get back from a trip to the [facility]. While she was there she did have increased asthma symptoms due to some of the fumes that she was exposed to in her trip. But otherwise not bad and not require any additional therapies. No recent imaging studies to review. The patient follow-up in 6-8 months. The patient has any issues prior to that she will call for an earlier assessment. 02/07/2024 the patient is here for sick visit. She has been sick now for about 2 weeks. She started developing UR like symptoms. She tested negative for COVID. Has had worsening cough. With chest congestion. Also has some increased wheezing and chest tightness. She has been using her nebulizer. She does have some wheezing on examination today. Also complains of some ear discomfort. Primarily the left ear. Otherwise she continues use her respiratory therapy. She has been also complaining of some nausea. Will go ahead and treat her for bronchitis with an asthma exacerbation at this time. 09/15/2024 the patient is here for a pulmonary follow-up visit. Since we last spoke she started developing chest discomfort she went to the [facility] ER where she was found to have abnormal findings on studies. Also to note the patient did have a CTA done back in 02/18/2024 which I personally reviewed demonstrating some areas of atelectasis. Therefore she was transferred to [facility] which she underwent cardiac catheterization. The patient has stent placed in March and then she required another stent in March. She could not perform cardiac rehab because she has underlying abdominal hernias. She has been recovering well. She has been tolerating her medications. She was told not to take prednisone because of her cardiac condition. She has continued to use her respiratory inhaler. Although she is using all her inhalers she continues to have shortness of breath and dyspnea and wheezing. [id number] severity. Will going add Singulair again to her regimen because spring is coming in allergies. I emphasized to her that this will not affect her cardiac status. Overall the patient is doing well will continue with current respiratory measuring and will follow-up in 6 months. COUNTS INCLUDE 234 BEDS AT THE [facility] Medical History (Updated 09/01/24 @ 11:27 by Chio Wiggins, FOOD SAFETY COORDINATOR-C) Acute respiratory disease Nausea and vomiting STEMI (ST elevation myocardial infarction) Atypical pneumonia Left hip pain Obesity (BMI 30-39.9) Osteoarthritis Low back pain Multiple gastric erosions Bronchitis Conjunctival hemorrhage of left eye CAD (coronary artery disease) Osteoarthritis of left knee Severe allergic reaction Edema Postprandial vomiting Postprandial nausea Primary osteoarthritis of left knee GERD without esophagitis Vitamin D deficiency Chronic allergic rhinitis Asthma-COPD overlap syndrome Migraines Anemia Kidney stones Asthma Surgical History (Updated 09/01/24 @ 12:02 by Chio Wiggins FOOD SAFETY COORDINATOR-C) S/P cardiac catheterization H/O heart artery stent Hx of gastric bypass (~2006) Hx of ventral hernia repair History of bilateral tubal ligation H/O section Hx of rotator cuff surgery (~2016) H/O abdominoplasty History of renal stent Family History Father History of heart surgery Hx of blood clots Mother Heart problem Paternal Grandfather Skin cancer Social History Household Members: Children Housing: Apartment Are you a primary director career to a significant other at home: No Do you presently have visiting nurse or other home services: No Alcohol intake: current Alcohol intake frequency: a few times a month Alcohol type: wine Patient Tobacco Use Status: Never used Tobacco e-Cigarette/Vaping Use: Never Used Second Hand Smoke Exposure: No service: No Current occupational status: unemployed Cognitive needs: No Hearing needs: No Vision needs: No Review of Systems Const Denies chills, Reports fatigue, Denies fever(s), Reports headache(s) (on and off) and Reports weight loss ENT Denies dysphagia, Denies dizziness, Denies otalgia, Reports headache(s) (on and off), Denies sinus pain and Denies sore throat Card Denies chest pain, Denies palpitations and Denies dyspnea Resp Reports chest congestion, Reports cough, Denies dyspnea and Reports wheezing GI Denies abdominal pain, Denies constipation, Denies dysphagia, Denies heartburn, Denies diarrhea, Denies nausea and Denies vomiting Denies difficulty voiding, Denies nocturia and Denies dysuria Musc Reports back pain (over the lower back) Neuro Denies dizziness and Reports headache(s) (on and off) Endo Reports fatigue and Denies palpitations Aller/Immun Reports wheezing Physical Exam Vital Signs: Last Vital Signs Pulse 75 09/15/24 08:22 BP 138/82 09/15/24 08:22 Pulse Ox 97 09/15/24 08:22 Oxygen Delivery Method Room Air 09/15/24 08:22 BMI result Body Mass Index 35.3 Const General: alert Eyes Pupils: Equal, round and reactive pupils present Neck Neck: Yes normal visual inspection, Yes full ROM and Yes no lymphadenopathy Chest Chest palpation & inspection: normal inspection of the chest Resp Effort & Inspection: normal respiratory effort Auscultation: no wheezes and diminished lung sounds Cardio Rate: regular rate Rhythm: regular rhythm Heart sounds: S1 normal heart sound present and S2 normal heart sound present GI Palpation (GI): Soft to palpation and nontender Auscultation: normal bowel sounds Skin General skin exam: rashes and/or lesions noted Neuro Cranial nerves: Yes Equal, round and reactive pupils present Assessment & Plan Assessment & Plan (1) Asthma-COPD overlap syndrome: Code(s): J44.9 - Chronic obstructive pulmonary disease, unspecified Category: Medical (2) Chronic allergic rhinitis: Code(s): J30.9 - Allergic rhinitis, unspecified Category: Medical (3) GERD without esophagitis: Code(s): K21.9 - Gastro-esophageal reflux disease without esophagitis Category: Medical (4) Bronchitis: Code(s): J40 - Bronchitis, not specified as acute or chronic Category: Medical Plan cough medicine continue Breo/Incruse Xopenex HFA as needed Continue Singulair/Claritin continue Daliresp 500mcg daily reflux diet F/U 6-8 months Medications: New montelukast 10 mg PO DAILY 90 tabs 3RF 90 days J45.909 - Unspecified asthma, uncomplicated levalbuterol tartrate 45 mcg/actuation 2 puffs inhalation Q4H PRN 15 ea 11RF for wheezing Changed From umeclidinium 62.5 mcg/actuation (Incruse Ellipta) 1 inh PO DAILY 90 ea 3RF for asthma To umeclidinium 62.5 mcg/actuation (Incruse Ellipta) 1 inh inhalation DAILY 90 ea 3RF for asthma Refilled fluticasone furoate-vilanterol 200-25 mcg/dose (Breo Ellipta) 1 inh inhalation DAILY 3 ea 3RF 90 days J45.909 - Unspecified asthma, uncomplicated Coding Level of Care Code Est Pt Level 4 (35254) Diagnoses Asthma-COPD overlap syndrome J44.9 Chronic allergic rhinitis J30.9 GERD without esophagitis K21.9 Bronchitis J40 Time Spent (min) 16
[2024-09-15 08:22] VITALS: BP 138/82; PULSE 75; O2SAT 97; BMI 35.3
== END 2024-09-15 08:41 | disposition home or self-care (01) ==
PROVIDERS: PCP Internal Medicine; Visit Provider Hospitalist
DX: J44.9 Chronic obstructive pulmonary disease, unspecified (principal); J30.9 Allergic rhinitis, unspecified; K21.9 Gastro-esophageal reflux disease without esophagitis; J40 Bronchitis, not specified as acute or chronic
CPT/HCPCS: 99214

== ENCOUNTER → 2024-09-15 08:06 | Outpatient (BNVA) | payer OTHER, SELFPAY | PROVIDERS: PCP Internal Medicine; Visit Provider Hospitalist | DX: J44.9 Chronic obstructive pulmonary disease, unspecified (principal); J30.9 Allergic rhinitis, unspecified; J40 Bronchitis, not specified as acute or chronic; K21.9 Gastro-esophageal reflux disease without esophagitis | CPT/HCPCS: 99212 ==

== ENCOUNTER 2024-10-09 13:39 | Outpatient (AMB) | payer OTHER, SELFPAY ==
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
[2024-10-09 13:43] VITALS: BMI 34.8
--- OUTSIDE RECORDS SUMMARY | 2024-10-09 13:56 | XMS_ITS | Encounter Summary ---
Author Organization [facility] Address [address] [place] [address] Care Team Providers Care Hydroelectric Plant Electrical Engineer Name Role Phone Arnoldo Powers MD Primary Care Provider Norris Ignacio MD Primary Care Provider Unavailabl e Encounter Details Date Type Department Care Team Description 11/19/2017 Release of Information Medical Records [address] [place] [id number] Abstract, Provider Social History Tobacco Use Types [...] on filedocumented in this encounter Care Teams Hydroelectric Plant Electrical Engineer Relationship Specialty Start Date End Date Arnoldo Powers MD PCP - General Internal Medicine 10/02/17 08/31/18 Norris Roe MD PCP - General Internal Medicine 09/01/18 documented as of this encounter
== END 2024-10-09 14:37 | disposition home or self-care (01) ==
LOC: HO.HOS 13:39
PROVIDERS: PCP Internal Medicine; Visit Provider Physician Assistant
DX: M22.2X2 Patellofemoral disorders, left knee (principal)
CPT/HCPCS: 99213; G2211

== ENCOUNTER → 2024-10-09 13:39 | Outpatient (BNVA) | payer OTHER, SELFPAY | PROVIDERS: PCP Internal Medicine; Visit Provider Physician Assistant | DX: M22.2X2 Patellofemoral disorders, left knee (principal) | CPT/HCPCS: 99212 ==

== ENCOUNTER 2024-12-04 10:29 | Outpatient (AMB) | payer OTHER, SELFPAY ==
[2024-12-04 10:36] VITALS: BP 100/72; PULSE 78; RESP 16; TEMP 36.9; O2SAT 97; BMI 35.0
--- NOTE | 2024-12-04 10:36 | MHC.OFFWIV ---
Intake Vital Signs 12/04/24 10:36 Height 5 ft Weight 179 lb BMI 35.0 BP 100/72 Blood Pressure Location Lt brachial Position Sitting Respiration 16 Pulse 78 Pulse Source Pulse Oximeter Temp 98.4 F Temp Source Oral Pulse Oximetry (%) 97 Oxygen Delivery Method Room Air Intake Visit Reasons: EP-sore throat,fever,body ache,cough,rt earache Intake Note: Pt is here today c/o S/T, fever, bodyache,cough and Rt earache x1.5days Patient Tobacco Use Status: Never used Tobacco Allergies aspirin [ASA] Allergy (Severe, Verified 12/04/24 10:40) ITCHINESS, rash Penicillins [PENICILLINS] Allergy (Severe, Verified 12/04/24 10:40) ANAPHYLAXIS shellfish derived Allergy (Severe, Verified 12/04/24 10:40) ANAPHYLAXIS sumatriptan [From IMITREX] Allergy (Unknown, Verified 12/04/24 10:40) ANAPHYLAXIS, VOMITING, vomiting, dyspnea metoclopramide Allergy (Verified 12/04/24 10:40) Redness of Skin HPI EP-sore throat,fever,body ache,cough,rt earache HPI Details A 59-year-old female patient presents to the walk-in clinic today with report of 2 day history of headache, body aches, nasal congestion, dry cough, sore throat, bilateral ear pain. Denies any known exposure to sick contacts. Has been taking Tylenol at home with minimal relief. Denies any shortness of breath or GI symptoms. [facility] Medical History Acute respiratory disease Nausea and vomiting STEMI (ST elevation myocardial infarction) Atypical pneumonia Left hip pain Obesity (BMI 30-39.9) Osteoarthritis Low back pain Multiple gastric erosions Bronchitis Conjunctival hemorrhage of left eye CAD (coronary artery disease) Osteoarthritis of left knee Severe allergic reaction Edema Postprandial vomiting Postprandial nausea Primary osteoarthritis of left knee GERD without esophagitis Vitamin D deficiency Chronic allergic rhinitis Asthma-COPD overlap syndrome Migraines Anemia Kidney stones Asthma Surgical History S/P cardiac catheterization H/O heart artery stent Hx of gastric bypass (~2006) Hx of ventral hernia repair History of bilateral tubal ligation H/O section Hx of rotator cuff surgery (~2016) H/O abdominoplasty History of renal stent Family History Father History of heart surgery Hx of blood clots Mother Heart problem Paternal Grandfather Skin cancer Social History Household Members: Children Housing: Apartment Are you a primary administrator health care facility to a significant other at home: No Do you presently have visiting nurse or other home services: No Alcohol intake: current Alcohol intake frequency: a few times a month Alcohol type: wine Patient Tobacco Use Status: Never used Tobacco e-Cigarette/Vaping Use: Never Used Second Hand Smoke Exposure: No service: No Current occupational status: unemployed Cognitive needs: No Hearing needs: No Vision needs: No Review of Systems Const All systems reviewed & are unremarkable except as noted in HPI and below Physical Exam Const General: cooperative and no acute distress Limitations: no limitations HEENT Head: Yes normal to inspection Ears: hearing grossly normal bilaterally, external ears normal and TM's normal bilaterally General nose exam: Abnormal external nose present nasal abrasion and Nasal discharge present mucoid Face and sinus: Yes normal facial exam Mouth: Normal oral and palatal mucosa present Throat: Yes posterior oropharynx normal and Yes tonsils normal Neck Neck: Yes no lymphadenopathy Resp Effort & Inspection: normal respiratory effort and Actively coughing Quality: dry Auscultation: clear to auscultation bilaterally Cardio Rate: regular rate Rhythm: regular rhythm Skin General skin exam: no rashes or lesions noted Extrem General: Yes capillary refill normal and Yes no clubbing, cyanosis or edema Psych Appearance: grossly normal Mental Status: mental status grossly normal Speech and movement: Normal speech and movement present Results AMB Rapid Strep AMB Rapid Strep Negative Last Edit by Kalli Lloyd CMA on 12/04/24 10:53 Assessment & Plan Assessment & Plan (1) Upper respiratory infection, viral: Code(s): J06.9 - Acute upper respiratory infection, unspecified Plan: Symptoms are consistent with a viral upper respiratory infection. Rapid strep in the office was negative. COVID/flu/RSV swab was obtained in the office today, and patient aware she will be notified of results once these are available. We discussed conservative measures with [id number] cold/flu medication/Tylenol, rest, hydration, healthy food/vitamin intake. I will prescribe her benzonatate for her cough. She has inhaler and nebulizer at home due to history of asthma should she need these. She has a painful scabbed area at the base of her nose/philtrum, which she states she has had previously and erythromycin has been helpful for. We will prescribe topical erythromycin for this as well. Patient aware that if she does not improve with treatment, or if symptoms worsen/new symptoms develop, she can return to the clinic for further evaluation. She verbalizes understanding and agrees to plan. Orders: Orders AMB Rapid Strep Screen Today Z13.9 - Encounter for screening, unspecified SARS-CoV2/FLU/RSV Today J06.9 - Acute upper respiratory infection, unspecified Medications: New erythromycin Apply to irritated area at the base of your nose twice a day. 1 appl ophthalmic (eye) BID 5 days 3.5 grams 0RF J34.89 - Other specified disorders of nose and nasal sinuses benzonatate 100 mg PO BID 7 days PRN 14 caps 0RF cough R05.9 - Cough, unspecified Coding Level of Care Code Est Pt Level 4 (59498) Diagnoses Upper respiratory infection, viral J06.9
== END 2024-12-04 11:29 | disposition home or self-care (01) ==
PROVIDERS: PCP Internal Medicine; Visit Provider Nurse Practitioner Family
DX: J06.9 Acute upper respiratory infection, unspecified (principal); Z13.9 Encounter for screening, unspecified

== ENCOUNTER 2024-12-04 10:29 | Outpatient (REF) | payer OTHER, SELFPAY ==
[2024-12-04 13:53] LABS: Influenza A PCR NEGATIVE (Negative); Influenza B PCR NEGATIVE (Negative); Resp Syncy Virus RNA Qual PCR NEGATIVE (Negative); SARS COV2 PCR INHOUSE NEGATIVE (Negative)
== END 2024-12-04 10:30 | disposition home or self-care (01) ==
LOC: HO.LNP 10:29
PROVIDERS: PCP Internal Medicine; Visit Provider Nurse Practitioner Family
DX: J06.9 Acute upper respiratory infection, unspecified (principal); J34.89 Other specified disorders of nose and nasal sinuses; R05.9 Cough, unspecified
CPT/HCPCS: 0241U; 87880; 99212

== ENCOUNTER 2024-12-25 08:12 | Outpatient (AMB) | payer OTHER, SELFPAY ==
--- NOTE | 2024-12-25 08:23 | A.OFFVIS_ITS ---
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 Patient was referred by TM. Patient reports that she has had back pain all her life, no injury to report. She states that she never had physical therapy and she notes that she will never use injections. Patient states that her back pain does radiating down B/L legs, then added that about two years ago is when her legs have been giving out on her. Allergies aspirin (ASA) Allergy (Severe, Verified 12/25/24 08:28) ITCHINESS, rash Penicillins (PENICILLINS) Allergy (Severe, Verified 12/25/24 08:28) ANAPHYLAXIS shellfish derived Allergy (Severe, Verified 12/25/24 08:28) ANAPHYLAXIS sumatriptan (From IMITREX) Allergy (Unknown, Verified 12/25/24 08:28) ANAPHYLAXIS, VOMITING, vomiting, dyspnea metoclopramide Allergy (Verified 12/25/24 08:28) Redness of Skin Medication List - Last Reconciled 12/25/24 by Amina Olivier MD albuterol sulfate 2.5 mg (3 mL) continuous nebulization Q6-8H PRN aspirin (Adult Low Dose Aspirin) 81 mg PO DAILY 90 days atorvastatin 40 mg PO BEDTIME [BACK BRACE As directed] benzonatate 100 mg PO BID PRN 7 days blood pressure monitor As directed clonazepam 0.5 mg PO DAILY diclofenac sodium 3% 1 appl topical BID 90 days epinephrine 0.3 mL IM DAILY PRN ergocalciferol (vitamin D2) 1,250 mcg PO QWEEK erythromycin 1 appl ophthalmic (eye) BID 5 days ezetimibe (Zetia) 10 mg PO DAILY 90 days fluticasone furoate-vilanterol 200-25 mcg/dose (Breo Ellipta) 1 inh inhalation DAILY 90 days fluticasone propionate 50 mcg/actuation 2 sprays intranasal DAILY PRN furosemide 20 mg PO QAM PRN ipratropium-albuterol 0.5 mg-3 mg(2.5 mg base)/3 mL 3 mL inhalation BID ketotifen fumarate 0.025%(0.035%) (Alaway) 1 drp ophthalmic (eye) BID PRN levalbuterol tartrate 45 mcg/actuation 2 puffs inhalation Q4H PRN lidocaine 5% 1 patch topical DAILY PRN 30 days loratadine 10 mg PO DAILY metoclopramide HCl (Reglan) 5 mg PO QIDACHS metoprolol succinate ER 25 mg PO DAILY montelukast 10 mg PO DAILY 90 days multivitamin,tx-minerals (Multi-Vitamin HP/Minerals capsule) 1 cap PO DAILY ondansetron 4 mg PO BID-TID PRN pantoprazole (Protonix) 40 mg PO BID 90 days ticagrelor (Brilinta) 90 mg PO BID 90 days tizanidine 2 mg PO Q8H PRN tramadol 50 mg PO TID PRN 10 days umeclidinium 62.5 mcg/actuation (Incruse Ellipta) 1 inh inhalation DAILY venlafaxine ER (Effexor XR) 37.5 mg PO DAILY HPI Comments Details: Says almost all her life she's had back pain, across the back, to both sides. Sometimes would have numbness on the calves, especially with sitting or laying down on bed. With walking, knee could give out. She does follow with ortho for knee pain. Treatment done so far: no recent imaging since 2022 no recent PT does not want any injections [facility] Medical History Acute respiratory disease Nausea and vomiting STEMI (ST elevation myocardial infarction) Atypical pneumonia Left hip pain Obesity (BMI 30-39.9) Osteoarthritis Low back pain Multiple gastric erosions Bronchitis Conjunctival hemorrhage of left eye CAD (coronary artery disease) Osteoarthritis of left knee Severe allergic reaction Edema Postprandial vomiting Postprandial nausea Primary osteoarthritis of left knee GERD without esophagitis Vitamin D deficiency Chronic allergic rhinitis Asthma-COPD overlap syndrome Migraines Anemia Kidney stones Asthma Surgical History S/P cardiac catheterization H/O heart artery stent Hx of gastric bypass (~2006) Hx of ventral hernia repair History of bilateral tubal ligation H/O section Hx of rotator cuff surgery (~2016) H/O abdominoplasty History of renal stent Family History Father History of heart surgery Hx of blood clots Mother Heart problem Paternal Grandfather Skin cancer Social History Household Members: Children Housing: Apartment Are you a primary caregivers homecare to a significant other at home: No Do you presently have visiting nurse or other home services: No Alcohol intake: current Alcohol intake frequency: a few times a month Alcohol type: wine Patient Tobacco Use Status: Never used Tobacco e-Cigarette/Vaping Use: Never Used Second Hand Smoke Exposure: No service: No Current occupational status: unemployed Cognitive needs: No Hearing needs: No Vision needs: No Review of Systems Const All systems reviewed & are unremarkable except as noted in HPI and below Physical Exam Vital Signs: BMI result Body Mass Index 35.0 Constitutional: Patient appears to be in no acute distress, well nourished and well developed. Patient was appropriately conversant and oriented. Good historian. MSK: No specific abnormalities found on inspection of the spine and all extremities. Difficulty with [id number]. Almost tender everywhere even upper back/trapezius. Tender on both SI joints. Tender on GT. Lumbar ROM was full. Bilateral hip, knee and ankle ROM WNL. No ligamentous laxity or crepitance. No increased effusion. Straight-leg raising test negative. FABERE test positive back pain. Strength is 5/5 in all muscle groups tested. No increased tone noted. Neurological: No profound weakness. But difficulty with getting up due to pain. Cosby?s negative bilaterally. Babinski was down going bilaterally. Clonus was negative. Gait is antalgic without loss of balance. No assistive device. Results Reviewed Results Reviewed: I independently reviewed the results of the following: Lumbar x-ray 2022 showed normal disc spaces. Anterior endplates spurs only. Ordering Physician: Arnoldo Powers MD Date of Service: 02/01/23 Procedure(s): XR lumbar spine 2-3V Accession Number(s): [id number] cc: Arnoldo Powers MD~ EXAMINATION: Lumbar spine and sacroiliac joint x-rays CLINICAL INFORMATION: Pain. Radiculopathy COMPARISON: Lumbar spine x-ray March 2021 TECHNIQUE: 3 views of the lumbar spine and 3 views of the aortoiliac joint FINDINGS: Lumbar spine: There is curvature of the lower lumbar spine to the right. Bone alignment is otherwise normal. No fracture or dislocation. Normal disc spaces. Degenerative spondylosis at L3-L4 and L5-S1. Lower lumbar spine facet arthritis. Sacroiliac joints: Bone alignment is normal. No fracture or dislocation. The sacroiliac joints are normal. XR/XR lumbar spine 2-3V IMPRESSION: Lumbar spine: Mild degenerative changes. Normal-appearing sacroiliac joints. I reviewed records from the following: Ortho Assessment & Plan Assessment & Plan (1) Chronic lower back pain: Code(s): M54.50 - Low back pain, unspecified; G89.29 - Other chronic pain Category: Medical Qualifiers: Back pain laterality: bilateral Sciatica presence: without sciatica Qualified Code(s): M54.50 - Low back pain, unspecified; G89.29 - Other chronic pain (2) Sacroiliac joint dysfunction of both sides: Code(s): M53.3 - Sacrococcygeal disorders, not elsewhere classified Category: Medical Plan Chronic lower back pain, mostly nonradicular. Tender on both SI joints. Suspect poor mobility, poor exercise routine at home. Encouraged patient to start physical therapy. Work on SI joint symmetry/stabilization, work on functional level/mobility/gait. Patient agrees. We will recheck lumbar x-rays today. Getting hip x-rays also to rule out hip joint arthritis. Assessment and plan discussed with patient, and patient was agreeable. All questions were answered thoroughly. Follow up 3 months or after PT. Amina Olivier MD, ARON Board Certified, [place] [employer] and Rehabilitation (ABPMR) Board Certified, [place] Board [employer] Electrodiagnostic [employer] (ABEM) Orders: Orders XR hip RT min 2V Today M25.551 - Pain in right hip PT Evaluation and Treatment Today G89.29 - Other chronic pain, M53.3 - Sacrococcygeal disorders, not elsewhere classified, M54.50 - Low back pain, unspecified XR lumbar spine 2-3V Today M54.9 - Dorsalgia, unspecified XR hip LT min 2V Today M16.12 - Unilateral primary osteoarthritis, left hip Coding Level of Care Code New Pt Level 4 (48037) Diagnoses Chronic bilateral low back pain without sciatica M54.50; G89.29 Back pain laterality: bilateral Sciatica presence: without sciatica Sacroiliac joint dysfunction of both sides M53.3
[2024-12-25 08:24] VITALS: BMI 35.0
== END 2024-12-25 08:57 | disposition home or self-care (01) ==
LOC: HO.HOS 08:13
PROVIDERS: PCP Internal Medicine; Visit Provider Physical Medicine & Rehabilitation
DX: M54.50 Low back pain, unspecified (principal); G89.29 Other chronic pain; M53.3 Sacrococcygeal disorders, not elsewhere classified
CPT/HCPCS: 99204

== ENCOUNTER 2024-12-25 08:12 | Outpatient (REF) | payer OTHER, SELFPAY ==
--- NOTE | ~2024-12-25 | XR_ITS ---
EXAMINATION: XR HIP, LEFT CLINICAL INFORMATION: M16.12 - Unilateral primary osteoarthritis, left hip COMPARISON: December 27, 2022. TECHNIQUE: Two views of the left hip. FINDINGS: No acute cortical disruption or malalignment. Mild sclerosis along the articular surface of the left acetabulum. No lytic or blastic lesions. No gross volume loss. Prominent left transverse processes of L5 articulating with S1. Mild degenerative changes in the symphysis pubis. XR/XR hip LT min 2V IMPRESSION: Mild osteoarthrosis without acute fracture or dislocation, left hip. Electronically signed by: Antonio Schwab MD 12/25/2024 09:24 AM EDT
--- NOTE | ~2024-12-25 | XR_ITS ---
EXAMINATION: XR HIP, RIGHT CLINICAL INFORMATION: M25.551 - Pain in right hip COMPARISON: Correlated to CT abdomen pelvis dated April 30, 2020. TECHNIQUE: Two views of the right hip. FINDINGS: No acute cortical disruption or malalignment. Mild sclerosis along the articular surface of the right acetabulum. No lytic or blastic lesions. No bony erosion. No volume loss. XR/XR hip RT min 2V IMPRESSION: Mild osteoarthrosis without acute fracture or dislocation, right hip. Electronically signed by: Antonio Schwab MD 12/25/2024 09:26 AM EDT
--- NOTE | ~2024-12-25 | XR_ITS ---
EXAMINATION: XR LUMBOSACRAL SPINE CLINICAL INFORMATION: M54.9 - Dorsalgia, unspecified COMPARISON: February 01, 2023 TECHNIQUE: AP and lateral views FINDINGS: Levoconvex curvature apex at L3. Multilevel marginal osteophyte formation and endplate sclerosis. Facet joint hypertrophy, L5-S1. Grade 1 retrolisthesis L4-5. Decreased intervertebral disc height at L5-S1. No lytic or blastic lesions. Metallic coils in a circumferential fashion overlapping the mid abdomen. Vascular clips in the left upper abdomen. XR/XR lumbar spine 2-3V IMPRESSION: Multilevel spondylosis with a levoconvex curvature apex at L3. Grade 1 retrolisthesis L4-5. Electronically signed by: Antonio Schwab MD 12/25/2024 09:23 AM EDT
== END 2024-12-25 08:13 | disposition home or self-care (01) ==
LOC: HO.HOSX 08:12
PROVIDERS: PCP Internal Medicine; Visit Provider Physical Medicine & Rehabilitation
DX: M25.551 Pain in right hip (principal); M54.9 Dorsalgia, unspecified; M16.12 Unilateral primary osteoarthritis, left hip; M54.50 Low back pain, unspecified; G89.29 Other chronic pain; M53.3 Sacrococcygeal disorders, not elsewhere classified
CPT/HCPCS: 72100; 73502; 99202

== ENCOUNTER → 2024-12-25 08:46 | Outpatient (BNV) | payer OTHER, SELFPAY | PROVIDERS: PCP Internal Medicine; Visit Provider Radiology Diagnostic Radiology | DX: M16.10 Unilateral primary osteoarthritis, unspecified hip (principal); M47.816 Spondylosis without myelopathy or radiculopathy, lumbar region | CPT/HCPCS: 72100; 73502 ==

== ENCOUNTER 2024-12-31 08:15 | Outpatient (AMB) | payer OTHER, SELFPAY ==
[2024-12-31 08:18] VITALS: BP 124/82; PULSE 64; BMI 35.6
--- NOTE | 2024-12-31 08:18 | A.OFFVIS_ITS ---
Vital Signs 12/31/24 08:18 Height 5 ft Weight 182 lb 8.684 oz BMI 35.6 BP 124/82 Blood Pressure Location Lt brachial Position Sitting Pulse 64 Pulse Source Pulse Oximeter Intake Visit Reasons: 4 mth f/up [employer] Developer Required: No Employment Manager: Employment Manager Present Allergies aspirin (ASA) Allergy (Severe, Verified 12/31/24 08:20) ITCHINESS, rash Penicillins (PENICILLINS) Allergy (Severe, Verified 12/31/24 08:20) ANAPHYLAXIS shellfish derived Allergy (Severe, Verified 12/31/24 08:20) ANAPHYLAXIS sumatriptan (From IMITREX) Allergy (Unknown, Verified 12/31/24 08:20) ANAPHYLAXIS, VOMITING, vomiting, dyspnea metoclopramide Allergy (Verified 12/31/24 08:20) Redness of Skin Medication List - Last Reconciled 12/31/24 by Chio Wiggins COMPRESSOR STATION OPERATOR-C albuterol sulfate 2.5 mg (3 mL) continuous nebulization Q6-8H PRN aspirin (Adult Low Dose Aspirin) 81 mg PO DAILY 90 days atorvastatin 40 mg PO BEDTIME [BACK BRACE As directed] benzonatate 100 mg PO BID PRN 7 days blood pressure monitor As directed clonazepam 0.5 mg PO DAILY diclofenac sodium 3% 1 appl topical BID 90 days epinephrine 0.3 mL IM DAILY PRN ergocalciferol (vitamin D2) 1,250 mcg PO QWEEK erythromycin 1 appl ophthalmic (eye) BID 5 days ezetimibe (Zetia) 10 mg PO DAILY 90 days fluticasone furoate-vilanterol 200-25 mcg/dose (Breo Ellipta) 1 inh inhalation DAILY 90 days fluticasone propionate 50 mcg/actuation 2 sprays intranasal DAILY PRN furosemide 20 mg PO QAM PRN ipratropium-albuterol 0.5 mg-3 mg(2.5 mg base)/3 mL 3 mL inhalation BID ketotifen fumarate 0.025%(0.035%) (Alaway) 1 drp ophthalmic (eye) BID PRN levalbuterol tartrate 45 mcg/actuation 2 puffs inhalation Q4H PRN lidocaine 5% 1 patch topical DAILY PRN 30 days loratadine 10 mg PO DAILY metoclopramide HCl (Reglan) 5 mg PO QIDACHS metoprolol succinate ER 25 mg PO DAILY montelukast 10 mg PO DAILY 90 days multivitamin,tx-minerals (Multi-Vitamin HP/Minerals capsule) 1 cap PO DAILY ondansetron 4 mg PO BID-TID PRN pantoprazole (Protonix) 40 mg PO BID 90 days ticagrelor (Brilinta) 90 mg PO BID 90 days tizanidine 2 mg PO Q8H PRN tramadol 50 mg PO TID PRN 10 days umeclidinium 62.5 mcg/actuation (Incruse Ellipta) 1 inh inhalation DAILY venlafaxine ER (Effexor XR) 37.5 mg PO DAILY HPI HPI 4 mth f/up: Details: Any is a 59-year-old female with past medical history of hyperlipidemia, STEMI 02/19/2024, VALDEMAR to the RCA, staged PCI with VALDEMAR to the LAD 03/19/2024 who presents for follow-up. Today she reports she has been doing generally well. Her primary complaint is of multiple easy bruising. She has had no bleeding issues otherwise. No chest discomfort at rest or with activity. No shortness of breath, PND, orthopnea or edema. No lightheadedness, presyncope, syncope. Walks for exercise. Compliant with meds. Son is present. [facility] Medical History Acute respiratory disease Nausea and vomiting STEMI (ST elevation myocardial infarction) Atypical pneumonia Left hip pain Obesity (BMI 30-39.9) Osteoarthritis Low back pain Multiple gastric erosions Bronchitis Conjunctival hemorrhage of left eye CAD (coronary artery disease) Osteoarthritis of left knee Severe allergic reaction Edema Postprandial vomiting Postprandial nausea Primary osteoarthritis of left knee GERD without esophagitis Vitamin D deficiency Chronic allergic rhinitis Asthma-COPD overlap syndrome Migraines Anemia Kidney stones Asthma Surgical History S/P cardiac catheterization H/O heart artery stent Hx of gastric bypass (~2006) Hx of ventral hernia repair History of bilateral tubal ligation H/O section Hx of rotator cuff surgery (~2016) H/O abdominoplasty History of renal stent Family History Father History of heart surgery Hx of blood clots Mother Heart problem Paternal Grandfather Skin cancer Social History Household Members: Children Housing: Apartment Are you a primary clinical manager home care to a significant other at home: No Do you presently have visiting nurse or other home services: No Alcohol intake: current Alcohol intake frequency: a few times a month Alcohol type: wine Patient Tobacco Use Status: Never used Tobacco e-Cigarette/Vaping Use: Never Used Second Hand Smoke Exposure: No service: No Current occupational status: unemployed Cognitive needs: No Hearing needs: No Vision needs: No Review of Systems Const All systems reviewed & are unremarkable except as noted in HPI and below ENT Denies dizziness Card Denies chest pain, Denies chest pain at rest, Denies chest pain with activity, Denies rapid heart rate, Denies pedal edema, Denies edema, Denies leg edema, Denies lightheadedness, Denies palpitations, Denies dyspnea, Denies dyspnea on exertion and Denies orthopnea Resp Denies cough, Denies dyspnea and Denies dyspnea on exertion GI Denies hematochezia and Denies change in stool character Musc Denies abnormal gait, Denies limited range of motion, Denies muscle cramps, Denies muscle weakness, Denies numbness, Denies radiating pain into limb, Denies stiffness and Denies tingling Neuro Denies abnormal gait, Denies dizziness, Denies numbness and Denies tingling Endo Denies palpitations Physical Exam Vital Signs: Last Vital Signs Pulse 64 12/31/24 08:18 BP 124/82 12/31/24 08:18 BMI result Body Mass Index 35.6 Const General: cooperative, healthy appearing, comfortable and no acute distress Orientation/consciousness: patient oriented x3 Neck Neck: Yes normal visual inspection Resp Effort & Inspection: normal respiratory effort Auscultation: clear to auscultation bilaterally, no rales, no rhonchi and no wheezes Cardio Rate: regular rate Rhythm: regular rhythm Heart sounds: S1 normal heart sound present, S2 normal heart sound present, no gallops, no murmurs and no rubs Neuro General: patient oriented x3 Extrem General: Yes normal to inspection Psych Appearance: grossly normal Mental Status: mental status grossly normal Speech and movement: Normal speech and movement present Office Procedures EKG Details: Today, read by me SR with no acute ST/T wave abn, rate 76, Qtc 438ms [id number], Complete Assessment & Plan Assessment & Plan (1) CAD (coronary artery disease): Comment: cardiac catheterization - PCI to RCA (02/19/24) and staged PCI of LAD (03/19/2024) - Dr. Kumar Code(s): I25.10 - Atherosclerotic heart disease of [place] coronary artery without angina pectoris Category: Medical Qualifiers: Associated angina: without angina Coronary Disease-Associated Artery/Lesion type: [place] artery [place] vs. transplanted heart: [place] heart Qualified Code(s): I25.10 - Atherosclerotic heart disease of [place] coronary artery without angina pectoris Plan: Presented to [facility] 02/19/2024 with sharp mid chest discomfort and ruled in for ACS. Troponin elevated and EKG with subtle ST elevation in lead 3 and AVF then inverted T-waves lead 3 and V1 on follow-up EKG. Echocardiogram showed EF 60- 65% with basal inferior akinesis. She was transferred to [facility] where she underwent cardiac catheterization showing occlusion of mid RCA, culprit lesion and VALDEMAR was placed. She also had residual mid LAD stenosis 90%, 1st diagonal ostial stenosis 90%. She underwent staged PCI with VALDEMAR to the mid LAD on 03/19/2024. She did attend cardiac rehab. No recurrent angina. Continue aspirin indefinitely. Continue Brilinta 90 mg b.i.d. uninterrupted for 1 year post last stent. Continue high-dose atorvastatin with ideal LDL goal less than 70. Continue metoprolol. Signs and symptoms of angina reviewed with her. Emergency care if ever needed for symptoms. Cardiology follow-up 6 months, sooner if needed. Echo prior to that visit. (2) S/P cardiac catheterization: Comment: Cardiac catheterization 02/19/[address] Kumar LAD:mid LAD: proximal subsection 90% stenosis, 1st diag: ostial 90% stenosis, RCA:Mid RCA: 10)% stenosis. Culprit lesion. PCI to RCA. Cardiac catheterization 03/19/2024 with VALDEMAR to the mid LAD Code(s): Z98.890 - Other specified postprocedural states Category: Surgical (3) Stented coronary artery: Comment: VALDEMAR to mid RCA 02/19/2024, VALDEMAR to the mid LAD 03/19/2024 Code(s): Z95.5 - Presence of coronary angioplasty implant and graft Category: Surgical (4) Hyperlipidemia: Code(s): E78.5 - Hyperlipidemia, unspecified Category: Medical Plan: [place] LDL goal less than 70. She has been on high-dose atorvastatin. Labs done 03/16/2024 showed LDL 74. Will add Zetia 10 mg daily. Due for repeat fasting lipids. Plan I discussed with the patient the potential for reducing or discontinuing Brilinta in March due to bruising concerns and that I would review with her vice president of finance. We also talked about continuing aspirin, which may still cause some bruising. The patient was informed about the need for a cholesterol check and the importance of fasting before the test. I advised updating the heart ultrasound before the next visit and scheduled a follow-up in six months, with the option for an earlier visit if necessary. Orders: Orders CA echo transthoracic complete 5 Months I25.10 - Atherosclerotic heart disease of [place] coronary artery without angina pectoris Patient Instructions: - Monitor for bruising and report any significant changes. - Call if having any recurrent chest discomfort or new shortness of breath - Continue taking all meds as prescribed. - Fast before the cholesterol lab test. - Attend the scheduled heart ultrasound and follow-up appointment. Patient was informed and verbally consented to the use of an ambient scribe for clinic note documentation during this visit. Visit time spent on chart review, interview, assessment, orders, documentation. Coding Level of Care Code Est Pt Level 4 (56153) Complex EM visit Add On G2211 Diagnoses Coronary artery disease involving [place] coronary artery of [place] heart without angina pectoris I25.10 Associated angina: without angina Coronary Disease-Associated Artery/Lesion type: [place] artery [place] vs. transplanted heart: [place] heart S/P cardiac catheterization Z98.890 Stented coronary artery Z95.5 Hyperlipidemia E78.5 CPT Codes EKG - CPT: [id number], Complete ([id number]) Time Spent (min) 30
== END 2024-12-31 08:47 | disposition home or self-care (01) ==
LOC: HO.HCS 08:16
PROVIDERS: PCP Internal Medicine; Visit Provider Nurse Practitioner Family
DX: I25.10 Atherosclerotic heart disease of native coronary artery without angina pectoris (principal); Z98.890 Other specified postprocedural states; Z95.5 Presence of coronary angioplasty implant and graft; E78.5 Hyperlipidemia, unspecified
CPT/HCPCS: 93010; 99214; G2211

== ENCOUNTER → 2024-12-31 08:15 | Outpatient (BNVA) | payer OTHER, SELFPAY | PROVIDERS: PCP Internal Medicine; Visit Provider Nurse Practitioner Family | DX: I25.10 Atherosclerotic heart disease of native coronary artery without angina pectoris (principal); E78.5 Hyperlipidemia, unspecified; Z98.890 Other specified postprocedural states; Z95.5 Presence of coronary angioplasty implant and graft | CPT/HCPCS: 93005; 99212 ==

== ENCOUNTER 2025-01-21 09:07 | Outpatient (AMB) | payer OTHER, SELFPAY ==
--- NOTE | 2025-01-21 09:13 | A.OFFVIS_ITS ---
Vital Signs 01/21/25 09:14 Height 5 ft Weight 182 lb 8.684 oz BMI 35.6 BP 136/84 Blood Pressure Location Rt radial Position Sitting Pulse 70 Intake Visit Reasons: GERD, PUD Intake Note: Any presents to in office follow up of GERD and PUD. CC: Patient c/o vomiting every day sometimes 2-4 times a day. She states that she feels like the food stays stuck in her esophagus. [place] Captain Required: No Accompanied by: Self / Same As Patient Allergies aspirin (ASA) Allergy (Severe, Verified 01/21/25 09:22) ITCHINESS, rash Penicillins (PENICILLINS) Allergy (Severe, Verified 01/21/25 09:22) ANAPHYLAXIS shellfish derived Allergy (Severe, Verified 01/21/25 09:22) ANAPHYLAXIS sumatriptan (From IMITREX) Allergy (Unknown, Verified 01/21/25 09:22) ANAPHYLAXIS, VOMITING, vomiting, dyspnea metoclopramide Allergy (Verified 01/21/25 09:22) Redness of Skin HPI HPI GERD, PUD: Details: Assessment & Plan (1) GERD without esophagitis: Code(s): K21.9 - Gastro-esophageal reflux disease without esophagitis Category: Medical Plan Her asthma has been acting up, and although she had a flu shot this year she has not had the COVID yet r/t her cath and asthma. Otherwise, she is having a lot of small bruises r/t her anticoagulation. She continues to do well on her pantoprazole and simethicone. ROV 6 mos. Medications: Changed From pantoprazole (Protonix) 40 mg PO BID 30 days 60 tabs 1RF To pantoprazole (Protonix) 40 mg PO BID 180 tabs 1RF 90 days TODAY'S VISIT The nausea and vomiting has returned. It was better for awhile after her heart surgery which made me think that this was a contributing factor but now it has returned. It is postprandial with most all meals. She says she had to stop the Reglan due to an allergic reaction that is unspecified. She is now on Zofran but apparently she needs more than what her insurance will provide in terms of quantity limits. She is also seeing [facility]ariat[facility] with regards to this issue. She has a gastric bypass patient as well. I am uncertain what their plans are in if they are going to do an upper endoscopy then we probably should hold off here. She will be seeing him at the end of this month so I think will bring her back to get impression for what their plans are. In the meantime because she is on medications that can contribute including aspirin for her cardiac disease, and daily rest for her COPD which can cause nausea and vomiting and pancreatitis I think will get a basic Chem panel and pancreatic enzymes. Fortunately she does not have any abdominal pain and she also denies diarrhea or constipation. Return office visit in 4 weeks [facility] Medical History (Updated 01/21/25 @ 09:51 by CELESTE Dow) Nausea and vomiting Acute respiratory disease STEMI (ST elevation myocardial infarction) Atypical pneumonia Left hip pain Obesity (BMI 30-39.9) Osteoarthritis Low back pain Multiple gastric erosions Bronchitis Conjunctival hemorrhage of left eye CAD (coronary artery disease) Osteoarthritis of left knee Severe allergic reaction Edema Postprandial vomiting Postprandial nausea Primary osteoarthritis of left knee GERD without esophagitis Vitamin D deficiency Chronic allergic rhinitis Asthma-COPD overlap syndrome Migraines Anemia Kidney stones Asthma Surgical History S/P cardiac catheterization H/O heart artery stent Hx of gastric bypass (~2006) Hx of ventral hernia repair History of bilateral tubal ligation H/O section Hx of rotator cuff surgery (~2016) H/O abdominoplasty History of renal stent Family History Father History of heart surgery Hx of blood clots Mother Heart problem Paternal Grandfather Skin cancer Social History Household Members: Children Housing: Apartment Are you a primary foster care case manager to a significant other at home: No Do you presently have visiting nurse or other home services: No Alcohol intake: current Alcohol intake frequency: a few times a month Alcohol type: wine Patient Tobacco Use Status: Never used Tobacco e-Cigarette/Vaping Use: Never Used Second Hand Smoke Exposure: No service: No Current occupational status: unemployed Cognitive needs: No Hearing needs: No Vision needs: No Review of Systems Const Reports chills, Denies fatigue, Denies fever(s), Reports headache(s), Denies ni ght sweats, Reports poor appetite and Denies weight loss ENT Reports Normal hearing present, Denies dental pain, Denies dysphagia, Reports headache(s), Denies hearing loss, Denies mouth pain, Denies odynophagia, Denies throat swelling, Denies tongue swelling and Reports other (Dentition adequate) Card Reports no additional complaints Resp Reports no additional complaints GI Details: Denies abdominal pain, Denies melena, Denies bloating, Denies hematochezia, Denies constipation, Denies GI cramping, Denies dysphagia, Denies excessive flatus, Denies early satiety, Denies heartburn, Denies diarrhea, Reports nausea, Denies odynophagia, Reports vomiting and Denies hematemesis Skin/Breast Denies pruritus, Denies lesions, Denies rash and Denies jaundice Neuro Reports Normal hearing present, Denies Abnormal speech present and Reports headache(s) Endo Denies fatigue Aller/Immun Denies throat swelling and Denies tongue swelling Physical Exam Vital Signs: Last Vital Signs Pulse 70 01/21/25 09:14 BP 136/84 01/21/25 09:14 BMI result Body Mass Index 35.6 Const General: cooperative, no acute distress, well developed and well groomed Nutritional Appearance: well nourished and obese Orientation/consciousness: oriented to person, oriented to place and oriented to time Limitations: language barrier HEENT Head: Yes normocephalic and Yes atraumatic Eyes General: appearance normal, both eyes and all related structures Pupils: Equal, round and reactive pupils present Neck Neck: Yes normal visual inspection and Yes no lymphadenopathy Thyroid: Thyroid normal Resp Effort & Inspection: normal respiratory effort and able to speak in complete sentences Auscultation: clear to auscultation bilaterally Cardio Rate: regular rate Rhythm: regular rhythm Heart sounds: Normal, physiologic split S2 sound present Peripheral pulses: radial pulses present and posterior tibial pulses present GI Inspection: No distended, No Abdominal panniculus present and Yes obesity Palpation (GI): Soft to palpation, nontender, no guarding, not rigid and No hepatosplenomegaly present Percussion: Yes normal to percussion Auscultation: normal bowel sounds Rectal Exam - Female: deferred Skin General skin exam: no rashes or lesions noted, turgor normal, skin not dry, no jaundice, No spider nevi and no striae Rashes: no rashes Nails: normal Neuro General: oriented to person, oriented to place and oriented to time Cranial nerves: Yes Equal, round and reactive pupils present and Yes Normal hearing present Speech: No Abnormal speech present Extrem General: Yes normal to inspection, No clubbing, No cyanosis and No edema Psych Appearance: grossly normal and well kempt Mental Status: mental status grossly normal Speech and movement: Normal speech and movement present Affect: normal affect Attitude: cooperative Thought process: Normal thought process present and not confabulating Thought content: Normal thought content present Insight: Limited insight present (Psych) Judgement: Limited judgement present (Psych) Assessment & Plan Assessment & Plan (1) Nausea and vomiting: Comment: Was better for awhile after her heart surgery but now has returned. This is a gastric bypass patient with a history of erosive gastritis. She is seeing [facility] bariatric also relative to this problem. Code(s): R11.2 - Nausea with vomiting, unspecified Category: Medical Qualifiers: Vomiting type: unspecified Qualified Code(s): R11.2 - Nausea with vomiting, unspecified (2) GERD without esophagitis: Code(s): K21.9 - Gastro-esophageal reflux disease without esophagitis Category: Medical Plan The nausea and vomiting has returned. It was better for awhile after her heart surgery which made me think that this was a contributing factor but now it has returned. It is postprandial with most all meals. She says she had to stop the Reglan due to an allergic reaction that is unspecified. She is now on Zofran but apparently she needs more than what her insurance will provide in terms of quantity limits. She is also seeing [facility] [employer] with regards to this issue. She has a gastric bypass patient as well. I am uncertain what their plans are in if they are going to do an upper endoscopy then we probably should hold off here. She will be seeing him at the end of this month so I think will bring her back to get impression for what their plans are. In the meantime because she is on medications that can contribute including aspirin for her cardiac disease, and daily rest for her COPD which can cause nausea and vomiting and pancreatitis I think will get a basic Chem panel and pancreatic enzymes. Fortunately she does not have any abdominal pain and she also denies diarrhea or constipation. Return office visit in 4 weeks Orders: Orders Amylase Today R11.2 - Nausea with vomiting, unspecified Lipase Today R11.2 - Nausea with vomiting, unspecified Comprehensive Met. Panel Today R11.2 - Nausea with vomiting, unspecified Medications: Discontinued metoclopramide HCl (Reglan) Discontinued Reason: Patient no longer taking 5 mg PO QIDACHS 120 tabs 6RF R11.2 - Nausea with vomiting, unspecified Coding Level of Care Code Est Pt Level 4 (94805) Diagnoses Nausea and vomiting, unspecified vomiting type R11.2 Vomiting type: unspecified GERD without esophagitis K21.9
[2025-01-21 09:14] VITALS: BP 136/84; PULSE 70; BMI 35.6
== END 2025-01-21 09:56 | disposition home or self-care (01) ==
LOC: HO.HGI 09:07
PROVIDERS: PCP Internal Medicine; Visit Provider Nurse Practitioner
DX: R11.2 Nausea with vomiting, unspecified (principal); K21.9 Gastro-esophageal reflux disease without esophagitis
CPT/HCPCS: 99214

== ENCOUNTER → 2025-01-21 09:07 | Outpatient (BNVA) | payer OTHER, SELFPAY | PROVIDERS: PCP Internal Medicine; Visit Provider Nurse Practitioner | DX: R11.2 Nausea with vomiting, unspecified (principal); K27.9 Peptic ulcer, site unspecified, unspecified as acute or chronic, without hemorrhage or perforation; K21.9 Gastro-esophageal reflux disease without esophagitis | CPT/HCPCS: 99212 ==

== ENCOUNTER 2025-01-25 08:49 | Outpatient (AMB) | payer OTHER, SELFPAY ==
--- NOTE | 2025-01-25 08:57 | MHC.PC.OV ---
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 Collection Coordinator Required: No Accompanied by: Self / Same As Patient Allergies aspirin (ASA) Allergy (Severe, Verified 05/20/25 08:52) ITCHINESS, rash Penicillins (PENICILLINS) Allergy (Severe, Verified 05/20/25 08:52) ANAPHYLAXIS shellfish derived Allergy (Severe, Verified 05/20/25 08:52) ANAPHYLAXIS sumatriptan (From IMITREX) Allergy (Unknown, Verified 05/20/25 08:52) ANAPHYLAXIS, VOMITING, vomiting, dyspnea metoclopramide Allergy (Verified 05/20/25 08:52) Redness of Skin Medication List - Last Reconciled 01/25/25 by Arnoldo Powers MD albuterol sulfate 2.5 mg (3 mL) continuous nebulization Q6-8H PRN aspirin (Adult Low Dose Aspirin) 81 mg PO DAILY 90 days atorvastatin 40 mg PO BEDTIME [BACK BRACE As directed] benzonatate 100 mg PO BID PRN 7 days blood pressure monitor As directed clonazepam 0.5 mg PO DAILY diclofenac sodium 3% 1 appl topical BID 90 days epinephrine 0.3 mL IM DAILY PRN ergocalciferol (vitamin D2) 1,250 mcg PO QWEEK erythromycin 1 appl ophthalmic (eye) BID 5 days ezetimibe (Zetia) 10 mg PO DAILY 90 days fluticasone furoate-vilanterol 200-25 mcg/dose (Breo Ellipta) 1 inh inhalation DAILY 90 days fluticasone propionate 50 mcg/actuation 2 sprays intranasal DAILY PRN furosemide 20 mg PO QAM PRN ipratropium-albuterol 0.5 mg-3 mg(2.5 mg base)/3 mL 3 mL inhalation BID ketotifen fumarate 0.025%(0.035%) ([place]) 1 drp ophthalmic (eye) BID PRN levalbuterol tartrate 45 mcg/actuation 2 puffs inhalation Q4H PRN lidocaine 5% 1 patch topical DAILY PRN 30 days loratadine 10 mg PO DAILY metoprolol succinate ER 25 mg PO DAILY montelukast 10 mg PO DAILY 90 days multivitamin,tx-minerals (Multi-Vitamin HP/Minerals capsule) 1 cap PO DAILY ondansetron 4 mg PO BID-TID PRN pantoprazole (Protonix) 40 mg PO BID 90 days roflumilast (Daliresp) 500 mcg PO DAILY ticagrelor (Brilinta) 90 mg PO BID 90 days tizanidine 2 mg PO Q8H PRN tramadol 50 mg PO TID PRN 10 days umeclidinium 62.5 mcg/actuation (Incruse Ellipta) 1 inh inhalation DAILY venlafaxine ER (Effexor XR) 37.5 mg PO DAILY Tobacco use date assessed: 01/25/25 Dental Screening Dental Screen Date: 01/25/25 HPI Annual Exam HPI Details Patient comes in today for her annual physical examination States that her asthma seems to be well-controlled today She still has recurrent nausea and on and off abdominal pain and is currently seeing GI at [facility] for further evaluation and management of these issues She reportedly had some procedure done about 3 to 4 months ago but she is unable to provide more specific information regarding this test She also reports experiencing increased low back pain and bilateral knee pains lately - per orthopedics, she was advised that she has osteoarthritis in her knees - knee x-rays done last year (2023) revealed (+) OA changes in both knees She is now attending physical therapy for her low back pain and is requesting for Rx for a TENS units or an electrical stim unit and Rollator She denies any headaches or dizziness Denies any chest pains or increased shortness of breath No change in bowel habits noted She denies any acute urinary symptoms She has not been able to get her previously ordered labs done prior to her appointment today She also declined referral for her yearly pap smear and gynecology exam She will be due for her annual mammography in March 2025 She had a negative Cologuard test done back in March 2022 [facility] Medical History (Updated 05/31/25 @ 04:40 by Arnoldo Powers MD) Obesity (BMI 30-39.9) Nausea and vomiting Acute respiratory disease STEMI (ST elevation myocardial infarction) Atypical pneumonia Left hip pain Osteoarthritis Low back pain Multiple gastric erosions Bronchitis Conjunctival hemorrhage of left eye CAD (coronary artery disease) Osteoarthritis of left knee Severe allergic reaction Edema Postprandial vomiting Postprandial nausea Primary osteoarthritis of left knee GERD without esophagitis Vitamin D deficiency Chronic allergic rhinitis Asthma-COPD overlap syndrome Migraines Anemia Kidney stones Asthma Surgical History S/P cardiac catheterization H/O heart artery stent Hx of gastric bypass (~2006) Hx of ventral hernia repair History of bilateral tubal ligation H/O section Hx of rotator cuff surgery (~2016) H/O abdominoplasty History of renal stent Family History Father History of heart surgery Hx of blood clots Mother Heart problem Paternal Grandfather Skin cancer Social History Household Members: Children Housing: Apartment Are you a primary day care home mother to a significant other at home: No Do you presently have visiting nurse or other home services: No Alcohol intake: current Alcohol intake frequency: a few times a month Alcohol type: wine Patient Tobacco Use Status: Never used Tobacco e-Cigarette/Vaping Use: Never Used Second Hand Smoke Exposure: No service: No Current occupational status: unemployed Current occupational exposures/hazards: No Cognitive needs: No Hearing needs: No Vision needs: No Questionnaire PHQ-9 Over the last 2 weeks, how often have you been bothered by any of the following problems? 1. Little interest or pleasure in doing things: not at all 2. Feeling down, depressed, or hopeless: several days 3. Trouble falling or staying asleep, or sleeping too much: more than half the days 4. Feeling tired or having little energy: more than half the days 5. Poor appetite or overeating: several days 6. Feeling bad about yourself - or that you are a failure or have let yourself or your family down: several days 7. Trouble concentrating on things, such as reading the newspaper or watching television: not at all 8. Moving or speaking so slowly that other people could have noticed. Or the opposite - being so fidgety or restless that you have been moving around a lot more than usual: not at all 9. Thoughts that you would be better off or of hurting yourself in some way: not at all Total score: 7 Depression Screening Interpretation: Positive Depression Screening Follow-up: Existing condition and In treatment Depression Screening Done: Yes 39030 - PHQ-9 Billing: Yes Source: Developed by Drs. Luiz Suarez, Suri Reyes, Randall Euceda and colleagues, with an educational ines from [employer]. Thrive Questionnaire Date Thrive assessed: 01/25/25 I am a: Patient What is your living situation today?: I have a steady place to live Within the past 12 months, did the food you bought not last and you didn't have the money to get more?: Sometimes True Within the past 12 months, did you worry whether your food would run out before you got money to buy more?: Often true Do you have trouble paying for medicines?: No Do you have trouble getting transportation to medical appointments?: No Do you have trouble paying your heating and electricity bill?: Yes Do you have trouble taking care of your child, family member or friend?: No Do you have trouble with day-to-day activities such as bathing, preparing meals, shopping, managing finances, etc.?: Yes Are you currently unemployed and looking for a job?: I choose not to answer this question Are you interested in more education?: I choose not to answer this question Please select the resources that you would like help with: Utilities and Daily support Currently or been in a relationship where the following occur: No concerns reported THRIVE Score: 3 AUDIT C Alcohol Use Questionnaire (AUDIT-C) 1. How often do you have a drink containing alcohol?: Never 3. How often do you have six or more drinks on one occasion?: Never Total Score: 0 Score Reviewed/Action Taken: Yes ONSEIMO-7 AMB Questionnaire ONESIMO-7 Date ONESIMO - 7 assessed: 01/25/25 Feeling nervous, anxious, or on edge: 1 = Several days Not being able to stop or control worryin = Several days Worrying too much about different things: 1 = Several days Trouble relaxin = Several days Being so restless that it is hard to sit still: 0 = Not at all Becoming easily annoyed or irritable: 0 = Not at all Feeling afraid as if something awful might happen: 1 = Several days Total ONESIMO-7 score (0-4 normal; 5-9 mild; 10-14 moderate; 15-21 severe): 5 Source: Developed by Suri Burgos, Randall Euceda and colleagues, with an educational ines from [employer]. Review of Systems Const Denies chills, Denies fatigue, Denies fever(s), Denies headache(s) and Denies malaise Eyes Denies blurry vision, Denies change in vision, Denies irritation and Denies itchy eyes ENT Denies dysphagia, Denies dizziness, Denies otalgia, Denies headache(s), Denies nasal congestion, Denies neck pain, Denies odynophagia, Denies sinus pain and Denies sore throat Card Denies chest pain, Denies rapid heart rate, Denies irregular heart rhythm, Denies palpitations and Denies dyspnea Resp Denies chest congestion, Denies cough, Denies dyspnea and Denies wheezing GI Reports abdominal pain (on and off), Denies bloating, Denies constipation, Denies dysphagia, Denies heartburn, Denies diarrhea, Reports nausea (recurrent), Denies odynophagia and Denies vomiting Denies hematuria, Denies urinary frequency, Denies dysuria, Denies urinary incontinence and Denies urinary urgency Musc Reports back pain (over the lower back), Reports arthralgias (in both knees - chronic), Denies joint swelling, Denies muscle weakness and Denies neck pain Skin/Breast Denies breast pain, Denies breast mass, Denies change in pigmentation, Denies lesions, Denies rash and Denies unusual bruising Neuro Denies dizziness, Denies headache(s) and Denies paresthesias Psych Denies anxiety and Denies depression Endo Denies fatigue and Denies palpitations Portillo/Lymph Denies easy bruising Aller/Immun Denies itchy eyes and Denies wheezing Physical exam (Primary Care) Vital Signs: Last Vital Signs Pulse 88 01/25/25 08:58 BP 126/78 01/25/25 08:58 Pulse Ox 96 01/25/25 08:58 Oxygen Delivery Method Room Air 01/25/25 08:58 BMI result Body Mass Index 34.9 Tobacco/Smoking Status: Tobacco use Status Tobacco use date assessed 01/25/25 01/25/25 09:02 Patient Tobacco Use Status Never used Tobacco 01/25/25 09:02 e-Cigarette/Vaping Use Never Used 01/25/25 09:02 PHQ-9: PHQ-9 Score PHQ-9: Total score 7 07/28/25 09:50 Depression Screening Interpretation: Positive Depression Screening Follow-up: Existing condition and In treatment Thrive Assessment: Date of Thrive Assessment Date Thrive assessed 01/25/25 01/25/25 09:02 Currently or been in a relationship where the following occur: No concerns reported Const General: no acute distress, alert and awake Orientation/consciousness: patient oriented x3 HENMT Head: Yes normocephalic and Yes atraumatic Ears: external ears normal, TM's normal bilaterally and EAC's normal General nose exam: No nasal discharge present Face and sinus: Yes normal facial exam and Yes sinuses nontender Teeth and gingiva: dentition normal Throat: Yes posterior oropharynx normal and Yes tonsils normal (no TP congestion) Eyes Eyelids: Yes eyelids normal Conjunctivae: conjunctivae normal Pupils: Equal, round and reactive pupils present EOM: EOMs intact bilaterally Neck Neck: Yes supple and No lymphadenopathy Thyroid: Thyroid normal Resp Auscultation: clear to auscultation bilaterally, no rales and no wheezes Cardio Rate: regular rate Rhythm: regular rhythm Heart sounds: no murmurs GI Palpation (GI): Soft to palpation, Tenderness to palpation present (GI) (mild) in the epigastrum, no guarding, not rigid, No hepatosplenomegaly present and No Rebound tenderness present Auscultation: normal bowel sounds General: Yes no CVA tenderness Back/Spine/Pelvis Back: no CVA tenderness Thoracic/Lumbar Spine: lumbar spinal tenderness (mild) Skin Lesions: no lesions Rashes: no rashes Neuro General: patient oriented x3, moves all extremities, no focal motor deficits and CN's II-XI intact bilaterally Cranial nerves: Yes Equal, round and reactive pupils present Cognition (Neuro): normal cognition Gait exam (Neuro): Normal gait present Extrem General: Yes no clubbing, cyanosis or edema Right lower extremity: knee Details: tenderness; no swelling Left lower extremity: knee Details: tenderness; no swelling Coding Level of Care Code Est Pt Prev Care 40-64y(10096) Diagnoses Annual physical exam Z00.00 Coronary artery disease involving [place] coronary artery of [place] heart without angina pectoris I25.10 Coronary Disease-Associated Artery/Lesion type: [place] artery [place] vs. 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 K95.89 Multiple gastric erosions, unspecified ulcer chronicity K25.9 Gastric ulcer chronicity: unspecified ulcer chronicity Iron deficiency anemia, unspecified iron deficiency anemia type D50.9 Iron deficiency anemia type: unspecified iron deficiency Bilateral primary osteoarthritis of knee M17.0 Painful arc syndrome of right shoulder M75.101 Migraine without status migrainosus, not intractable, unspecified migraine type G43.909 Migraine type: unspecified Status migrainosus presence: without status migrainosus Intractability: not intractable Vitamin D deficiency E55.9 Obesity (BMI 30-39.9) E66.9 Osteoporosis screening Z13.820 Colon cancer screening Z12.11 Breast cancer screening by mammogram Z12.31 Additional Codes PHQ-9 - 26077 - PHQ-9 Billing: Yes ([id number]) Assessment & Plan Assessment & Plan (1) Annual physical exam: Code(s): Z00.00 - Encounter for general adult medical examination without abnormal findings Category: Medical Plan: Check labs LAURO to complete her annual exam today She declined referral for her yearly pap smear and gynecology exam She will be due for her annual mammography in March 2025 She had a negative Cologuard test done back in March 2022 and is now due for repeat (2) CAD (coronary artery disease): Comment: cardiac catheterization - PCI to RCA (02/19/24) and staged PCI of LAD (03/19/2024) - Dr. Kumar Code(s): I25.10 - Atherosclerotic heart disease of [place] coronary artery without angina pectoris Category: Medical Qualifiers: Coronary Disease-Associated Artery/Lesion type: [place] artery [place] vs. transplanted heart: [place] heart Associated angina: without angina Qualified Code(s): I25.10 - Atherosclerotic heart disease of [place] coronary artery without angina pectoris Plan: S/P STEMI in January 2024 and subsequent coronary angiography resulting in PCI to RCA first on 02/19/2024, followed by staged PCI of the LAD recently on 03/19/2024 Continue aggressive risk factor modification according to ATP III guidelines Continue Aspirin 81 mg QD (after undergoing aspirin desensitization at the CCU at [facility]) and Ticagrelor 90 mg BID for at least 12 months following PCI She also underwent cardiac rehab, which she states has helped a lot Follow up with cardiology as scheduled (3) Asthma-COPD overlap syndrome: Code(s): J44.9 - Chronic obstructive pulmonary disease, unspecified Category: Medical Plan: Continue Breo Ellipta 200-25 mcg 1 inhalation QD, INcruse Ellpitoa 62.5 mcg 1 inhalation QD, Montelukast 10 mg Q PM, Daliresp 500 mcg QD and Levalbuterol inhaler 1 to 2 inhalations Q 6 hours PRN She also has Albuterol inhalation via nebulization Q 6 hours PRN that she is to use in place of her Levalbuterol inhaler when she is able to Follow up with pulmonary as scheduled (4) Chronic allergic rhinitis: Code(s): J30.9 - Allergic rhinitis, unspecified Category: Medical Plan: Continue Montelukast 10 mg QD and Loratadine 10 mg QD PRN Continue Fluticasone 50 mcg nasal spray QD PRN for increased allergy symptoms (5) 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 Rondon and was advised that her gastric pouch has herniated above the diaphragm and that the only way this can be corrected would be through surgical means She was advised that losing weight may help somewhat and was advised to speak to her PCP about medications that can help her lose weight as she has clearly failed bariatric surgery We previously tried starting her on Wegovy 0.25 mg SQ once a week but her insurance would not approve the Rx (6) Multiple gastric erosions: Code(s): K25.9 - Gastric ulcer, unspecified as acute or chronic, without hemorrhage or perforation Category: Medical Qualifiers: Gastric ulcer chronicity: unspecified ulcer chronicity Qualified Code(s): K25.9 - Gastric ulcer, unspecified as acute or chronic, without hemorrhage or perforation Plan: EGD also revealed (+) multiple small erosions on the jejunal side of her previous gastrojejunostomy site, with one of them bleeding recently but is no longer actively bleeding at the time of her procedure Continue Omeprazole 40 mg BID Follow up with GI as scheduled Can consider switching her to Vo[place] if her symptoms do not improve significantly on high-dose PPI Tx (7) Iron deficiency anemia: Code(s): D50.9 - Iron deficiency anemia, unspecified Category: Medical Qualifiers: Iron deficiency anemia type: unspecified iron deficiency Qualified Code(s): D50.9 - Iron deficiency anemia, unspecified Plan: She is currently still receiving IV iron infusions from hematology Will continue to monitor her CBC regularly - her CBC done over the past week came out normal Follow up with hematology as scheduled She was previously referred to GI for consideration for colonoscopy but she declined the procedure and had a Cologuard test done in 2021 instead, which came out negative (8) Bilateral primary osteoarthritis of knee: Code(s): M17.0 - Bilateral primary osteoarthritis of knee Category: Medical Plan: X-rays of the left knee done in March 2019 showed (+) mild OA changes there was similar to findings on x-rays back in 2015 Repeat left knee x-rays done a few months ago again showed the same findings Right knee x-rays done in the past have also revealed (+) OA changes in the knee Continue Tramadol 50 mg 2 to 3 times a day as needed for pain; she was on Naproxen previously but this was stopped due to her recent SC Follow-up with Orthopedics as scheduled (9) Painful arc syndrome of right shoulder: Code(s): M75.101 - Unspecified rotator cuff tear or rupture of right shoulder, not specified as traumatic Category: Medical Plan: X-rays of the shoulder done a few months ago came back negative She has been seen by orthopedics for this a few months ago but she declined offer for cortisone injection (had one done before that did not help) and referral for physical therapy Continue Lidocaine patches QD PRN Follow up with orthopedics as scheduled (10) Migraines: Code(s): G43.909 - Migraine, unspecified, not intractable, without status migrainosus Category: Medical Qualifiers: Migraine type: unspecified Status migrainosus presence: without status migrainosus Intractability: not intractable Qualified Code(s): G43.909 - Migraine, unspecified, not intractable, without status migrainosus Plan: Continue Sumatriptan 50 mg PRN and Fioricet 1 tablet 3 to 4 times a day as needed Reinforced avoidance of migraine triggers - patient states that her migraine headaches have been stable lately Follow up with neurology as scheduled (11) Vitamin D deficiency: Code(s): E55.9 - Vitamin D deficiency, unspecified Category: Medical Plan: Continue Vitamin D2 36438 units once a week (12) Obesity (BMI 30-39.9): Comment: S/P gastric bypass Code(s): E66.9 - Obesity, unspecified Category: Medical Plan: Reinforced diet; exercise and weight loss are impractical given patient's physical issues (13) Osteoporosis screening: Code(s): Z13.820 - Encounter for screening for osteoporosis Category: Medical Plan: Will send patient for BMD for osteoporosis screening (14) Colon cancer screening: Code(s): Z12.11 - Encounter for screening for malignant neoplasm of colon Category: Medical Plan: She had a negative Cologuard back in 2021 and is now due for repeat Cologuard testing - ordered (15) Breast cancer screening by mammogram: Code(s): Z12.31 - Encounter for screening mammogram for malignant neoplasm of breast Category: Medical Plan: She will be due for annual mammogram in March 2025 - ordered Plan Follow up in 4 months Orders: Orders XR DEXA axial skeleton 01/25/25 Z78.0 - Asymptomatic menopausal state Comprehensive [place]. Panel Fast 01/25/25 E78.00 - Pure hypercholesterolemia, unspecified, Z00.00 - Encounter for general adult medical examination without abnormal findings UA CC w/rflx Micro + Cult 01/25/25 R30.0 - Dysuria, Z00.00 - Encounter for general adult medical examination without abnormal findings Vitamin B12 and Folate 01/25/25 E53.8 - Deficiency of other specified B group vitamins, Z00.00 - Encounter for general adult medical examination without abnormal findings MM tomosynthesis screening BI 03/31/25 Z12.31 - Encounter for screening mammogram for malignant neoplasm of breast Complete Blood Count Auto Diff 01/25/25 D64.9 - Anemia, unspecified, Z00.00 - Encounter for general adult medical examination without abnormal findings Lipid Panel 01/25/25 E78.00 - Pure hypercholesterolemia, unspecified, Z00.00 - Encounter for general adult medical examination without abnormal findings TSH reflex Free T4 01/25/25 E78.00 - Pure hypercholesterolemia, unspecified, Z00.00 - Encounter for general adult medical examination without abnormal findings Vitamin D 25-OH Total 01/25/25 E55.9 - Vitamin D deficiency, unspecified, Z00.00 - Encounter for general adult medical examination without abnormal findings Referrals Cologuard Test Z12.11 - Encounter for screening for malignant neoplasm of colon Medications: New [TENS unit] As directed 1 ea 0RF M53.3 - Sacrococcygeal disorders, not elsewhere classified, M54.50 - Low back pain, unspecified, G89.29 - Other chronic pain [ROLLATOR] As directed 1 ea 0RF M54.16 - Radiculopathy, lumbar region, M53.3 - Sacrococcygeal disorders, not elsewhere classified, M17.12 - Unilateral primary osteoarthritis, left knee, M54.50 - Low back pain, unspecified, G89.29 - Other chronic pain Changed From [BACK BRACE] As directed 1 ea 0RF low back pain M54.5 - Low back pain To [BACK BRACE] As directed 1 ea 0RF low back pain M54.5 - Low back pain
[2025-01-25 08:58] VITALS: BP 126/78; PULSE 88; O2SAT 96; BMI 34.9
--- OUTSIDE RECORDS SUMMARY | 2025-01-25 09:24 | XMS_ITS | Encounter Summary ---
Author Organization [facility] Address [address] [place] [address] Care Team Providers Care Cardiac Rn Name Role Phone Arnoldo Powers MD Primary Care Provider Norris Ignacio MD Primary Care Provider Unavailabl e Encounter Details Date Type Department Care Team Description 06/12/2018 Telephone Internal Medicine - [address], [address] [place] [address] Drew Broussard MD Social History Tobacco Use [...] I told her everything was sent to [facility]. I gave her number to call [facility]. * Telephone Encounter - Deyanira Holley - 06/12/2018 10:56 AM EST Patient called today inquired when she will receive the nebulizer machine? A request was sent to [facility] 06/04/18. PLEASE check into and contact patient. documented in this encounter Plan of Treatment Not on file documented as of this encounter Visit Diagnoses Not on filedocumented in this encounter Care Teams Cardiac Rn Relationship Specialty Start Date End Date Arnoldo Powers MD PCP - General Internal Medicine 10/02/17 08/31/18 Norris Roe MD PCP - General Internal Medicine 09/01/18 documented as of this encounter
== END 2025-01-25 10:13 | disposition home or self-care (01) ==
LOC: HO.HMCH 08:51
PROVIDERS: Visit Provider Internal Medicine
DX: Z00.00 Encounter for general adult medical examination without abnormal findings (principal); I25.10 Atherosclerotic heart disease of native coronary artery without angina pectoris; J44.9 Chronic obstructive pulmonary disease, unspecified; J30.9 Allergic rhinitis, unspecified; K95.89 Other complications of other bariatric procedure; K25.9 Gastric ulcer, unspecified as acute or chronic, without hemorrhage or perforation; D50.9 Iron deficiency anemia, unspecified; M17.0 Bilateral primary osteoarthritis of knee; M75.101 Unspecified rotator cuff tear or rupture of right shoulder, not specified as traumatic; G43.909 Migraine, unspecified, not intractable, without status migrainosus; E55.9 Vitamin D deficiency, unspecified; E66.9 Obesity, unspecified; Z13.820 Encounter for screening for osteoporosis; Z12.11 Encounter for screening for malignant neoplasm of colon; Z12.31 Encounter for screening mammogram for malignant neoplasm of breast

== ENCOUNTER → 2025-01-25 08:49 | Outpatient (BNVA) | payer OTHER, SELFPAY | PROVIDERS: Visit Provider Internal Medicine | DX: Z00.00 Encounter for general adult medical examination without abnormal findings (principal); R11.0 Nausea; R10.9 Unspecified abdominal pain; M54.50 Low back pain, unspecified; I25.10 Atherosclerotic heart disease of native coronary artery without angina pectoris; J44.9 Chronic obstructive pulmonary disease, unspecified; J30.9 Allergic rhinitis, unspecified; K95.89 Other complications of other bariatric procedure; K25.9 Gastric ulcer, unspecified as acute or chronic, without hemorrhage or perforation; D50.9 Iron deficiency anemia, unspecified; M17.0 Bilateral primary osteoarthritis of knee; M75.101 Unspecified rotator cuff tear or rupture of right shoulder, not specified as traumatic; G43.909 Migraine, unspecified, not intractable, without status migrainosus; E55.9 Vitamin D deficiency, unspecified; E66.9 Obesity, unspecified; Z68.34 Body mass index [BMI] 34.0-34.9, adult | CPT/HCPCS: 96127; 99396 ==

== ENCOUNTER 2025-02-06 12:23 | Outpatient (AMB) | payer OTHER, SELFPAY ==
[2025-02-06 12:54] VITALS: BP 126/78; PULSE 94; RESP 18; TEMP 36.7; O2SAT 94; BMI 34.8
--- NOTE | 2025-02-06 12:54 | AM.OFFWIN_ITS ---
Intake Vital Signs 02/06/25 12:54 Height 5 ft Weight 178 lb BMI 34.8 BP 126/78 Blood Pressure Location Rt radial Position Sitting Respiration 18 Pulse 94 Pulse Source Pulse Oximeter Temp 98.0 F Temp Source Oral Pulse Oximetry (%) 94 Oxygen Delivery Method Room Air Intake Visit Reasons: EP-fell home yesterday, injured arms and lt leg Intake Note: Pt is here today for a walk in visit. Pt states that she fell down the stairs at home yesterday and she injured her arms and L leg. Patient Tobacco Use Status: Never used Tobacco Allergies aspirin (ASA) Allergy (Severe, Verified 02/12/25 10:42) ITCHINESS, rash Penicillins (PENICILLINS) Allergy (Severe, Verified 02/12/25 10:42) ANAPHYLAXIS shellfish derived Allergy (Severe, Verified 02/12/25 10:42) ANAPHYLAXIS sumatriptan (From IMITREX) Allergy (Unknown, Verified 02/12/25 10:42) ANAPHYLAXIS, VOMITING, vomiting, dyspnea metoclopramide Allergy (Verified 02/12/25 10:42) Redness of Skin HPI EP-fell home yesterday, injured arms and lt leg HPI Details Patient is a 59-year-old female who reports that she fell down her stairs at home yesterday, complains of pain to her arms and her leg. Pt is here today for a walk in visit. Pt states that she fell down the stairs at home yesterday and she injured her arms and Left leg, and acquired multiple bruises. She reports that she has chronic low back/SI pain and that her legs gave out on her due to her pain level, causing her to slide down the stairs on her back, and she struck her arms and leg. Apparently shows severe degenerative disc disease and SI joint pain, and sees [facility] for this. She is doing physical therapy, and was supposed to be prescribed a 10s unit as well as a pelvic brace, however insurance has not covered it yet, and she is requesting prescription for this today. Her back pain is baseline for her, and she reports the and leg inju brain as more sore. No numbness and tingling or weakness worse than normal. She denies striking her head, head injury, neck pain, or other trauma. [facility] Medical History (Updated 02/12/25 @ 11:04 by Amina Olivier MD) Nausea and vomiting Acute respiratory disease STEMI (ST elevation myocardial infarction) Atypical pneumonia Left hip pain Obesity (BMI 30-39.9) Osteoarthritis Low back pain Multiple gastric erosions Bronchitis Conjunctival hemorrhage of left eye CAD (coronary artery disease) Osteoarthritis of left knee Severe allergic reaction Edema Postprandial vomiting Postprandial nausea Primary osteoarthritis of left knee GERD without esophagitis Vitamin D deficiency Chronic allergic rhinitis Asthma-COPD overlap syndrome Migraines Anemia Kidney stones Asthma Surgical History S/P cardiac catheterization H/O heart artery stent Hx of gastric bypass (~2006) Hx of ventral hernia repair History of bilateral tubal ligation H/O section Hx of rotator cuff surgery (~2016) H/O abdominoplasty History of renal stent Family History Father History of heart surgery Hx of blood clots Mother Heart problem Paternal Grandfather Skin cancer Social History Household Members: Children Housing: Apartment Are you a primary pet care attendant to a significant other at home: No Do you presently have visiting nurse or other home services: No Alcohol intake: current Alcohol intake frequency: a few times a month Alcohol type: wine Patient Tobacco Use Status: Never used Tobacco e-Cigarette/Vaping Use: Never Used Second Hand Smoke Exposure: No service: No Current occupational status: unemployed Cognitive needs: No Hearing needs: No Vision needs: No Review of Systems Const All systems reviewed & are unremarkable except as noted in HPI and below Physical Exam Vital Signs: Last Vital Signs Temp 98.0 F 02/06/25 12:54 Pulse 94 02/06/25 12:54 Resp 18 02/06/25 12:54 BP 126/78 02/06/25 12:54 Pulse Ox 94 02/06/25 12:54 Oxygen Delivery Method Room Air 02/06/25 12:54 BMI result Body Mass Index 34.8 Extrem Other: Lateral aspect Mid humerus ecchymosis, mildly tender to palpation but no bony tenderness knee without deformity, similar to ecchymosis on bilateral legs. Neurovascularly intact distally to all 4 extremities, with good range of motion and strength. Assessment & Plan Assessment & Plan (1) Fall: Code(s): W19.XXXA - Unspecified fall, initial encounter Qualifiers: Encounter type: initial encounter Qualified Code(s): W19.XXXA - Unspecified fall, initial encounter Plan Patient is a 59-year-old female with history of multiple multiple comorbidities as well as coronary artery disease, osteoarthritis, and degenerative disc disease, who slid down her stairs yesterday, requiring multiple contusions to her left arm and bilateral legs. She has no bony tenderness and ambulates without more difficulty than baseline. X-rays consider, but patient declined. She requests prescription for TENS unit, which I will write for today. She should follow up with ortho and continue her PT, although she should go gently until these versus heel. Medications: New TENS units As directed Dx: Chronic Lumbrosacral Pain/debilitating DDD 1 ea 0RF Coding Level of Care Code Est Pt Level 4 (57399) Diagnoses Fall, initial encounter W19.XXXA Encounter type: initial encounter
== END 2025-02-06 13:39 | disposition home or self-care (01) ==
LOC: HO.HMCWIC 12:23
PROVIDERS: PCP Internal Medicine; Visit Provider Physician Assistant Medical
DX: S40.022A Contusion of left upper arm, initial encounter (principal); S80.11XA Contusion of right lower leg, initial encounter; S80.12XA Contusion of left lower leg, initial encounter; W19.XXXA Unspecified fall, initial encounter

== ENCOUNTER → 2025-02-06 12:23 | Outpatient (BNVA) | payer OTHER, SELFPAY | PROVIDERS: PCP Internal Medicine; Visit Provider Physician Assistant Medical | DX: M53.3 Sacrococcygeal disorders, not elsewhere classified (principal); S40.022A Contusion of left upper arm, initial encounter; S80.12XA Contusion of left lower leg, initial encounter; S80.11XA Contusion of right lower leg, initial encounter; W10.9XXA Fall (on) (from) unspecified stairs and steps, initial encounter; Y93.9 Activity, unspecified; Y92.9 Unspecified place or not applicable; Y99.9 Unspecified external cause status | CPT/HCPCS: 99212 ==

== ENCOUNTER 2025-02-12 08:44 | Outpatient (RCR) | payer OTHER, SELFPAY ==
--- NOTE | 2025-01-15 13:57 | MHC.PT.EP ---
[facility] [place] [facility] [place] [facility] [place] Office [address] Micheal Chowdhury [address] [phone] F: [phone] F: [phone] F: [phone] F: [phone] Physical Therapy Plan of Care Date of Evaluation: 01/15/25 Date of Surgery: Diagnosis: low back pain, sacrococcygeal disorders (MD Dx) RS X-ray: Multilevel spondylosis with a levoconvex curvature apex at L3. Grade 1 retrolisthesis L4-5 Assessment: Any Ortiz : 63 is a pleasant 59 y.o. female who is referred to PT by Dr. Amina Olivier MD, with Dx of low back pain, sacrococcygeal disorders. Her x-ray image of lumbar spine indicates, Multilevel spondylosis with a levoconvex curvature apex at L3. Grade 1 retrolisthesis L4-5. Patient impairments include sedentary lifestyle with decreased activity tolerance with recent STEMI with stent placement, limited lumbar, hip and knee ROM, bilateral LE weakness, pain in low back, knees, very weak in core/abdominal musculature with history of hernia surgeries. Patient current functional limitations are bending/squatting, stair use is challenging, long distance walking, prolonged standing, cooking, lower body dressing, sleeps in recliner. Patient will benefit from skilled PT to address aforementioned impairments and functional limitations to meet established goals. Frequency and Duration: The patient will be seen 1-2x/week for 4 weeks Short Term Goals: 2 weeks Patient demonstrates consistency and independence with HEP to self manage symptoms. Longterm Goals: 4 weeks Patient presents with increased bilateral hip flexion strength 4/5 to be able to bend/squat to low chair/surfaces. Patient presents with increased lumbar flexion AROM 60 degrees to be able to perform lower body dressing independently. Treatment Plan: Modalities to reduce pain, spasms and effusion. Manual therapy to restore motion and function. Therapeutic exercise to improve strength and flexibility. Neuromuscular re-education for posture and balance. Therapeutic activities to return to functional activities of daily living. Electronically signed by: Mario Heredia, PT, DPT Please sign and return to therapist. Thank you for your referral.
--- NOTE | 2025-03-19 10:20 | MHC.PT.DC ---
[facility] [place] Office [place] Office [place] Office [address] Micheal Chowdhury [address] [phone] F: [phone] F: [phone] F: [phone] F: [phone] Physical Therapy Discharge Report Diagnosis: low back pain, sacrococcygeal disorders (MD Acevedo) RS X-ray: Multilevel spondylosis with a levoconvex curvature apex at L3. Grade 1 retrolisthesis L4-5 Date of Surgery: Date of Evaluation: 01/15/25 Date of Discharge: 03/19/25 Treatments to Date: 3 Cancellations to Date: 1 No Shows to Date: 1 Discharge Status: Patient Elected to Stop Discharge Summary: Any was last seen in PT on 02/12/25 and the assessment on that date reads, Any is only able to do minimum, modified exercises due to pain, symptoms, and bruising on L side of shoulder, and LE. She can complete 2 sets of most seated exercises. Any does not want to continue with more PT as she wants to focus more on her comorbidities and other health concerns, especially her GI symptoms. I encourage continued HEP as she can tolerate daily to maintain and gain strength in major muscle groups of LEs and try seated core exercises to help low back. She is discharged from PT. Electronically signed by: Mario Heredia, PT, DPT Please sign and return to therapist. Thank you for your referral.
== END 2025-03-19 10:20 | disposition home or self-care (01) ==
LOC: HO.PT 08:44
PROVIDERS: PCP Internal Medicine; Visit Provider Physical Medicine & Rehabilitation
DX: M54.50 Low back pain, unspecified (principal); G89.29 Other chronic pain; M53.3 Sacrococcygeal disorders, not elsewhere classified
CPT/HCPCS: 97110; 97162; 97530; 97535

== ENCOUNTER 2025-02-12 10:27 | Outpatient (AMB) | payer OTHER, SELFPAY ==
[2025-02-12 10:39] VITALS: BMI 34.8
--- NOTE | 2025-02-12 10:39 | A.OFFVIS_ITS ---
Vital Signs 02/12/25 10:39 Height 5 ft Weight 178 lb BMI 34.8 Intake Visit Reasons: OV-Lower back pain 3 month follow up Intake Note: Any 59 yr old setswana speaking female presents today for her Chronic bilateral low back pain 3 month follow up visit. States she had a fall about 1 week ago and rolled down a flight of stairs due to her knee giving out. States she would like to have a rx for a back brace. School Program Director Name: Jordana TRINH/ZOIE Allergies aspirin (ASA) Allergy (Severe, Verified 02/12/25 10:42) ITCHINESS, rash Penicillins (PENICILLINS) Allergy (Severe, Verified 02/12/25 10:42) ANAPHYLAXIS shellfish derived Allergy (Severe, Verified 02/12/25 10:42) ANAPHYLAXIS sumatriptan (From IMITREX) Allergy (Unknown, Verified 02/12/25 10:42) ANAPHYLAXIS, VOMITING, vomiting, dyspnea metoclopramide Allergy (Verified 02/12/25 10:42) Redness of Skin HPI Comments Details: Says almost all her life she's had back pain, across the back, to both sides. Sometimes would have numbness on the calves, especially with sitting or laying down on bed. With walking, knee could give out. She does follow with ortho for knee pain. Continues to have lower back pain. Xrays did show arthritic changes lumbar and hip. Treatment done so far: no recent imaging since 2022 no recent PT - patient went, but has other medical issues that prevented her from going does not want any injections She is asking for TENS and brace. She has been using topical for her foot/leg and has been helping. She had a recent fall, seen in walk-in clinic. [facility] Medical History (Updated 02/12/25 @ 11:04 by Amina Olivier MD) Nausea and vomiting Acute respiratory disease STEMI (ST elevation myocardial infarction) Atypical pneumonia Left hip pain Obesity (BMI 30-39.9) Osteoarthritis Low back pain Multiple gastric erosions Bronchitis Conjunctival hemorrhage of left eye CAD (coronary artery disease) Osteoarthritis of left knee Severe allergic reaction Edema Postprandial vomiting Postprandial nausea Primary osteoarthritis of left knee GERD without esophagitis Vitamin D deficiency Chronic allergic rhinitis Asthma-COPD overlap syndrome Migraines Anemia Kidney stones Asthma Surgical History S/P cardiac catheterization H/O heart artery stent Hx of gastric bypass (~2006) Hx of ventral hernia repair History of bilateral tubal ligation H/O section Hx of rotator cuff surgery (~2016) H/O abdominoplasty History of renal stent Family History Father History of heart surgery Hx of blood clots Mother Heart problem Paternal Grandfather Skin cancer Social History Household Members: Children Housing: Apartment Are you a primary career and transition teacher to a significant other at home: No Do you presently have visiting nurse or other home services: No Alcohol intake: current Alcohol intake frequency: a few times a month Alcohol type: wine Patient Tobacco Use Status: Never used Tobacco e-Cigarette/Vaping Use: Never Used Second Hand Smoke Exposure: No service: No Current occupational status: unemployed Cognitive needs: No Hearing needs: No Vision needs: No Physical Exam Vital Signs: BMI result Body Mass Index 34.8 Constitutional: Patient appears to be in no acute distress, well nourished and well developed. Patient was appropriately conversant and oriented. Good historian. MSK: No specific abnormalities found on inspection of the spine and all extremities. Appeared more comfortable today, better mobility today. Although diffuse tenderness on lower back. Lumbar ROM was full. Neurological: No profound weakness. But difficulty with getting up due to pain. Cosby?s negative bilaterally. Babinski was down going bilaterally. Clonus was negative. Gait is non antalgic without loss of balance. No assistive device. Results Reviewed Results Reviewed: Ordering Physician: Amina Rodriguez Date of Service: 12/25/24 Procedure(s): XR lumbar spine 2-3V Accession Number(s): [id number] cc: Arnoldo Powers MD; Amina Rodriguez~ EXAMINATION: XR LUMBOSACRAL SPINE CLINICAL INFORMATION: M54.9 - Dorsalgia, unspecified COMPARISON: February 01, 2023 TECHNIQUE: AP and lateral views FINDINGS: Levoconvex curvature apex at L3. Multilevel marginal osteophyte formation and endplate sclerosis. Facet joint hypertrophy, L5-S1. Grade 1 retrolisthesis L4-5. Decreased intervertebral disc height at L5-S1. No lytic or blastic lesions. Metallic coils in a circumferential fashion overlapping the mid abdomen. Vascular clips in the left upper abdomen. XR/XR lumbar spine 2-3V IMPRESSION: Multilevel spondylosis with a levoconvex curvature apex at L3. Grade 1 retrolisthesis L4-5. Ordering Physician: Amina Rodriguez Date of Service: 12/25/24 Procedure(s): XR hip LT min 2V Accession Number(s): [id number] cc: Arnoldo Powers MD; Amina Rodriguez~ EXAMINATION: XR HIP, LEFT CLINICAL INFORMATION: M16.12 - Unilateral primary osteoarthritis, left hip COMPARISON: December 27, 2022. TECHNIQUE: Two views of the left hip. FINDINGS: No acute cortical disruption or malalignment. Mild sclerosis along the articular surface of the left acetabulum. No lytic or blastic lesions. No gross volume loss. Prominent left transverse processes of L5 articulating with S1. Mild degenerative changes in the symphysis pubis. XR/XR hip LT min 2V IMPRESSION: Mild osteoarthrosis without acute fracture or dislocation, left hip. Assessment & Plan Assessment & Plan (1) Lumbar back pain with radiculopathy affecting left lower extremity: Code(s): M54.16 - Radiculopathy, lumbar region Category: Medical (2) Lumbar spondylosis: Code(s): M47.816 - Spondylosis without myelopathy or radiculopathy, lumbar region Category: Medical Plan She defers any referral for injection. She would rather have a new back brace and TENS unit. Orders written and given to patient. She can also continue diclofenac gel. Prescription sent. Assessment and plan discussed with patient, and patient was agreeable. All questions were answered thoroughly. She has a follow up scheduled at the end of March. Amina Olivier MD, ARON Board Certified, [place] [employer] and [employer] (ABPMR) Board Certified, [place] [employer] (ABEM) Medications: New TENS unit electrodes As directed permanent condition 1 ea 0RF M47.816 - Spondylosis without myelopathy or radiculopathy, lumbar region, M54.16 - Radiculopathy, lumbar region back brace As directed 1 ea 0RF M47.816 - Spondylosis without myelopathy or radiculopathy, lumbar region, M54.16 - Radiculopathy, lumbar region TENS unit electrodes As directed permanent condition 1 ea 0RF M47.816 - Spondylosis without myelopathy or radiculopathy, lumbar region, M54.16 - Radiculopathy, lumbar region back brace As directed 1 ea 0RF M47.816 - Spondylosis without myelopathy or radiculopathy, lumbar region, M54.16 - Radiculopathy, lumbar region Refilled diclofenac sodium 3% 1 appl topical BID 100 grams 6RF 90 days Coding Level of Care Code Est Pt Level 4 (30291) Diagnoses Lumbar back pain with radiculopathy affecting left lower extremity M54.16 Lumbar spondylosis M47.816
== END 2025-02-12 11:11 | disposition home or self-care (01) ==
LOC: HO.HOS 10:27
PROVIDERS: PCP Internal Medicine; Visit Provider Physical Medicine & Rehabilitation
DX: M54.16 Radiculopathy, lumbar region (principal); M47.816 Spondylosis without myelopathy or radiculopathy, lumbar region
CPT/HCPCS: 99214

== ENCOUNTER → 2025-02-12 10:27 | Outpatient (BNVA) | payer OTHER, SELFPAY | PROVIDERS: PCP Internal Medicine; Visit Provider Physical Medicine & Rehabilitation | DX: M54.50 Low back pain, unspecified (principal); M16.12 Unilateral primary osteoarthritis, left hip; M47.816 Spondylosis without myelopathy or radiculopathy, lumbar region; M54.16 Radiculopathy, lumbar region | CPT/HCPCS: 99212 ==

== ENCOUNTER 2025-03-23 08:16 | Outpatient (AMB) | payer OTHER, SELFPAY ==
--- NOTE | 2025-03-23 08:19 | MHC.OFFVIS ---
Vital Signs 03/23/25 08:20 Height 5 ft Weight 181 lb 14.102 oz BMI 35.5 BP 120/80 Blood Pressure Location Lt radial Position Sitting Pulse 75 Pulse Source Pulse Oximeter Pulse Oximetry (%) 97 Oxygen Delivery Method Room Air Intake Visit Reasons: Asthma Accompanied by: Self / Same As Patient Allergies aspirin (ASA) Allergy (Severe, Verified 03/23/25 08:24) ITCHINESS, rash Penicillins (PENICILLINS) Allergy (Severe, Verified 03/23/25 08:24) ANAPHYLAXIS shellfish derived Allergy (Severe, Verified 03/23/25 08:24) ANAPHYLAXIS sumatriptan (From IMITREX) Allergy (Unknown, Verified 03/23/25 08:24) ANAPHYLAXIS, VOMITING, vomiting, dyspnea metoclopramide Allergy (Verified 03/23/25 08:24) Redness of Skin HPI Comments Details: The patient has a 59 y/o woman with a history of asthma COPD overlap syndrome. Still complaining of worsening cough. Currently on Spiriva and also Flovent. Still requiring short-acting beta agonist on a daily basis. She has tried Symbicort in the past that was not effective. She does complains of a postnasal drip and nasal congestion. Current having allergy symptoms. We did perform allergy testing which was abnormal. The patient could not receive allergy shots due to her significant symptoms. She was started on trelegy inhaler which appears to be very effective for her. She still has a rescue inhaler that she uses 2 to 3 times a week. Her cough is better shortness of breath is better. She has failed multiple inhalers: Advair, symbicort, flovent and Spiriva. 12/07/2022 the patient is here for pulmonary follow-up visit. She continues to do relatively well. She is still grieving the loss of her son. She has been on the Incruse and the Breo although is hard for her to keep up with the inhalers. I do believe she would do better on Trelegy inhaler. I will send that to her pharmacy. She also has been having increasing respiratory symptoms she has not been able to get her Daliresp. She had been on Daliresp for many years with very good effect. The patient does need to go back on it. I will send another prescription to the pharmacy. She continues to take her allergy medicine with good effect. Still has some shortness of breath with activity. 07/23/2023 the patient is here for a pulmonary follow-up visit. Overall the patient has been doing well currently on Breo and Incruse. She finally got the Daliresp improved. The Daliresp has been a very affecting beneficial for her. She will continue to use that on a daily basis. She did have 1 exacerbation back in May which she needed prednisone. Otherwise she has been without any prednisone requirements. She does have a rescue inhaler that she rarely uses typically less than twice a week. She did get back from a trip to the [facility]. While she was there she did have increased asthma symptoms due to some of the fumes that she was exposed to in her trip. But otherwise not bad and not require any additional therapies. No recent imaging studies to review. The patient follow-up in 6-8 months. The patient has any issues prior to that she will call for an earlier assessment. 02/07/2024 the patient is here for sick visit. She has been sick now for about 2 weeks. She started developing UR like symptoms. She tested negative for COVID. Has had worsening cough. With chest congestion. Also has some increased wheezing and chest tightness. She has been using her nebulizer. She does have some wheezing on examination today. Also complains of some ear discomfort. Primarily the left ear. Otherwise she continues use her respiratory therapy. She has been also complaining of some nausea. Will go ahead and treat her for bronchitis with an asthma exacerbation at this time. In the meantime she also responds well to Daliresp. She has been on Daliresp for some time with very good effect. Therefore will have her continue the Daliresp for this time. Once she is under biologics will look to simplify her respiratory regimen. 09/15/2024 the patient is here for a pulmonary follow-up visit. Since we last spoke she started developing chest discomfort she went to the [facility] ER where she was found to have abnormal findings on studies. Also to note the patient did have a CTA done back in 02/18/2024 which I personally reviewed demonstrating some areas of atelectasis. Therefore she was transferred to [facility] which she underwent cardiac catheterization. The patient has stent placed in March and then she required another stent in March. She could not perform cardiac rehab because she has underlying abdominal hernias. She has been recovering well. She has been tolerating her medications. She was told not to take prednisone because of her cardiac condition. She has continued to use her respiratory inhaler. Although she is using all her inhalers she continues to have shortness of breath and dyspnea and wheezing. [id number] severity. Will going add Singulair again to her regimen because spring is coming in allergies. I emphasized to her that this will not affect her cardiac status. Overall the patient is doing well will continue with current respiratory measuring and will follow-up in 6 months. 03/23/2025 the patient is here for pulmonary follow-up visit. She is struggling with her asthma. He has been having more asthma flare-ups. Significant shortness of breath and chest tightness. She can not handle steroids because of significant tachyarrhythmias. She is already struggling with that at this time. She does take all the allergy medicines with minimal effect. She takes her Symbicort as prescribed. Without any significant improvement. She does have a significantly eosinophil level and also could also have an IgE level elevated. She will benefit from biologic therapy. Will go ahead and request blood work at this time and then start him biologic therapy to stabilize her symptoms. In the meantime she is going to continue with all other allergy medicine as prescribed. The patient is also having chest congestion. Moderate severity. She has been expectorating coughing more regularly. She did have a barium swallow at [facility] demonstrating a large hiatal hernia with likely a stricture. She was referred for an EGD. In the meantime will start on azithromycin Saturday for promotility benefits and also to treat her bronchitis. Will do this just withdrawal for a month. Then she can stop it. [facility] Medical History (Updated 03/23/25 @ 20:08 by Drew Broussard MD) Nausea and vomiting Acute respiratory disease STEMI (ST elevation myocardial infarction) Atypical pneumonia Left hip pain Obesity (BMI 30-39.9) Osteoarthritis Low back pain Multiple gastric erosions Bronchitis Conjunctival hemorrhage of left eye CAD (coronary artery disease) Osteoarthritis of left knee Severe allergic reaction Edema Postprandial vomiting Postprandial nausea Primary osteoarthritis of left knee GERD without esophagitis Vitamin D deficiency Chronic allergic rhinitis Asthma-COPD overlap syndrome Migraines Anemia Kidney stones Asthma Surgical History S/P cardiac catheterization H/O heart artery stent Hx of gastric bypass (~2006) Hx of ventral hernia repair History of bilateral tubal ligation H/O section Hx of rotator cuff surgery (~2016) H/O abdominoplasty History of renal stent Family History Father History of heart surgery Hx of blood clots Mother Heart problem Paternal Grandfather Skin cancer Social History Household Members: Children Housing: Apartment Are you a primary home health care worker to a significant other at home: No Do you presently have visiting nurse or other home services: No Alcohol intake: current Alcohol intake frequency: a few times a month Alcohol type: wine Patient Tobacco Use Status: Never used Tobacco e-Cigarette/Vaping Use: Never Used Second Hand Smoke Exposure: No service: No Current occupational status: unemployed Cognitive needs: No Hearing needs: No Vision needs: No Review of Systems Const Denies chills, Reports fatigue, Denies fever(s), Reports headache(s) (on and off) and Reports weight loss ENT Denies dysphagia, Denies dizziness, Denies otalgia, Reports headache(s) (on and off), Denies sinus pain and Denies sore throat Card Denies chest pain, Denies palpitations, Denies dyspnea and Reports dyspnea on exertion Resp Reports chest congestion, Reports cough, Denies dyspnea, Reports dyspnea on exertion and Reports wheezing GI Denies abdominal pain, Denies constipation, Denies dysphagia, Denies heartburn, Denies diarrhea, Denies nausea and Denies vomiting Denies difficulty voiding, Denies nocturia and Denies dysuria Musc Reports back pain (over the lower back) Neuro Denies dizziness and Reports headache(s) (on and off) Endo Reports fatigue and Denies palpitations Aller/Immun Reports wheezing Physical Exam Vital Signs: Last Vital Signs Pulse 75 03/23/25 08:20 BP 120/80 03/23/25 08:20 Pulse Ox 97 03/23/25 08:20 Oxygen Delivery Method Room Air 03/23/25 08:20 BMI result Body Mass Index 35.5 Const General: alert Eyes Pupils: Equal, round and reactive pupils present Neck Neck: Yes normal visual inspection, Yes full ROM and Yes no lymphadenopathy Chest Chest palpation & inspection: normal inspection of the chest Resp Effort & Inspection: normal respiratory effort, Actively coughing and prolonged expiratory phase Auscultation: wheezes and diminished lung sounds Cardio Rate: regular rate Rhythm: regular rhythm Heart sounds: S1 normal heart sound present and S2 normal heart sound present GI Palpation (GI): Soft to palpation and nontender Auscultation: normal bowel sounds Skin General skin exam: rashes and/or lesions noted Neuro Cranial nerves: Yes Equal, round and reactive pupils present Assessment & Plan Assessment & Plan (1) Asthma: Code(s): J45.909 - Unspecified asthma, uncomplicated Category: Medical Qualifiers: Asthma severity: moderate Asthma persistence: persistent Asthma complication type: uncomplicated Qualified Code(s): J45.40 - Moderate persistent asthma, uncomplicated (2) Chronic allergic rhinitis: Code(s): J30.9 - Allergic rhinitis, unspecified Category: Medical (3) GERD without esophagitis: Code(s): K21.9 - Gastro-esophageal reflux disease without esophagitis Category: Medical (4) Asthma-COPD overlap syndrome: Code(s): J44.9 - Chronic obstructive pulmonary disease, unspecified Category: Medical Plan continue Breo/Incruse Xopenex HFA as needed Continue Singulair/Claritin start Fasenra continue Daliresp 500mcg daily No steroids due to adverse effects Azithromycin MWF x 4 weeks reflux diet F/U 3-4 months Medications: New levalbuterol HCl 1.25 mg (3 mL) inhalation TID 270 mL 11RF 30 days J44.9 - Chronic obstructive pulmonary disease, unspecified azithromycin Take 1 tablet on Saturday/Saturday/Saturday 250 mg PO 3XW 12 tabs 0RF 28 days K21.9 - Gastro-esophageal reflux disease without esophagitis Changed From Daliresp (roflumilast) 500 mcg PO DAILY 30 tabs 5RF NS To Daliresp (roflumilast) 500 mcg PO DAILY 30 tabs 11RF 30 days NS Coding Level of Care Code Est Pt Level 4 (46942) Complex EM visit Add On G2211 Diagnoses Moderate persistent asthma without complication J45.40 Asthma severity: moderate Asthma persistence: persistent Asthma complication type: uncomplicated Chronic allergic rhinitis J30.9 GERD without esophagitis K21.9 Asthma-COPD overlap syndrome J44.9 Time Spent (min) 17
[2025-03-23 08:20] VITALS: BP 120/80; PULSE 75; O2SAT 97; BMI 35.5
== END 2025-03-23 08:43 | disposition home or self-care (01) ==
LOC: HO.HPS 08:17
PROVIDERS: PCP Internal Medicine; Visit Provider Hospitalist
DX: J45.40 Moderate persistent asthma, uncomplicated (principal); J30.9 Allergic rhinitis, unspecified; K21.9 Gastro-esophageal reflux disease without esophagitis; J44.9 Chronic obstructive pulmonary disease, unspecified
CPT/HCPCS: 99214

== ENCOUNTER 2025-03-23 08:16 | Outpatient (REF) | payer OTHER, SELFPAY ==
[2025-03-23 13:28] LABS: Appearance Urine Turbid; Glucose Urine UA Negative (Negative); PH 5.5 (5.0-9.0); Specific Gravity - Urine 1.025 (1.005-1.025)
[2025-03-23 13:39] LABS: MANUAL DIFF FLAG NO
[2025-03-23 13:41] LABS: Hematocrit 43.7 % (37.0-47.0); Hemoglobin 14.1 g/dl (12.0-16.0); Imm Gran Abs Auto 0.04 X10*3/uL (0.00-0.03); Imm Gran Pct Auto 0.5 % (0.0-0.4); Lymphocytes Absolute Auto 2.0 X10*3/uL (1.2-4.9); Mean Corpuscular HGB Conc 32.3 g/dl (31.0-35.0); Mean Corpuscular Hemoglobin 29.3 pg (27.0-33.0); Mean Corpuscular Volume 90.7 fL (80.0-98.0); NRBC Abs Auto 0.000 X10*3/uL (0.0-0.012); NRBC Pct Auto 0.0 /100WBC (0.0-0.2); Platelet Count 318 X10*3/uL (160-400); Red Blood Count 4.82 X10*6/uL (4.20-5.50); White Blood Count 7.3 X10*3/uL (4.8-10.8)
[2025-03-23 13:59] LABS: Alanine Aminotransferase 43 U/L (0-31); Albumin Level 4.4 g/dL (3.5-5.0); Alkaline Phosphatase 105 U/L (39-117); Amylase 55 U/L (28-100); Anion Gap 13 (12-20); Aspartate Amino Transferase 34 U/L (5-31); Blood Urea Nitrogen 14 mg/dL (9-16); Calcium 9.6 mg/dL (8.4-10.2); Carbon Dioxide 27 mmol/L (22-29); Chloride 109 mmol/L (96-108); Estimated Glomerular Filt Rate > 60; Potassium 4.0 mmol/L (3.3-5.1); Sodium 145 mmol/L (135-145); Total Protein 7.2 g/dL (6.5-8.0)
[2025-03-23 14:37] LABS: Alanine Aminotransferase 43 U/L (0-31); Albumin Level 4.2 g/dL (3.5-5.0); Alkaline Phosphatase 101 U/L (39-117); Anion Gap 10 (12-20); Aspartate Amino Transferase 36 U/L (5-31); Blood Urea Nitrogen 14 mg/dL (9-16); Calcium 9.3 mg/dL (8.4-10.2); Carbon Dioxide 27 mmol/L (22-29); Chloride 110 mmol/L (96-108); Cholesterol 124 mg/dL (<200); Estimated Glomerular Filt Rate > 60; HDL Cholesterol 51 mg/dL (>40); Lipase 33 U/L (8-78); Potassium 4.1 mmol/L (3.3-5.1); Sodium 143 mmol/L (135-145); Total Protein 7.1 g/dL (6.5-8.0); Triglycerides 83 mg/dL (<150)
[2025-03-23 14:38] LABS: Ferritin 120 ng/mL (10-250)
[2025-03-23 14:58] LABS: Folate 12.7 ng/mL (> or = 4.0); Vitamin B12 > 2000 pg/mL (200-900)
== END 2025-03-23 08:17 | disposition home or self-care (01) ==
LOC: HO.HMGCLDS 08:16
PROVIDERS: Internal Medicine Medical Oncology; Nurse Practitioner; PCP Internal Medicine; Visit Provider Internal Medicine
DX: Z00.00 Encounter for general adult medical examination without abnormal findings (principal); J45.40 Moderate persistent asthma, uncomplicated; J44.9 Chronic obstructive pulmonary disease, unspecified; J30.9 Allergic rhinitis, unspecified; K21.9 Gastro-esophageal reflux disease without esophagitis; E78.00 Pure hypercholesterolemia, unspecified; E53.8 Deficiency of other specified B group vitamins; E55.9 Vitamin D deficiency, unspecified; D50.9 Iron deficiency anemia, unspecified; R11.2 Nausea with vomiting, unspecified; R30.0 Dysuria; Z79.899 Other long term (current) drug therapy
CPT/HCPCS: 36415; 80053; 80061; 81003; 82150; 82306; 82607; 82728; 82746; 83690; 84443; 85025; 99212

== ENCOUNTER 2025-03-24 12:57 | Outpatient (AMB) | payer OTHER, SELFPAY ==
--- NOTE | 2025-03-24 13:14 | MHC.OFFVIS ---
Vital Signs 03/24/25 13:15 Height 5 ft Weight 181 lb BMI 35.3 Intake Visit Reasons: OV-left knee pain Intake Note: Any a 58 year old female who presents today for a follow up of left knee pain. At her last visit she was given a knee brace, deferred on injections, she was instructed to follow up as needed. Patient reports her pain is getting worse. Finds very little relief with Tylenol and unable to take NSAID due to being on blood thinners. She would like to discuss moving forward with injections. Allergies aspirin (ASA) Allergy (Severe, Verified 03/24/25 13:21) ITCHINESS, rash Penicillins (PENICILLINS) Allergy (Severe, Verified 03/24/25 13:21) ANAPHYLAXIS shellfish derived Allergy (Severe, Verified 03/24/25 13:21) ANAPHYLAXIS sumatriptan (From IMITREX) Allergy (Unknown, Verified 03/24/25 13:21) ANAPHYLAXIS, VOMITING, vomiting, dyspnea metoclopramide Allergy (Verified 03/24/25 13:21) Redness of Skin HPI HPI OV-left knee pain: Details: 59-year-old female returns to the office today for bilateral knee pain. She was used in the knee braces which provide some support but they continue to cause increased discomfort because they are tight around the thigh. She also continues to have limitations with daily activities due to her knee pain. She is not able to have steroid injections because of her worsening palpitations with steroids. [facility] Medical History (Updated 03/24/25 @ 13:30 by Ludivina Rodríguez PA-C) Nausea and vomiting Acute respiratory disease STEMI (ST elevation myocardial infarction) Atypical pneumonia Left hip pain Obesity (BMI 30-39.9) Osteoarthritis Low back pain Multiple gastric erosions Bronchitis Conjunctival hemorrhage of left eye CAD (coronary artery disease) Osteoarthritis of left knee Severe allergic reaction Edema Postprandial vomiting Postprandial nausea Primary osteoarthritis of left knee GERD without esophagitis Vitamin D deficiency Chronic allergic rhinitis Asthma-COPD overlap syndrome Migraines Anemia Kidney stones Asthma Surgical History S/P cardiac catheterization H/O heart artery stent Hx of gastric bypass (~2006) Hx of ventral hernia repair History of bilateral tubal ligation H/O section Hx of rotator cuff surgery (~2016) H/O abdominoplasty History of renal stent Family History Father History of heart surgery Hx of blood clots Mother Heart problem Paternal Grandfather Skin cancer Social History Household Members: Children Housing: Apartment Are you a primary care information associate to a significant other at home: No Do you presently have visiting nurse or other home services: No Alcohol intake: current Alcohol intake frequency: a few times a month Alcohol type: wine Patient Tobacco Use Status: Never used Tobacco e-Cigarette/Vaping Use: Never Used Second Hand Smoke Exposure: No service: No Current occupational status: unemployed Cognitive needs: No Hearing needs: No Vision needs: No Review of Systems Const All systems reviewed & are unremarkable except as noted in HPI and below Physical Exam Vital Signs: BMI result Body Mass Index 35.3 Const General: cooperative, healthy appearing, comfortable, no acute distress, well developed and alert Orientation/consciousness: patient oriented x3 HEENT Head: Yes normal to inspection, Yes normocephalic and Yes atraumatic Eyes General: appearance normal, both eyes and all related structures Resp Effort & Inspection: normal respiratory effort and able to speak in complete sentences Cardio Rate: regular rate Peripheral pulses: Peripheral pulses 2+ throughout GI Palpation (GI): Soft to palpation Skin Lesions: no lesions Rashes: no rashes Neuro General: patient oriented x3 Extrem Other: Bilateral knee: Skin intact, no erythema or joint effusion. Tenderness along the medial joint line. Full ROM with crepitus. Negative Asuncion?s. No ligamentous laxity. NVI. Assessment & Plan Assessment & Plan (1) Bilateral primary osteoarthritis of knee: Code(s): M17.0 - Bilateral primary osteoarthritis of knee Category: Medical Plan: Since the patient can do not have steroid injections due to her heart palpitations we will submit for bilateral knee gel injections. Once this is obtained we will see her back to administer the injections. She was also fit for new knee braces in the office today. Coding Level of Care Code Est Pt Level 3 (41680) Complex EM visit Add On G2211 Diagnoses Bilateral primary osteoarthritis of knee M17.0
[2025-03-24 13:15] VITALS: BMI 35.3
== END 2025-03-24 14:14 | disposition home or self-care (01) ==
LOC: HO.HOS 12:58
PROVIDERS: PCP Internal Medicine; Visit Provider Physician Assistant
DX: M17.0 Bilateral primary osteoarthritis of knee (principal)
CPT/HCPCS: 99213

== ENCOUNTER → 2025-03-24 12:57 | Outpatient (BNVA) | payer OTHER, SELFPAY | PROVIDERS: PCP Internal Medicine; Visit Provider Physician Assistant | DX: M17.0 Bilateral primary osteoarthritis of knee (principal) | CPT/HCPCS: 99212 ==

== ENCOUNTER 2025-05-06 08:40 | Outpatient (AMB) | payer OTHER, SELFPAY ==
--- NOTE | 2025-05-06 08:53 | MHC.OFFVIS ---
Intake Visit Reasons: INJ- B/L knee Euflexxa injections #1 Intake Note: Any is a 59 year old female who presents today for bilateral knee Euflexxa injections #1. Allergies aspirin (ASA) Allergy (Severe, Verified 05/06/25 08:53) ITCHINESS, rash Penicillins (PENICILLINS) Allergy (Severe, Verified 05/06/25 08:53) ANAPHYLAXIS shellfish derived Allergy (Severe, Verified 05/06/25 08:53) ANAPHYLAXIS sumatriptan (From IMITREX) Allergy (Unknown, Verified 05/06/25 08:53) ANAPHYLAXIS, VOMITING, vomiting, dyspnea metoclopramide Allergy (Verified 05/06/25 08:53) Redness of Skin HPI HPI INJ- B/L knee Euflexxa injections #1: Details: 1. Euflexxa bilateral knee PFSH Medical History (Updated 05/06/25 @ 09:22 by Ludivina Rodríguez PA-C) Nausea and vomiting Acute respiratory disease STEMI (ST elevation myocardial infarction) Atypical pneumonia Left hip pain Obesity (BMI 30-39.9) Osteoarthritis Low back pain Multiple gastric erosions Bronchitis Conjunctival hemorrhage of left eye CAD (coronary artery disease) Osteoarthritis of left knee Severe allergic reaction Edema Postprandial vomiting Postprandial nausea Primary osteoarthritis of left knee GERD without esophagitis Vitamin D deficiency Chronic allergic rhinitis Asthma-COPD overlap syndrome Migraines Anemia Kidney stones Asthma Surgical History S/P cardiac catheterization H/O heart artery stent Hx of gastric bypass (~2006) Hx of ventral hernia repair History of bilateral tubal ligation H/O section Hx of rotator cuff surgery (~2016) H/O abdominoplasty History of renal stent Family History Father History of heart surgery Hx of blood clots Mother Heart problem Paternal Grandfather Skin cancer Social History Household Members: Children Housing: Apartment Are you a primary career information specialist to a significant other at home: No Do you presently have visiting nurse or other home services: No Alcohol intake: current Alcohol intake frequency: a few times a month Alcohol type: wine Patient Tobacco Use Status: Never used Tobacco e-Cigarette/Vaping Use: Never Used Second Hand Smoke Exposure: No service: No Current occupational status: unemployed Current occupational exposures/hazards: No Cognitive needs: No Hearing needs: No Vision needs: No Review of Systems Const All systems reviewed & are unremarkable except as noted in HPI and below Physical Exam Const General: cooperative, healthy appearing, comfortable, no acute distress, well developed and alert Orientation/consciousness: patient oriented x3 HEENT Head: Yes normal to inspection, Yes normocephalic and Yes atraumatic Eyes General: appearance normal, both eyes and all related structures Resp Effort & Inspection: normal respiratory effort and able to speak in complete sentences Cardio Rate: regular rate Peripheral pulses: Peripheral pulses 2+ throughout GI Palpation (GI): Soft to palpation Skin Lesions: no lesions Rashes: no rashes Neuro General: patient oriented x3 Extrem Other: Bilateral knee: Skin intact, no erythema or joint effusion. Tenderness along the medial joint line. Full ROM with crepitus. Negative Asuncion?s. No ligamentous laxity. NVI. Office Procedures AMB Joint Injection/Aspiration Joint Injection/Aspiration Details: #1 euflexxa Primary Site: right knee Secondary Site: left knee Prep: site was prepped using aseptic technique, ethochloride spray was applied and injection warnings given Injected: in the joint Approach Used: anterolateral Procedure: The patient tolerated the procedure well Coding 94046 - Glenohumeral/Tronchanteric Bursa/Intraarticular Procedure code (CPT) selection complete Assessment & Plan Assessment & Plan (1) Primary osteoarthritis of left knee: Code(s): M17.12 - Unilateral primary osteoarthritis, left knee Category: Medical (2) Osteoarthritis of right knee: Code(s): M17.11 - Unilateral primary osteoarthritis, right knee Category: Medical Plan Plan was to proceed with gel injection today. #1 eufelxxa bilat Injection performed today which the patient tolerated well. She will rest ice and use anti-inflammatories as needed for the next several days. I will see her back in 1 week for injection number 2 Coding Level of Care Code Procedure Only Diagnoses Primary osteoarthritis of left knee M17.12 Osteoarthritis of right knee M17.11 CPT Codes Coding - Joint 7: 67394 - Glenohumeral/Tronchanteric Bursa/Intraarticular ([id number])
== END 2025-05-06 09:21 | disposition home or self-care (01) ==
LOC: HO.HOS 08:41
PROVIDERS: Visit Provider Physician Assistant
DX: M17.0 Bilateral primary osteoarthritis of knee (principal)
CPT/HCPCS: 20610

== ENCOUNTER → 2025-05-06 08:40 | Outpatient (BNVA) | payer OTHER, SELFPAY | PROVIDERS: Visit Provider Physician Assistant | DX: M17.0 Bilateral primary osteoarthritis of knee (principal) | CPT/HCPCS: 20610; J7323 ==

== ENCOUNTER 2025-05-11 13:49 | Outpatient (REF) | payer OTHER, SELFPAY ==
--- NOTE | ~2025-05-11 | MM_ITS ---
EXAMINATION: MM SCREENING DIGITAL BREAST TOMOSYNTHESIS, BILATERAL CLINICAL INFORMATION: Screening. Asymptomatic. COMPARISON: Mammography: No prior imaging available for comparison. TECHNIQUE: Digital breast mammography with tomosynthesis is performed in both the craniocaudal and mediolateral oblique views along with computer-aided detection (CAD). FINDINGS: There are scattered areas of fibroglandular density. Left: Focal asymmetry upper outer breast middle and posterior depth. No suspicious calcifications or other abnormal findings. Right: There are no significant masses, abnormal calcifications, or other abnormalities. MM/MM tomosynthesis screening BI IMPRESSION: Additional imaging is recommended ASSESSMENT: BI-RADS Category 0: Incomplete - Need additional Imaging Evaluation RECOMMENDATION: 1. Additional views of the left breast. 2. Targeted ultrasound if warranted after review of the additional views. 3. Radiology department staff will contact the patient for additional imaging. Additional Imaging required Electronically signed by: Allyson Rehman DO 05/13/2025 08:50 AM [facility] [place]
--- NOTE | ~2025-05-11 | MM_ITS ---
EXAMINATION: DXA BONE DENSITY AXIAL HISTORY: Z78.0 - Asymptomatic menopausal state TECHNIQUE: [employer] Dual energy absorptiometry (DEXA) of the lumbar spine, total left hip, and femoral neck was performed. COMPARISON: None FINDINGS: The bone mineral density of the lumbar spine is 1.074 g/cm2, corresponding to a T-score of -0.9, and a Z-score of -0.2. This is indicative of normal bone mineral density. The bone mineral density of the left total hip is 1.050 g/cm2, corresponding to a T-score of 0.3, and a Z-score of 0.9. This is indicative of normal bone mineral density. The bone mineral density of the left femoral neck is 0.975 g/cm2, corresponding to a T-score of -0.5, and a Z-score of 0.4. This is indicative of normal bone mineral density. FRACTURE RISK: The FRAX index suggests a ten year probability of major osteoporotic fracture of 3.4%, and of hip fracture 0.1%. MM/XR DEXA axial skeleton IMPRESSION: Based on bone mineral density, and according to World Health Organization (WHO) criteria, the diagnosis is consistent with normal bone mineral density based on lowest T score of -0.9 in the spine. Statistically, 68% of repeat scans fall within 1 SD (+/- 0.010 g/cm2 for AP spine L1-L4) and 1 SD (+/- 0.012 g/cm2 for femur total) FRAX is a trademark of the [employer]'s [employer], a World Health Organization (WHO) Collaborating Center. Electronically signed by: Sara Weems MD 05/11/2025 02:24 PM [facility] [place]
== END 2025-05-11 13:50 | disposition home or self-care (01) ==
LOC: HO.MAMMO 13:49
PROVIDERS: PCP Internal Medicine; Visit Provider Internal Medicine
DX: Z12.31 Encounter for screening mammogram for malignant neoplasm of breast (principal); Z13.820 Encounter for screening for osteoporosis; Z78.0 Asymptomatic menopausal state
CPT/HCPCS: 77063; 77067; 77080

== ENCOUNTER → 2025-05-11 14:30 | Outpatient (BNV) | payer OTHER, SELFPAY | PROVIDERS: PCP Internal Medicine; Visit Provider Radiology Diagnostic Radiology | DX: E28.39 Other primary ovarian failure (principal) | CPT/HCPCS: 77080 ==

== ENCOUNTER 2025-05-13 09:50 | Outpatient (AMB) | payer OTHER, SELFPAY ==
--- NOTE | 2025-05-13 10:04 | A.OFFVIS_ITS ---
Vital Signs 05/13/25 10:08 Height 5 ft Weight 180 lb BMI 35.2 Intake Visit Reasons: INJ- B/L knee Euflexxa injection #2 Intake Note: Any is a 59 year old female who presents today for an injection in her bilateral knee, Euflexxa injection #2. Allergies aspirin (ASA) Allergy (Severe, Verified 05/13/25 10:08) ITCHINESS, rash Penicillins (PENICILLINS) Allergy (Severe, Verified 05/13/25 10:08) ANAPHYLAXIS shellfish derived Allergy (Severe, Verified 05/13/25 10:08) ANAPHYLAXIS sumatriptan (From IMITREX) Allergy (Unknown, Verified 05/13/25 10:08) ANAPHYLAXIS, VOMITING, vomiting, dyspnea metoclopramide Allergy (Verified 05/13/25 10:08) Redness of Skin HPI HPI INJ- B/L knee Euflexxa injection #2: Details: Patient returns today for #2 Euflexxa bilateral knee. She states her knees are feeling quite well since her 1st injection. [facility] Medical History (Updated 05/06/25 @ 09:22 by Ludivina Rodríguez PA-C) Nausea and vomiting Acute respiratory disease STEMI (ST elevation myocardial infarction) Atypical pneumonia Left hip pain Obesity (BMI 30-39.9) Osteoarthritis Low back pain Multiple gastric erosions Bronchitis Conjunctival hemorrhage of left eye CAD (coronary artery disease) Osteoarthritis of left knee Severe allergic reaction Edema Postprandial vomiting Postprandial nausea Primary osteoarthritis of left knee GERD without esophagitis Vitamin D deficiency Chronic allergic rhinitis Asthma-COPD overlap syndrome Migraines Anemia Kidney stones Asthma Surgical History S/P cardiac catheterization H/O heart artery stent Hx of gastric bypass (~2006) Hx of ventral hernia repair History of bilateral tubal ligation H/O section Hx of rotator cuff surgery (~2016) H/O abdominoplasty History of renal stent Family History Father History of heart surgery Hx of blood clots Mother Heart problem Paternal Grandfather Skin cancer Social History Household Members: Children Housing: Apartment Are you a primary chiropractic care to a significant other at home: No Do you presently have visiting nurse or other home services: No Alcohol intake: current Alcohol intake frequency: a few times a month Alcohol type: wine Patient Tobacco Use Status: Never used Tobacco e-Cigarette/Vaping Use: Never Used Second Hand Smoke Exposure: No service: No Current occupational status: unemployed Current occupational exposures/hazards: No Cognitive needs: No Hearing needs: No Vision needs: No Review of Systems Const All systems reviewed & are unremarkable except as noted in HPI and below Physical Exam Vital Signs: BMI result Body Mass Index 35.2 Const General: cooperative, healthy appearing, comfortable, no acute distress, well developed and alert Orientation/consciousness: patient oriented x3 HEENT Head: Yes normal to inspection, Yes normocephalic and Yes atraumatic Eyes General: appearance normal, both eyes and all related structures Resp Effort & Inspection: normal respiratory effort and able to speak in complete sentences Cardio Rate: regular rate Peripheral pulses: Peripheral pulses 2+ throughout GI Palpation (GI): Soft to palpation Skin Lesions: no lesions Rashes: no rashes Neuro General: patient oriented x3 Extrem Other: Bilateral knee: Skin intact, no erythema or joint effusion. Tenderness along the medial joint line. Full ROM with crepitus. Negative Asuncion?s. No ligamentous laxity. NVI. Office Procedures AMB Joint Injection/Aspiration Joint Injection/Aspiration Primary Site: Right Knee Secondary Site: Left Knee Prep: site was prepped using aseptic technique, ethochloride spray was applied and injection warnings given Injected: Euflexxa (#2) Approach Used: anterolateral Procedure: The patient tolerated the procedure well and there was some relief with the local anesthesia Coding 96879 - Glenohumeral/Tronchanteric Bursa/Intraarticular Procedure code (CPT) selection complete Assessment & Plan Assessment & Plan (1) Primary osteoarthritis of left knee: Code(s): M17.12 - Unilateral primary osteoarthritis, left knee Category: Medical (2) Osteoarthritis of right knee: Code(s): M17.11 - Unilateral primary osteoarthritis, right knee Category: Medical Plan Plan was to proceed with gel injection today. #2 eufelxxa bilat Injection performed today which the patient tolerated well. She will rest ice and use anti-inflammatories as needed for the next several days. I will see her back in 1 week for injection number 3 Coding Level of Care Code Procedure Only Diagnoses Primary osteoarthritis of left knee M17.12 Osteoarthritis of right knee M17.11 CPT Codes Coding - Joint 7: 52684 - Glenohumeral/Tronchanteric Bursa/Intraarticular ([id number])
[2025-05-13 10:08] VITALS: BMI 35.2
== END 2025-05-13 10:18 | disposition home or self-care (01) ==
LOC: HO.HOS 09:51
PROVIDERS: Visit Provider Physician Assistant
DX: M17.0 Bilateral primary osteoarthritis of knee (principal)
CPT/HCPCS: 20610

== ENCOUNTER → 2025-05-13 09:50 | Outpatient (BNVA) | payer OTHER, SELFPAY | PROVIDERS: Visit Provider Physician Assistant | DX: M17.0 Bilateral primary osteoarthritis of knee (principal) | CPT/HCPCS: 20610; J7323 ==

== ENCOUNTER 2025-05-19 08:54 | Outpatient (REF) | payer OTHER, SELFPAY ==
--- NOTE | ~2025-05-19 | MM_ITS ---
EXAMINATION: MM DIAGNOSTIC DIGITAL BREAST TOMOSYNTHESIS, LEFT Limited left breast ultrasound. CLINICAL INFORMATION: Call back from baseline mammogram for focal asymmetry in the upper outer left breast. COMPARISON: Mammography: Baseline mammogram May 11, 2025. TECHNIQUE: Digital breast tomosynthesis is performed in both the craniocaudal and mediolateral oblique views along with computer-aided detection (CAD). Synthesized 2D images are generated from the tomosynthesis. FINDINGS: There are scattered areas of fibroglandular density. Focal asymmetry in the upper outer breast persist on additional imaging projections. No suspicious calcifications or other abnormal findings. Targeted color Doppler ultrasound scanning in the lateral breast from 1-5 o'clock demonstrates normal follicular breast tissue. There is no sonographic abnormal finding. MM/MM tomosynthesis added views L IMPRESSION: Focal asymmetry upper outer breast without sonographic correlate. Recommend 6 month follow-up mammogram of the left breast for further evaluation of stability. ASSESSMENT: BI-RADS Category 3: Probably benign RECOMMENDATION: 6 Month F/U Results were provided to the patient at time of visit by the technologist. This patient's information was entered into a reminder system with a target due date for their next mammogram. Electronically signed by: Allyson Rehman DO 05/19/2025 10:25 AM [facility]
== END 2025-05-19 08:55 | disposition home or self-care (01) ==
LOC: HO.MAMMO 08:54
PROVIDERS: PCP Internal Medicine; Visit Provider Internal Medicine
DX: N64.89 Other specified disorders of breast (principal)
CPT/HCPCS: 76642; 77061; 77065

== ENCOUNTER → 2025-05-19 09:00 | Outpatient (BNV) | payer OTHER, SELFPAY | PROVIDERS: PCP Internal Medicine; Visit Provider Internal Medicine | DX: R92.8 Other abnormal and inconclusive findings on diagnostic imaging of breast (principal) | CPT/HCPCS: 76642; 77061; 77065 ==

== ENCOUNTER 2025-05-20 08:47 | Outpatient (AMB) | payer OTHER, SELFPAY ==
--- NOTE | 2025-05-20 08:49 | MHC.OFFVIS ---
Intake Visit Reasons: B/L knee Euflexxa injection #3 Intake Note: Any is a 59 year old female who presents today for an injection in her bilateral knee, Euflexxa injection #3. Allergies aspirin (ASA) Allergy (Severe, Verified 05/20/25 08:52) ITCHINESS, rash Penicillins (PENICILLINS) Allergy (Severe, Verified 05/20/25 08:52) ANAPHYLAXIS shellfish derived Allergy (Severe, Verified 05/20/25 08:52) ANAPHYLAXIS sumatriptan (From IMITREX) Allergy (Unknown, Verified 05/20/25 08:52) ANAPHYLAXIS, VOMITING, vomiting, dyspnea metoclopramide Allergy (Verified 05/20/25 08:52) Redness of Skin Medication List - Last Reconciled 05/20/25 by Ludivina Rodríguez PA-C acetaminophen ER 650 mg PO Q8H albuterol sulfate 2.5 mg (3 mL) continuous nebulization Q6-8H PRN aspirin (Adult Low Dose Aspirin) 81 mg PO DAILY 90 days atorvastatin 40 mg PO BEDTIME azithromycin 250 mg PO 3XW 28 days [BACK BRACE As directed] back brace As directed benzonatate 100 mg PO BID PRN 7 days blood pressure monitor As directed clonazepam 0.5 mg PO DAILY diclofenac sodium 3% 1 appl topical BID 90 days diclofenac sodium 1% 4 grams topical QID 30 days epinephrine 0.3 mL IM DAILY PRN ergocalciferol (vitamin D2) 1,250 mcg PO QWEEK erythromycin 1 appl ophthalmic (eye) BID 5 days ezetimibe (Zetia) 10 mg PO DAILY 90 days fluticasone furoate-vilanterol 200-25 mcg/dose (Breo Ellipta) 1 inh inhalation DAILY 90 days fluticasone propionate 50 mcg/actuation 2 sprays intranasal DAILY PRN furosemide 20 mg PO QAM PRN ipratropium-albuterol 0.5 mg-3 mg(2.5 mg base)/3 mL 3 mL inhalation BID ketotifen fumarate 0.025%(0.035%) ([place]away) 1 drp ophthalmic (eye) BID PRN levalbuterol HCl 1.25 mg (3 mL) inhalation TID 30 days levalbuterol tartrate 45 mcg/actuation 2 puffs inhalation Q4H PRN lidocaine 5% 1 patch topical DAILY PRN 30 days loratadine 10 mg PO DAILY metoprolol succinate ER 25 mg PO DAILY montelukast 10 mg PO DAILY 90 days multivitamin,tx-minerals (Multi-Vitamin HP/Minerals capsule) 1 cap PO DAILY ondansetron 4 mg PO BID-TID PRN pantoprazole (Protonix) 40 mg PO BID 90 days roflumilast (Daliresp) 500 mcg PO DAILY 30 days [ROLLATOR As directed] [TENS unit As directed] TENS unit electrodes As directed permanent condition TENS units As directed Dx: Chronic Lumbrosacral Pain/debilitating DDD ticagrelor (Brilinta) 90 mg PO BID 90 days tizanidine 2 mg PO Q8H PRN tramadol 50 mg PO TID PRN 10 days umeclidinium 62.5 mcg/actuation (Incruse Ellipta) 1 inh inhalation DAILY venlafaxine ER (Effexor XR) 37.5 mg PO DAILY HPI HPI B/L knee Euflexxa injection #3: Details: Patient returns today for #3 Euflexxa bilateral knee. [facility] Medical History (Updated 05/06/25 @ 09:22 by Ludivina Rodríguez PA-C) Nausea and vomiting Acute respiratory disease STEMI (ST elevation myocardial infarction) Atypical pneumonia Left hip pain Obesity (BMI 30-39.9) Osteoarthritis Low back pain Multiple gastric erosions Bronchitis Conjunctival hemorrhage of left eye CAD (coronary artery disease) Osteoarthritis of left knee Severe allergic reaction Edema Postprandial vomiting Postprandial nausea Primary osteoarthritis of left knee GERD without esophagitis Vitamin D deficiency Chronic allergic rhinitis Asthma-COPD overlap syndrome Migraines Anemia Kidney stones Asthma Surgical History S/P cardiac catheterization H/O heart artery stent Hx of gastric bypass (~2006) Hx of ventral hernia repair History of bilateral tubal ligation H/O section Hx of rotator cuff surgery (~2016) H/O abdominoplasty History of renal stent Family History Father History of heart surgery Hx of blood clots Mother Heart problem Paternal Grandfather Skin cancer Social History Household Members: Children Housing: Apartment Are you a primary acute care nurse practitioner to a significant other at home: No Do you presently have visiting nurse or other home services: No Alcohol intake: current Alcohol intake frequency: a few times a month Alcohol type: wine Patient Tobacco Use Status: Never used Tobacco e-Cigarette/Vaping Use: Never Used Second Hand Smoke Exposure: No service: No Current occupational status: unemployed Current occupational exposures/hazards: No Cognitive needs: No Hearing needs: No Vision needs: No Review of Systems Const All systems reviewed & are unremarkable except as noted in HPI and below Physical Exam Const General: cooperative, healthy appearing, comfortable, no acute distress, well developed and alert Orientation/consciousness: patient oriented x3 HEENT Head: Yes normal to inspection, Yes normocephalic and Yes atraumatic Eyes General: appearance normal, both eyes and all related structures Resp Effort & Inspection: normal respiratory effort and able to speak in complete sentences Cardio Rate: regular rate Peripheral pulses: Peripheral pulses 2+ throughout GI Palpation (GI): Soft to palpation Skin Lesions: no lesions Rashes: no rashes Neuro General: patient oriented x3 Extrem Other: Bilateral knee: Skin intact, no erythema or joint effusion. Tenderness along the medial joint line. Full ROM with crepitus. Negative Asuncion?s. No ligamentous laxity. NVI. Office Procedures AMB Joint Injection/Aspiration Joint Injection/Aspiration Primary Site: Right Knee Secondary Site: Left Knee Prep: site was prepped using aseptic technique, ethochloride spray was applied and injection warnings given Injected: Euflexxa (#3) and in the joint Approach Used: anterolateral Procedure: The patient tolerated the procedure well Coding 09752 - Glenohumeral/Tronchanteric Bursa/Intraarticular Procedure code (CPT) selection complete Assessment & Plan Assessment & Plan (1) Primary osteoarthritis of left knee: Code(s): M17.12 - Unilateral primary osteoarthritis, left knee Category: Medical (2) Osteoarthritis of right knee: Code(s): M17.11 - Unilateral primary osteoarthritis, right knee Category: Medical Plan Plan was to proceed with gel injection today. #3 eufelxxa bilat Injection performed today which the patient tolerated well. She will rest ice and use anti-inflammatories as needed for the next several days. If symptoms persist or worsen over the next 6-12 weeks she can contact our office otherwise follow up as needed. Coding Level of Care Code Procedure Only Diagnoses Primary osteoarthritis of left knee M17.12 Osteoarthritis of right knee M17.11 CPT Codes Coding - Joint 7: 91727 - Glenohumeral/Tronchanteric Bursa/Intraarticular ([id number])
== END 2025-05-20 09:15 | disposition home or self-care (01) ==
LOC: HO.HOS 08:47
PROVIDERS: Visit Provider Physician Assistant
DX: M17.0 Bilateral primary osteoarthritis of knee (principal)
CPT/HCPCS: 20610

== ENCOUNTER → 2025-05-20 08:47 | Outpatient (BNVA) | payer OTHER, SELFPAY | PROVIDERS: Visit Provider Physician Assistant | DX: M17.0 Bilateral primary osteoarthritis of knee (principal) | CPT/HCPCS: 20610; J7323 ==

== ENCOUNTER 2025-06-01 | Outpatient (REF) | payer OTHER, SELFPAY | END 2025-06-01 00:01 | disposition home or self-care (01) | LOC: CF | PROVIDERS: PCP Internal Medicine; Visit Provider Internal Medicine | DX: M25.561 Pain in right knee (principal); I25.10 Atherosclerotic heart disease of native coronary artery without angina pectoris; J44.9 Chronic obstructive pulmonary disease, unspecified; J30.9 Allergic rhinitis, unspecified; K95.89 Other complications of other bariatric procedure; K25.9 Gastric ulcer, unspecified as acute or chronic, without hemorrhage or perforation; D50.9 Iron deficiency anemia, unspecified; M17.0 Bilateral primary osteoarthritis of knee; M75.101 Unspecified rotator cuff tear or rupture of right shoulder, not specified as traumatic; G43.909 Migraine, unspecified, not intractable, without status migrainosus; E55.9 Vitamin D deficiency, unspecified; E66.9 Obesity, unspecified | CPT/HCPCS: 96127; 99212 ==

== ENCOUNTER 2025-06-02 12:09 | Outpatient (AMB) | payer OTHER, SELFPAY ==
[2025-06-02 12:36] VITALS: BP 126/80; PULSE 52; O2SAT 96; BMI 36.0
--- NOTE | 2025-06-02 12:36 | A.OFFPC_ITS ---
Vital Signs 06/02/25 12:36 Height 5 ft Weight 184 lb 8 oz BMI 36.0 BP 126/80 Blood Pressure Location Lt brachial Position Sitting Pulse 52 Pulse Source Pulse Oximeter Pulse Oximetry (%) 96 Oxygen Delivery Method Room Air Intake Visit Reasons: 4mth f/u Yard Manager Required: No Accompanied by: Self / Same As Patient Allergies aspirin (ASA) Allergy (Severe, Verified 06/02/25 13:03) ITCHINESS, rash Penicillins (PENICILLINS) Allergy (Severe, Verified 06/02/25 13:03) ANAPHYLAXIS shellfish derived Allergy (Severe, Verified 06/02/25 13:03) ANAPHYLAXIS sumatriptan (From IMITREX) Allergy (Unknown, Verified 06/02/25 13:03) ANAPHYLAXIS, VOMITING, vomiting, dyspnea metoclopramide Allergy (Verified 06/02/25 13:03) Redness of Skin Medication List - Last Reconciled 06/02/25 by Arnoldo Powers MD acetaminophen ER 650 mg PO Q8H albuterol sulfate 2.5 mg (3 mL) continuous nebulization Q6-8H PRN aspirin (Adult Low Dose Aspirin) 81 mg PO DAILY 90 days atorvastatin 40 mg PO BEDTIME azithromycin 250 mg PO 3XW 28 days [BACK BRACE As directed] back brace As directed benzonatate 100 mg PO BID PRN 7 days blood pressure monitor As directed clonazepam 0.5 mg PO DAILY diclofenac sodium 3% 1 appl topical BID 90 days diclofenac sodium 1% 4 grams topical QID 30 days epinephrine 0.3 mL IM DAILY PRN ergocalciferol (vitamin D2) 1,250 mcg PO QWEEK erythromycin 1 appl ophthalmic (eye) BID 5 days ezetimibe (Zetia) 10 mg PO DAILY 90 days fluticasone furoate-vilanterol 200-25 mcg/dose (Breo Ellipta) 1 inh inhalation DAILY 90 days fluticasone propionate 50 mcg/actuation 2 sprays intranasal DAILY PRN furosemide 20 mg PO QAM PRN ipratropium-albuterol 0.5 mg-3 mg(2.5 mg base)/3 mL 3 mL inhalation BID ketotifen fumarate 0.025%(0.035%) ([place]away) 1 drp ophthalmic (eye) BID PRN levalbuterol HCl 1.25 mg (3 mL) inhalation TID 30 days levalbuterol tartrate 45 mcg/actuation 2 puffs inhalation Q4H PRN lidocaine 5% 1 patch topical DAILY PRN 30 days loratadine 10 mg PO DAILY metoprolol succinate ER 25 mg PO DAILY montelukast 10 mg PO DAILY 90 days multivitamin,tx-minerals (Multi-Vitamin HP/Minerals capsule) 1 cap PO DAILY ondansetron 4 mg PO BID-TID PRN pantoprazole (Protonix) 40 mg PO BID 90 days roflumilast (Daliresp) 500 mcg PO DAILY 30 days [ROLLATOR As directed] [TENS unit As directed] TENS unit electrodes As directed permanent condition TENS units As directed Dx: Chronic Lumbrosacral Pain/debilitating DDD ticagrelor (Brilinta) 90 mg PO BID 90 days tizanidine 2 mg PO Q8H PRN tramadol 50 mg PO TID PRN 10 days umeclidinium 62.5 mcg/actuation (Incruse Ellipta) 1 inh inhalation DAILY venlafaxine ER (Effexor XR) 37.5 mg PO DAILY Tobacco use date assessed: 06/02/25 Dental Screening Dental Screen Date: 06/02/25 Did you have a dental visit in the last 12 months?: Yes Did you have a dental problem in the last 6 months where you did not have access to dental care?: No Was dental information given to patient?: Patient has dentist HPI 4mth f/u HPI Details Patient comes in today for her follow up visit States that she feels okay She denies any headaches or dizziness Denies any chest pains, no SOB No nausea/vomiting, no abdominal pain No change in bowel habits noted Needs her Tramadol Rx refilled She had some follow up labs done a couple of months ago - to discuss her results She is currently still on Aspirin 81 mg QD and Ticagrelor 90 g BID for her NSTEMI and PCI to her RCA last year on 02/19/2024 and staged PCI (VALDEMAR) to her LAD on 03/19/2024 although I suspect that Ticagrelor will be discontinued by cardiology at her upcoming follow up appointment with them next month unless th ere are any abnormalities or regressions with her follow up exams She is still receiving IV iron infusion when needed and follows up with Dr. Jordan regularly for her anemia She has also been seeing orthopedics over the past month or so for her right knee pain - she has received cortisone injection into her knee, which she states helped somewhat Her BMD was done last month on 05/11/25 - report states that based on bone mineral density, and according to World Health Organization (WHO) criteria, the diagnosis is consistent with normal bone mineral density based on lowest T score of -0.9 in the spine. [facility] Medical History Obesity (BMI 30-39.9) Nausea and vomiting Acute respiratory disease STEMI (ST elevation myocardial infarction) Atypical pneumonia Left hip pain Osteoarthritis Low back pain Multiple gastric erosions Bronchitis Conjunctival hemorrhage of left eye CAD (coronary artery disease) Osteoarthritis of left knee Severe allergic reaction Edema Postprandial vomiting Postprandial nausea Primary osteoarthritis of left knee GERD without esophagitis Vitamin D deficiency Chronic allergic rhinitis Asthma-COPD overlap syndrome Migraines Anemia Kidney stones Asthma Surgical History S/P cardiac catheterization H/O heart artery stent Hx of gastric bypass (~2006) Hx of ventral hernia repair History of bilateral tubal ligation H/O section Hx of rotator cuff surgery (~2016) H/O abdominoplasty History of renal stent Family History Father History of heart surgery Hx of blood clots Mother Heart problem Paternal Grandfather Skin cancer Social History Household Members: Children Housing: Apartment Are you a primary assisted living care manager to a significant other at home: No Do you presently have visiting nurse or other home services: No Alcohol intake: current Alcohol intake frequency: a few times a month Alcohol type: wine Patient Tobacco Use Status: Never used Tobacco e-Cigarette/Vaping Use: Never Used Second Hand Smoke Exposure: No service: No Current occupational status: unemployed Current occupational exposures/hazards: No Cognitive needs: No Hearing needs: No Vision needs: No Questionnaire PHQ-9 Over the last 2 weeks, how often have you been bothered by any of the following problems? 1. Little interest or pleasure in doing things: not at all 2. Feeling down, depressed, or hopeless: several days 3. Trouble falling or staying asleep, or sleeping too much: more than half the days 4. Feeling tired or having little energy: more than half the days 5. Poor appetite or overeating: several days 6. Feeling bad about yourself - or that you are a failure or have let yourself or your family down: several days 7. Trouble concentrating on things, such as reading the newspaper or watching television: not at all 8. Moving or speaking so slowly that other people could have noticed. Or the opposite - being so fidgety or restless that you have been moving around a lot more than usual: not at all 9. Thoughts that you would be better off or of hurting yourself in some way: not at all Total score: 7 Depression Screening Interpretation: Positive Depression Screening Follow-up: Existing condition and In treatment Depression Screening Done: Yes 49655 - PHQ-9 Billing: Yes Source: Developed by Drs. Luiz Suarez, Suri Reyes, Randall Euceda and colleagues, with an educational ines from [employer]. Thrive Questionnaire Date Thrive assessed: 06/02/25 I am a: Patient What is your living situation today?: I have a steady place to live Within the past 12 months, did the food you bought not last and you didn't have the money to get more?: Sometimes True Within the past 12 months, did you worry whether your food would run out before you got money to buy more?: Often true Do you have trouble paying for medicines?: No Do you have trouble getting transportation to medical appointments?: No Do you have trouble paying your heating and electricity bill?: Yes Do you have trouble taking care of your child, family member or friend?: No Do you have trouble with day-to-day activities such as bathing, preparing meals, shopping, managing finances, etc.?: Yes Are you currently unemployed and looking for a job?: I choose not to answer this question Are you interested in more education?: I choose not to answer this question Currently or been in a relationship where the following occur: No concerns reported THRIVE Score: 3 AUDIT C Alcohol Use Questionnaire (AUDIT-C) 1. How often do you have a drink containing alcohol?: Never 3. How often do you have six or more drinks on one occasion?: Never Total Score: 0 Score Reviewed/Action Taken: Yes ONESIMO-7 AMB Questionnaire ONESIMO-7 Date ONESIMO - 7 assessed: 06/02/25 Feeling nervous, anxious, or on edge: 1 = Several days Not being able to stop or control worryin = Several days Worrying too much about different things: 1 = Several days Trouble relaxin = Several days Being so restless that it is hard to sit still: 0 = Not at all Becoming easily annoyed or irritable: 0 = Not at all Feeling afraid as if something awful might happen: 1 = Several days Total ONESIMO-7 score (0-4 normal; 5-9 mild; 10-14 moderate; 15-21 severe): 5 Source: Developed by Drs. Luiz Suarez, Suri Reyes, Randall Euceda and colleagues, with an educational ines from [employer]. Review of Systems Const Denies chills, Reports fatigue, Denies fever(s) and Denies headache(s) ENT Denies dysphagia, Denies dizziness, Denies otalgia, Denies headache(s), Denies neck pain, Denies odynophagia and Denies sore throat Card Denies chest pain, Denies irregular heart rhythm, Denies palpitations and Denies dyspnea Resp Denies chest congestion, Denies cough and Denies dyspnea GI Denies constipation, Denies dysphagia, Denies heartburn, Denies diarrhea, Reports nausea (recurrent), Denies odynophagia and Denies vomiting Denies urinary frequency, Denies dysuria and Denies urinary urgency Musc Reports back pain (over the lower back), Reports arthralgias (in both knees - chronic) and Denies neck pain Skin/Breast Denies rash and Denies unusual bruising Neuro Denies dizziness, Denies headache(s) and Denies paresthesias Psych Denies anxiety and Denies depression Endo Reports fatigue and Denies palpitations Portillo/Lymph Denies easy bruising Physical exam (Primary Care) Vital Signs: Last Vital Signs Pulse 52 06/02/25 12:36 BP 126/80 06/02/25 12:36 Pulse Ox 96 06/02/25 12:36 Oxygen Delivery Method Room Air 06/02/25 12:36 BMI result Body Mass Index 36.0 Tobacco/Smoking Status: Tobacco use Status Tobacco use date assessed 06/02/25 06/02/25 12:42 Patient Tobacco Use Status Never used Tobacco 06/02/25 12:42 e-Cigarette/Vaping Use Never Used 06/02/25 12:42 PHQ-9: PHQ-9 Score PHQ-9: Total score 7 06/02/25 14:08 Depression Screening Interpretation: Positive Depression Screening Follow-up: Existing condition and In treatment Thrive Assessment: Date of Thrive Assessment Date Thrive assessed 06/02/25 06/02/25 12:42 Currently or been in a relationship where the following occur: No concerns reported Const General: no acute distress and alert HENMT Ears: TM's normal bilaterally and EAC's normal Throat: Yes posterior oropharynx normal and Yes tonsils normal (no TP congestion) Neck Neck: Yes supple and No lymphadenopathy Thyroid: Thyroid normal Resp Auscultation: clear to auscultation bilaterally, no rales and no wheezes Cardio Rate: regular rate Rhythm: regular rhythm Heart sounds: no murmurs GI Palpation (GI): Soft to palpation, Tenderness to palpation present (GI) (mild) in the epigastrum, no guarding, not rigid and No Rebound tenderness present Auscultation: normal bowel sounds General: Yes no CVA tenderness Back/Spine/Pelvis Back: no CVA tenderness Thoracic/Lumbar Spine: lumbar spinal tenderness (mild) Skin Lesions: no lesions Rashes: no rashes Extrem General: Yes no clubbing, cyanosis or edema Right lower extremity: knee Details: tenderness; no swelling Left lower extremity: knee Details: tenderness; no swelling Results Reviewed Results Reviewed: Laboratory Tests 03/23/25 03/25/25 10:00 11:20 WBC 7.4 Hgb 14.4 Hct 41.7 Plt Count 315 Sodium 143 Potassium 3.8 Creatinine 0.64 Estimated GFR > 60 Random Glucose 116 H Calcium 9.2 AST 31 ALT 39 H Triglycerides 83 Cholesterol 124 LDL Cholesterol, Calc 57 HDL Cholesterol 51 Coding Level of Care Code Est Pt Level 4 (19441) Diagnoses Coronary artery disease involving beaver coronary artery of beaver heart without angina pectoris I25.10 Coronary Disease-Associated Artery/Lesion type: beaver artery [place] vs. 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 K95.89 Multiple gastric erosions, unspecified ulcer chronicity K25.9 Gastric ulcer chronicity: unspecified ulcer chronicity Iron deficiency anemia, unspecified iron deficiency anemia type D50.9 Iron deficiency anemia type: unspecified iron deficiency Bilateral primary osteoarthritis of knee M17.0 Painful arc syndrome of right shoulder M75.101 Migraine without status migrainosus, not intractable, unspecified migraine type G43.909 Migraine type: unspecified Status migrainosus presence: without status migrainosus Intractability: not intractable Vitamin D deficiency E55.9 Obesity (BMI 30-39.9) E66.9 Colon cancer screening Z12.11 Additional Codes PHQ-9 - 49672 - PHQ-9 Billing: Yes ([id number]) Assessment & Plan Assessment & Plan (1) CAD (coronary artery disease): Comment: cardiac catheterization - PCI to RCA (02/19/24) and staged PCI of LAD (03/19/2024) - Dr. Kumar Code(s): I25.10 - Atherosclerotic heart disease of beaver coronary artery without angina pectoris Category: Medical Qualifiers: Coronary Disease-Associated Artery/Lesion type: [place] artery [place] vs. transplanted heart: beaver heart Associated angina: without angina Qualified Code(s): I25.10 - Atherosclerotic heart disease of beaver coronary artery without angina pectoris Plan: S/P STEMI in January 2024 and subsequent coronary angiography resulting in PCI to RCA first on 02/19/2024, followed by staged PCI of the LAD recently on 03/19/2024 Continue aggressive risk factor modification according to ATP III guidelines Continue Aspirin 81 mg QD (after undergoing aspirin desensitization at the CCU at [facility]) and Ticagrelor 90 mg BID for at least 12 months following PCI She also underwent cardiac rehab, which she states has helped a lot Follow up with cardiology as scheduled (2) Asthma-COPD overlap syndrome: Code(s): J44.9 - Chronic obstructive pulmonary disease, unspecified Category: Medical Plan: Controlled Continue Breo Ellipta 200-25 mcg 1 inhalation QD, INcruse Ellpitoa 62.5 mcg 1 inhalation QD, Montelukast 10 mg Q PM, Daliresp 500 mcg QD and Levalbuterol inhaler 1 to 2 inhalations Q 6 hours PRN She also has Albuterol inhalation via nebulization Q 6 hours PRN that she is to use in place of her Levalbuterol inhaler when she is able to Follow up with pulmonary as scheduled (3) Chronic allergic rhinitis: Code(s): J30.9 - Allergic rhinitis, unspecified Category: Medical Plan: Continue Montelukast 10 mg QD and Loratadine 10 mg QD PRN Continue Fluticasone 50 mcg nasal spray QD PRN for increased allergy symptoms (4) 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 Rondon and was advised that her gastric pouch has herniated above the diaphragm and that the only way this can be corrected would be through surgical means She was advised that losing weight may help somewhat and was advised to speak to her PCP about medications that can help her lose weight as she has clearly failed bariatric surgery We previously tried starting her on Wegovy 0.25 mg SQ once a week but her insurance would not approve the Rx (5) Multiple gastric erosions: Code(s): K25.9 - Gastric ulcer, unspecified as acute or chronic, without hemorrhage or perforation Category: Medical Qualifiers: Gastric ulcer chronicity: unspecified ulcer chronicity Qualified Code(s): K25.9 - Gastric ulcer, unspecified as acute or chronic, without hemorrhage or perforation Plan: EGD also revealed (+) multiple small erosions on the jejunal side of her previous gastrojejunostomy site, with one of them bleeding recently but is no longer actively bleeding at the time of her procedure Continue Omeprazole 40 mg BID Follow up with GI as scheduled Can consider switching her to [place] if her symptoms do not improve significantly on high-dose PPI Tx (6) Iron deficiency anemia: Code(s): D50.9 - Iron deficiency anemia, unspecified Category: Medical Qualifiers: Iron deficiency anemia type: unspecified iron deficiency Qualified Code(s): D50.9 - Iron deficiency anemia, unspecified Plan: She is currently still receiving IV iron infusions from hematology Will continue to monitor her CBC regularly - her CBC done over the past week came out normal Follow up with hematology as scheduled She was previously referred to GI for consideration for colonoscopy but she declined the procedure and had a Cologuard test done in 2021 instead, which came out negative (7) Bilateral primary osteoarthritis of knee: Code(s): M17.0 - Bilateral primary osteoarthritis of knee Category: Medical Plan: X-rays of the left knee done in March 2019 showed (+) mild OA changes there was similar to findings on x-rays back in 2015 Repeat left knee x-rays done a few months ago again showed the same findings Right knee x-rays done in the past have also revealed (+) OA changes in the knee Continue Tramadol 50 mg 2 to 3 times a day as needed for pain; she was on Naproxen previously but this was stopped due to her recent [place] Follow-up with Orthopedics as scheduled (8) Painful arc syndrome of right shoulder: Code(s): M75.101 - Unspecified rotator cuff tear or rupture of right shoulder, not specified as traumatic Category: Medical Plan: X-rays of the shoulder done a few months ago came back negative She has been seen by orthopedics for this a few months ago but she declined offer for cortisone injection (had one done before that did not help) and referral for physical therapy Continue Lidocaine patches QD PRN Follow up with orthopedics as scheduled (9) Migraines: Code(s): G43.909 - Migraine, unspecified, not intractable, without status migrainosus Category: Medical Qualifiers: Migraine type: unspecified Status migrainosus presence: without status migrainosus Intractability: not intractable Qualified Code(s): G43.909 - Migraine, unspecified, not intractable, without status migrainosus Plan: Continue Sumatriptan 50 mg PRN and Fioricet 1 tablet 3 to 4 times a day as needed Reinforced avoidance of migraine triggers - patient states that her migraine headaches have been stable lately Follow up with neurology as scheduled (10) Vitamin D deficiency: Code(s): E55.9 - Vitamin D deficiency, unspecified Category: Medical Plan: Continue Vitamin D2 95413 units once a week (11) Obesity (BMI 30-39.9): Comment: S/P gastric bypass Code(s): E66.9 - Obesity, unspecified Category: Medical Plan: Reinforced diet; exercise and weight loss are impractical given patient's physical issues (12) Colon cancer screening: Code(s): Z12.11 - Encounter for screening for malignant neoplasm of colon Category: Medical Plan: She had a negative Cologuard back in 2021 and is now due for repeat Cologuard testing - this was ordered at her last visit a few months ago but patient states that she never received her Cologuard kit - test reordered Plan Follow up in 4 months Orders: Orders Lipid Panel 4 Months E78.00 - Pure hypercholesterolemia, unspecified Complete Blood Count Auto Diff 4 Months D64.9 - Anemia, unspecified Comprehensive [place]. Panel Fast 4 Months E78.00 - Pure hypercholesterolemia, unspecified TSH reflex Free T4 4 Months E78.00 - Pure hypercholesterolemia, unspecified UA CC w/rflx Micro + Cult 4 Months R30.0 - Dysuria Vitamin D 25-OH Total 4 Months E55.9 - Vitamin D deficiency, unspecified Referrals Cologuard Test Z12.11 - Encounter for screening for malignant neoplasm of colon, Z12.12 - Encounter for screening for malignant neoplasm of rectum Medications: Refilled tramadol 50 mg PO TID PRN 30 tabs 0RF pain 10 days
== END 2025-06-02 13:17 | disposition home or self-care (01) ==
LOC: HO.HMCH 12:10
PROVIDERS: Visit Provider Internal Medicine
DX: I25.10 Atherosclerotic heart disease of native coronary artery without angina pectoris (principal); J44.9 Chronic obstructive pulmonary disease, unspecified; E66.9 Obesity, unspecified; Z68.36 Body mass index [BMI] 36.0-36.9, adult; J30.9 Allergic rhinitis, unspecified; K95.89 Other complications of other bariatric procedure; K25.9 Gastric ulcer, unspecified as acute or chronic, without hemorrhage or perforation; D50.9 Iron deficiency anemia, unspecified; M17.0 Bilateral primary osteoarthritis of knee; M75.101 Unspecified rotator cuff tear or rupture of right shoulder, not specified as traumatic; G43.909 Migraine, unspecified, not intractable, without status migrainosus; E55.9 Vitamin D deficiency, unspecified; Z12.11 Encounter for screening for malignant neoplasm of colon

== ENCOUNTER → 2025-06-08 14:00 | Outpatient (REF) | payer OTHER, SELFPAY ==
--- NOTE | 2025-06-08 14:20 | CA_ITS ---
Transthoracic Echocardiogram Patient (Last, First, Middle): Any Ortiz J Gender: Female Date of : 1965 Age: 59 Procedure Date: 06/08/2025 Procedure Type: Transthoracic Echocardiogram Location: OP Height: 152.4 cm Weight: 83.46 kg BSA: 1.80 m2 Heart Rate: 73 bpm BP: 126 / 80 mmHg Shipping Inspector: JERILYN Referring MD: Chio Wiggins [employer] Member: Claude Moody MD Symptoms: I25.10 - Atherosclerotic heart disease of [place] coronary artery without... Study Quality: Adequate ECG Rhythm: Sinus Conclusions: - 1. Normal LV ejection fraction of 65-70% with grade 1 diastolic dysfunction 2. Normal cardiac valvular Dopplers 3. No gross pericardial effusion Findings Procedure Information The quality of the study was technically difficult. The study quality is limited by patients body habitus. Left Ventricle Normal left ventricular size, thickness, and systolic function. The visually estimated ejection fraction is between 65-70%. Spectral Doppler is indicative of an impaired relaxation filling pattern. E/E prime ratio is <8, consistent with normal filling pressures. Evidence suggests grade I (mild) diastolic dysfunction. Wall Motion Rest Echo Findings The basal inferior segment is akinetic. All other scored wall segments showed normal motion. Right Ventricle Normal right ventricular cavity size and systolic function. Atria Both atria are normal in size. There is no evidence of interatrial shunt. Aortic Valve The aortic valve was not well visualized. There is no aortic valve stenosis. There is no aortic valve regurgitation. Mitral Valve Likely normal mitral valve structure and function. There is trace mitral valve regurgitation. There is no mitral valve stenosis. Pulmonic Valve The pulmonic valve was not well visualized. Tricuspid Valve Likely normal tricuspid valve structure and function. Tricuspid regurgitation envelope is inadequate for calculation of right ventricular systolic pressure. Great Vessels The aorta was not well visualized. The pulmonary artery was not well visualized. There is no dilatation of the ascending aorta measuring 3.10 cm. Venous The inferior vena cava is normal in size and collapses greater than 50% with inspiration. Pericardium/Pleural There is no evidence of pericardial effusion. Prior Study Comparison No significant change compared to prior study dated: 02/19/2024. Measurements 2D Linear Measurements IVSd: 1.03 0.6-0.9/0.6-1.0 cm LVIDd: 4.34 3.9-5.3/4.2-5.9 cm LVIDd Index: 2.41 2.4-3.2/2.2-3.1 cm/m2 LVIDs: 2.46 2.0-3.6 cm LVPWd: 0.90 0.7-1.1 cm LA Diam: 2.90 2.7-3.8/3.0-4.0 cm LAIDs Index: 1.61 1.5-2.3 cm/m2 LV Mass: 171.34 67-162/88-224 g LV Mass Index: 95.19 43-95/49-115 g/m2 LVOT Diam: 1.80 3.0+(-)1.3 cm 2D Systolic Function EF 4C: 73.20 >55% EF 2C: 62.20 >55% EF BiP: 66.60 >55% Mitral Valve MV Pk E: 0.65 MV PK A: 0.99 MV Decel Time: 187.00 E/A: 0.70 E'Lateral: 8.49 E'Medial: 3.26 E/E' Med: 19.80 E/E' Lat: 7.60 PHT: 55.00 MVA PHT: 4.00 Decel [place]: 3.47 Aortic Valve AoV Pk Cristopher: 1.52 AoV Mn Cristopher: 1.00 AoV VTI: 0.26 AoV Pk Grad: 9.00 Aov Mn Grad: 5.00 SUYAPA Cont.VTI: 2.38 LVOT LVOT Pk Cristopher: 1.11 LVOT Mn Cristopher: 0.71 LVOT VTI: 0.25 LVOT Pk Grad: 5.00 LVOT Mn Grad: 3.00 LVOT Diam: 1.80 LVOT Area: 2.54 Diastolic Function MV Pk E: 0.65 MV Pk A: 0.99 E/A: 0.70 E'Medial: 3.26 E/E' Med: 19.80 E' Laterial: 8.49 E/E' Lat: 7.60 Right Ventricle TAPSE (mm): 21.20 TVS' Cristopher: 10.60 Tricuspid Valve RA Press: 3.00 Great Vessels Aorta Sinus of Valsalva: 3.10 2.0-3.5 cm Ao Asc: 3.10 2.1-3.4 cm Ao Arch: 2.80 Ao Desc: 1.50 Pulmonary Valve PV Pk Cristopher: 0.87 Peak PV Grad: 3.00 Updated in Other Vendor System with Status of Final Claude Moody MD electronically signed on 06/09/2025 3:46:26 PM with status of Final
== END ==
LOC: HO.CARD 14:00
PROVIDERS: PCP Internal Medicine; Visit Provider Nurse Practitioner Family
DX: I25.10 Atherosclerotic heart disease of native coronary artery without angina pectoris (principal)
CPT/HCPCS: 93306

== ENCOUNTER → 2025-06-08 14:20 | Outpatient (BNV) | payer OTHER, SELFPAY | PROVIDERS: PCP Internal Medicine; Visit Provider Internal Medicine Cardiovascular Disease | DX: I25.10 Atherosclerotic heart disease of native coronary artery without angina pectoris (principal) | CPT/HCPCS: 93306 ==

== ENCOUNTER 2025-06-17 14:53 | Outpatient (AMB) | payer OTHER, SELFPAY ==
[2025-06-17 15:02] VITALS: BP 110/60; PULSE 70; O2SAT 97; BMI 35.7
--- NOTE | 2025-06-17 15:02 | MHC.OFFVIS ---
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 Executive Required: No Bacteriologist Pharmaceutical: Bacteriologist Pharmaceutical offered & declined Accompanied by: Self / Same As Patient Allergies aspirin (ASA) Allergy (Severe, Verified 06/17/25 15:06) ITCHINESS, rash Penicillins (PENICILLINS) Allergy (Severe, Verified 06/17/25 15:06) ANAPHYLAXIS shellfish derived Allergy (Severe, Verified 06/17/25 15:06) ANAPHYLAXIS sumatriptan (From IMITREX) Allergy (Unknown, Verified 06/17/25 15:06) ANAPHYLAXIS, VOMITING, vomiting, dyspnea metoclopramide Allergy (Verified 06/17/25 15:06) Redness of Skin HPI Comments Details: The patient has a 59 y/o woman with a history of asthma COPD overlap syndrome. Still complaining of worsening cough. Currently on Spiriva and also Flovent. Still requiring short-acting beta agonist on a daily basis. She has tried Symbicort in the past that was not effective. She does complains of a postnasal drip and nasal congestion. Current having allergy symptoms. We did perform allergy testing which was abnormal. The patient could not receive allergy shots due to her significant symptoms. She was started on trelegy inhaler which appears to be very effective for her. She still has a rescue inhaler that she uses 2 to 3 times a week. Her cough is better shortness of breath is better. She has failed multiple inhalers: Advair, symbicort, flovent and Spiriva. 12/07/2022 the patient is here for pulmonary follow-up visit. She continues to do relatively well. She is still grieving the loss of her son. She has been on the Incruse and the Breo although is hard for her to keep up with the inhalers. I do believe she would do better on Trelegy inhaler. I will send that to her pharmacy. She also has been having increasing respiratory symptoms she has not been able to get her Daliresp. She had been on Daliresp for many years with very good effect. The patient does need to go back on it. I will send another prescription to the pharmacy. She continues to take her allergy medicine with good effect. Still has some shortness of breath with activity. 07/23/2023 the patient is here for a pulmonary follow-up visit. Overall the patient has been doing well currently on Breo and Incruse. She finally got the Daliresp improved. The Daliresp has been a very affecting beneficial for her. She will continue to use that on a daily basis. She did have 1 exacerbation back in May which she needed prednisone. Otherwise she has been without any prednisone requirements. She does have a rescue inhaler that she rarely uses typically less than twice a week. She did get back from a trip to the [facility]. While she was there she did have increased asthma symptoms due to some of the fumes that she was exposed to in her trip. But otherwise not bad and not require any additional therapies. No recent imaging studies to review. The patient follow-up in 6-8 months. The patient has any issues prior to that she will call for an earlier assessment. 02/07/2024 the patient is here for sick visit. She has been sick now for about 2 weeks. She started developing UR like symptoms. She tested negative for COVID. Has had worsening cough. With chest congestion. Also has some increased wheezing and chest tightness. She has been using her nebulizer. She does have some wheezing on examination today. Also complains of some ear discomfort. Primarily the left ear. Otherwise she continues use her respiratory therapy. She has been also complaining of some nausea. Will go ahead and treat her for bronchitis with an asthma exacerbation at this time. In the meantime she also responds well to Daliresp. She has been on Daliresp for some time with very good effect. Therefore will have her continue the Daliresp for this time. Once she is under biologics will look to simplify her respiratory regimen. 09/15/2024 the patient is here for a pulmonary follow-up visit. Since we last spoke she started developing chest discomfort she went to the [facility] ER where she was found to have abnormal findings on studies. Also to note the patient did have a CTA done back in 02/18/2024 which I personally reviewed demonstrating some areas of atelectasis. Therefore she was transferred to [facility] which she underwent cardiac catheterization. The patient has stent placed in March and then she required another stent in March. She could not perform cardiac rehab because she has underlying abdominal hernias. She has been recovering well. She has been tolerating her medications. She was told not to take prednisone because of her cardiac condition. She has continued to use her respiratory inhaler. Although she is using all her inhalers she continues to have shortness of breath and dyspnea and wheezing. [id number] severity. Will going add Singulair again to her regimen because spring is coming in allergies. I emphasized to her that this will not affect her cardiac status. Overall the patient is doing well will continue with current respiratory measuring and will follow-up in 6 months. 03/23/2025 the patient is here for pulmonary follow-up visit. She is struggling with her asthma. He has been having more asthma flare-ups. Significant shortness of breath and chest tightness. She can not handle steroids because of significant tachyarrhythmias. She is already struggling with that at this time. She does take all the allergy medicines with minimal effect. She takes her Symbicort as prescribed. Without any significant improvement. She does have a significantly eosinophil level and also could also have an IgE level elevated. She will benefit from biologic therapy. Will go ahead and request blood work at this time and then start him biologic therapy to stabilize her symptoms. In the meantime she is going to continue with all other allergy medicine as prescribed. The patient is also having chest congestion. Moderate severity. She has been expectorating coughing more regularly. She did have a barium swallow at [facility] demonstrating a large hiatal hernia with likely a stricture. She was referred for an EGD. In the meantime will start on azithromycin Saturday for promotility benefits and also to treat her bronchitis. Will do this just withdrawal for a month. Then she can stop it. 06/17/2025 the patient is here for pulmonary follow-up visit. The patient overall feels a little better. She did start the Fasenra injections and she feels like her allergies and some of the asthma symptoms improved. Although she continues to have issues with strong odors and sense. She does get chest tightness and wheezing. She is having to use her rescue inhaler often. She also complains of chest congestion. She did well on the Daliresp but for some reason it was no longer covered. She is also struggling with the dysmotility disorder. She does have some degree of dysmotility that is been documented. we did treat her with the azithromycin for promotility and she did have some good results to try to minimize any cough or potential micro aspirations. She will follow-up with GI to see if there are any other alternatives she can use for promotility medicines. For now though she is maximizing her respiratory therapy. She does have evidence of chronic bronchitis and did benefit from Daliresp. She did well on it her chest congestion was significantly improved. Will go ahead and we prescribed that medication to her pharmacy. The patient does have significant polypharmacy right now. We did talk that during her next visit we need to work on deescalating some of the therapies. [facility] Medical History Obesity (BMI 30-39.9) Nausea and vomiting Acute respiratory disease STEMI (ST elevation myocardial infarction) Atypical pneumonia Left hip pain Osteoarthritis Low back pain Multiple gastric erosions Bronchitis Conjunctival hemorrhage of left eye CAD (coronary artery disease) Osteoarthritis of left knee Severe allergic reaction Edema Postprandial vomiting Postprandial nausea Primary osteoarthritis of left knee GERD without esophagitis Vitamin D deficiency Chronic allergic rhinitis Asthma-COPD overlap syndrome Migraines Anemia Kidney stones Asthma Surgical History S/P cardiac catheterization H/O heart artery stent Hx of gastric bypass (~2006) Hx of ventral hernia repair History of bilateral tubal ligation H/O section Hx of rotator cuff surgery (~2016) H/O abdominoplasty History of renal stent Family History Father History of heart surgery Hx of blood clots Mother Heart problem Paternal Grandfather Skin cancer Social History Household Members: Children Housing: Apartment Are you a primary disabilities caregiver to a significant other at home: No Do you presently have visiting nurse or other home services: No Alcohol intake: current Alcohol intake frequency: a few times a month Alcohol type: wine Patient Tobacco Use Status: Never used Tobacco e-Cigarette/Vaping Use: Never Used Second Hand Smoke Exposure: No service: No Current occupational status: unemployed Current occupational exposures/hazards: No Cognitive needs: No Hearing needs: No Vision needs: No Review of Systems Const Denies chills, Reports fatigue, Denies fever(s), Reports headache(s) (on and off) and Reports weight loss ENT Denies dysphagia, Denies dizziness, Denies otalgia, Reports headache(s) (on and off), Denies sinus pain and Denies sore throat Card Denies chest pain, Denies palpitations, Denies dyspnea and Reports dyspnea on exertion Resp Reports chest congestion, Reports cough, Denies dyspnea, Reports dyspnea on exertion and Reports wheezing GI Denies abdominal pain, Denies constipation, Denies dysphagia, Denies heartburn, Denies diarrhea, Denies nausea and Denies vomiting Denies difficulty voiding, Denies nocturia and Denies dysuria Musc Reports back pain (over the lower back) Neuro Denies dizziness and Reports headache(s) (on and off) Endo Reports fatigue and Denies palpitations Aller/Immun Reports wheezing Physical Exam Vital Signs: Last Vital Signs Pulse 70 06/17/25 15:02 BP 110/60 06/17/25 15:02 Pulse Ox 97 06/17/25 15:02 Oxygen Delivery Method Room Air 06/17/25 15:02 BMI result Body Mass Index 35.7 Const General: alert Eyes Pupils: Equal, round and reactive pupils present Neck Neck: Yes normal visual inspection, Yes full ROM and Yes no lymphadenopathy Chest Chest palpation & inspection: normal inspection of the chest Resp Effort & Inspection: normal respiratory effort Auscultation: no wheezes and diminished lung sounds Cardio Rate: regular rate Rhythm: regular rhythm Heart sounds: S1 normal heart sound present and S2 normal heart sound present GI Palpation (GI): Soft to palpation and nontender Auscultation: normal bowel sounds Skin General skin exam: rashes and/or lesions noted Neuro Cranial nerves: Yes Equal, round and reactive pupils present Assessment & Plan Assessment & Plan (1) Asthma: Code(s): J45.909 - Unspecified asthma, uncomplicated Category: Medical Qualifiers: Asthma complication type: uncomplicated Asthma persistence: persistent Asthma severity: moderate Qualified Code(s): J45.40 - Moderate persistent asthma, uncomplicated (2) Chronic allergic rhinitis: Code(s): J30.9 - Allergic rhinitis, unspecified Category: Medical (3) GERD without esophagitis: Code(s): K21.9 - Gastro-esophageal reflux disease without esophagitis Category: Medical (4) Asthma-COPD overlap syndrome: Code(s): J44.9 - Chronic obstructive pulmonary disease, unspecified Category: Medical Plan continue Breo/Incruse Xopenex HFA as needed Continue Singulair/Claritin continue Fasenra Restart Daliresp 500mcg daily No steroids due to adverse effects azithromycin Saturday as a promotility agent reflux diet F/U 6 months Medications: Refilled loratadine 10 mg PO DAILY 90 tabs 3RF for allergies levalbuterol tartrate 45 mcg/actuation 2 puffs inhalation Q4H PRN 15 ea 11RF for wheezing montelukast 10 mg PO DAILY 90 tabs 3RF 90 days J45.909 - Unspecified asthma, uncomplicated azithromycin Take 1 tablet on Saturday/Saturday/Saturday 250 mg PO 3XW 12 tabs 1RF 28 days K21.9 - Gastro-esophageal reflux disease without esophagitis Coding Level of Care Code Est Pt Level 4 (15279) Diagnoses Moderate persistent asthma without complication J45.40 Asthma complication type: uncomplicated Asthma persistence: persistent Asthma severity: moderate Chronic allergic rhinitis J30.9 GERD without esophagitis K21.9 Asthma-COPD overlap syndrome J44.9 Time Spent (min) 17
== END 2025-06-17 15:34 | disposition home or self-care (01) ==
LOC: HO.HPS 14:54
PROVIDERS: PCP Internal Medicine; Visit Provider Hospitalist
DX: J45.40 Moderate persistent asthma, uncomplicated (principal); J30.9 Allergic rhinitis, unspecified; K21.9 Gastro-esophageal reflux disease without esophagitis; J44.9 Chronic obstructive pulmonary disease, unspecified
CPT/HCPCS: 99214

== ENCOUNTER → 2025-06-17 14:53 | Outpatient (BNVA) | payer OTHER, SELFPAY | PROVIDERS: PCP Internal Medicine; Visit Provider Hospitalist | DX: J45.40 Moderate persistent asthma, uncomplicated (principal); J30.9 Allergic rhinitis, unspecified; K21.9 Gastro-esophageal reflux disease without esophagitis; J44.9 Chronic obstructive pulmonary disease, unspecified; Z79.899 Other long term (current) drug therapy | CPT/HCPCS: 99212 ==